=== PATIENT | female | born 1955 | race Caucasian/White ===

== ENCOUNTER 2021-03-12 15:36 | Inpatient (IN) | payer MEDICARE, OTHER, MEDICAID ==
[~2021-03-12] VITALS: Ht 160 cm; Wt 69.6 kg
[~2021-03-12 15:36] MED LIST: ALBU17AE3 IH; ASCO500T20 PO; ASPI-875 PO; BUDE6HFA IH; CYCL10TA9 PO; DIME50TA83 PO; DIPH25TA82 PO; DIVA125T3 PO; EPIN0.3P3 IM; HYDR-2890 PO; LACT1CAP62 PO; LVT.1T PO; METH4TAB PO; MNTL10T PO; NF-ESOM40C PO; SUMA100T3 PO; TRAM50TA2 PO; TRAZ150T42 PO; VITA400T9 PO; VIVELLE DOT 0.1 MG TOP; WELCHOL 625MG PO
[2021-03-12] MEDS ORDERED: CARB1DRO OU (16:18)
[2021-03-12] MEDS ORDERED: RT-ALBUINH IH (16:18)
[2021-03-12] MEDS ORDERED: ALB0.5V INH (16:18)
[2021-03-12] MEDS ORDERED: COLE1TAB PO (16:18)
[2021-03-12] MEDS ORDERED: TRAZ150T72 PO (16:18)
[2021-03-12] MEDS ORDERED: ASPI-1238 PO (16:18)
[2021-03-12] MEDS ORDERED: TR1C15 TP (16:18)
[2021-03-12] MEDS ORDERED: MONT10TA32 PO (16:18)
[2021-03-12] MEDS ORDERED: ACET325C7 PO (16:18)
[2021-03-12] MEDS ORDERED: FOLI20CA PO (16:18)
[2021-03-12] MEDS ORDERED: SUMA100T2 PO (16:18)
[2021-03-12] MEDS ORDERED: NF-ESOM40C PO (16:18)
[2021-03-12] MEDS ORDERED: LISI2.5T PO (16:18)
[2021-03-12] MEDS ORDERED: DOCU100T2 PO (16:18)
[2021-03-12] MEDS ORDERED: NIFE30TA2 PO (16:18)
[2021-03-12] MEDS ORDERED: BUDE10.2 IH (16:18)
[2021-03-12] MEDS ORDERED: LEVO200T6 PO (16:18)
[2021-03-12] MEDS ORDERED: LIRA0.6P SQ (16:18)
[2021-03-12] MEDS ORDERED: SPIR50TA4 PO (16:18)
[2021-03-12] MEDS ORDERED: ATOR40TA70 PO (16:18)
[2021-03-12] MEDS ORDERED: FURO40TA4 PO (16:18)
[2021-03-12] MEDS ORDERED: CYAN500T8 PO (16:18)
[2021-03-12] MEDS ORDERED: SUCR1TAB36 PO (16:18)
[2021-03-12] MEDS ORDERED: EPIN0.3P2 IJ (16:18)
[2021-03-12 17:50] VITALS: BP 121/58
--- NOTE | 2021-03-12 18:12 | PM&R Post Admission Assessment ---
PM&R HP Date of Visit: Mar 12, 2021 Time of Visit: 18:30 History of Present Illness Chief complaint: CVA with left-sided hemiparesis History of present illness: This is a 65-year-old white female who was transferred from [facility] after sustaining a CVA with left-sided hemiparesis. Apparently she was at a rehab facility and she had an abrupt onset of left-sided weakness and x-ray was obtained but patient started experiencing issues and she went to the ER and found to have a CVA and was not a TPA candidate. She remains on oxygen 14/03 since she had acute respiratory failure and pneumonia. Her bowels are moving she had one today. at the bedside. She does get paracenteses on a regular basis due to Lai source of cirrhosis. We will monitor blood sugar closely and initiate aggressive therapy to regain function of the left side. [facility] note: Discharge Diagnoses and Relevant Hospital Course: Active Hospital Problems Diagnosis Acute CVA (cerebrovascular accident) Left hemiparesis Hypokalemia Hypothyroidism Acute on chronic anemia Cerebrovascular accident (CVA) due to occlusion of right middle cerebral artery Abdominal distention Type 2 diabetes mellitus without complication, without long-term current use of insulin Hepatic fibrosis Benign hypertension Reflux esophagitis Resolved Hospital Problems No resolved problems to display. Jovanna oseguera 65 y.o.femalewho was admitted to [facility] on03/09/2021nd found to have a principle diagnosis of Cerebrovascular accident (CVA) due to occlusion of right middle cerebral artery. As per HPI,Jovanna oseguera 65 y.o.femaleadmitted through the emergency room with chief complaint of inability to move her left side. She reports a sudden loss of movement of her left side this past 03/06/2021 while at [facility]. It occurred after she was lifted from the bed to a chair to eat. Loss of movement was for upper and lower extremity. She told staff who ordered an x-ray and then subsequently did not do anything else over the weekend. Patient came to the ER today secondary to difficulty swallowing CT head + for acute infarct right frontal, temporal, parietal lobe. Continue ASA 81 mg Continue lipitor 40 mg Resume lasix, aldactone HOSPITAL ADMINISTRATIVE ASSISTANT eval recommendations noted Continue PT / OT - recommended acute inpatient rehab ECHO -Normal ventricular function. 2. Negative bubble study. 3. Normal right-sided pressures. 4. Normal valvular function Patient is medically stable for discharge to rehab. Patient was advised to follow up with PCP in 2-3 weeks. [facility] note 02/05/21: Jovanna oseguera 65 y.o.femalewhyris was admitted to [facility] on 1and found to have a principle diagnosis of acute on chronic respiratory failure. She is COVID positive. Her breathing has stabilized and she is currently on 4 L supplement oxygen via nasal cannula. Additionally while here, there was a drop in her Hemoglobin while in the hospital. She underwent a colonoscopy and EGD by GI service. There were diverticulosis without noted active bleeding. Additionally, EGD demonstrated Grade 1 esophageal varices, without bleeding. Patient is going to have her home blood thinning agents held for the immediate future. She is going to referred to the GI clinic for ongoing follow-up/management. Of note, pulse rate has been low in the hospital - will not start B-lora for esophageal varices. Patient has had ongoing HTN while in the hospital. Home medications of Nefedpine, lasix and spironolactone. HTCZ was added in the hospital and lisinopril is being added at discharge. Patient has had low potassium while in the hospital. It is being supplemented as an outpatient Dr Skinner: 05/2020: Referring Physician or PCP: Chris Nolan MD CC: Diarrhea, dysphagia, esophageal varices HPI: Jovanna oseguera 64 y.o.femalewhyris is seen in the clinic today for f/u. She has a Lai cirrhosis. Has esophageal varices. She also has dysphagia intermittently. Diarrhea controlled with colestipol. Do not have bloody stool. No side effects from Gi meds reported. Past HPI EGD: 05/2019 - Grade II esophageal varices. - Portal hypertensive gastropathy. - Gastric antral vascular ectasia without bleeding. Colonoscopy:05/2019 - Erythematous mucosa in the cecum. Biopsied. - Erythematous mucosa in the terminal ileum. Biopsied. - External and internal hemorrhoids. - Increased mucosa vascular pattern in the entire examined colon. Recommendation: Hyperplastic and tubular adenoma. Repeat colonoscopy 3 years, 2021. EMS: 05/2019 abnormal esophageal manometry and impedance. Findings suggestEGJoutflow obstruction([place] classification) Recommendations:Continue PPI. Trial ofimdur ABD: 05/2019 Hepatic nodular contour and increased echogenicity, differentialconsiderations, diffuse hepatocellular disease or diffuse fatty infiltration. She is been on MiraLAX, Questran, Bentyl, Flagyl, Fiber, Lomotil and Xifaxan with no improvement in the past 2 years. C. difficile study negative. Her previous appointment she felt Colestid twice a day seemed to work well, she is very pleased with this regimen. She currently takes Nexium once a day for acid reflux control occasionally she will take an extra tablet for breakthrough symptoms HS. She is been on multiple other PPIs including omeprazole/ AcipHex/ Dexilant. Overall she feels PPIs worked fairly well. Previous appointment she was complaining of increased difficulty swallowing, therefore she underwent her recent EGD and motility study that indicated E GJ outflow obstruction and started on isosorbide 30 mg daily. She does not notice any difference in her swallowing ability and complains of a headache with this medicine. She has a long history of fatty steatosis secondary to BMI, hypertriglycerides and diabetes type 2. Her most recent ultrasound indicated advancing fibrosis of the liver. Her recent EGD indicated esophageal varices grade 2. She denies any skin changes, peripheral swelling, confusion, tremors, abnormal bruising or anxiety. 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) Smoking Status: Former Smoker Immunizations Up To Date Tetanus Booster (TDap): Less than 5yrs Date of Pneumonia Vaccine: December 20, 2009 Date of Influenza Vaccine: May 22, 2013 Past Medical History Surgeries: Orthopedic Respiratory: COPD, Emphysema, Pneumonia Cardiac: High Cholesterol, Hypertension Neurological: Neuropathy, Stroke Genitourinary: Bladder Infection Gastrointestinal: Gastroesophageal Reflux, Cirrhosis (From Lai) Musculoskeletal: Arthritis, Chronic Back Pain Endocrine: Hypothyroidsim HEENT: Cataract, Glaucoma Psychosocial: Anxiety, Depression Family History Alcoholism 03 FATHER Cancer 03 FATHER GRANDPARENTS Cancer of colon 03 FATHER Congestive heart failure GRANDPARENTS Family history: Alzheimer's disease 03 FATHER Family history: Cardiovascular disease GRANDPARENTS Family history: Diabetes mellitus 03 FATHER 03 MOTHER GRANDPARENTS Family history: Hypertension 03 FATHER 03 MOTHER Family history: Thyroid disorder 03 MOTHER 09 SISTER Hearing loss 03 MOTHER Hereditary disease 09 SISTER History of - anemia 09 SISTER Stroke 03 MOTHER SON No Family History of: Kidney disease Myocardial infarction PM&R Allergy/Meds/Data Review Allergies Coded Allergies: Sulfa (Sulfonamide Antibiotics) (Unverified Allergy, HIVES, 09/18/13) codeine (Unverified Allergy, HIVES, 09/18/13) exenatide (Unverified Allergy, HIVES, 09/18/13) Uncoded Allergies: IV CONTRAST DYE (Allergy, HIVES, 09/18/13) Home Medications Scheduled Aspirin (Aspirin EC), 81 MG PO DAILY, (Reported) Atorvastatin Calcium (Atorvastatin Calcium), 40 MG PO HS, (Reported) Budesonide/Formoterol Fumarate (Symbicort 160-4.5 Mcg Inhaler), 2 PUFF IH BID, (Reported) Colestipol HCl (Colestipol HCl), 3 GM PO BID, (Reported) Cyanocobalamin (Vitamin B-12) (Vitamin B-12), 500 MCG PO DAILY, (Reported) Esomeprazole Magnesium (Nexium), 40 MG PO DAILY, (Reported) Folic Acid (Folic Acid), 20 MG PO HS, (Reported) Furosemide (Furosemide), 40 MG PO DAILY, (Reported) Levothyroxine Sodium (Levothyroxine Sodium), 200 MCG PO DAILY, (Reported) Liraglutide (Victoza 2-Wil), 0.6 MG SQ DAILY, (Reported) Lisinopril (Lisinopril), 2.5 MG PO DAILY, (Reported) Montelukast Sodium (Montelukast Sodium), 10 MG PO HS, (Reported) Nifedipine (Procardia Xl), 30 MG PO DAILY, (Reported) Spironolactone (Spironolactone), 50 MG PO DAILY, (Reported) Sucralfate (Carafate), 1 GM PO QIDACHS, (Reported) Trazodone HCl (Trazodone HCl), 150 MG PO HS, (Reported) Triamcinolone Acet (Triamcinolone Acetonide 0.1% Cream), 1 APPLIC TP BID, (Reported) Scheduled PRN Acetaminophen (Tylenol), 650 MG PO Q4H PRN for PAIN-MILD (1-4), (Reported) Albuterol Sulfate (Proair Hfa), 1 PUFF IH EVERY 2 HOURS PRN for SHORTNESS OF BREATH, (Reported) Albuterol Sulfate (Albuterol Sulfate), 2.5 MG INH Q4H PRN for SHORTNESS OF BREATH, (Reported) Carboxymethylcellulose Sodium (Refresh Plus), 1 DROP OU PRN PRN for DRY EYES, (Reported) Docusate Sodium (Docusate Sodium), 100 MG PO BID PRN for CONSTIPATION-1ST LINE, (Reported) Epinephrine (Epipen), 0.3 MG IJ PRN PRN for ALLERGIC REACTION, (Reported) Sumatriptan Succinate (Imitrex), 100 MG PO DAILY PRN for MIGRAINE, (Reported) Discontinued Medications Budesonide/Formoterol Fumarate (Symbicort Inhaler 160/4.5 Mcg), 2 PUFF IH BID PRN for SHORTNESS OF BREATH, (Reported) Discontinued Reason: No Longer Taking Cyclobenzaprine Hcl (Cyclobenzaprine Hcl), 10 MG PO BID, (Reported) Discontinued Reason: No Longer Taking Cyclobenzaprine Hcl (Cyclobenzaprine Hcl), 1 EACH PO Q8HR PRN for MUSCLE CRAMPS Discontinued Reason: No Longer Taking Dimenhydrinate (Dramamine), 50 MG PO Q6H PRN for NAUSEA, (Reported) Discontinued Reason: No Longer Taking Diphenhydramine Hcl (Diphenhydramine 25 Mg), 25 MG PO BID, (Reported) Discontinued Reason: No Longer Taking Esomeprazole Mag Trihydrate (Nexium), 40 MG PO DAILY, (Reported) Discontinued Reason: No Longer Taking Hydrocodone Bit/Acetaminophen (Hydrocodon-Acetaminophn 10-325), 1-2 EACH PO Q4H PRN for PAIN Discontinued Reason: No Longer Taking Levothyroxine Sodium (Levothyroxine 100 Mcg Tab), 100 MCG PO DAILY, (Reported) Discontinued Reason: No Longer Taking Methylprednisolone (Medrol Dose Pack), 0 PO UD Discontinued Reason: No Longer Taking Montelukast Sodium (Singulair 10 Mg), 10 MG PO HS, (Reported) Discontinued Reason: No Longer Taking Tramadol Hcl (Tramadol Hcl), 50 MG PO BID, (Reported) Discontinued Reason: No Longer Taking Trazodone Hcl (Trazodone Hcl), 150 MG PO HS, (Reported) Discontinued Reason: No Longer Taking Current Medications Current Medications Reviewed Review of Systems Constitutional: see HPI, malaise, weakness EENTM: no symptoms reported Respiratory: dyspnea on exertion Cardiovascular: no symptoms reported Gastrointestinal: no symptoms reported Genitourinary: no symptoms reported Musculoskeletal: back pain, joint pain Skin: no symptoms reported Psychiatric/Neurological: Anxiety, Weakness Physical Exam Physical Exam Vital Signs Vital Signs - First Documented 03/12/21 17:50 Temp 36.6 Pulse 71 Resp 18 B/P (MAP) 121/58 (79) Pulse Ox 96 O2 Delivery Nasal Cannula O2 Flow Rate 2.00 Capillary Refill : Height, Weight, BMI Height: 5'3.00" Weight: 189lbs. 0.0oz. 85.625804le; 24.80 BMI Method: General Appearance: No Apparent Distress, WD/WN, Chronically ill Eyes: Bilateral Eye Normal Inspection, Bilateral Eye PERRL HEENT: PERRL/EOMI, Normal ENT Inspection, Pharynx Normal Neck: Full Range of Motion, Normal Inspection, Non Tender, Supple, Carotid Bruit Respiratory: Chest Non Tender, Lungs Clear, Normal Breath Sounds, No Accessory Muscle Use, No Respiratory Distress, Decreased Breath Sounds, Other (Maintained on O2 24/7) Cardiovascular: Regular Rate, Rhythm, No Edema, No Gallop, No JVD, No Murmur, Normal Peripheral Pulses Gastrointestinal: Normal Bowel Sounds, No Organomegaly, No Pulsatile Mass, Non Tender, Soft Back: Normal Inspection, No CVA Tenderness, No Vertebral Tenderness Extremity: Normal Capillary Refill, Normal Inspection, Normal Range of Motion, Non Tender, No Calf Tenderness, No Pedal Edema Neurologic/Psychiatric: Alert, Oriented x3, Normal Mood/Affect, Motor Weakness (Left-sided weakness upper extremity 0/5 left lower extremity 1/5) Skin: Normal Color, Warm/Dry Lymphatic: No Adenopathy PM&R Medical Assessment & Plan REHAB/MEDICAL ASSESSMENT AND PLAN: REHAB IMPAIRMENT GROUP: CVA ETIOLOGIC DIAGNOSIS: CVA The comorbidities that impact the patients function and/or functional outcome by: Diabetes, COPD oxygen dependent, Lai induced cirrhosis requiring paracentesis on a regular basis REHAB PLAN: The patient is being admitted to our comprehensive inpatient rehabilitation facility and can tolerate the intensity of service consisting of at least: 180 minutes of therapy a day, 5 out of 7 days a week Rehab treatment will consist of: PT and OT will focus on regaining function of the left lower extremity with the use of assistive devices and improving independence in ADLs The patient/family has a good understanding of our discharge process and will benefit from an interdisciplinary inpatient rehabilitation program. The patient has potential to make improvement and is in need of at least two of the following multidisciplinary therapies including but not limited to physical, occupational, speech, and prosthetics and orthotics. Additionally the patient will need services from respiratory, nutritional services, wound care, psychology, etc. (Customize this to each patient). Given the patients complex condition and risk of further medical complications, rehabilitation services cannot be safely or effectively provided at a lower level of care such as a intermediate facility. BARRIERS TO DISCHARGE: Severe left-sided weakness ESTIMATED LOS: 14 days DISPOSITION: Home with RELEVANT CHANGES SINCE PREADMISSION SCREENING: I have compared the patients medical and functional status at the time of the preadmission screening and there are: no changes PROGNOSIS: Fair REHABILITATION GOALS: 1. PT and OT will focus on regaining function of the left lower extremity with the use of assistive devices and improving independence in ADLs All the above goals were reviewed with the patient and he/she is in agreement. By signing this document, I acknowledge that I have personally performed a full physical examination on this patient within 24 hours of admission to this inpatient rehabilitation facility and have determined the patient to be able to tolerate the above course of treatment at an intensive level for a reasonable period of time. I will be completing a detailed individualized Plan of Care for this patient by day #4 of the patients stay based upon the Preadmission Screen, the Post-Admission Evaluation, and the therapy evaluations. Admission Dx/Comorbidities: (1) CVA (cerebral vascular accident) ICD Codes: I63.9 - Cerebral infarction, unspecified (2) Cirrhosis ICD Codes: K74.60 - Unspecified cirrhosis of liver (3) LAI (nonalcoholic steatohepatitis) ICD Codes: K75.81 - Nonalcoholic steatohepatitis (LAI) (4) Status post abdominal paracentesis ICD Codes: Z98.890 - Other specified postprocedural states (5) Left-sided weakness ICD Codes: R53.1 - Weakness (6) Diabetes ICD Codes: E11.9 - Type 2 diabetes mellitus without complications (7) COPD (chronic obstructive pulmonary disease) ICD Codes: J44.9 - Chronic obstructive pulmonary disease, unspecified (8) Dependence on supplemental oxygen ICD Codes: Z99.81 - Dependence on supplemental oxygen (9) Anemia ICD Codes: D64.9 - Anemia, unspecified (10) Hypertension ICD Codes: I10 - Essential (primary) hypertension (11) Hyperlipidemia ICD Codes: E78.5 - Hyperlipidemia, unspecified (12) Chronic back pain ICD Codes: M54.9 - Dorsalgia, unspecified; G89.29 - Other chronic pain (13) GERD (gastroesophageal reflux disease) ICD Codes: K21.9 - Gastro-esophageal reflux disease without esophagitis (14) Hypothyroidism ICD Codes: E03.9 - Hypothyroidism, unspecified Assessment/Plan Assessment and Plan Assess & Plan/Chief Complaint Assessment: CVA with left-sided weakness severe disability COPD oxygen dependent 14/03 Cirrhosis from LAI Paracenteses on regular basis Anemia Diabetes Hypertension Hypothyroidism Migraines Chronic back pain GERD Anemia Plan: Supportive care Aggressive therapy Oxygen dependent NALLELY IBRAHIM DO Mar 12, 2021 18:12
[2021-03-12] MEDS ORDERED: DOCUSATE SODIUM 100 MG (COLACE) CAP PO PRN ×2 (18:15→18:45)
[2021-03-12] MEDS ORDERED: CALCIUM CARBONATE 500 MG (TUMS) TAB.CHEW PO PRN (18:15)
[2021-03-12] MEDS ORDERED: LACTULOSE SYRUP 10GM/15ML (ENULOSE) 30ML UDC PO PRN (18:15)
[2021-03-12] MEDS ORDERED: ACETAMINOPHEN 325 MG TABLET PO PRN (18:15)
[2021-03-12] MEDS ORDERED: LOPERAMIDE 2 MG (IMODIUM) TABLET PO PRN (18:15)
[2021-03-12] MEDS ORDERED: FLEET ENEMA ADULT 1 EA BTL PR PRN (18:15)
[2021-03-12] MEDS ORDERED: ALPRAZolam 0.25 MG (XANAX) TAB PO PRN (18:15)
[2021-03-12] MEDS ORDERED: RT-ALBUTEROL SULF 2.5 MG/3 ML PRE-MIX VIAL IH PRN (18:30)
[2021-03-12] MEDS ORDERED: SUMATRIPTAN SUCCINATE 100 MG PO PRN (18:30)
[2021-03-12] MEDS ORDERED: ARTIFICAL TEARS 0.4 ML UNIT DOSE (REFRESH PLUS) OU PRN (18:30)
[2021-03-12] MEDS ORDERED: EPINEPHRINE 0.3 MG IJ PRN (18:30)
[2021-03-12] MEDS ORDERED: NON-FORMULARY MEDICATION 1 EA EA (Acetaminophen (Tylenol) 650 MG) PO PRN (18:30)
[2021-03-12] MEDS ORDERED: NON-FORMULARY MEDICATION 1 EA EA (Docusate Sodium 100 MG) PO PRN (18:30)
[2021-03-12] MEDS: ENOXAPARIN 40 MG/0.4 ML (LOVENOX) SYR SC SCH (18:43)
[2021-03-12] MEDS ORDERED: SUMAtriptan 50 MG (IMITREX) TAB PO PRN (18:45)
[2021-03-12] MEDS ORDERED: EPINEPHrine INJECTION 1 MG/ML AMP IM PRN (18:45)
[2021-03-12 20:00] VITALS: BP 105/53
[2021-03-12] MEDS: MONTELUKAST 10 MG (SINGULAIR) TAB PO SCH (20:24)
[2021-03-12] MEDS: MELATONIN 3 MG TABLET PO PRN (20:24)
[2021-03-12] MEDS: TRIAMCINOLONE 0.1% CR (KENALOG) 15 GM TUBE TP SCH (20:25)
[2021-03-12] MEDS: traZODone 150 MG (DESYREL) TABLET PO SCH (20:26)
[2021-03-12] MEDS: ONDANSETRON 4 MG (ZOFRAN) ORAL DISSOLVE TAB PO PRN (20:44)
[2021-03-12] MEDS: DOCUSATE SODIUM 100 MG (COLACE) CAP PO SCH (21:00)
[2021-03-12] MEDS ORDERED: FOLIC ACID 20 MG PO SCH (21:00)
[2021-03-12] MEDS ORDERED: NON-FORMULARY MEDICATION 1 EA EA (Budesonide/Formoterol Fumarate (Symbicort 160-4.5 Mcg In IH SCH (21:00)
[2021-03-12] MEDS: COLESTIPOL 1 GM (COLESTID) TAB PO SCH (21:00)
[2021-03-12] MEDS: SUCRALFATE 1 GM (CARAFATE) TAB PO SCH (21:00)
[2021-03-12] MEDS: SENNA W/DOCUSATE (SENOKOT S) TABLET PO SCH (21:00)
[2021-03-12] MEDS: polyethylene glycoL POWDER 17 GM (MIRALAX) PACK PO SCH (21:00)
[2021-03-12] MEDS: RT--FLUTICASONE/SALMETEROL 232-14 (AIRDUO RespiCLICK) IH SCH (21:18)
[2021-03-13] MEDS: HYDROcodone/APAP 5 MG/325 MG (LORTAB) TAB PO PRN ×2 (05:50→11:14)
[2021-03-13] MEDS: LEVOTHYROXINE 100 MCG (LEVOTHROID) TAB PO SCH (05:51)
[2021-03-13 05:55] LABS: BASOPHILS # (AUTO) 0.1 10^3/uL (0.0-0.1); BASOPHILS % (AUTO) 1 % (0-10); EOSINOPHILS % (AUTO) 0 % (0-10); HEMATOCRIT 26 % (35-52); HEMOGLOBIN 8.1 g/dL (11.5-16.0); LYMPHOCYTES # (AUTO) 1.3 10^3/uL (1.0-4.0); LYMPHOCYTES % (AUTO) 20 % (12-44); MEAN CORPUSCULAR HEMOGLOBIN 24 pg (25-34); MEAN CORPUSCULAR HGB CONC 31 g/dL (32-36); MEAN CORPUSCULAR VOLUME 77 fL (80-99); MEAN PLATELET VOLUME 9.8 fL (9.0-12.2); MONOCYTES # (AUTO) 0.7 10^3/uL (0.0-1.0); MONOCYTES % (AUTO) 10 % (0-12); NEUTROPHILS # (AUTO) 4.5 10^3/uL (1.8-7.8); NEUTROPHILS % (AUTO) 68 % (42-75); PLATELET COUNT 272 10^3/uL (130-400); WHITE BLOOD COUNT 6.6 10^3/uL (4.3-11.0)
[2021-03-13] MEDS: CYANOCOBALAMIN 1,000 MCG (VITAMIN B-12) TABLET PO SCH ×2 (06:02→09:09)
[2021-03-13] MEDS: SUCRALFATE 1 GM (CARAFATE) TAB PO SCH ×4 (06:02→21:32)
[2021-03-13 06:07] LABS: ALBUMIN 2.4 GM/DL (3.2-4.5); POTASSIUM 3.7 MMOL/L (3.6-5.0)
[2021-03-13 06:08] LABS: CALCIUM 7.4 MG/DL (8.5-10.1)
[2021-03-13 06:09] LABS: TOTAL PROTEIN 5.7 GM/DL (6.4-8.2)
[2021-03-13 06:11] LABS: BILIRUBIN,TOTAL 0.8 MG/DL (0.1-1.0)
[2021-03-13 06:13] LABS: CREATININE SERUM 0.83 MG/DL (0.60-1.30)
--- NOTE | 2021-03-13 06:19 | PM&R Progress Note ---
Subjective HPI/CC On Admission Date Seen by Provider: Mar 13, 2021 Time Seen by Provider: 10:00 Subjective/Events-last exam 03/13/21: Pt doing really well DC the martinez catheter Ultrasound will be performed and paracentesis will be performed by Dr. Hernandez Hgb 8.1 give one dose of iron infusion She is reusing Carafate as requested Updated Review of Systems General: Fatigue, Malaise Gastrointestinal: Other (distention) Neurological: Weakness, Incoordination Objective Exam Vital Signs Vital Signs Date Time Temp Pulse Resp B/P (MAP) Pulse Ox O2 Delivery O2 Flow Rate FiO2 03/13/21 19:41 2.00 03/13/21 11:05 95 Nasal Cannula 03/13/21 07:50 36.4 67 14 107/52 (70) Capillary Refill : General Appearance: No Apparent Distress, WD/WN, Chronically ill HEENT: PERRL/EOMI, Normal ENT Inspection, Pharynx Normal Neck: Full Range of Motion, Normal Inspection, Non Tender, Supple, Carotid Bruit Respiratory: Chest Non Tender, Lungs Clear, Normal Breath Sounds, No Accessory Muscle Use, No Respiratory Distress, Decreased Breath Sounds, Other (Maintained on O2 24/7) Cardiovascular: Regular Rate, Rhythm, No Edema, No Gallop, No JVD, No Murmur, Normal Peripheral Pulses Gastrointestinal: Normal Bowel Sounds, No Organomegaly, No Pulsatile Mass, Non Tender, Soft, Distended, Other (ascites) Back: Normal Inspection, No CVA Tenderness, No Vertebral Tenderness Extremity: Normal Capillary Refill, Normal Inspection, Normal Range of Motion, Non Tender, No Calf Tenderness, No Pedal Edema Neurologic/Psychiatric: Alert, Oriented x3, Normal Mood/Affect, Motor Weakness (Left-sided weakness upper extremity 0/5 left lower extremity 1/5) Skin: Normal Color, Warm/Dry Lymphatic: No Adenopathy Results/Procedures Lab Laboratory Tests 03/13/21 05:30 Patient resulted labs reviewed. [facility] Transfers Therapy Code Descriptions/Definitions Functional [place]es Measure: 0=Not Assessed/NA 4=Minimal Assistance 1=Total Assistance 5=Supervision or Setup 2=Maximal Assistance 6=Modified [place]es 3=Moderate Assistance 7=Complete IndependenceSCALE: Activities may be completed with or without assistive devices. 0-Dfneozkknb-yuiuldd completes the activity by him/herself with no assistance from a helper. 5-Set-up or Clean-up Assistance-helper sets up or cleans up; patient completes activity. [place] assists only prior to or following the activity. 4-Supervision or Touching Assistance-helper provides verbal cues and/or touching/steadying and/or contact guard assistance as patient completes activity. Assistance may be provided throughout the activity or intermittently. 3-Partial/Moderate Assistance-helper does LESS THAN HALF the effort. [place] lift s, holds or supports trunk or limbs, but provides less than half the effort. 2-Substantial/Maximal Assistance-helper does MORE THAN HALF the effort. [place] lifts or holds trunk or limbs and provides more than half the effort. 9-Wxbxrhbux-bddkgk does ALL the effort. Patient does none of the effort to complete the activity. Or, the assistance of 2 or more helpers is required for the patient to complete the activity. If activity was not attempted, code reason: 7-Patient Refused. 9-Not Applicable-not attempted and the patient did not perform the activity before the current illness, exacerbation or injury. 10-Not Attempted due to Environmental Limitations-(lack of equipment, weather restraints, etc.). 88-Not Attempted due to Medical Conditions or Safety Concerns. Assessment/Plan Assessment and Plan Assess & Plan/Chief Complaint Assessment: CVA with left-sided weakness severe disability COPD oxygen dependent 14/03 Cirrhosis from GROVES Paracenteses on regular basis Anemia Diabetes Hypertension Hypothyroidism Migraines Chronic back pain GERD Anemia Ascites Plan: Supportive care Aggressive therapy Oxygen dependent 03/13/21: Paracentesis Monitor closely Venofer Iron level pending (1) CVA (cerebral vascular accident) (2) Cirrhosis (3) GROVES (nonalcoholic steatohepatitis) (4) Status post abdominal paracentesis (5) Left-sided weakness (6) Diabetes (7) COPD (chronic obstructive pulmonary disease) (8) Dependence on supplemental oxygen (9) Anemia (10) Hypertension (11) Hyperlipidemia (12) Chronic back pain (13) GERD (gastroesophageal reflux disease) (14) Hypothyroidism NALLELY IBRAHIM DO Mar 13, 2021 06:19
[2021-03-13 07:50] VITALS: BP 107/52
[2021-03-13] MEDS: polyethylene glycoL POWDER 17 GM (MIRALAX) PACK PO SCH ×2 (08:52→21:31)
[2021-03-13] MEDS: COLESTIPOL 1 GM (COLESTID) TAB PO SCH ×2 (08:52→21:31)
[2021-03-13] MEDS: DOCUSATE SODIUM 100 MG (COLACE) CAP PO SCH ×2 (08:52→21:30)
[2021-03-13] MEDS: SENNA W/DOCUSATE (SENOKOT S) TABLET PO SCH ×2 (08:53→21:31)
--- NOTE | 2021-03-13 08:58 | Occupational Therapy Eval ---
OT Evaluation-General/PLF Medical Diagnosis Admission Date Mar 12, 2021 at 17:48 Medical Diagnosis: CVA: L side hemiparesis Onset Date: Mar 06, 2021 Therapy Diagnosis Therapy Diagnosis: Decreased ADL status Height/Weight Height (Feet): 5 Height (Inches): 3.00 Weight (Pounds): 189 Weight (Ounces): 0.0 Precautions Precautions/Isolations: Aspiration, Fall Prevention, Standard Precautions Referral Physician: Faiza Arevalo DO Referral Reason: Activity Tolerance, Self Care, Evaluation/Treatment, Strengthening/ROM Medical History Pertinent Medical History: COPD, CVA, DM, GERD Additional Medical History COPD, neuropathy, GERD, anx/ depression, DM Current History Pt within ARF ([facility]) when L side hemiparesis began 03/06. Outside window of TpA. Admits 03/12 for [facility] ARU rehab Reviewed History: Yes Social History Home: Single Level Current Living Status: Spouse Entry Into Home: Stairs With Railing Steps Into Home: 6 Steps Inside Home: 0 ADL-Prior Level of Function SCALE: Activities may be completed with or without assistive devices. 6-Ovujwflpsx-htplhew completes the activity by him/herself with no assistance from a helper. 5-Set-up or Clean-up Assistance-helper sets up or cleans up; patient completes activity. [place] assists only prior to or following the activity. 4-Supervision or Touching Assistance-helper provides verbal cues and/or t ouching/steadying and/or contact guard assistance as patient completes activity. Assistance may be provided throughout the activity or intermittently. 3-Partial/Moderate Assistance-helper does LESS THAN HALF the effort. [place] lifts, holds or supports trunk or limbs, but provides less than half the effort. 2-Substantial/Maximal Assistance-helper does MORE THAN HALF the effort. [place] lifts or holds trunk or limbs and provides more than half the effort. 3-Newlnptlm-cpexuk does ALL the effort. Patient does none of the effort to complete the activity. Or, the assistance of 2 or more helpers is required for the patient to complete the activity. If activity was not attempted, code reason: 7-Patient Refused. 9-Not Applicable-not attempted and the patient did not perform the activity before the current illness, exacerbation or injury. 10-Not Attempted due to Environmental Limitations-(lack of equipment, weather restraints, etc.). 88-Not Attempted due to Medical Conditions or Safety Concerns. ADL PLOF Comments IND with ADLs without use of AE. Self Care: Independent Functional Cognition: Independent DME/Equipment: Bath Chair, Tub/Shower DME/Equipment Comments walker, SPC, and sc. 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 Pt's verbals slow, slight confusion/ decreased attention intermittently. Pt agrees to tx. Mental Status/Objective Patient Orientation: Person, Place, Situation Attachments: Oxygen Current Glasses/Contacts: Yes Hearing Aids: No Dentures/Partials: Yes Hand Dominance: Right Upper Extremity ROM WFL RUE, flaccid LUE Upper Extremity Coordination WFL RUE, flaccid LUE Upper Extremity Sensation WFL BUE, denies paresthesias Upper Extremity Strength WFL RUE, flaccid LUE (shoulder distally) ADL-Treatment Eating (QC): 5 (s/u (unable to utilize LUE for coordination/ opening/ cutting tasks)) Oral Hygiene (QC): 3 (mod A per clinical judgment, though pt denies at this time.) Shower/Bathe Self (QC): 1 (TD (Ax2 for bottom in stance), however pt able to complete all UB excluding RUE.) Upper Body Dressing (QC): 3 (mod A for threading LUE and bringing to RUE) Lower Body Dressing (QC): 1 (Ax2 in stance (pt able to bring from mid-zendejas to mid thigh in sit) fair sitting balance.) On/Off Footwear (QC): 2 (max A BLE) Toileting Hygiene (QC): 1 (Ax2 (max)) Other Treatments Pt is introduced to OT role and ARU expectations. Pt agrees to OT eval/ treat. Pt bed mob with increased time, slight HOB elevation to sit with min A. Scoots to EOB with max A. Pt demo's fair balance EOB, CGA-min A intermittently. Pt's LUE flaccid, no decrease in sensation, slight posterior sublux (1/2 finger width). Vision assessed with minimal conversion, good tracking, states only difference is "slight blurriness." Pt completes LB washing with max A. Pt sit to stand with mod A, stands with max A, SPT to chair with mod A. Pt and OT address L UE positioning and dressing L prior to R. Pt requires cues prior to dressing each time. Pt requires Ax2 for LB dressing and bottom hygiene (slight BM). Pt's LUE ranged, educated on positioning of LUE in chair/ in bed. Pillow placed. Pt max A sit to stand to adjust hips towards back of chair, positioned for comfort. All needs met, call light in reach. Education OT Patient Education: Correct positioning, Modified ADL techniques, Purpose of tx/functional activities, Rehab process, Safety issues, Transfer techniques Teaching Recipient: Patient Teaching Methods: Demonstration, Discussion Response to Teaching: Verbalize Understanding, Return Demonstration, Reinforcement Needed OT Short Term Goals Short Term Goals Oral hygiene: 5 Toileting hygiene: 2 Shower/bathe self: 2 Upper body dressin Lower body dressin OT Dietary Aid Goals Dietary Aid Goals Time Frame: Mar 27, 2021 Eating (QC): 6 Oral Hygiene (QC): 6 Toileting Hygiene (QC): 4 Shower/Bathe Self (QC): 4 Upper Body Dressing (QC): 6 Lower Body Dressing (QC): 4 On/Off Footwear (QC): 4 Additional Goals: 1-Demonstrate ADL Tasks, 2-Verbalize Understanding, 3-ImproveStrength/Feliberto 1=Demonstrate adherence to instructed precautions during ADL tasks. 2=Patient will verbalize/demonstrate understanding of assistive devices/modifications for ADL. 3=Patient will improve strength/tolerance for activity to enable patient to perform ADL's. OT Education/Plan Problem List/Assessment Assessment: Decreased Activ Tolerance, Decreased Safety Aware, Decreased UE Strength, Dependent Transfers, Impaired Bed Mobility, Impaired Cognition, Impaired Coordination, Impaired Funct Balance, Impaired I ADL's, Impaired Self- Care Skills, Restricted Funct UE ROM Discharge Recommendations Plan/Recommendations: Continue POC Therapy Discharge Recommendati: Assisted Living, Bath Aide, Post Acute OT Equpiment Recommendations-D/C: Rails on Tub/Shower, Hip Kit Treatment Plan/Plan of Care Treatment,Training & Education: Yes Patient would benefit from OT for education, treatment and training to promote independence in ADL's, mobility, safety and/or upper extremity function for ADL's. Plan of Care: ADL Retraining, Caregiver Training, Cognitive Retraining, Functional Mobility, Group Exercise/Act as Ind, Orthotic Fitting/Training, UE Funct Exercise/Act, UE Neuromus Re-Ed/Coord, Visual/Perceptual Retrain, W/C Management Training Treatment Duration: Mar 27, 2021 Frequency: At least 5 of 7 days/Wk (IRF) (05/03 status) Estimated Hrs Per Day: 1.5 hours per day Agreement: Yes Rehab Potential: Fair Time/GCodes Start Time: 08:00 Stop Time: 09:00 Total Time Billed (hr/min): 60 Billed Treatment Time 1, EVM, ADL 3 (60) JUSTIN MARTIN OTR Mar 13, 2021 08:58
[2021-03-13] MEDS ORDERED: NON-FORMULARY MEDICATION 1 EA EA (Levothyroxine Sodium 200 MCG) PO SCH (09:00)
[2021-03-13] MEDS ORDERED: NON-FORMULARY MEDICATION 1 EA EA (Liraglutide (Victoza 2-Pak) 0.6 MG) SQ SCH (09:00)
[2021-03-13] MEDS ORDERED: NON-FORMULARY MEDICATION 1 EA EA (Lisinopril 2.5 MG) PO SCH (09:00)
[2021-03-13] MEDS ORDERED: NON-FORMULARY MEDICATION 1 EA EA (Cyanocobalamin (Vitamin B-12) (Vitamin B-12) 500 MCG) PO SCH (09:00)
[2021-03-13] MEDS ORDERED: NON-FORMULARY MEDICATION 1 EA EA (Spironolactone 50 MG) PO SCH (09:00)
[2021-03-13] MEDS ORDERED: NON-FORMULARY MEDICATION 1 EA EA (Esomeprazole Magnesium (Nexium) 40 MG) PO SCH (09:00)
[2021-03-13] MEDS: SPIRONOLACTONE 25 MG (ALDACTONE) TAB PO SCH (09:09)
[2021-03-13] MEDS: lisINopril 5 MG (PRINIVIL) TABLET PO SCH (09:09)
[2021-03-13] MEDS: TRIAMCINOLONE 0.1% CR (KENALOG) 15 GM TUBE TP SCH ×2 (09:09→21:33)
[2021-03-13] MEDS: FUROSEMIDE 40 MG (LASIX) TAB PO SCH (09:09)
[2021-03-13] MEDS: ASPIRIN E.C. 81 MG (ECOTRIN) TAB PO SCH (09:09)
[2021-03-13] MEDS: PANTOPRAZOLE 40 MG (PROTONIX) TAB PO SCH (09:11)
[2021-03-13] MEDS: NIFEdipine ER 30 MG (PROCARDIA XL) TAB PO SCH (09:13)
[2021-03-13] MEDS ORDERED: IRON SUCROSE 200 MG/10 ML (VENOFER) VIAL IV ONE (10:00)
--- NOTE | 2021-03-13 10:44 | ST Cognitive Linguistic Eval ---
Speech Evaluation-General Medical Diagnosis CVA: L side hemiparesis Onset Date: Mar 06, 2021 Therapy Diagnosis Therapy Diagnosis: Cognitive-communication Medical History Pertinent Medical History: COPD, CVA, DM, GERD Reviewed History: Yes Social History Current Living Status: Spouse Speech PLF-Current Status Prior Level of Function Patient was in a rehab SNF for previous debility when she had her CVA. Subjective Patient was pleasant and cooperative with the cognitive assessment. Language Eval: Auditory Comprehends Simple Yes/No Ques: Functional Indent/Objects [place]: Functional Ident/Pics in [place]: Functional Follows 1-Step Commands: Functional Follows Complex Directions: Mild Follows General Conversations: Functional Language Eval: Verbal Language Completes Spontaneous Greeting: Functional Produces Auto, Serial Info: Functional Imitates Simple Words/Phrases: Mild Requests Basic Needs: Functional States Basic Personal Info: Functional Expresses Complex Ideas: Mild Objective Cognitive Domain Attention: Mild Memory: Mild Problem Solving: Mild Executive Functions: Mild Visuospatial Skills: Mild Composite Severity Rating: Mild Clock Drawing Severity Rating: Mild Objective Formal/Standardized Tests [facility] Status ([facility]) Results 24/30, Mild Neurocognitive Disorder range of function Oral Motor/Speech Production Within Normal Limits Impression Patient is a pleasant 65 y/o female who was admitted to the ARU s/p CVA with left sided weakness. Patient was given the [facility] at bedside for cognitive assessment with a score of 24/30 obtained. Patient demonstrates deficits with cognitive function for all areas of daily tasks. Patient's score is within the MNCD range of function. Patient will receive skilled ST with focus on safety awareness, memory and problem solving. The patient's swallow was also assessed due to recent swallowing difficulty. Patient is on a regular consistency diet which she is tolerating without s/s of aspiration. She is currently on thin liquids which was recently upgraded from thickened consistency. Patient will remain on current diet with diet assessment as needed. Speech Patient Assess Expression of Ideas/Wants: Exhibits (3) Understanding Verbal Content: Usually Understands (3) Brief Interview-Mental Status: Yes Repetition of Three Words: Three (3) Temporal Orientation: Year: Correct (3) Temporal Orientation: Month: Accurate within 5 days(2) Temporal Orientation: Day: Correct (1) Recall : Wear to say "Sock": Yes,after cueing (1) Recall : Color: Yes, after cueing (1) Recall : Bed: Yes,after cueing (1) Memory/Recall Ability: Current season, That he or she is in a hsp/hsp unit Speech Short Term Goals Short Term Goals Short Term Goals 1) Patient will complete memory tasks related to her daily needs at 80% or greater with minimal cues. 2) Patient will complete safety awareness tasks related to her daily needs at 80% or greater with minimal cues. 3) Patient will complete problem solving tasks related to her daily needs at 80% or greater with minimal cues. Speech Half-Way Goals Gas Examiner Goals Patient will improve cognitive-communication abilities in order to require less assist with daily tasks. Speech-Plan Patient/Family Goals Patient/Family Goals: Patient plans on returning to her home where she lives with her . She does state she may have to return to the rehab ctr short term prior to returning to her home. She states her home has black mold which her is in the process of removing. Treatment Plan Speech Therapy Treatment Plan: Continue Plan of Care Patient completed trials of cracker, juice without difficulty of intake. Patient will be monitored with oral intake for least restrictive diet. Treatment Duration: Apr 03, 2021 Frequency: 4 times per week Estimated Hrs Per Day: .5 hour per day Rehab Potential: Fair Barriers to Learning: Patient's recent CVA, cognitive deficits, safety awareness deficit Pt/Family Agrees to Plan: Yes Safety Risks/Education Teaching Recipient: Patient Teaching Methods: Discussion Response to Teaching: Verbalize Understanding Education Topics Provided: Safety within her room, utilization of the call light as needed, communication of wants/needs Time Speech Therapy Time In: 10:00 Speech Therapy Time Out: 10:30 Total Billed Time: 30 Billed Treatment Time 1, XUAN, CLEMENCIA, DYSEVS, DYST ADRIANE Sandhu Mar 13, 2021 10:44
[2021-03-13] MEDS: RT--FLUTICASONE/SALMETEROL 232-14 (AIRDUO RespiCLICK) IH SCH ×2 (11:05→19:41)
[2021-03-13] MEDS: fentaNYL PATCH 25 MCG (DURAGESIC) TD SCH (11:13)
[2021-03-13] MEDS: ONDANSETRON 4 MG (ZOFRAN) ORAL DISSOLVE TAB PO PRN (11:14)
--- NOTE | 2021-03-13 12:00 | Occupational Ther Daily Note ---
OT Current Status-Daily Note Subjective Pt alert, lying in bed. Pt agrees to therapy. No c/o pain at this time. Mental Status/Objective Patient Orientation: Person, Place, Time, Situation Attachments: Oxygen ADL-Treatment Therapy Code Descriptions/Definitions Functional [place] Measure: 0=Not Assessed/NA 4=Minimal Assistance 1=Total Assistance 5=Supervision or Setup 2=Maximal Assistance 6=Modified [place] 3=Moderate Assistance 7=Complete IndependenceSCALE: Activities may be completed with or without assistive devices. 0-Jxkbjriako-ofsdkbv completes the activity by him/herself with no assistance from a helper. 5-Set-up or Clean-up Assistance-helper sets up or cleans up; patient completes activity. [place] assists only prior to or following the activity. 4-Supervision or Touching Assistance-helper provides verbal cues and/or touching/steadying and/or contact guard assistance as patient completes activity. Assistance may be provided throughout the activity or intermittently. 3-Partial/Moderate Assistance-helper does LESS THAN HALF the effort. [place] lifts, holds or supports trunk or limbs, but provides less than half the effort. 2-Substantial/Maximal Assistance-helper does MORE THAN HALF the effort. [place] lifts or holds trunk or limbs and provides more than half the effort. 0-Vnuqkgqlx-jugpry does ALL the effort. Patient does none of the effort to complete the activity. Or, the assistance of 2 or more helpers is required for the patient to complete the activity. If activity was not attempted, code reason: 7-Patient Refused. 9-Not Applicable-not attempted and the patient did not perform the activity before the current illness, exacerbation or injury. 10-Not Attempted due to Environmental Limitations-(lack of equipment, weather restraints, etc.). 88-Not Attempted due to Medical Conditions or Safety Concerns. Other Treatment Educated pt on self-ROM using R hand to assist L hand. Pt demonstrated understanding of technique and that pt is able to complete throughout the day. PROM of L UE, no tone or muscle movement noted at this time. After therapy, pt lying in bed positioned for lunch. Call light/phone in reach. All needs met in room. OT Short Term Goals Short Term Goals Oral hygiene: 5 Toileting hygiene: 2 Shower/bathe self: 2 Upper body dressin Lower body dressin OT Senior Catering Sales Manager Goals Senior Catering Sales Manager Goals Time Frame: Mar 27, 2021 Eating (QC): 6 Oral Hygiene (QC): 6 Toileting Hygiene (QC): 4 Shower/Bathe Self (QC): 4 Upper Body Dressing (QC): 6 Lower Body Dressing (QC): 4 On/Off Footwear (QC): 4 Additional Goals: 1-Demonstrate ADL Tasks, 2-Verbalize Understanding, 3- ImproveStrength/Feliberto 1=Demonstrate adherence to instructed precautions during ADL tasks. 2=Patient will verbalize/demonstrate understanding of assistive devices/modifications for ADL. 3=Patient will improve strength/tolerance for activity to enable patient to perform ADL's. OT Education/Plan Problem List/Assessment Assessment: Decreased Activ Tolerance, Decreased Safety Aware, Decreased UE Strength, Impaired Bed Mobility, Impaired Self-Care Skills, Restricted Funct UE ROM Discharge Recommendations Plan/Recommendations: Continue POC Treatment Plan/Plan of Care Patient would benefit from OT for education, treatment and training to promote independence in ADL's, mobility, safety and/or upper extremity function for ADL's. Plan of Care: ADL Retraining, Caregiver Training, Cognitive Retraining, Functional Mobility, Group Exercise/Act as Ind, Orthotic Fitting/Training, UE F unct Exercise/Act, UE Neuromus Re-Ed/Coord, Visual/Perceptual Retrain, W/C Management Training Treatment Duration: Mar 27, 2021 Frequency: At least 5 of 7 days/Wk (IRF) (15/ status) Estimated Hrs Per Day: 1.5 hours per day Agreement: Yes Rehab Potential: Fair Time/GCodes Start Time: 11:35 Stop Time: 12:00 Total Time Billed (hr/min): 25 Billed Treatment Time 1 visit-NM 2 (25 min) REGINE RAHMAN Mar 13, 2021 12:00
--- NOTE | 2021-03-13 12:22 | Physical Therapy Evaluation ---
CARRINGTON LAUREANO PT 03/13/21 1222: PT Evaluation-General Medical Diagnosis Admission Date Mar 12, 2021 at 17:48 Medical Diagnosis: CVA: L side hemiparesis Onset Date: Mar 06, 2021 Therapy Diagnosis Therapy Diagnosis: gait instability; decreased mobility Height/Weight Height (Feet): 5 Height (Inches): 3.00 Weight (Pounds): 189 Weight (Ounces): 0.0 Precautions Precautions/Isolations: Aspiration, Fall Prevention, Standard Precautions Weight Bear Status Right Lower Extremity: Right Full Weight Bearing Left Lower Extremity: Left Full Weight Bearing Referral Physician: Faiza Arevalo DO Reason for Referral: Evaluation/Treatment Medical History Pertinent Medical History: Arthritis, Back Injury, CABG, COPD, CVA, DM, GERD, HTN, Smoking Additional Medical History left TKA, (B) carpal tunnel repair Current History Pt was hospitalized in mid January with COVID 19. At discharge from [facility] she went to a skilled rehab facility for further strengthening. While at [facility] she had a stroke. The stroke occurred on 03/07/21. It was a (R) middle cerebral artery occlusion. She now has (L) sided weakness. Reviewed History: Yes Social History Home: Single Level Current Living Status: Spouse Entry Into Home: Stairs With Railing PT Steps Into Home: 6 PT Steps Inside Home: 0 Prior Prior Level of Function SCALE: Activities may be completed with or without assistive devices. 1-Pgitggqnyr-vdtmjrc completes the activity by him/herself with no assistance from a helper. 5-Set-up or Clean-up Assistance-helper sets up or cleans up; patient completes activity. [place] assists only prior to or following the activity. 4-Supervision or Touching Assistance-helper provides verbal cues and/or touching/steadying and/or contact guard assistance as patient completes ac tivity. Assistance may be provided throughout the activity or intermittently. 3-Partial/Moderate Assistance-helper does LESS THAN HALF the effort. [place] lifts, holds or supports trunk or limbs, but provides less than half the effort. 2-Substantial/Maximal Assistance-helper does MORE THAN HALF the effort. [place] lifts or holds trunk or limbs and provides more than half the effort. 8-Ujovhqimj-aqxbvu does ALL the effort. Patient does none of the effort to complete the activity. Or, the assistance of 2 or more helpers is required for the patient to complete the activity. If activity was not attempted, code reason: 7-Patient Refused. 9-Not Applicable-not attempted and the patient did not perform the activity before the current illness, exacerbation or injury. 10-Not Attempted due to Environmental Limitations-(lack of equipment, weather restraints, etc.). 88-Not Attempted due to Medical Conditions or Safety Concerns. Bed Mobility: 6 Transfers (B,C,W/C): 6 Gait: 6 Stairs: 6 Indoor Mobility (Ambulation): Independent Stairs: Independent Prior Devices Use: Walker Prior Device Use: intermittent use of a 4 wheel walker Above ratings were based on her pre COVID condition. PT Evaluation-Current Subjective Pt reports she has made good progress over the last serval days. She plans to return to her home with her . Objective Patient Orientation: Person, Place, Time, Situation Attachments: Oxygen, Prater Catheter ROM/Strength ROM Lower Extremities (R) ROM is normal, (L) LE is roughly 50% restricted secondary to weakness and poor motor control from CVA Strength Lower Extremities (R) limb 4/5, (L) limb 2/5 Integumentary/Posture Bladder Incontinence: Prater Cath Sensory Vision: Functional Hearing: Functional Hand Dominance: Right Sensation Right Upper Extremit: Intact Sensation Left Upper Extremity: Intact Sensation Right Lower Extremit: Intact Sensation Left Lower Extremity: Intact Transfers Roll Left & Right (QC): 2 Sit to Lying (QC): 2 Lying to Sitting/Side of Bed(Q: 2 Sit to Stand (QC): 3 Chair/Zmo-of-Zoamx Xfer(QC): 2 Toilet Transfer (QC): 2 Car Transfer (QC): 1 Required maximal assist to slide into the car due to weakness. Simulated a sampler pickup height car transfer as that is the family vehicle. Gait Does the Patient Walk?: Yes Mode of Locomotion: Both Anticipated Mode of Locomotion: Walk Walk 10 feet (QC): 1 Walk 50 ft with 2 Turns(QC): 88 Walk 150 ft (QC): 88 Walking 10ft/uneven surface-QC: 88 Distance: 10ft Gait Assistive Device: Parallel Bars Comments/Gait Description Ambulated 10ft in parallel bars with Min assist to block the (L) knee. Pt became very anxious which led to shortness of breath. She had to sit to regain composure. This task was repeated multiple times. Wheelchair Training Does the Pt Use a Wheelchair?: Yes Distance: 50 Wheel 50 ft with 2 turns (QC): 3 Wheel 150 ft (QC): 88 Type of Wheelchair: Manual Stairs 1 Step (curb) (QC): 88 4 Steps (QC): 88 12 Steps (QC): 88 Pt not safe to attemp stair ambulation at this time Balance Sitting Static: Fair Sitting Dynamic: Poor Standing Static: Poor Standing Dynamic: Poor Picking up an Object (QC): 88 Assessment/Needs Pt is showing fair motor control in the (L) LE. She has significant weakness in the (L) leg with poor dorsiflexion. Some of the weakness appears to be pre-existing based on low muscle mass and tone throughtout the LEs. She has good potential to make gains based on motor control and improving strength in the (L) side. Pt will benefit from a skilled rehab stay to promote d/c to home. Rehab Potential: Good PT Short Term Goals Short Term Goals Time Frame: Mar 20, 2021 Roll Left & Right: 4 Sit to lyin Lying to sitting on side of be: 4 Sit to stand: 5 Chair/qwx-ch-bfkvy transfer: 4 Toilet transfer: 4 Car transfer: 4 Walk 10 feet: 4 Walk 50 feet with two turns: 4 Walk 150 feet: 88 Walking 10ft on uneven surface: 88 1 step (curb): 4 4 steps: 88 12 steps: 88 Picking up objects: 88 Does pt use a wc or scooter: Yes Wheel 50ft w/2 turns: 5 Wheel 150 feet: 5 Type: Manual PT [place] Cr[place] Operator Goals [facility] Goals PT [place] Operator Goals Time Frame: Apr 03, 2021 Roll Left & Right (QC): 6 Sit to Lying (QC): 6 Lying-Sitting on Side/Bed(QC): 6 Sit to Stand (QC): 6 Chair/Dxa-uq-Hyfzg Xfer(QC): 6 Toilet Transfer (QC): 5 Car Transfer (QC): 4 Does the Patient Walk: Yes Walk 10 feet (QC): 5 Walk 50ft with 2 Turns (QC): 5 Walk 150 ft (QC): 5 Walking 10ft on Uneven Surface: 5 1 Step (curb) (QC): 5 4 Steps (QC): 4 12 Steps (QC): 88 Picking up an Object (QC): 88 Wheel 50 feet with 2 turns (QC: 6 Type: Manual Wheel 150 feet: 6 Type: Manual PT Plan Problem List Problem List: Activity Tolerance, Functional Strength, Safety, Balance, Gait, Transfer, Bed Mobility, ROM Treatment/Plan Treatment Plan: Continue Plan of Care Treatment Plan: Bed Mobility, Concurrent Therapy, Functional Strength, Group Therapy, Gait, Safety, Therapeutic Exercise Treatment Duration: Apr 03, 2021 Frequency: 11 times per week Estimated Hrs Per Day: 1.5 hours per day Patient and/or Family Agrees t: Yes Discharge Recommendations Target Placement home Time/GCodes Time In: 900 Time Out: 1000 Total Billed Treatment Time: 60 Total Billed Treatment visit, Eval High Complexity 45 min, NM 15 min FAIZA AREVALO DO 03/13/21 1337: CARRINGTON LAUREANO PT Mar 13, 2021 12:22 FAIZA AREVALO DO Mar 13, 2021 13:37
--- NOTE | 2021-03-13 13:05 | Diagnostic Imaging Report ---
PROCEDURE: US Abdomen, limited. TECHNIQUE: Multiple realtime grayscale images were obtained over the abdomen in various projections. INDICATION: Evaluation for ascites. Abdominal distention. FINDINGS: There is moderate amount of ascites present demonstrated in all 4 quadrants. IMPRESSION: Moderate ascites is present. Dictated by: Dictated on workstation # [id number]
[2021-03-13] MEDS ORDERED: PATIENT MAY USE OWN MED,SINGLE MED PO SCH (14:00)
--- NOTE | 2021-03-13 14:19 | Consultation - Surgery ---
History of Present Illness History of Present Illness Patient Consulted On(tom/time) 03/13/21 14:19 Date Seen by Provider: Mar 13, 2021 Time Seen by Provider: 14:19 History of Present Illness Consult requested by Dr. Arevalo for ascites possible paracentesis. Patient is a 65-year-old female who with history of stroke with left-sided weakness. She is also known to have ascites. She has had to have several paracentesis as before. She states this is secondary to liver disease. Patient states that she is not having any significant discomfort with her ascites. She thinks that her belly is getting is slightly larger. She states that nothing was seems to make it worse that she knows of but when she does have a paracentesis her abdomen gets better. Patient states that her abdomen does get significantly larger than what it is now. She had an ultrasound that demonstrated ascites in all 4 quadrants. Moderate amount. She denies any nausea vomiting fever sweats chills shortness of breath or chest pain at this time. Allergies and Home Medications Allergies Coded Allergies: Sulfa (Sulfonamide Antibiotics) (Unverified Allergy, HIVES, 09/18/13) codeine (Unverified Allergy, HIVES, 09/18/13) exenatide (Unverified Allergy, HIVES, 09/18/13) Uncoded Allergies: IV CONTRAST DYE (Allergy, HIVES, 09/18/13) Home Medications Acetaminophen 325 Mg Capsule, 650 MG PO Q4H PRN for PAIN-MILD (1-4), (Reported) Last Action: Converted Albuterol Sulfate 1 Puff Puff, 1 PUFF IH EVERY 2 HOURS PRN for SHORTNESS OF BREATH, (Reported) Last Action: Continued Albuterol Sulfate 2.5 Mg/0.5 Ml Vial.neb, 2.5 MG INH Q4H PRN for SHORTNESS OF BREATH, (Reported) Last Action: Continued Aspirin 81 Mg Tablet.dr, 81 MG PO DAILY, (Reported) Last Action: Continued Atorvastatin Calcium 40 Mg Tablet, 40 MG PO HS, (Reported) Last Action: Continued Budesonide/Formoterol Fumarate 10.2 Gm Hfa.aer.ad, 2 PUFF IH BID, (Reported) Last Action: Converted Carboxymethylcellulose Sodium 1 Each Droperette, 1 DROP OU PRN PRN for DRY EYES, (Reported) Last Action: Continued Colestipol HCl 1 Gm Tablet, 3 GM PO BID, (Reported) TAKES 3 (1GM) TABS Last Action: Continued Cyanocobalamin (Vitamin B-12) 500 Mcg Tablet, 500 MCG PO DAILY, (Reported) Last Action: Converted Docusate Sodium 100 Mg Tablet, 100 MG PO BID PRN for CONSTIPATION-1ST LINE, (Reported) Last Action: Converted Epinephrine 0.3 Mg/0.3 Ml Auto.injct, 0.3 MG IJ PRN PRN for ALLERGIC REACTION, (Reported) Last Action: Converted Esomeprazole Magnesium 40 Mg Cap, 40 MG PO DAILY, (Reported) Last Action: Converted Folic Acid 20 Mg Capsule, 20 MG PO HS, (Reported) Last Action: Converted Furosemide 40 Mg Tablet, 40 MG PO DAILY, (Reported) Last Action: Continued Levothyroxine Sodium 200 Mcg Tablet, 200 MCG PO DAILY, (Reported) Last Action: Converted Liraglutide 0.6 Mg/0.1 Ml Pen.injctr, 0.6 MG SQ DAILY, (Reported) Last Action: Converted Lisinopril 2.5 Mg Tablet, 2.5 MG PO DAILY, (Reported) Last Action: Converted Montelukast Sodium 10 Mg Tablet, 10 MG PO HS, (Reported) Last Action: Continued Nifedipine 30 Mg Tab.er.24, 30 MG PO DAILY, (Reported) Last Action: Continued Spironolactone 50 Mg Tablet, 50 MG PO DAILY, (Reported) Last Action: Converted Sucralfate 1 Gm Tablet, 1 GM PO QIDACHS, (Reported) Last Action: Continued Sumatriptan Succinate 100 Mg Tablet, 100 MG PO DAILY PRN for MIGRAINE, (Reported) Last Action: Converted Trazodone HCl 150 Mg Tablet, 150 MG PO HS, (Reported) Last Action: Continued Triamcinolone Acet 15 Gm Cr, 1 APPLIC TP BID, (Reported) Last Action: Continued Patient Home Medication List Home Medication List Reviewed: Yes Past Vwramwi-Yvwpsc-Zftmmn Hx Patient Social History Smoking Status: Former Smoker Alcohol Use?: No Have you traveled recently?: No Immunizations Up To Date Tetanus Booster (TDap): Less than 5yrs Date of Pneumonia Vaccine: December 20, 2009 Date of Influenza Vaccine: May 22, 2013 Surgeries History of Surgeries: Yes Surgeries: Orthopedic Respiratory Respiratory Disorders: Asthma, Sleep Apnea, COPD Cardiovascular Cardiac Disorders: High Cholesterol, Hypertension Neurological Neurological Disorders: Neuropathy, Stroke Genitourinary Genitourinary Disorders: Bladder Infection Gastrointestinal Gastrointestinal Disorders: Gastroesophageal Reflux, Cirrhosis (From [place]) Musculoskeletal Musculoskeletal Disorders: Arthritis, Chronic Back Pain Endocrine Endocrine Disorders: Hypothyroidsim HEENT HEENT Disorders: Cataract, Glaucoma Psychosocial Behavioral Health Disorders: Anxiety, Depression Reviewed Nursing Assessment Reviewed/Agree w Nursing PMH: Yes Family Medical History Significant Family History: No Pertinent Family Hx Family Medial History: Alcoholism 03 FATHER Cancer 03 FATHER GRANDPARENTS Cancer of colon 03 FATHER Congestive heart failure GRANDPARENTS Family history: Alzheimer's disease 03 FATHER Family history: Cardiovascular disease GRANDPARENTS Family history: Diabetes mellitus 03 FATHER 03 MOTHER GRANDPARENTS Family history: Hypertension 03 FATHER 03 MOTHER Family history: Thyroid disorder 03 MOTHER 09 SISTER Hearing loss 03 MOTHER Hereditary disease 09 SISTER History of - anemia 09 SISTER Stroke 03 MOTHER SON No Family History of: Kidney disease Myocardial infarction Review of Systems-General Constitutional: No chills, No diaphoresis; weakness EENTM: No blurred vision, No double vision Respiratory: No cough, No dyspnea on exertion Cardiovascular: No chest pain, No palpitations Gastrointestinal: No nausea, No vomiting; other (Ascites) Genitourinary: No decreased output, No discharge Musculoskeletal: No back pain, No joint pain; muscle weakness Skin: No change in color, No change in hair/nails Psychiatric/Neurological: Denies Anxiety, Denies Depressed, Denies Emotional Problems All Other Systems Reviewed Negative Unless Noted: Yes (Negative excepted noted.) Physical Exam-General Problems Physical Exam Vital Signs Vital Signs - First Documented 03/12/21 17:50 Temp 36.6 Pulse 71 Resp 18 B/P (MAP) 121/58 (79) Pulse Ox 96 O2 Delivery Nasal Cannula O2 Flow Rate 2.00 Capillary Refill : General Appearance: no apparent distress, other (chronically ill) HEENT: PERRL/EOMI, normal ENT inspection Neck: non-tender, supple Respiratory: chest non-tender, no respiratory distress, no accessory muscle use Cardiovascular: regular rate, rhythm, no JVD Gastrointestinal: non tender, soft, distended (slight from ascites) Rectal: deferred Back: no CVA tenderness, no vertebral tenderness Extremities: non-tender, no pedal edema Neurologic/Psychiatric: alert, normal mood/affect, oriented x 3, motor weakness (left side extremities) Skin: normal color, warm/dry Lymphatic: no adenopathy Data Review Labs Laboratory Tests 03/12/21 18:39: Glucometer 132H 03/12/21 21:14: Glucometer 168H 03/13/21 05:30: White Blood Count 6.6, Red Blood Count 3.44L, Hemoglobin 8.1L, Hematocrit 26L, Mean Corpuscular Volume 77L, Mean Corpuscular Hemoglobin 24L, Mean Corpuscular Hemoglobin Concent 31L, Red Cell Distribution Width 18.0H, Platelet Count 272, Mean Platelet Volume 9.8, Immature Granulocyte % (Auto) 1, Neutrophils (%) (Auto) 68, Lymphocytes (%) (Auto) 20, Monocytes (%) (Auto) 10, Eosinophils (%) (Auto) 0, Basophils (%) (Auto) 1, Neutrophils # (Auto) 4.5, Lymphocytes # (Auto) 1.3, Monocytes # (Auto) 0.7, Eosinophils # (Auto) 0.0, Basophils # (Auto) 0.1, Immature Granulocyte # (Auto) 0.1, Sodium Level 136, Potassium Level 3.7, Chloride Level 101, Carbon Dioxide Level 26, Anion Gap 9, Blood Urea Nitrogen 20H, Creatinine 0.83, Estimat Glomerular Filtration Rate 69, BUN/Creatinine Ratio 24, Glucose Level 123H, Calcium Level 7.4L, Corrected Calcium 8.7, Total Bilirubin 0.8, Aspartate Amino Transf (AST/SGOT) 22, Alanine Aminotransferase (ALT/SGPT) 20, Alkaline Phosphatase 64, Total Protein 5.7L, Albumin 2.4L 03/13/21 10:48: Glucometer 185H Assessment/Plan Assessment/Plan Assessment/Plan left sided weakness 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 Patient ultrasound reviewed which demonstrated moderate ascites. Patient states that typically this is significantly more fluid than what currently is present. She does not want to have paracentesis at this time. She is not really having any symptoms from it she states. We will plan to follow and if does become significantly larger we will plan paracentesis. Patient agreed with plan. FORTUNATO GIRON DO Mar 13, 2021 14:19
--- NOTE | 2021-03-13 14:43 | Therapy Group Daily Note ---
Therapy Daily Group Note Patient Education Topic Other List Below (memory, ARU description/expectation) Exercises LE Seated Exercise, UE Exercise Session Ratio (pt:therapist): 8:2 Goal of Session: Education on ARU Expectations, Memory Strategies, UE/LE Strengthing Goal Met for this Session: Yes Pt Benefit of Group: Contributions to Others, F/U Use of Strategies @Home, Increased Functional Safety, Increased Functional Strength, Improved Cognition, Recognition of Peers, Socialization Other/Notes [facility]. Group consisted of introductions (name, place living, memory of historical event), socialization, ARU description/expectation, seated B UE/LE exercises and memory strategies/activity. Pt introduced self appropriately and actively listened to peers. Pt participated in B UE/LE seated exercises and tolerated well. Pt acknowledged understanding of educational topics by giving own personal strategies and experiences. After therapy, pt lying in bed with call light/phone in reach. Start Time: 13:00 Stop Time: 14:00 Total Billed Treatment Time: 60 Total Billed Treatment 1-GRP REGINE RAHMAN Mar 13, 2021 14:43
--- NOTE | 2021-03-13 15:00 | Physical Therapy Daily Note ---
PT Daily Note-Current Subjective Pt requests use of bathroom following group therapy, agreeable to PT/OT co-treat session post group therapy session. Appearance Following session, pt reclined in bed with LUE propped up on pillow. Call light tray and phone within reach, present at bedside. Mental Status Patient Orientation: Person, Situation Transfers SCALE: Activities may be completed with or without assistive devices. 4-Mrpjbvrxlg-ggfncpw completes the activity by him/herself with no assistance from a helper. 5-Set-up or Clean-up Assistance-helper sets up or cleans up; patient completes activity. [place] assists only prior to or following the activity. 4-Supervision or Touching Assistance-helper provides verbal cues and/or touching/steadying and/or contact guard assistance as patient completes activity. Assistance may be provided throughout the activity or intermittently. 3-Partial/Moderate Assistance-helper does LESS THAN HALF the effort. [place] lifts, holds or supports trunk or limbs, but provides less than half the effort. 2-Substantial/Maximal Assistance-helper does MORE THAN HALF the effort. [place] lifts or holds trunk or limbs and provides more than half the effort. 9-Woddbdvhb-rstzdk does ALL the effort. Patient does none of the effort to complete the activity. Or, the assistance of 2 or more helpers is required for the patient to complete the activity. If activity was not attempted, code reason: 7-Patient Refused. 9-Not Applicable-not attempted and the patient did not perform the activity before the current illness, exacerbation or injury. 10-Not Attempted due to Environmental Limitations-(lack of equipment, weather restraints, etc.). 88-Not Attempted due to Medical Conditions or Safety Concerns. Roll Left & Right (QC): 3 Sit to Lying (QC): 3 Lying to Sitting/Side of Bed(Q: 3 Sit to Stand (QC): 3 Chair/Tbj-np-[place] Xfer(QC): 3 Toilet Transfer (QC): 3 Pt mod A with all bed mobility and transfer, LUE is flaccid, unable to assist with bed mobility. requires cueing to use RUE to reposition LUE. Weight Bearing Right Lower Extremity: Right Full Weight Bearing Left Lower Extremity: Left Full Weight Bearing Gait Training Distance: 2x 10' Walk 10 feet (QC): 2 Gait Assistive Device: Parallel Bars max A to ambulate in // bars, blocking of L knee, and OT positioning L hand on bar. Treatments OT/PT cotreat due to high patient needs. PT focusing on functional mobility, transfers, lower extremity strength, and balance. OT focusing on ADLs and UE strengthening/motion. [place] [facility] [place] [facility] [place], pt then transferred to bed to practice bed mobility and positioning of LUE. Pt then transferred back to the [facility] and was able to self propel [facility] 50' towards therapy gym. In gym pt ambulated 10' x 2 in // bars, then self propelled 50' back towards room to transfer back to bed. Assessment Current Status: Fair Progress Pt continues to require assistance with LUE/LLE with functional mobility, good carry over from morning session with sequencing and functional mobility PT Short Term Goals Short Term Goals Time Frame: Mar 20, 2021 Roll Left & Right: 4 Sit to lyin Lying to sitting on side of be: 4 Sit to stand: 5 Chair/mze-hn-pqrcv transfer: 4 Toilet transfer: 4 Car transfer: 4 Walk 10 feet: 4 Walk 50 feet with two turns: 4 Walk 150 feet: 88 Walking 10ft on uneven surface: 88 1 step (curb): 4 4 steps: 88 12 steps: 88 Picking up objects: 88 Does pt use a wc or scooter: Yes Wheel 50ft w/2 turns: 5 Wheel 150 feet: 5 Type: Manual PT [employer] Strategist Goals Jail Goals PT Jail Goals Time Frame: Apr 03, 2021 Roll Left & Right (QC): 6 Sit to Lying (QC): 6 Lying-Sitting on Side/Bed(QC): 6 Sit to Stand (QC): 6 Chair/Wsm-lj-Fteeg Xfer(QC): 6 Toilet Transfer (QC): 5 Car Transfer (QC): 4 Does the Patient Walk: Yes Walk 10 feet (QC): 5 Walk 50ft with 2 Turns (QC): 5 Walk 150 ft (QC): 5 Walking 10ft on Uneven Surface: 5 1 Step (curb) (QC): 5 4 Steps (QC): 4 12 Steps (QC): 88 Picking up an Object (QC): 88 Wheel 50 feet with 2 turns (QC: 6 Type: Manual Wheel 150 feet: 6 Type: Manual PT Plan Problem List Problem List: Activity Tolerance, Functional Strength, Safety, Balance, Gait, Transfer, Bed Mobility, ROM Treatment/Plan Treatment Plan: Continue Plan of Care Treatment Plan: Bed Mobility, Concurrent Therapy, Functional Strength, Group Therapy, Gait, Safety, Therapeutic Exercise Treatment Duration: Apr 03, 2021 Frequency: 11 times per week Estimated Hrs Per Day: 1.5 hours per day Patient and/or Family Agrees t: Yes Time/GCodes Time In: 1400 Time Out: 1500 Total Billed Treatment Time: 60 Total Billed Treatment PT/OT shannan 60' 1 visit, FA (45'), GT (15'), PRASAD BECKFORD PT Mar 13, 2021 15:00
[2021-03-13] MEDS: SIMETHICONE 80 MG (MYLICON) CHEW PO SCH ×3 (15:03→21:31)
--- NOTE | 2021-03-13 15:05 | Occupational Ther Daily Note ---
OT Current Status-Daily Note Subjective Pt AxO. Pt states need for BM. OT/ PT co-treat this session to address high level needs. OT addresses UE movement, ADLs, problem solving; PT addresses functional transfers, w/c mob, ambulation. Mental Status/Objective Patient Orientation: Person, Place, Situation Attachments: Prater Catheter ADL-Treatment Therapy Code Descriptions/Definitions Functional [place] Measure: 0=Not Assessed/NA 4=Minimal Assistance 1=Total Assistance 5=Supervision or Setup 2=Maximal Assistance 6=Modified Ox[place] 3=Moderate Assistance 7=Complete IndependenceSCALE: Activities may be completed with or without assistive devices. 8-Ckzkvpjpwq-eqkbacc completes the activity by him/herself with no assistance from a helper. 5-Set-up or Clean-up Assistance-helper sets up or cleans up; patient completes activity. [place] assists only prior to or following the activity. 4-Supervision or Touching Assistance-helper provides verbal cues and/or touching/steadying and/or contact guard assistance as patient completes activity. Assistance may be provided throughout the activity or intermittently. 3-Partial/Moderate Assistance-helper does LESS THAN HALF the effort. [place] lifts, holds or supports trunk or limbs, but provides less than half the effort. 2-Substantial/Maximal Assistance-helper does MORE THAN HALF the effort. [place] lifts or holds trunk or limbs and provides more than half the effort. 1-Eqiibiezc-xzisrb does ALL the effort. Patient does none of the effort to complete the activity. Or, the assistance of 2 or more helpers is required for the patient to complete the activity. If activity was not attempted, code reason: 7-Patient Refused. 9-Not Applicable-not attempted and the patient did not perform the activity before the current illness, exacerbation or injury. 10-Not Attempted due to Environmental Limitations-(lack of equipment, weather restraints, etc.). 88-Not Attempted due to Medical Conditions or Safety Concerns. Upper Body Dressing (QC): 3 (mod A with jacket) Lower Body Dressing (QC): 1 (Ax2 with OT/ PT assist) Toileting Hygiene (QC): 1 Toilet Transfer (QC): 3 (mod A sit to stands. and SPT) Other Treatment Pt SPT to commode with mod A. Completes small/ soft BM. Pt is cleansed with OT addressing changing LE dressing (max A) and PT addressing sit to stand (pt initiates push-off from [facility] Pt requires Ax2 in stance for LB dressing and toilet hygiene. Pt transfers with max A to R side towards HOB. Pt c/o R shoulder pain, MHP applied 10 min during education on positioning and education on core balance/ increased ease with dressing in chair rather than EOB. Pt's R shoulder no redness noted post 10 min. Pt bed mob mod A toward R side (like home). Pt SPT to w/c, dons jacket with modA and education to / pt. Pt w/c mob with increased time and min cues for foot positioning. Pt is pushed from door frame to // bars, completes 2 rounds of ambulation with OT addressing LUE placement and PT addressing ambulation with w/c to follow. Completes 2x with PT assist, TD with L UE placement (AAROM to bar). Pt is pushed back to room, SPT to bed with mod A, mod A sit to supine for LEs and TD for positioning toward HOB. Pt denies needs, call light in reach, present, pt positioned with LUE propped. Education OT Patient Education: Correct positioning, Exercise program, Home exercise program, Instructions to caregiver, Modified ADL techniques, Progress toward Goal/Update tx plan, Purpose of tx/functional activities, Rehab process, Safety issues, Transfer techniques, W/C management Teaching Recipient: Patient, Significant Other Teaching Methods: Demonstration, Discussion Response to Teaching: Verbalize Understanding, Return Demonstration, Reinforcement Needed OT Short Term Goals Short Term Goals Oral hygiene: 5 Toileting hygiene: 2 Shower/bathe self: 2 Upper body dressin Lower body dressin OT Longterm Goals Longterm Goals Time Frame: Mar 27, 2021 Eating (QC): 6 Oral Hygiene (QC): 6 Toileting Hygiene (QC): 4 Shower/Bathe Self (QC): 4 Upper Body Dressing (QC): 6 Lower Body Dressing (QC): 4 On/Off Footwear (QC): 4 Additional Goals: 1-Demonstrate ADL Tasks, 2-Verbalize Understanding, 3- ImproveStrength/Feliberto 1=Demonstrate adherence to instructed precautions during ADL tasks. 2=Patient will verbalize/demonstrate understanding of assistive solis nancy/modifications for ADL. 3=Patient will improve strength/tolerance for activity to enable patient to perform ADL's. OT Education/Plan Problem List/Assessment Assessment: Decreased Activ Tolerance, Decreased UE Strength, Dependent Transfers, Impaired Bed Mobility, Impaired Cognition, Impaired Coordination, Impaired Funct Balance, Impaired I ADL's, Impaired Self-Care Skills, Restricted Funct UE ROM Discharge Recommendations Plan/Recommendations: Continue POC Therapy Discharge Recommendati: Home & Family, Post Acute OT Treatment Plan/Plan of Care Treatment,Training & Education: Yes Patient would benefit from OT for education, treatment and training to promote independence in ADL's, mobility, safety and/or upper extremity function for ADL's. Plan of Care: ADL Retraining, Caregiver Training, Cognitive Retraining, Functional Mobility, Group Exercise/Act as Ind, Orthotic Fitting/Training, UE Funct Exercise/Act, UE Neuromus Re-Ed/Coord, Visual/Perceptual Retrain, W/C Management Training Treatment Duration: Mar 27, 2021 Frequency: At least 5 of 7 days/Wk (IRF) (15/7 status) Estimated Hrs Per Day: 1.5 hours per day Agreement: Yes Rehab Potential: Good Time/GCodes Start Time: 14:00 Stop Time: 15:00 Total Time Billed (hr/min): 60 Billed Treatment Time 1, ADL 2, EX 2=60 OT/ PT co-treat this session to address high level needs. OT addresses UE movement, ADLs, problem solving; PT addresses functional transfers, w/c mob, ambulation. JUSTIN MARTIN OTR Mar 13, 2021 15:05
[2021-03-13] MEDS: ENOXAPARIN 40 MG/0.4 ML (LOVENOX) SYR SC SCH (18:24)
[2021-03-13 20:00] VITALS: BP 117/55
[2021-03-13] MEDS: traZODone 150 MG (DESYREL) TABLET PO SCH (21:30)
[2021-03-13] MEDS: MONTELUKAST 10 MG (SINGULAIR) TAB PO SCH (21:30)
[2021-03-13] MEDS: LUMIGAN 0.01% OPTH SOLN OU SCH (21:33)
[2021-03-14] MEDS: RT--FLUTICASONE/SALMETEROL 232-14 (AIRDUO RespiCLICK) IH SCH ×2 (06:39→19:57)
[2021-03-14] MEDS: SUCRALFATE 1 GM (CARAFATE) TAB PO SCH ×4 (06:58→21:30)
[2021-03-14] MEDS: LEVOTHYROXINE 100 MCG (LEVOTHROID) TAB PO SCH (06:58)
[2021-03-14 07:16] VITALS: BP 117/54
--- NOTE | 2021-03-14 07:37 | PM&R Progress Note ---
Subjective HPI/CC On Admission Date Seen by Provider: Mar 14, 2021 Time Seen by Provider: 07:00 Subjective/Events-last exam 03/14/2021: Pt doing really well Iron level of 21 so will initiate the Venofer full dosing Midline maintained Overall doing much better and able to move the left leg 03/13/21: Pt doing really well DC the martinez catheter Ultrasound will be performed and paracentesis will be performed by Dr. Hernandez Hgb 8.1 give one dose of iron infusion She is reusing Carafate as requested Updated Review of Systems General: Fatigue, Malaise Neurological: Weakness, Incoordination Objective Exam Vital Signs Vital Signs Date Time Temp Pulse Resp B/P (MAP) Pulse Ox O2 Delivery O2 Flow Rate FiO2 03/14/21 21:00 96 Nasal Cannula 2.00 03/14/21 20:00 36.6 68 14 110/53 (72) Capillary Refill : General Appearance: No Apparent Distress, WD/WN, Chronically ill HEENT: PERRL/EOMI, Normal ENT Inspection, Pharynx Normal Neck: Full Range of Motion, Normal Inspection, Non Tender, Supple, Carotid Bruit Respiratory: Chest Non Tender, Lungs Clear, Normal Breath Sounds, No Accessory Muscle Use, No Respiratory Distress, Decreased Breath Sounds, Other (Maintained on O2 24/) Cardiovascular: Regular Rate, Rhythm, No Edema, No Gallop, No JVD, No Murmur, Normal Peripheral Pulses Gastrointestinal: Normal Bowel Sounds, No Organomegaly, No Pulsatile Mass, Non Tender, Soft, Distended, Other (ascites) Back: Normal Inspection, No CVA Tenderness, No Vertebral Tenderness Extremity: Normal Capillary Refill, Normal Inspection, Normal Range of Motion, Non Tender, No Calf Tenderness, No Pedal Edema Neurologic/Psychiatric: Alert, Oriented x3, Normal Mood/Affect, Motor Weakness (Left-sided weakness upper extremity 0/5 left lower extremity 1/5) Skin: Normal Color, Warm/Dry Lymphatic: No Adenopathy Results/Procedures Lab Patient resulted labs reviewed. FIM Transfers Therapy Code Descriptions/Definitions Functional [place] Measure: 0=Not Assessed/NA 4=Minimal Assistance 1=Total Assistance 5=Supervision or Setup 2=Maximal Assistance 6=Modified [place] 3=Moderate Assistance 7=Complete IndependenceSCALE: Activities may be completed with or without assistive devices. 9-Mrmmheplev-rgsvzqx completes the activity by him/herself with no assistance from a helper. 5-Set-up or Clean-up Assistance-helper sets up or cleans up; patient completes activity. [place] assists only prior to or following the activity. 4-Supervision or Touching Assistance-helper provides verbal cues and/or touching/steadying and/or contact guard assistance as patient completes activity. Assistance may be provided throughout the activity or intermittently. 3-Partial/Moderate Assistance-helper does LESS THAN HALF the effort. [place] lifts, holds or supports trunk or limbs, but provides less than half the effort. 2-Substantial/Maximal Assistance-helper does MORE THAN HALF the effort. [place] lifts or holds trunk or limbs and provides more than half the effort. 5-Mlfgxyjqj-emrlcx does ALL the effort. Patient does none of the effort to complete the activity. Or, the assistance of 2 or more helpers is required for the patient to complete the activity. If activity was not attempted, code reason: 7-Patient Refused. 9-Not Applicable-not attempted and the patient did not perform the activity before the current illness, exacerbation or injury. 10-Not Attempted due to Environmental Limitations-(lack of equipment, weather restraints, etc.). 88-Not Attempted due to Medical Conditions or Safety Concerns. Roll Left to Right (QC): 3 Sit to Lying (QC): 3 Sit to Stand (QC): 3 Chair/Gmr-xq-Ouutj Xfer(QC): 3 Car Transfer (QC): 1 Gait Training Does the Patient Walk?: Yes Distance: 2x 10' Walk 10 feet (QC): 2 Walk 50 ft with 2 Turns(QC): 88 Walk 150 ft (QC): 88 Walking 10ft/uneven surface-QC: 88 Gait Assistive Device: Parallel Bars Wheelchair Training Does the Pt Use a Wheelchair?: Yes Distance: 50 Wheel 50 ft with 2 turns (QC): 3 Wheel 150 ft (QC): 88 Type of Wheelchair: Manual Stair Training 1 Step (curb) (QC): 88 4 Steps (QC): 88 12 Steps (QC): 88 Balance Picking up an Object (QC): 88 ADL-Treatment Eating (QC): 5 (s/u (unable to utilize LUE for coordination/ opening/ cutting tasks)) Oral Hygiene (QC): 3 (mod A per clinical judgment, though pt denies at this time.) Shower/Bathe Self (QC): 1 (TD (Ax2 for bottom in stance), however pt able to complete all UB excluding RUE.) Upper Body Dressing (QC): 3 (mod A with jacket) Lower Body Dressing (QC): 1 (Ax2 with OT/ PT assist) On/Off Footwear (QC): 2 (max A BLE) Toileting Hygiene (QC): 1 Toilet Transfer (QC): 3 (mod A sit to stands. 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 Paracenteses on regular basis Anemia Diabetes Hypertension Hypothyroidism Migraines Chronic back pain GERD Anemia Ascites Plan: Supportive care Aggressive therapy Oxygen dependent 03/13/21: Paracentesis Monitor closely Venofer Iron level pending 03/14/2021: Iron infusions Supportive care Monitor blood sugar (1) CVA (cerebral vascular accident) (2) Cirrhosis (3) GROVES (nonalcoholic steatohepatitis) (4) Status post abdominal paracentesis (5) Left-sided weakness (6) Diabetes (7) COPD (chronic obstructive pulmonary disease) (8) Dependence on supplemental oxygen (9) Anemia (10) Hypertension (11) Hyperlipidemia (12) Chronic back pain (13) GERD (gastroesophageal reflux disease) (14) Hypothyroidism NALLELY IBRAHIM DO Mar 14, 2021 07:37
--- NOTE | 2021-03-14 07:38 | Individualized Plan of Care ---
Individualized Plan of Care Rehab Nursing IPOC Order Admission Date Mar 12, 2021 at 17:48 Current Orders Orders Admission Arrival Bed Request (03/12/21 17:48) Admission Order(Inpt,Obs,Sdc) (03/12/21 18:08) Vital Signs: Per Unit Policy ( 08,16,00 (03/12/21 18:08) Melvin Gonsalo (03/12/21 18:08) Sequential Compression Device .admit (03/12/21 18:08) Metal Engraver-Inpt Rehab Con (03/12/21 18:08) Rehab Nursing Orders-Ipoc (03/12/21 18:08) Physical Therapy Rehab Orders (03/12/21 18:08) Occupational Therapy Rehab Ord (03/12/21 18:08) Speech Therapy Rehab Orders (03/12/21 18:08) Cbc With Automated Diff (03/13/21 06:00) Comprehensive Metabolic Panel (03/13/21 06:00) Precautions (Aru) (03/12/21 18:08) Rehab-Intensity Of Therapy (03/12/21 18:08) Initiate Admission Nursing Pro .admission (03/12/21 18:08) Acetaminophen Tablet/Caplet (Tylenol T (03/12/21 18:15) Alprazolam Tablet (Xanax Tablet) (03/12/21 18:15) Calcium Carbonate Chew Tablet (Antacid C (03/12/21 18:15) Diphenhydramine Tablet (Benadryl Tablet) (03/12/21 18:15) Docusate Sodium Capsule (Colace Capsule) (03/12/21 21:00) Docusate Sodium Capsule (Colace Capsule) (03/12/21 18:15) Bisacodyl Suppository (Dulcolax Supposit (03/12/21 18:15) Lactulose Oral Solution (Enulose Oral So (03/12/21 18:15) Na Phos/Na Biphos Enema (Fleet Enema Tarik (03/12/21 18:15) Hydrocodone/Apap 5/325 Tablet (Lortab 5 (03/12/21 18:15) Loperamide Tablet (Imodium Tablet) (03/12/21 18:15) Enoxaparin Injection (Lovenox Injection) (03/12/21 18:30) Melatonin Tablet (Melatonin Tablet) (03/12/21 18:15) Polyethylene Glycol Powder Pkt (Miralax (03/12/21 21:00) Ondansetron Oral Dissolve Tab (Zofran (03/12/21 18:15) Senna S Tablet (Senokot S Tablet) (03/12/21 21:00) Code/Resuscitation (03/12/21 18:08) Initiate Admission Nursing Pro .admission (03/12/21 18:08) Albuterol Pre-Mix Nebs (Rt) (Proventil (03/12/21 18:30) Albuterol Pre-Mix Nebs (Rt) (Proventil (03/12/21 18:30) Aspirin Enteric Coated Tablet (Ecotrin T (03/13/21 09:00) Atorvastatin Tablet (Lipitor) (03/12/21 21:00) Carboxymethylcell Ophth Soln (Refresh Pl (03/12/21 18:30) Colestipol Tablet (Colestid Tablet) (03/12/21 21:00) Furosemide Tablet (Lasix Tablet) (03/13/21 09:00) Montelukast Tablet (Singulair Tablet) (03/12/21 21:00) Nifedipine Xl Tablet (Procardia Xl Tab (03/13/21 09:00) Sucralfate Tablet (Carafate Tablet) (03/12/21 21:00) Trazodone Tablet (Desyrel Tablet) (03/12/21 21:00) Triamcinolone 0.1% Cream 15 Gm (Kenalog (03/12/21 21:00) (Nf) Acetaminophen (Tylenol) (03/12/21 18:30) (Nf) Budesonide/Formoterol Fumarate (Sym (03/12/21 21:00) (Nf) Cyanocobalamin (Vitamin B-12) (Rosemarie (03/13/21 09:00) (Nf) Docusate Sodium (03/12/21 18:30) (Nf) Epinephrine (Epipen) (03/12/21 18:30) (Nf) Esomeprazole Magnesium (Nexium) (03/13/21 09:00) (Nf) Folic Acid (03/12/21 21:00) (Nf) Levothyroxine Sodium (03/13/21 09:00) (Nf) Liraglutide (Victoza 2-Wil) (03/13/21 09:00) (Nf) Lisinopril (03/13/21 09:00) (Nf) Spironolactone (03/13/21 09:00) (Nf) Sumatriptan Succinate (Imitrex) (03/12/21 18:30) Svn Small Volume Nebulizer (03/12/21 18:26) Cho 60g/M 1snack (16-2000 Mian) (03/12/21 Dinner) Pantoprazole Tablet (Protonix Tablet) (03/13/21 09:00) Levothyroxine Tablet (Synthroid Tablet) (03/13/21 06:30) Cyanocobalamin Tablet (Vitamin B-12 Tabl (03/13/21 07:00) Lisinopril Tablet (Zestril Tablet) (03/13/21 09:00) Spironolactone Tablet (Aldactone Tablet) (03/13/21 09:00) Sumatriptan Tablet (Imitrex Tablet) (03/12/21 18:45) Docusate Sodium Capsule (Colace Capsule) (03/12/21 18:45) Epinephrine 1 Mg Injection (Adrenalin I (03/12/21 18:45) Fluticasone/Salmeterol 232-14 (Airduo Re (03/12/21 21:00) Iron Test (Fe) (03/13/21 09:53) Venous Access Request Order (03/13/21 09:53) Catheter(Urinary) Discontinue (03/13/21 09:53) Iron Sucrose Injection (Venofer Injectio (03/13/21 10:00) Simethicone Tablet (Mylicon Chewable Tab (03/13/21 14:00) Us Abdomen Limited [id number] (03/13/21 10:00) Consult General Surgery (03/13/21 10:00) Fentanyl Patch (Duragesic Patch) (03/13/21 10:30) Patch Removal (Patch Removal) (03/16/21 10:29) Patient Visit (03/13/21 ) Speech Sound Lang Comp (03/13/21 ) Treat. Speech/Lang/Voice (03/13/21 ) Dysphagia Evaluation Std (03/13/21 ) Dysphagia Therapy (03/13/21 ) Patient Visit (03/13/21 ) Pt Eval High Complexity (03/13/21 ) Ex Neuromuscular, Ea 15 Min (03/13/21 ) (Nf) [place] (03/13/21 21:00) (Nf) Folate (03/14/21 09:00) Patient May Use Own Med,Single (Patient (03/13/21 14:00) (Nf) Liraglutide (Victoza 2-Wil) (03/14/21 09:00) Patient Visit (03/13/21 ) Therapeutic, Group (03/13/21 ) Patient Visit (03/13/21 ) Functional Activities, Ea 15 (03/13/21 ) Gait Training, Ea 15 Min (03/13/21 ) Iron Sucrose Injection (Venofer Injectio (03/14/21 09:00) Patient Visit (03/14/21 ) Functional Activities, Ea 15 (03/14/21 ) Rehab Nursing Orders: Ongoing Assess. of Cognitive Status, Ongoing Assess. of Function Status, Bladder Management, Bladder Scan, Bladder Training, Bowel Management, Bowel Training, Disease Management & Educaiton, DVT Prophylaxis, Fall Prevention, Fluid/Electrolyte/Nutrition Mgmt, Infection Prevention, Medication Management & Education, Management of Risks & Complications, Nutri tion Management, Pain Management, Patient/Family Support, Safety Management Intensity of Therapy to be met Patient to be seen: Min.3h per day/5 of 7d PT IPOC Problem List: Activity Tolerance, Functional Strength, Safety, Balance, Gait, Transfer, Bed Mobility, ROM Treatment Plan: Continue Plan of Care Bed Mobility, Concurrent Therapy, Functional Strength, Group Therapy, Gait, Safety, Therapeutic Exercise Treatment Duration: Apr 03, 2021 Frequency: 11 times per week Estimated Hrs Per Day: 1.5 hours per day OT IPOC Problems: Decreased Activ Tolerance, Decreased UE Strength, Dependent Transfers, Impaired Bed Mobility, Impaired Cognition, Impaired Coordination, Impaired Funct Balance, Impaired I ADL's, Impaired Self-Care Skills, Restricted Funct UE ROM OT Treatment, Training and Edu: Yes Plan of Care: ADL Retraining, Caregiver Training, Cognitive Retraining, Functional Mobility, Group Exercise/Act as Ind, Orthotic Fitting/Training, UE Funct Exercise/Act, UE Neuromus Re-Ed/Coord, Visual/Perceptual Retrain, W/C Management Training Treatment Duration: Mar 27, 2021 Frequency: At least 5 of 7 days/Wk (IRF) (15/ status) Estimated Hrs Per Day: 1.5 hours per day [facility] Speech Therapy Treatment Plan: Continue Plan of Care Treatment Duration: Apr 03, 2021 Frequency: 4 times per week Estimated Hrs Per Day: .5 hour per day Metal Engraver/Case Mgmt Metal Engraver/Case Managemen: Discharge Planning Dietitian/Wink Cutter Operator Dietitian/Wink Cutter Operator to monitor nutritional status and make changes and/or recommendations as needed and work with speech pathology on dietary upgrades as the occur. Physician IPOC Medical Issues being managed closely and that require the 24 hour availability of a physician: Patient with recent CVA with left-sided weakness and history of Lai with cirrhosis with ascites and periodic paracenteses along with chronic kidney disease and severe anemia will require close monitoring with high complexity medical decision making. Medical Issues: Bowel/Bladder Function, DVT Prophylaxis, Falls Precautions, Fluid/Electrolyte/Nutrition Balance, Infection Protection, Pain Management Brief Synthesis of Preadmission Screen, Post-Admission Evaluation, and Therapy Evaluations: PT and OT will focus on regaining enough function in order to ambulate with the use of assistive devices and increase independence in ADLs in order to return to independent living with Medical Prognosis: Good Anticipated Length of Stay: 10 days NALLELY IBRAHIM DO Mar 14, 2021 07:38
[2021-03-14] MEDS: IRON SUCROSE 200 MG/10 ML (VENOFER) VIAL IV SCH (09:40)
[2021-03-14] MEDS: PANTOPRAZOLE 40 MG (PROTONIX) TAB PO SCH (09:44)
[2021-03-14] MEDS: SPIRONOLACTONE 25 MG (ALDACTONE) TAB PO SCH (09:44)
[2021-03-14] MEDS: NIFEdipine ER 30 MG (PROCARDIA XL) TAB PO SCH (09:44)
[2021-03-14] MEDS: FUROSEMIDE 40 MG (LASIX) TAB PO SCH (09:44)
[2021-03-14] MEDS: ASPIRIN E.C. 81 MG (ECOTRIN) TAB PO SCH (09:45)
[2021-03-14] MEDS: SIMETHICONE 80 MG (MYLICON) CHEW PO SCH ×5 (09:45→21:30)
[2021-03-14] MEDS: lisINopril 5 MG (PRINIVIL) TABLET PO SCH (09:46)
[2021-03-14] MEDS: DOCUSATE SODIUM 100 MG (COLACE) CAP PO SCH ×2 (09:50→21:30)
[2021-03-14] MEDS: COLESTIPOL 1 GM (COLESTID) TAB PO SCH ×2 (09:51→21:30)
[2021-03-14] MEDS: polyethylene glycoL POWDER 17 GM (MIRALAX) PACK PO SCH ×2 (09:51→21:30)
[2021-03-14] MEDS: SENNA W/DOCUSATE (SENOKOT S) TABLET PO SCH ×2 (09:52→21:31)
[2021-03-14] MEDS: VICTOZA SQ SCH (09:55)
[2021-03-14] MEDS: FOLIC ACID 400 MCG PO SCH (09:56)
[2021-03-14] MEDS: TRIAMCINOLONE 0.1% CR (KENALOG) 15 GM TUBE TP SCH ×2 (10:05→21:36)
--- NOTE | 2021-03-14 10:42 | Physical Therapy Daily Note ---
PT Daily Note-Current Subjective Pt states emotionally "No, I don't want to" when asked if we could go down to gym to walk in //bars. Pt agrees to stand at bedside and move to chair. Pt denies pain. Pt states "The L leg doesn't want to work very well today." Mental Status Patient Orientation: Person, Place, Situation Transfers SCALE: Activities may be completed with or without assistive devices. 0-Kfhyoadked-qmkrnjb completes the activity by him/herself with no assistance from a helper. 5-Set-up or Clean-up Assistance-helper sets up or cleans up; patient completes activity. [place] assists only prior to or following the activity. 4-Supervision or Touching Assistance-helper provides verbal cues and/or touching/steadying and/or contact guard assistance as patient completes activ ity. Assistance may be provided throughout the activity or intermittently. 3-Partial/Moderate Assistance-helper does LESS THAN HALF the effort. [place] lifts, holds or supports trunk or limbs, but provides less than half the effort. 2-Substantial/Maximal Assistance-helper does MORE THAN HALF the effort. [place] lifts or holds trunk or limbs and provides more than half the effort. 5-Txfdjuslp-quchfl does ALL the effort. Patient does none of the effort to complete the activity. Or, the assistance of 2 or more helpers is required for the patient to complete the activity. If activity was not attempted, code reason: 7-Patient Refused. 9-Not Applicable-not attempted and the patient did not perform the activity before the current illness, exacerbation or injury. 10-Not Attempted due to Environmental Limitations-(lack of equipment, weather restraints, etc.). 88-Not Attempted due to Medical Conditions or Safety Concerns. Transfers and bed mob mod A. Practiced standing up from elevated bed. Pt stood x 20sec shifting weight and correcting posture. Pt able to take a couple of steps in dance fashion to turn to sit in recliner. Weight Bearing Right Lower Extremity: Right Full Weight Bearing Left Lower Extremity: Left Full Weight Bearing Treatments Sitting up on edge of recliner practiced leaning back and pulling up into upright posture x 3. Pt repositioned back in chair max A of 2 person. Pt propped up in chair with pillows on either side for support. O2 sats monitored throughout treatment. O2 prior to treatment 99% and after standing/transfer O2 sat dropped to 85%. Pt recovered to 94% following 1 min rest. Assessment Current Status: Fair Progress Pt carmen above well. Good ability to stand on (L) LE and move (L) foot during trnsfer despite pt feeling "that it is not working" today. PT Short Term Goals Short Term Goals Time Frame: Mar 20, 2021 Roll Left & Right: 4 Sit to lyin Lying to sitting on side of be: 4 Sit to stand: 5 Chair/ngx-xr-bdsci transfer: 4 Toilet transfer: 4 Car transfer: 4 Walk 10 feet: 4 Walk 50 feet with two turns: 4 Walk 150 feet: 88 Walking 10ft on uneven surface: 88 1 step (curb): 4 4 steps: 88 12 steps: 88 Picking up objects: 88 Does pt use a wc or scooter: Yes Wheel 50ft w/2 turns: 5 Wheel 150 feet: 5 Type: Manual PT Jail Goals Biodiesel Division Manager Goals PT Biodiesel Division Manager Goals Time Frame: Apr 03, 2021 Roll Left & Right (QC): 6 Sit to Lying (QC): 6 Lying-Sitting on Side/Bed(QC): 6 Sit to Stand (QC): 6 Chair/Fap-wx-Chpzj Xfer(QC): 6 Toilet Transfer (QC): 5 Car Transfer (QC): 4 Does the Patient Walk: Yes Walk 10 feet (QC): 5 Walk 50ft with 2 Turns (QC): 5 Walk 150 ft (QC): 5 Walking 10ft on Uneven Surface: 5 1 Step (curb) (QC): 5 4 Steps (QC): 4 12 Steps (QC): 88 Picking up an Object (QC): 88 Wheel 50 feet with 2 turns (QC: 6 Type: Manual Wheel 150 feet: 6 Type: Manual PT Plan Treatment/Plan Treatment Plan: Continue Plan of Care Treatment Plan: Bed Mobility, Concurrent Therapy, Functional Strength, Group Therapy, Gait, Safety, Therapeutic Exercise Treatment Duration: Apr 03, 2021 Frequency: 11 times per week Estimated Hrs Per Day: 1.5 hours per day Patient and/or Family Agrees t: Yes Time/GCodes Time In: 935 Time Out: 1000 Total Billed Treatment Time: 25 Total Billed Treatment 1, FA x 2 LENA BLANCO CPTA Mar 14, 2021 10:42
[2021-03-14] MEDS: HYDROcodone/APAP 5 MG/325 MG (LORTAB) TAB PO PRN (15:22)
--- NOTE | 2021-03-14 16:13 | Progress Note - Surgery ---
Subjective Date Seen by a Provider: Mar 14, 2021 Time Seen by a Provider: 16:11 Subjective/Events-last exam Patient states she is doing okay. She thinks her belly is slightly gone down with fluid. She is not having any symptoms of ascites. She has no new complaints. Denies any nausea vomiting fever sweats chills shortness of breath or chest pain at this time. Objective Exam Vital Signs Date Time Temp Pulse Resp B/P (MAP) Pulse Ox O2 Delivery O2 Flow Rate FiO2 03/14/21 09:00 97 Nasal Cannula 2.00 03/14/21 07:16 36.7 72 16 117/54 (75) 93 Nasal Cannula 2.00 03/14/21 06:42 91 Nasal Cannula 2.00 03/13/21 21:00 96 Nasal Cannula 2.00 03/13/21 20:00 36.4 72 20 117/55 (75) 96 2.00 03/13/21 19:41 2.00 Capillary Refill : General Appearance: No Apparent Distress, WD/WN, Chronically ill HEENT: PERRL/EOMI, Normal ENT Inspection Neck: Full Range of Motion, Normal Inspection, Non Tender, Supple, Carotid Bruit Respiratory: Chest Non Tender, No Accessory Muscle Use, No Respiratory Distress Cardiovascular: Regular Rate, Rhythm, No Edema, No JVD, Normal Peripheral Pulses Gastrointestinal: non tender, soft, distended (Minimal to mild from ascites) Extremity: Normal Capillary Refill, Normal Inspection, Non Tender, No Calf Tenderness, No Pedal Edema Neurologic/Psychiatric: Alert, Oriented x3, Normal Mood/Affect, Motor Weakness (Left-sided weakness upper extremity 0/5 left lower extremity 1/5) Skin: Normal Color, Warm/Dry Lymphatic: No Adenopathy Results Lab Laboratory Tests 03/13/21 20:21: Glucometer 169H 03/14/21 06:26: Glucometer 103 03/14/21 10:46: Glucometer 136H 03/14/21 15:54: Glucometer 144H Assessment/Plan Assessment/Plan Assessment/Plan Abdominal ascites secondary to liver disease History of stroke with left-sided weakness Patient feeling better and does not want abdomen drained at this time. Will check on her periodically. If any worsening please notify at that time. FORTUNATO GIRON DO Mar 14, 2021 16:13
[2021-03-14] MEDS: ENOXAPARIN 40 MG/0.4 ML (LOVENOX) SYR SC SCH (17:30)
[2021-03-14 20:00] VITALS: BP 110/53
[2021-03-14] MEDS: MONTELUKAST 10 MG (SINGULAIR) TAB PO SCH (21:29)
[2021-03-14] MEDS: ONDANSETRON 4 MG (ZOFRAN) ORAL DISSOLVE TAB PO PRN (21:29)
[2021-03-14] MEDS: traZODone 150 MG (DESYREL) TABLET PO SCH (21:29)
[2021-03-14] MEDS: LUMIGAN 0.01% OPTH SOLN OU SCH (21:34)
[2021-03-15] MEDS: HYDROcodone/APAP 5 MG/325 MG (LORTAB) TAB PO PRN ×3 (02:01→21:15)
[2021-03-15] MEDS: CYANOCOBALAMIN 1,000 MCG (VITAMIN B-12) TABLET PO SCH (06:08)
[2021-03-15] MEDS: LEVOTHYROXINE 100 MCG (LEVOTHROID) TAB PO SCH (06:09)
[2021-03-15] MEDS: SUCRALFATE 1 GM (CARAFATE) TAB PO SCH ×4 (06:11→21:18)
--- NOTE | 2021-03-15 06:57 | PM&R Progress Note ---
Subjective HPI/CC On Admission Date Seen by Provider: Mar 15, 2021 Time Seen by Provider: 13:00 Subjective/Events-last exam 03/15/2021: Patient doing really well Heels are red but Allevyn seems to cause an allergy No pain medication was needed today thus far Stool softeners maintained Lasix and Aldactone causes increased urination so pure wick may be required 03/14/2021: Pt doing really well Iron level of 21 so will initiate the Venofer full dosing Midline maintained Overall doing much better and able to move the left leg 03/13/21: Pt doing really well DC the martinez catheter Ultrasound will be performed and paracentesis will be performed by Dr. Hernandez Hgb 8.1 give one dose of iron infusion She is reusing Carafate as requested Updated Review of Systems General: Fatigue, Malaise Neurological: Weakness, Incoordination Objective Exam Vital Signs Vital Signs Date Time Temp Pulse Resp B/P (MAP) Pulse Ox O2 Delivery O2 Flow Rate FiO2 03/15/21 21:13 93 Nasal Cannula 2.00 03/15/21 20:00 36.6 65 14 114/56 (75) Capillary Refill : General Appearance: No Apparent Distress, WD/WN, Chronically ill HEENT: PERRL/EOMI, Normal ENT Inspection, Pharynx Normal Neck: Full Range of Motion, Normal Inspection, Non Tender, Supple, Carotid Bruit Respiratory: Chest Non Tender, Lungs Clear, Normal Breath Sounds, No Accessory Muscle Use, No Respiratory Distress, Decreased Breath Sounds, Other (Maintained on O2 24/7) Cardiovascular: Regular Rate, Rhythm, No Edema, No Gallop, No JVD, No Murmur, Normal Peripheral Pulses Gastrointestinal: Normal Bowel Sounds, No Organomegaly, No Pulsatile Mass, Non Tender, Soft, Distended, Other (ascites) Back: Normal Inspection, No CVA Tenderness, No Vertebral Tenderness Extremity: Normal Capillary Refill, Normal Inspection, Normal Range of Motion, Non Tender, No Calf Tenderness, No Pedal Edema Neurologic/Psychiatric: Alert, Oriented x3, Normal Mood/Affect, Motor Weakness (Left-sided weakness upper extremity 0/5 left lower extremity 1/5) Skin: Normal Color, Warm/Dry Lymphatic: No Adenopathy Results/Procedures Lab Laboratory Tests 03/16/21 04:40 Patient resulted labs reviewed. FIM Transfers Therapy Code Descriptions/Definitions Functional [place] Measure: 0=Not Assessed/NA 4=Minimal Assistance 1=Total Assistance 5=Supervision or Setup 2=Maximal Assistance 6=Modified [place] 3=Moderate Assistance 7=Complete IndependenceSCALE: Activities may be completed with or without assistive devices. 4-Nreopcrpog-shxtilf completes the activity by him/herself with no assistance from a helper. 5-Set-up or Clean-up Assistance-helper sets up or cleans up; patient completes activity. [place] assists only prior to or following the activity. 4-Supervision or Touching Assistance-helper provides verbal cues and/or touching/steadying and/or contact guard assistance as patient completes activity. Assistance may be provided throughout the activity or intermittently. 3-Partial/Moderate Assistance-helper does LESS THAN HALF the effort. [place] lifts, holds or supports trunk or limbs, but provides less than half the effort. 2-Substantial/Maximal Assistance-helper does MORE THAN HALF the effort. [place] lifts or holds trunk or limbs and provides more than half the effort. 5-Srujbpzmf-eangrv does ALL the effort. Patient does none of the effort to complete the activity. Or, the assistance of 2 or more helpers is required for the patient to complete the activity. If activity was not attempted, code reason: 7-Patient Refused. 9-Not Applicable-not attempted and the patient did not perform the activity before the current illness, exacerbation or injury. 10-Not Attempted due to Environmental Limitations-(lack of equipment, weather restraints, etc.). 88-Not Attempted due to Medical Conditions or Safety Concerns. Roll Left to Right (QC): 3 Sit to Lying (QC): 3 Sit to Stand (QC): 3 Chair/Ygd-hz-Zjgdh Xfer(QC): 3 Car Transfer (QC): 1 Gait Training Does the Patient Walk?: Yes Distance: 2x 10' Walk 10 feet (QC): 2 Walk 50 ft with 2 Turns(QC): 88 Walk 150 ft (QC): 88 Walking 10ft/uneven surface-QC: 88 Gait Assistive Device: Parallel Bars Wheelchair Training Does the Pt Use a Wheelchair?: Yes Distance: 50 Wheel 50 ft with 2 turns (QC): 3 Wheel 150 ft (QC): 88 Type of Wheelchair: Manual Stair Training 1 Step (curb) (QC): 88 4 Steps (QC): 88 12 Steps (QC): 88 Balance Picking up an Object (QC): 88 ADL-Treatment Eating (QC): 5 (s/u (unable to utilize LUE for coordination/ opening/ cutting tasks)) Oral Hygiene (QC): 3 (mod A per clinical judgment, though pt denies at this time.) Shower/Bathe Self (QC): 1 (TD (Ax2 for bottom in stance), however pt able to complete all UB excluding RUE.) Upper Body Dressing (QC): 3 (mod A with jacket) Lower Body Dressing (QC): 1 (Ax2 with OT/ PT assist) On/Off Footwear (QC): 2 (max A BLE) Toileting Hygiene (QC): 1 Toilet Transfer (QC): 3 (mod A sit to stands. 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 Paracenteses on regular basis Anemia Diabetes Hypertension Hypothyroidism Migraines Chronic back pain GERD Anemia Ascites Plan: Supportive care Aggressive therapy Oxygen dependent 03/13/21: Paracentesis Monitor closely Venofer Iron level pending 03/14/2021: Iron infusions Supportive care Monitor blood sugar 03/15/2021: Supportive care Monitor sugar Bowel regimen (1) CVA (cerebral vascular accident) (2) Cirrhosis (3) GROVES (nonalcoholic steatohepatitis) (4) Status post abdominal paracentesis (5) Left-sided weakness (6) Diabetes (7) COPD (chronic obstructive pulmonary disease) (8) Dependence on supplemental oxygen (9) Anemia (10) Hypertension (11) Hyperlipidemia (12) Chronic back pain (13) GERD (gastroesophageal reflux disease) (14) Hypothyroidism NALLELY IBRAHIM DO Mar 15, 2021 06:57
[2021-03-15] MEDS: RT--FLUTICASONE/SALMETEROL 232-14 (AIRDUO RespiCLICK) IH SCH ×2 (07:03→21:13)
[2021-03-15] MEDS: polyethylene glycoL POWDER 17 GM (MIRALAX) PACK PO SCH ×2 (09:43→21:19)
[2021-03-15] MEDS: DOCUSATE SODIUM 100 MG (COLACE) CAP PO SCH ×2 (09:43→21:19)
[2021-03-15] MEDS: SENNA W/DOCUSATE (SENOKOT S) TABLET PO SCH ×2 (09:43→21:19)
[2021-03-15] MEDS: COLESTIPOL 1 GM (COLESTID) TAB PO SCH ×2 (09:44→21:19)
[2021-03-15 09:49] VITALS: BP 103/54
[2021-03-15] MEDS: FOLIC ACID 400 MCG PO SCH (09:54)
[2021-03-15] MEDS: SIMETHICONE 80 MG (MYLICON) CHEW PO SCH ×4 (09:55→21:19)
[2021-03-15] MEDS: ASPIRIN E.C. 81 MG (ECOTRIN) TAB PO SCH (10:20)
[2021-03-15] MEDS: FUROSEMIDE 40 MG (LASIX) TAB PO SCH (10:21)
[2021-03-15] MEDS: PANTOPRAZOLE 40 MG (PROTONIX) TAB PO SCH (10:21)
[2021-03-15] MEDS: SPIRONOLACTONE 25 MG (ALDACTONE) TAB PO SCH (10:25)
[2021-03-15] MEDS: lisINopril 5 MG (PRINIVIL) TABLET PO SCH (10:25)
[2021-03-15] MEDS: NIFEdipine ER 30 MG (PROCARDIA XL) TAB PO SCH (10:31)
[2021-03-15] MEDS: VICTOZA SQ SCH (10:54)
[2021-03-15] MEDS: TRIAMCINOLONE 0.1% CR (KENALOG) 15 GM TUBE TP SCH ×2 (10:56→21:20)
[2021-03-15 14:37] VITALS: BP 118/57
[2021-03-15] MEDS: ENOXAPARIN 40 MG/0.4 ML (LOVENOX) SYR SC SCH (17:21)
[2021-03-15 20:00] VITALS: BP 114/56
[2021-03-15] MEDS: MONTELUKAST 10 MG (SINGULAIR) TAB PO SCH (21:10)
[2021-03-15] MEDS: traZODone 150 MG (DESYREL) TABLET PO SCH (21:10)
[2021-03-15] MEDS: LUMIGAN 0.01% OPTH SOLN OU SCH (21:15)
[2021-03-15] MEDS: MELATONIN 3 MG TABLET PO PRN (21:15)
[2021-03-16 04:54] LABS: BASOPHILS # (AUTO) 0.1 10^3/uL (0.0-0.1); BASOPHILS % (AUTO) 1 % (0-10); EOSINOPHILS % (AUTO) 0 % (0-10); HEMATOCRIT 27 % (35-52); HEMOGLOBIN 8.2 g/dL (11.5-16.0); LYMPHOCYTES # (AUTO) 1.5 10^3/uL (1.0-4.0); LYMPHOCYTES % (AUTO) 23 % (12-44); MEAN CORPUSCULAR HEMOGLOBIN 24 pg (25-34); MEAN CORPUSCULAR HGB CONC 31 g/dL (32-36); MEAN CORPUSCULAR VOLUME 78 fL (80-99); MEAN PLATELET VOLUME 10.4 fL (9.0-12.2); MONOCYTES # (AUTO) 0.7 10^3/uL (0.0-1.0); MONOCYTES % (AUTO) 11 % (0-12); NEUTROPHILS # (AUTO) 4.3 10^3/uL (1.8-7.8); NEUTROPHILS % (AUTO) 65 % (42-75); PLATELET COUNT 330 10^3/uL (130-400); WHITE BLOOD COUNT 6.5 10^3/uL (4.3-11.0)
[2021-03-16 05:05] LABS: ALBUMIN 2.4 GM/DL (3.2-4.5)
[2021-03-16 05:06] LABS: CALCIUM 7.7 MG/DL (8.5-10.1)
[2021-03-16 05:09] LABS: BILIRUBIN,TOTAL 0.5 MG/DL (0.1-1.0)
[2021-03-16 05:11] LABS: CREATININE SERUM 0.9 MG/DL (0.60-1.30)
--- NOTE | 2021-03-16 06:22 | PM&R Progress Note ---
Subjective HPI/CC On Admission Date Seen by Provider: Mar 16, 2021 Time Seen by Provider: 10:00 Subjective/Events-last exam 03/16/2021: Pt doing pretty well PureWick started for Lasix Aldactone diuresis Hgb 8.2 Bowels are moving well Has no complaints 03/15/2021: Patient doing really well Heels are red but Allevyn seems to cause an allergy No pain medication was needed today thus far Stool softeners maintained Lasix and Aldactone causes increased urination so pure wick may be required 03/14/2021: Pt doing really well Iron level of 21 so will initiate the Venofer full dosing Midline maintained Overall doing much better and able to move the left leg 03/13/21: Pt doing really well DC the martinez catheter Ultrasound will be performed and paracentesis will be performed by Dr. Hernandez Hgb 8.1 give one dose of iron infusion She is reusing Carafate as requested Updated Review of Systems General: Fatigue, Malaise Neurological: Weakness Objective Exam Vital Signs Vital Signs Date Time Temp Pulse Resp B/P (MAP) Pulse Ox O2 Delivery O2 Flow Rate FiO2 03/16/21 21:48 97 Nasal Cannula 2.00 03/16/21 20:00 36.6 65 16 121/58 (79) Capillary Refill : General Appearance: No Apparent Distress, WD/WN, Chronically ill HEENT: PERRL/EOMI, Normal ENT Inspection, Pharynx Normal Neck: Full Range of Motion, Normal Inspection, Non Tender, Supple, Carotid Bruit Respiratory: Chest Non Tender, Lungs Clear, Normal Breath Sounds, No Accessory Muscle Use, No Respiratory Distress, Decreased Breath Sounds, Other (Maintained on O2 24/7) Cardiovascular: Regular Rate, Rhythm, No Edema, No Gallop, No JVD, No Murmur, Normal Peripheral Pulses Gastrointestinal: Normal Bowel Sounds, No Organomegaly, No Pulsatile Mass, Non Tender, Soft, Distended, Other (ascites) Back: Normal Inspection, No CVA Tenderness, No Vertebral Tenderness Extremity: Normal Capillary Refill, Normal Inspection, Normal Range of Motion, Non Tender, No Calf Tenderness, No Pedal Edema Neurologic/Psychiatric: Alert, Oriented x3, Normal Mood/Affect, Motor Weakness (Left-sided weakness upper extremity 0/5 left lower extremity 1/5) Skin: Normal Color, Warm/Dry Lymphatic: No Adenopathy Results/Procedures Lab Patient resulted labs reviewed. FIM Transfers Therapy Code Descriptions/Definitions Functional [place] Measure: 0=Not Assessed/NA 4=Minimal Assistance 1=Total Assistance 5=Supervision or Setup 2=Maximal Assistance 6=Modified [place] 3=Moderate Assistance 7=Complete IndependenceSCALE: Activities may be completed with or without assistive devices. 3-Yrcrewvadt-fxcqipx completes the activity by him/herself with no assistance from a helper. 5-Set-up or Clean-up Assistance-helper sets up or cleans up; patient completes activity. [place] assists only prior to or following the activity. 4-Supervision or Touching Assistance-helper provides verbal cues and/or touching/steadying and/or contact guard assistance as patient completes activity. Assistance may be provided throughout the activity or intermittently. 3-Partial/Moderate Assistance-helper does LESS THAN HALF the effort. [place] lifts, holds or supports trunk or limbs, but provides less than half the effort. 2-Substantial/Maximal Assistance-helper does MORE THAN HALF the effort. [place] lifts or holds trunk or limbs and provides more than half the effort. 7-Bfvnmshqn-aoebmj does ALL the effort. Patient does none of the effort to complete the activity. Or, the assistance of 2 or more helpers is required for the patient to complete the activity. If activity was not attempted, code reason: 7-Patient Refused. 9-Not Applicable-not attempted and the patient did not perform the activity before the current illness, exacerbation or injury. 10-Not Attempted due to Environmental Limitations-(lack of equipment, weather restraints, etc.). 88-Not Attempted due to Medical Conditions or Safety Concerns. Roll Left to Right (QC): 3 Sit to Lying (QC): 3 Sit to Stand (QC): 3 Chair/Tly-qk-Peero Xfer(QC): 3 Car Transfer (QC): 1 Gait Training Does the Patient Walk?: Yes Distance: 2x 10' Walk 10 feet (QC): 2 Walk 50 ft with 2 Turns(QC): 88 Walk 150 ft (QC): 88 Walking 10ft/uneven surface-QC: 88 Gait Assistive Device: Parallel Bars Wheelchair Training Does the Pt Use a Wheelchair?: Yes Distance: 50 Wheel 50 ft with 2 turns (QC): 3 Wheel 150 ft (QC): 88 Type of Wheelchair: Manual Stair Training 1 Step (curb) (QC): 88 4 Steps (QC): 88 12 Steps (QC): 88 Balance Picking up an Object (QC): 88 ADL-Treatment Eating (QC): 5 (s/u (unable to utilize LUE for coordination/ opening/ cutting tasks)) Oral Hygiene (QC): 3 (mod A per clinical judgment, though pt denies at this time.) Shower/Bathe Self (QC): 1 (TD (Ax2 for bottom in stance), however pt able to complete all UB excluding RUE.) Upper Body Dressing (QC): 3 (mod A with jacket) Lower Body Dressing (QC): 1 (Ax2 with OT/ PT assist) On/Off Footwear (QC): 2 (max A BLE) Toileting Hygiene (QC): 1 Toilet Transfer (QC): 3 (mod A sit to stands. 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 Paracenteses on regular basis Anemia Diabetes Hypertension Hypothyroidism Migraines Chronic back pain GERD Anemia Ascites Plan: Supportive care Aggressive therapy Oxygen dependent 03/13/21: Paracentesis Monitor closely Venofer Iron level pending 03/14/2021: Iron infusions Supportive care Monitor blood sugar 03/15/2021: Supportive care Monitor sugar Bowel regimen 03/16/2021: Blood sugar management Monitor closely (1) CVA (cerebral vascular accident) (2) Cirrhosis (3) GROVES (nonalcoholic steatohepatitis) (4) Status post abdominal paracentesis (5) Left-sided weakness (6) Diabetes (7) COPD (chronic obstructive pulmonary disease) (8) Dependence on supplemental oxygen (9) Anemia (10) Hypertension (11) Hyperlipidemia (12) Chronic back pain (13) GERD (gastroesophageal reflux disease) (14) Hypothyroidism NALLELY IBRAHIM DO Mar 16, 2021 06:22
[2021-03-16] MEDS: CYANOCOBALAMIN 1,000 MCG (VITAMIN B-12) TABLET PO SCH (06:29)
[2021-03-16] MEDS: LEVOTHYROXINE 100 MCG (LEVOTHROID) TAB PO SCH (06:30)
[2021-03-16] MEDS: SUCRALFATE 1 GM (CARAFATE) TAB PO SCH ×4 (06:32→21:56)
[2021-03-16 07:52] VITALS: BP 111/56
[2021-03-16] MEDS: ONDANSETRON 4 MG (ZOFRAN) ORAL DISSOLVE TAB PO PRN (09:09)
[2021-03-16] MEDS: lisINopril 5 MG (PRINIVIL) TABLET PO SCH (09:10)
[2021-03-16] MEDS: SPIRONOLACTONE 25 MG (ALDACTONE) TAB PO SCH (09:10)
[2021-03-16] MEDS: HYDROcodone/APAP 5 MG/325 MG (LORTAB) TAB PO PRN ×2 (09:10→13:24)
[2021-03-16] MEDS: ASPIRIN E.C. 81 MG (ECOTRIN) TAB PO SCH (09:10)
[2021-03-16] MEDS: NIFEdipine ER 30 MG (PROCARDIA XL) TAB PO SCH (09:11)
[2021-03-16] MEDS: IRON SUCROSE 200 MG/10 ML (VENOFER) VIAL IV SCH (09:11)
[2021-03-16] MEDS: RT--FLUTICASONE/SALMETEROL 232-14 (AIRDUO RespiCLICK) IH SCH ×2 (09:11→20:36)
[2021-03-16] MEDS: FUROSEMIDE 40 MG (LASIX) TAB PO SCH (09:11)
[2021-03-16] MEDS: VICTOZA SQ SCH (09:15)
[2021-03-16] MEDS: TRIAMCINOLONE 0.1% CR (KENALOG) 15 GM TUBE TP SCH ×2 (09:15→21:58)
[2021-03-16] MEDS: DOCUSATE SODIUM 100 MG (COLACE) CAP PO SCH ×2 (09:52→21:40)
[2021-03-16] MEDS: SIMETHICONE 80 MG (MYLICON) CHEW PO SCH ×4 (09:53→21:57)
[2021-03-16] MEDS: COLESTIPOL 1 GM (COLESTID) TAB PO SCH ×2 (09:53→21:56)
[2021-03-16] MEDS: polyethylene glycoL POWDER 17 GM (MIRALAX) PACK PO SCH ×2 (09:53→21:57)
[2021-03-16] MEDS: PANTOPRAZOLE 40 MG (PROTONIX) TAB PO SCH (09:53)
[2021-03-16] MEDS: SENNA W/DOCUSATE (SENOKOT S) TABLET PO SCH ×2 (09:53→21:57)
[2021-03-16] MEDS: FOLIC ACID 400 MCG PO SCH (10:41)
[2021-03-16] MEDS: FENTANYL PATCH REMOVAL TP SCH (10:41)
[2021-03-16] MEDS: fentaNYL PATCH 25 MCG (DURAGESIC) TD SCH (10:41)
--- NOTE | 2021-03-16 11:10 | Speech Therapy Daily Note ---
Speech Daily Progress Note Subjective Date Seen by Provider: Mar 16, 2021 Time Seen by Provider: 00:30 Patient was resting in her bed following her other PT and OT session. Patient c/o her throat bothering her due to a lot of phlegm. Objective Patient demonstrated safe oral intake with current diet level without s/s of aspiration at 90% with minimal cues. Patient demo safety precautions with utilization of call light as needed at 80%. Assessment Assessment Current Status: Good Progress Treatment Plan Continue Plan of Care Speech Short Term Goals Short Term Goals Short Term Goals 1) Patient will complete memory tasks related to her daily needs at 80% or greater with minimal cues. 2) Patient will complete safety awareness tasks related to her daily needs at 80% or greater with minimal cues. 3) Patient will complete problem solving tasks related to her daily needs at 80% or greater with minimal cues. Speech Penitentiary Goals Penitentiary Goals Patient will improve cognitive-communication abilities in order to require less assist with daily tasks. Speech-Plan Patient/Family Goals Patient/Family Goals: Patient anticipated returning to the SNF where she was prior to hospitaization at least for a short term. Treatment Plan Speech Therapy Treatment Plan: Continue Plan of Care Treatment Duration: Apr 03, 2021 Frequency: 4 times per week Estimated Hrs Per Day: .5 hour per day Rehab Potential: Good Barriers to Learning: Patient's current medical status and debility, mild cognitive deficits Pt/Family Agrees to Plan: Yes Safety Risks/Education Teaching Recipient: Patient Teaching Methods: Demonstration, Discussion Response to Teaching: Verbalize Understanding, Return Demonstration Education Topics Provided: Continued safety within her room, safety with oral intake and communication of wants/needs Time Speech Therapy Time In: 11:00 Speech Therapy Time Out: 11:30 Total Billed Time: 30 Billed Treatment Time [facility] No [place], [address] Mar 16, 2021 11:10
--- NOTE | 2021-03-16 11:29 | Physical Therapy Daily Note ---
PT Daily Note-Current Subjective Pt laying Supine in bed upon arrival. Pt agrees to PT but reports not feeling well today. Nurse is present & giving meds during tx. Pain Location Body Site: Sacrum Pain Description: Ache Comment: Pt reports but doesn't rate. Mental Status Patient Orientation: Person, Place Attachments: Other-See Comments (Ba) Transfers SCALE: Activities may be completed with or without assistive devices. 3-Xviujohiym-jjuabnc completes the activity by him/herself with no assistance from a helper. 5-Set-up or Clean-up Assistance-helper sets up or cleans up; patient completes activity. [place] assists only prior to or following the activity. 4-Supervision or Touching Assistance-helper provides verbal cues and/or touching/steadying and/or contact guard assistance as patient completes activity. Assistance may be provided throughout the activity or intermittently. 3-Partial/Moderate Assistance-helper does LESS THAN HALF the effort. [place] lifts, holds or supports trunk or limbs, but provides less than half the effort. 2-Substantial/Maximal Assistance-helper does MORE THAN HALF the effort. [place] lifts or holds trunk or limbs and provides more than half the effort. 1-Xaiujthjm-aqyqqk does ALL the effort. Patient does none of the effort to complete the activity. Or, the assistance of 2 or more helpers is required for the patient to complete the activity. If activity was not attempted, code reason: 7-Patient Refused. 9-Not Applicable-not attempted and the patient did not perform the activity before the current illness, exacerbation or injury. 10-Not Attempted due to Environmental Limitations-(lack of equipment, weather restraints, etc.). 88-Not Attempted due to Medical Conditions or Safety Concerns. Weight Bearing Right Lower Extremity: Right Full Weight Bearing Left Lower Extremity: Left Full Weight Bearing Exercises Supine Ex: Ankle pumps, Quad Set, Glut sets, Heel Slides, Straight leg raise, Hip abd/add Supine Reps: 15 (2 sets) Treatments Pt begins tx taking morning meds. Pt as given an inhaler by RT. Pt completes Supine Ex with several RB. OT arrives at end of tx. All needs met. Assessment Current Status: Fair Progress Pt has to be kept on task, redirection needed frequently. PT Short Term Goals Short Term Goals Time Frame: Mar 20, 2021 Roll Left & Right: 4 Sit to lyin Lying to sitting on side of be: 4 Sit to stand: 5 Chair/cxi-vt-yvurp transfer: 4 Toilet transfer: 4 Car transfer: 4 Walk 10 feet: 4 Walk 50 feet with two turns: 4 Walk 150 feet: 88 Walking 10ft on uneven surface: 88 1 step (curb): 4 4 steps: 88 12 steps: 88 Picking up objects: 88 Does pt use a wc or scooter: Yes Wheel 50ft w/2 turns: 5 Wheel 150 feet: 5 Type: Manual PT [facility] Goals Chcf Goals PT [facility] Goals Time Frame: Apr 03, 2021 Roll Left & Right (QC): 6 Sit to Lying (QC): 6 Lying-Sitting on Side/Bed(QC): 6 Sit to Stand (QC): 6 Chair/Vwk-te-Itoio Xfer(QC): 6 Toilet Transfer (QC): 5 Car Transfer (QC): 4 Does the Patient Walk: Yes Walk 10 feet (QC): 5 Walk 50ft with 2 Turns (QC): 5 Walk 150 ft (QC): 5 Walking 10ft on Uneven Surface: 5 1 Step (curb) (QC): 5 4 Steps (QC): 4 12 Steps (QC): 88 Picking up an Object (QC): 88 Wheel 50 feet with 2 turns (QC: 6 Type: Manual Wheel 150 feet: 6 Type: Manual PT Plan Problem List Problem List: Activity Tolerance, Functional Strength, Transfer Treatment/Plan Treatment Plan: Continue Plan of Care Treatment Plan: Bed Mobility, Concurrent Therapy, Functional Strength, Group Therapy, Gait, Safety, Therapeutic Exercise Treatment Duration: Apr 03, 2021 Frequency: 11 times per week Estimated Hrs Per Day: 1.5 hours per day Patient and/or Family Agrees t: Yes Safety Risks/Education Patient Education: Transfer Techniques, Correct Positioning, Safety Issues Teaching Recipient: Patient Teaching Methods: Discussion Response to Teaching: Reinforcement Needed Time/GCodes Time In: 900 Time Out: 945 Total Billed Treatment Time: 45 Total Billed Treatment 1, FA (15m), EX x2 (30m) MAURICE CAPUTO CUT OFF MACHINE HELPER Mar 16, 2021 11:29
--- NOTE | 2021-03-16 12:47 | Occupational Ther Daily Note ---
OT Current Status-Daily Note Subjective No pain reported. Appearance Pt. alert and oriented at bed level. Agrees to work with OT. Mental Status/Objective Patient Orientation: Person, Place ADL-Treatment Therapy Code Descriptions/Definitions Functional [place] Measure: 0=Not Assessed/NA 4=Minimal Assistance 1=Total Assistance 5=Supervision or Setup 2=Maximal Assistance 6=Modified [place] 3=Moderate Assistance 7=Complete IndependenceSCALE: Activities may be completed with or without assistive devices. 1-Zmtzlkzxjl-gcvanxt completes the activity by him/herself with no assistance from a helper. 5-Set-up or Clean-up Assistance-helper sets up or cleans up; patient completes activity. [place] assists only prior to or following the activity. 4-Supervision or Touching Assistance-helper provides verbal cues and/or touching/steadying and/or contact guard assistance as patient completes activity. Assistance may be provided throughout the activity or intermittently. 3-Partial/Moderate Assistance-helper does LESS THAN HALF the effort. [place] lifts, holds or supports trunk or limbs, but provides less than half the effort. 2-Substantial/Maximal Assistance-helper does MORE THAN HALF the effort. [place] lifts or holds trunk or limbs and provides more than half the effort. 1-Xhygazyao-mzvqmh does ALL the effort. Patient does none of the effort to complete the activity. Or, the assistance of 2 or more helpers is required for the patient to complete the activity. If activity was not attempted, code reason: 7-Patient Refused. 9-Not Applicable-not attempted and the patient did not perform the activity before the current illness, exacerbation or injury. 10-Not Attempted due to Environmental Limitations-(lack of equipment, weather restraints, etc.). 88-Not Attempted due to Medical Conditions or Safety Concerns. Shower/Bathe Self (QC): 3 (Mod assist overall. Pt. completed half of sponge bath at bed level. Pt. encouraged to wash as much as she could with right UE. Pt. washed front david area, chest, right leg, and some of left leg. OT washed rest of body.) Upper Body Dressing (QC): 2 Lower Body Dressing (QC): 2 (OT threaded pt's pants over feet while supine. Pt. able to bridge bottom, and assist with some pulling over hips. OT donned more thoroughly.) On/Off Footwear: 2 Toileting Hygiene (QC): 2 (Pt. using Purewick. Encouraged to attempt using BSC more. Pt. afraid that she will have accidents and wont be able to hold long enough for BSC.) Pt. states that she is able to feel sensations in left UE while OT is washing arm. Unable to move left UE, but is able to bring up left LE and allow OT to wash at supine level. Pt. requires mod/max assist for supine-sit, and then is able to sit EOB with CGA/SBA. OT washes hair with shampoo cap. Pt. attempts to brush, but unable to fully brush and so OT finishes job. Pt. is able to stand with mod assist, and take small, slow steps toward HOB. Sits and then lays with CGA. OT positions pt. to comfort level. All needs met. Education OT Patient Education: Correct positioning, Modified ADL techniques, Progress toward Goal/Update tx plan, Purpose of tx/functional activities, Reviewed precautions, Rehab process, Transfer techniques Teaching Recipient: Patient Teaching Methods: Demonstration, Discussion Response to Teaching: Verbalize Understanding, Return Demonstration OT Short Term Goals Short Term Goals Oral hygiene: 5 Toileting hygiene: 2 Shower/bathe self: 2 Upper body dressin Lower body dressin OT Doctor Of Podiatry Goals Doctor Of Podiatry Goals Time Frame: Mar 27, 2021 Eating (QC): 6 Oral Hygiene (QC): 6 Toileting Hygiene (QC): 4 Shower/Bathe Self (QC): 4 Upper Body Dressing (QC): 6 Lower Body Dressing (QC): 4 On/Off Footwear (QC): 4 Additional Goals: 1-Demonstrate ADL Tasks, 2-Verbalize Understanding, 3- ImproveStrength/Feliberto 1=Demonstrate adherence to instructed precautions during ADL tasks. 2=Patient will verbalize/demonstrate understanding of assistive de vices/modifications for ADL. 3=Patient will improve strength/tolerance for activity to enable patient to perform ADL's. OT Education/Plan Problem List/Assessment Assessment: Decreased Activ Tolerance, Decreased UE Strength, Dependent Transfers, Impaired Bed Mobility, Impaired Coordination, Impaired Funct Balance, Impaired I ADL's, Impaired Self-Care Skills, Restricted Funct UE ROM Discharge Recommendations Plan/Recommendations: Continue POC Therapy Discharge Recommendati: Post Acute OT Treatment Plan/Plan of Care Treatment,Training & Education: Yes Patient would benefit from OT for education, treatment and training to promote independence in ADL's, mobility, safety and/or upper extremity function for ADL's. Plan of Care: ADL Retraining, Caregiver Training, Cognitive Retraining, Functional Mobility, Group Exercise/Act as Ind, Orthotic Fitting/Training, UE Funct Exercise/Act, UE Neuromus Re-Ed/Coord, Visual/Perceptual Retrain, W/C Management Training Treatment Duration: Mar 27, 2021 Frequency: At least 5 of 7 days/Wk (IRF) (15/ status) Estimated Hrs Per Day: 1.5 hours per day Agreement: Yes Rehab Potential: Good Time/GCodes Start Time: 09:45 Stop Time: 10:30 Total Time Billed (hr/min): 45 Billed Treatment Time 1, ADL x 3 SHEELA CLARKE OT Mar 16, 2021 12:47
--- NOTE | 2021-03-16 15:22 | Therapy Group Daily Note ---
Therapy Daily Group Note Patient Education Topic Home Safety Exercises LE Seated Exercise, UE Exercise Session Ratio (pt:therapist): 4:1 Goal of Session: Home Safety Strategies, UE/LE Strengthing Goal Met for this Session: Yes Pt Benefit of Group: Contributions to Others, F/U Use of Strategies @Home, Increased Functional Safety, Increased Functional Strength, Improved Cognition, Recognition of Peers, Socialization Other/Notes Pt ambulated using FWW to therapy gym for OT/PT group. Group consisted of introductions (name), socialization, B UE/LE seated exercises, home safety activity and home safety education. Pt introduced self appropriately and actively listen to peers. Pt then was able to complete B UE/LE seated exercises with modifications due CVA and flaccid L UE. Pt acknowledged understanding of educational topics by giving own examples and answering questions during home safety activity. After group, pt lying in bed with call light/phone in reach. All needs met in room. Start Time: 13:00 Stop Time: 14:25 Total Billed Treatment Time: 85 Total Billed Treatment 1-[facility] RAHMAN Mar 16, 2021 15:22
--- NOTE | 2021-03-16 15:39 | Progress Note - Surgery ---
Subjective Date Seen by a Provider: Mar 16, 2021 Time Seen by a Provider: 15:37 Subjective/Events-last exam Stomach not bothering her. No increase in ascites. Does not want drained at this time. Denies n/v fever sweats chills shortness of breath or chest pain. Objective Exam Vital Signs Date Time Temp Pulse Resp B/P (MAP) Pulse Ox O2 Delivery O2 Flow Rate FiO2 03/16/21 09:11 93 Nasal Cannula 2.00 03/16/21 09:00 97 Nasal Cannula 3.00 03/16/21 07:52 35.4 70 16 111/56 (74) 95 Nasal Cannula 2.00 03/15/21 21:13 93 Nasal Cannula 2.00 03/15/21 21:00 96 Nasal Cannula 2.00 03/15/21 20:00 36.6 65 14 114/56 (75) 95 2.00 Capillary Refill : General Appearance: No Apparent Distress, WD/WN, Chronically ill HEENT: PERRL/EOMI, Normal ENT Inspection, Pharynx Normal Neck: Full Range of Motion, Normal Inspection, Non Tender, Supple, Carotid Bruit Respiratory: Chest Non Tender, No Accessory Muscle Use, No Respiratory Distress Cardiovascular: Regular Rate, Rhythm, No JVD, Normal Peripheral Pulses Gastrointestinal: non tender, soft, distended (slight from ascites) Extremity: Normal Capillary Refill, Normal Inspection, Normal Range of Motion, Non Tender, No Calf Tenderness, No Pedal Edema Neurologic/Psychiatric: Alert, Oriented x3, Normal Mood/Affect, Motor Weakness (Left-sided weakness upper extremity 0/5 left lower extremity 1/5) Skin: Normal Color, Warm/Dry Lymphatic: No Adenopathy Results Lab Laboratory Tests 03/15/21 21:03: Glucometer 169H 03/16/21 04:40: White Blood Count 6.5, Red Blood Count 3.47L, Hemoglobin 8.2L, Hematocrit 27L, M ermias Corpuscular Volume 78L, Mean Corpuscular Hemoglobin 24L, Mean Corpuscular Hemoglobin Concent 31L, Red Cell Distribution Width 18.9H, Platelet Count 330, Mean Platelet Volume 10.4, Immature Granulocyte % (Auto) 1, Neutrophils (%) (Auto) 65, Lymphocytes (%) (Auto) 23, Monocytes (%) (Auto) 11, Eosinophils (%) (Auto) 0, Basophils (%) (Auto) 1, Neutrophils # (Auto) 4.3, Lymphocytes # (Auto) 1.5, Monocytes # (Auto) 0.7, Eosinophils # (Auto) 0.0, Basophils # (Auto) 0.1, Immature Granulocyte # (Auto) 0.0, Sodium Level 136, Potassium Level 4.0, Chloride Level 98, Carbon Dioxide Level 25, Anion Gap 13, Blood Urea Nitrogen 20H, Creatinine 0.90, Estimat Glomerular Filtration Rate 63, BUN/Creatinine Ratio 22, Glucose Level 111H, Calcium Level 7.7L, Corrected Calcium 9.0, Total Bilirubin 0.5, Aspartate Amino Transf (AST/SGOT) 42H, Alanine Aminotransferase (ALT/SGPT) 23, Alkaline Phosphatase 74, Total Protein 6.0L, Albumin 2.4L 03/16/21 11:30: Glucometer 138H Assessment/Plan Assessment/Plan Assessment/Plan left sided weakness 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 She does not want to have paracentesis at this time. She is not really having any symptoms from it she states. If becomes symptomatic patient to have us called. Will sign off, please call if needed. FORTUNATO GIRON DO Mar 16, 2021 15:39
[2021-03-16] MEDS: ENOXAPARIN 40 MG/0.4 ML (LOVENOX) SYR SC SCH (18:31)
[2021-03-16 20:00] VITALS: BP_SYST 121; BP_SYST 135; BP_DIAS 58; BP_DIAS 76
[2021-03-16] MEDS: LUMIGAN 0.01% OPTH SOLN OU SCH (21:39)
[2021-03-16] MEDS: MELATONIN 3 MG TABLET PO PRN (21:39)
[2021-03-16] MEDS: traZODone 150 MG (DESYREL) TABLET PO SCH (21:40)
[2021-03-16] MEDS: MONTELUKAST 10 MG (SINGULAIR) TAB PO SCH (21:40)
[2021-03-17] MEDS: HYDROcodone/APAP 5 MG/325 MG (LORTAB) TAB PO PRN ×2 (04:00→20:25)
--- NOTE | 2021-03-17 05:32 | PM&R Progress Note ---
Subjective HPI/CC On Admission Date Seen by Provider: Mar 17, 2021 Time Seen by Provider: 11:00 Subjective/Events-last exam 03/17/21: Pt having more nausea Fentanyl patch of 235 micrograms has been maintained of which I didnt realize and really unsure about increasing that to 50 because of the her disease Zofran will be given IV Her left leg is moving very well 03/16/2021: Pt doing pretty well PureWick started for Lasix Aldactone diuresis Hgb 8.2 Bowels are moving well Has no complaints 03/15/2021: Patient doing really well Heels are red but Allevyn seems to cause an allergy No pain medication was needed today thus far Stool softeners maintained Lasix and Aldactone causes increased urination so pure wick may be required 03/14/2021: Pt doing really well Iron level of 21 so will initiate the Venofer full dosing Midline maintained Overall doing much better and able to move the left leg 03/13/21: Pt doing really well DC the martinez catheter Ultrasound will be performed and paracentesis will be performed by Dr. Hernandez Hgb 8.1 give one dose of iron infusion She is reusing Carafate as requested Updated Review of Systems General: Fatigue, Malaise Gastrointestinal: Nausea Objective Exam Vital Signs Vital Signs Date Time Temp Pulse Resp B/P (MAP) Pulse Ox O2 Delivery O2 Flow Rate FiO2 03/17/21 19:23 93 Nasal Cannula 2.00 03/17/21 07:53 36.3 60 16 110/69 (83) Capillary Refill : General Appearance: No Apparent Distress, WD/WN, Chronically ill HEENT: PERRL/EOMI, Normal ENT Inspection, Pharynx Normal Neck: Full Range of Motion, Normal Inspection, Non Tender, Supple, Carotid Bruit Respiratory: Chest Non Tender, Lungs Clear, Normal Breath Sounds, No Accessory Muscle Use, No Respiratory Distress, Decreased Breath Sounds, Other (Maintained on O2 /) Cardiovascular: Regular Rate, Rhythm, No Edema, No Gallop, No JVD, No Murmur, Normal Peripheral Pulses Gastrointestinal: Normal Bowel Sounds, No Organomegaly, No Pulsatile Mass, Non Tender, Soft, Distended, Other (ascites) Back: Normal Inspection, No CVA Tenderness, No Vertebral Tenderness Extremity: Normal Capillary Refill, Normal Inspection, Normal Range of Motion, Non Tender, No Calf Tenderness, No Pedal Edema Neurologic/Psychiatric: Alert, Oriented x3, Normal Mood/Affect, Motor Weakness (Left-sided weakness upper extremity 0/5 left lower extremity 1/5) Skin: Normal Color, Warm/Dry Lymphatic: No Adenopathy Results/Procedures Lab Patient resulted labs reviewed. FIM Transfers Therapy Code Descriptions/Definitions Functional [place] Measure: 0=Not Assessed/NA 4=Minimal Assistance 1=Total Assistance 5=Supervision or Setup 2=Maximal Assistance 6=Modified [place] 3=Moderate Assistance 7=Complete IndependenceSCALE: Activities may be completed with or without assistive devices. 3-Cegtoqrjxa-xiifkcb completes the activity by him/herself with no assistance from a helper. 5-Set-up or Clean-up Assistance-helper sets up or cleans up; patient completes activity. [place] assists only prior to or following the activity. 4-Supervision or Touching Assistance-helper provides verbal cues and/or touching/steadying and/or contact guard assistance as patient completes activity. Assistance may be provided throughout the activity or intermittently. 3-Partial/Moderate Assistance-helper does LESS THAN HALF the effort. [place] lifts, holds or supports trunk or limbs, but provides less than half the effort. 2-Substantial/Maximal Assistance-helper does MORE THAN HALF the effort. [place] lifts or holds trunk or limbs and provides more than half the effort. 0-Jmazcgxty-adjbnc does ALL the effort. Patient does none of the effort to complete the activity. Or, the assistance of 2 or more helpers is required for the patient to complete the activity. If activity was not attempted, code reason: 7-Patient Refused. 9-Not Applicable-not attempted and the patient did not perform the activity before the current illness, exacerbation or injury. 10-Not Attempted due to Environmental Limitations-(lack of equipment, weather restraints, etc.). 88-Not Attempted due to Medical Conditions or Safety Concerns. Roll Left to Right (QC): 3 Sit to Lying (QC): 3 Sit to Stand (QC): 3 Chair/Vuj-id-Emjuy Xfer(QC): 3 Car Transfer (QC): 1 Gait Training Does the Patient Walk?: Yes Distance: 2x 10' Walk 10 feet (QC): 2 Walk 50 ft with 2 Turns(QC): 88 Walk 150 ft (QC): 88 Walking 10ft/uneven surface-QC: 88 Gait Assistive Device: Parallel Bars Wheelchair Training Does the Pt Use a Wheelchair?: Yes Distance: 50 Wheel 50 ft with 2 turns (QC): 3 Wheel 150 ft (QC): 88 Type of Wheelchair: Manual Stair Training 1 Step (curb) (QC): 88 4 Steps (QC): 88 12 Steps (QC): 88 Balance Picking up an Object (QC): 88 ADL-Treatment Eating (QC): 5 (s/u (unable to utilize LUE for coordination/ opening/ cutting tasks)) Oral Hygiene (QC): 3 (mod A per clinical judgment, though pt denies at this time.) Shower/Bathe Self (QC): 3 (Mod assist overall. Pt. completed half of sponge bath at bed level. Pt. encouraged to wash as much as she could with right UE. Pt. washed front david area, chest, right leg, and some of left leg. OT washed rest of body.) Upper Body Dressing (QC): 2 Lower Body Dressing (QC): 2 (OT threaded pt's pants over feet while supine. Pt. able to bridge bottom, and assist with some pulling over hips. OT donned more thoroughly.) On/Off Footwear (QC): 2 Toileting Hygiene (QC): 2 (Pt. using Purewick. Encouraged to attempt using BSC more. Pt. afraid that she will have accidents and wont be able to hold long enough for BSC.) Toilet Transfer (QC): 3 (mod A sit to stands. 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 Paracenteses on regular basis Anemia Diabetes Hypertension Hypothyroidism Migraines Chronic back pain GERD Anemia Ascites Plan: Supportive care Aggressive therapy Oxygen dependent 03/13/21: Paracentesis Monitor closely Venofer Iron level pending 03/14/2021: Iron infusions Supportive care Monitor blood sugar 03/15/2021: Supportive care Monitor sugar Bowel regimen 03/16/2021: Blood sugar management Monitor closely 03/17/2021: Supportive care Pain control Nausea treatment (1) CVA (cerebral vascular accident) (2) Cirrhosis (3) GROVES (nonalcoholic steatohepatitis) (4) Status post abdominal paracentesis (5) Left-sided weakness (6) Diabetes (7) COPD (chronic obstructive pulmonary disease) (8) Dependence on supplemental oxygen (9) Anemia (10) Hypertension (11) Hyperlipidemia (12) Chronic back pain (13) GERD (gastroesophageal reflux disease) (14) Hypothyroidism NALLELY IBRAHIM DO Mar 17, 2021 05:32
[2021-03-17] MEDS: LEVOTHYROXINE 100 MCG (LEVOTHROID) TAB PO SCH (06:41)
[2021-03-17] MEDS: CYANOCOBALAMIN 1,000 MCG (VITAMIN B-12) TABLET PO SCH (06:42)
[2021-03-17] MEDS: SUCRALFATE 1 GM (CARAFATE) TAB PO SCH ×4 (06:46→21:52)
[2021-03-17] MEDS: RT--FLUTICASONE/SALMETEROL 232-14 (AIRDUO RespiCLICK) IH SCH ×2 (07:34→18:40)
[2021-03-17 07:53] VITALS: BP 110/69
[2021-03-17] MEDS ORDERED: fentaNYL PATCH 12 MCG (DURAGESIC) TD SCH (09:00)
[2021-03-17] MEDS: ONDANSETRON 4 MG/2 ML (SDV) Z0FRAN IVP PRN ×2 (09:31→16:42)
[2021-03-17] MEDS: COLESTIPOL 1 GM (COLESTID) TAB PO SCH ×2 (09:34→21:52)
[2021-03-17] MEDS: DOCUSATE SODIUM 100 MG (COLACE) CAP PO SCH ×2 (09:35→21:52)
[2021-03-17] MEDS: polyethylene glycoL POWDER 17 GM (MIRALAX) PACK PO SCH ×2 (09:35→21:52)
[2021-03-17] MEDS: SIMETHICONE 80 MG (MYLICON) CHEW PO SCH ×4 (09:35→21:52)
[2021-03-17] MEDS: SENNA W/DOCUSATE (SENOKOT S) TABLET PO SCH ×2 (10:37→21:57)
[2021-03-17] MEDS: ASPIRIN E.C. 81 MG (ECOTRIN) TAB PO SCH (10:37)
[2021-03-17] MEDS: PANTOPRAZOLE 40 MG (PROTONIX) TAB PO SCH (10:37)
[2021-03-17] MEDS: FUROSEMIDE 40 MG (LASIX) TAB PO SCH (10:37)
[2021-03-17] MEDS: SPIRONOLACTONE 25 MG (ALDACTONE) TAB PO SCH (10:38)
[2021-03-17] MEDS: lisINopril 5 MG (PRINIVIL) TABLET PO SCH (10:38)
[2021-03-17] MEDS: NIFEdipine ER 30 MG (PROCARDIA XL) TAB PO SCH (10:38)
[2021-03-17] MEDS: FOLIC ACID 400 MCG PO SCH (10:39)
[2021-03-17] MEDS: VICTOZA SQ SCH (10:42)
[2021-03-17] MEDS: TRIAMCINOLONE 0.1% CR (KENALOG) 15 GM TUBE TP SCH ×2 (10:43→21:57)
--- NOTE | 2021-03-17 11:41 | Physical Therapy Daily Note ---
PT Daily Note-Current Subjective Pt sitting up in bed upon arrival. Nurse present. Pt reports not feeling well and doesn't want to participate in Therapy until having pain & nausea med. Pain Location Body Site: Abdomen Pain Description: Tightness Comment: Reports discomfort since no BM, doesn't rate Mental Status Patient Orientation: Person, Place, Situation Attachments: Other-See Comments (Ba) Transfers SCALE: Activities may be completed with or without assistive devices. 3-Fmwtigepug-nkvnvpl completes the activity by him/herself with no assistance from a helper. 5-Set-up or Clean-up Assistance-helper sets up or cleans up; patient completes activity. [place] assists only prior to or following the activity. 4-Supervision or Touching Assistance-helper provides verbal cues and/or to uching/steadying and/or contact guard assistance as patient completes activity. Assistance may be provided throughout the activity or intermittently. 3-Partial/Moderate Assistance-helper does LESS THAN HALF the effort. [place] lifts, holds or supports trunk or limbs, but provides less than half the effort. 2-Substantial/Maximal Assistance-helper does MORE THAN HALF the effort. [place] lifts or holds trunk or limbs and provides more than half the effort. 1-Cmijuiutl-anxijp does ALL the effort. Patient does none of the effort to complete the activity. Or, the assistance of 2 or more helpers is required for the patient to complete the activity. If activity was not attempted, code reason: 7-Patient Refused. 9-Not Applicable-not attempted and the patient did not perform the activity before the current illness, exacerbation or injury. 10-Not Attempted due to Environmental Limitations-(lack of equipment, weather restraints, etc.). 88-Not Attempted due to Medical Conditions or Safety Concerns. Sit to Lying (QC): 3 Lying to Sitting/Side of Bed(Q: 3 Weight Bearing Right Lower Extremity: Right Full Weight Bearing Left Lower Extremity: Left Full Weight Bearing Exercises Supine Ex: Ankle pumps, Quad Set, Glut sets, Heel Slides, Short Arc Quads, Straight leg raise, Hip abd/add Supine Reps: 15 Seated Therapy Exercises: Ankle pumps, Long arc quads, Hip flexion, Hip abd/add, Glut set Seated Reps: 15 Treatments [id number]: Pt completes Supine Ex in bed with RB as needed. Nurse given pain & nausea med. OT arrives for short co-treat. Pt. feeling nauseated but agrees to work. Transferred supine-sit with min/mod assist. Cues given to sequence steps. Pt. adamantly declines bathing/changing clothing this date. States that she does not feel like it. PT assesses foot placement and sitting balance while OT addresses left UE seated EOB. [id number]: Pt completes transfer to EOB then completes Seated Ex. Pt returns to bed to rest. Pt is repositioned to comfort. Pt given written HEP for Supine & Seated EX today. All needs met, call light in hand. Assessment Current Status: Fair Progress Pt limits participation due to feeling ill or reporting pain. ROUGH CARPENTER encourages participation to gain strength and mobility. PT Short Term Goals Short Term Goals Time Frame: Mar 20, 2021 Roll Left & Right: 4 Sit to lyin Lying to sitting on side of be: 4 Sit to stand: 5 Chair/oyb-sd-wtwdm transfer: 4 Toilet transfer: 4 Car transfer: 4 Walk 10 feet: 4 Walk 50 feet with two turns: 4 Walk 150 feet: 88 Walking 10ft on uneven surface: 88 1 step (curb): 4 4 steps: 88 12 steps: 88 Picking up objects: 88 Does pt use a wc or scooter: Yes Wheel 50ft w/2 turns: 5 Wheel 150 feet: 5 Type: Manual PT Editor Managing Director Goals Editor Managing Director Goals PT Editor Managing Director Goals Time Frame: Apr 03, 2021 Roll Left & Right (QC): 6 Sit to Lying (QC): 6 Lying-Sitting on Side/Bed(QC): 6 Sit to Stand (QC): 6 Chair/Koi-nc-Fqzmx Xfer(QC): 6 Toilet Transfer (QC): 5 Car Transfer (QC): 4 Does the Patient Walk: Yes Walk 10 feet (QC): 5 Walk 50ft with 2 Turns (QC): 5 Walk 150 ft (QC): 5 Walking 10ft on Uneven Surface: 5 1 Step (curb) (QC): 5 4 Steps (QC): 4 12 Steps (QC): 88 Picking up an Object (QC): 88 Wheel 50 feet with 2 turns (QC: 6 Type: Manual Wheel 150 feet: 6 Type: Manual PT Plan Problem List Problem List: Activity Tolerance, Functional Strength, Transfer Treatment/Plan Treatment Plan: Continue Plan of Care Treatment Plan: Bed Mobility, Concurrent Therapy, Functional Strength, Group Therapy, Gait, Safety, Therapeutic Exercise Treatment Duration: Apr 03, 2021 Frequency: 11 times per week Estimated Hrs Per Day: 1.5 hours per day Patient and/or Family Agrees t: Yes Safety Risks/Education Patient Education: Transfer Techniques, Correct Positioning, Safety Issues Teaching Recipient: Patient, Significant Other Teaching Methods: Discussion Response to Teaching: Reinforcement Needed Time/GCodes Time In: 900 Time Out: 945 Total Billed Treatment Time: 45 Total Billed Treatment [id number]: 1, EX x2 (30m) & FA (15m) Co-treat for 15m w/OT ([phone]) [id number]: 1, EX x2 (30m) MAURICE CAPUTO ROUGH CARPENTER Mar 17, 2021 11:41
--- NOTE | 2021-03-17 12:07 | Speech Therapy Daily Note ---
Speech Daily Progress Note Subjective Date Seen by Provider: Mar 17, 2021 Time Seen by Provider: 00:30 Patient was resting in her bed waiting on lunch. Her was present for the session. Objective Patient utilizes compensatory strategies for safe oral intake at 905 with 10% cues. Assessment Assessment Current Status: Good Progress Treatment Plan Continue Plan of Care Speech Short Term Goals Short Term Goals Short Term Goals 1) Patient will complete memory tasks related to her daily needs at 80% or greater with minimal cues. 2) Patient will complete safety awareness tasks related to her daily needs at 80% or greater with minimal cues. 3) Patient will complete problem solving tasks related to her daily needs at 80% or greater with minimal cues. Speech Training Representative Goals Residential Goals Patient will improve cognitive-communication abilities in order to require less assist with daily tasks. Speech-Plan Patient/Family Goals Patient/Family Goals: Patient plans on returning to her home where she lives with her . She says she may have to go to the rehab upon discharge until she is stronger enough to return home. Treatment Plan Speech Therapy Treatment Plan: Continue Plan of Care Treatment Duration: Apr 03, 2021 Frequency: 4 times per week Estimated Hrs Per Day: .5 hour per day Rehab Potential: Good Barriers to Learning: Patient's recent decline in medical status due to COVID. Pt/Family Agrees to Plan: Yes Safety Risks/Education Teaching Recipient: Patient, Significant Other Teaching Methods: Demonstration, Discussion Response to Teaching: Verbalize Understanding, Return Demonstration Education Topics Provided: Continued safety within her room, continued safety of oral intake with current diet level Time Speech Therapy Time In: 12:00 Speech Therapy Time Out: 12:30 Total Billed Time: 30 Billed Treatment Time 1, CLEMENCIA, ADRIANE Page Mar 17, 2021 12:07
--- NOTE | 2021-03-17 12:49 | Occupational Ther Daily Note ---
OT Current Status-Daily Note Subjective Pt. does not report pain, but states that she is very nauseated. Appearance Pt. in bed when OT entered room. Agrees to work with therapy. Mental Status/Objective Patient Orientation: Person, Place ADL-Treatment Therapy Code Descriptions/Definitions Functional [place] Measure: 0=Not Assessed/NA 4=Minimal Assistance 1=Total Assistance 5=Supervision or Setup 2=Maximal Assistance 6=Modified [place] 3=Moderate Assistance 7=Complete IndependenceSCALE: Activities may be completed with or without assistive devices. 1-Yesubwcubv-xaacvtx completes the activity by him/herself with no assistance from a helper. 5-Set-up or Clean-up Assistance-helper sets up or cleans up; patient completes activity. [place] assists only prior to or following the activity. 4-Supervision or Touching Assistance-helper provides verbal cues and/or touching/steadying and/or contact guard assistance as patient completes activity. Assistance may be provided throughout the activity or intermittently. 3-Partial/Moderate Assistance-helper does LESS THAN HALF the effort. [place] lifts, holds or supports trunk or limbs, but provides less than half the effort. 2-Substantial/Maximal Assistance-helper does MORE THAN HALF the effort. [place] lifts or holds trunk or limbs and provides more than half the effort. 8-Ouzvwrlqp-hkdsqb does ALL the effort. Patient does none of the effort to complete the activity. Or, the assistance of 2 or more helpers is required for the patient to complete the activity. If activity was not attempted, code reason: 7-Patient Refused. 9-Not Applicable-not attempted and the patient did not perform the activity before the current illness, exacerbation or injury. 10-Not Attempted due to Environmental Limitations-(lack of equipment, weather restraints, etc.). 88-Not Attempted due to Medical Conditions or Safety Concerns. Shower/Bathe Self (QC): 7 Upper Body Dressing (QC): 7 Lower Body Dressing (QC): 7 On/Off Footwear: 2 Toileting Hygiene (QC): 1 Toilet Transfer (QC): 7 Other Treatment PT in room when OT entered. Pt. feeling nauseated but agrees to work. Transferred supine-sit with min/mod assist. Cues given to sequence steps. Pt. adamantly declines bathing/changing clothing this date. States that she does not feel like it. PT assesses foot placement and sitting balance while OT addresses left UE seated EOB. Pt. able to brush hair with cues using right UE. Therapist stands in front of pt. and transfers pt. with mod assist and cues to wheelchair. Pt. able to take small steps. Pt. taken to therapy gym. PT finishes during treatment and OT takes over. Pt. becomes ill and nursing assesses pt. Pt. given medication and washcloth. Rests in chair with sprite. OT provides gentle PROM to left UE to shoulder, elbow, and wrist in all planes. Tolerated well with no pain reported. Pt. taken back to room. Practiced standing from wheelchair with mod assist, 3 times using bed rail to hold. Pt. transferred to bed with min assist. Pt. states that she was incontinent in depend. Assisted with changing. Max assist. All needs met in bed and pt. positioned to comfort level. All needs met. Education OT Patient Education: Correct positioning, Exercise program, Modified ADL techniques, Progress toward Goal/Update tx plan, Purpose of tx/functional activities, Reviewed precautions, Rehab process, Transfer techniques Teaching Recipient: Patient Teaching Methods: Demonstration, Discussion Response to Teaching: Verbalize Understanding, Return Demonstration OT Short Term Goals Short Term Goals Oral hygiene: 5 Toileting hygiene: 2 Shower/bathe self: 2 Upper body dressin Lower body dressin OT Manufacturing Mechanic Goals Jail Goals Time Frame: Mar 27, 2021 Eating (QC): 6 Oral Hygiene (QC): 6 Toileting Hygiene (QC): 4 Shower/Bathe Self (QC): 4 Upper Body Dressing (QC): 6 Lower Body Dressing (QC): 4 On/Off Footwear (QC): 4 Additional Goals: 1-Demonstrate ADL Tasks, 2-Verbalize Understanding, 3- ImproveStrength/Feliberto 1=Demonstrate adherence to instructed precautions during ADL tasks. 2=Patient will verbalize/demonstrate understanding of assistive devices/modifications for ADL. 3=Patient will improve strength/tolerance for activity to enable patient to perform ADL's. OT Education/Plan Problem List/Assessment Assessment: Decreased Activ Tolerance, Decreased UE Strength, Dependent Transfers, Impaired Bed Mobility, Impaired Coordination, Impaired Funct Balance, Impaired I ADL's, Impaired Self-Care Skills, Restricted Funct UE ROM Discharge Recommendations Plan/Recommendations: Continue POC Therapy Discharge Recommendati: Post Acute OT Treatment Plan/Plan of Care Treatment,Training & Education: Yes Patient would benefit from OT for education, treatment and training to promote independence in ADL's, mobility, safety and/or upper extremity function for ADL's. Plan of Care: ADL Retraining, Caregiver Training, Cognitive Retraining, Functional Mobility, Group Exercise/Act as Ind, Orthotic Fitting/Training, UE Funct Exercise/Act, UE Neuromus Re-Ed/Coord, Visual/Perceptual Retrain, W/C Management Training Treatment Duration: Mar 27, 2021 Frequency: At least 5 of 7 days/Wk (IRF) (05/03 status) Estimated Hrs Per Day: 1.5 hours per day Agreement: Yes Rehab Potential: Good Time/GCodes Start Time: 09:30 Stop Time: 10:45 Total Time Billed (hr/min): 75 Billed Treatment Time 1, FA x 45minutes, NM x 15minutes, ADL x 15minutes [id number] Co-treat with PT SHEELA CLARKE OT Mar 17, 2021 12:49
[2021-03-17] MEDS ORDERED: ESOM40CA52 PO (14:33)
[2021-03-17] MEDS ORDERED: BIMA2.5D4 OU (14:33)
[2021-03-17] MEDS ORDERED: TRAM50TA3 PO (14:33)
[2021-03-17] MEDS ORDERED: HYDR25TA4 PO (14:33)
[2021-03-17] MEDS ORDERED: PROM25SU44 RC (14:33)
[2021-03-17] MEDS: BISACODYL 10 MG SUPP (DULCOLAX) PR PRN (14:43)
[2021-03-17] MEDS: ENOXAPARIN 40 MG/0.4 ML (LOVENOX) SYR SC SCH (17:46)
[2021-03-17] MEDS: RT-ALBUTEROL SULF 2.5 MG/3 ML PRE-MIX VIAL INH PRN (19:23)
[2021-03-17 20:00] VITALS: BP 112/56
[2021-03-17] MEDS: traZODone 150 MG (DESYREL) TABLET PO SCH (21:54)
[2021-03-17] MEDS: MONTELUKAST 10 MG (SINGULAIR) TAB PO SCH (21:55)
[2021-03-17] MEDS: LUMIGAN 0.01% OPTH SOLN OU SCH (21:57)
[2021-03-17] MEDS: CATHETER FLUSH 10 ML SYR IV SCH (22:11)
--- NOTE | 2021-03-18 05:24 | PM&R Progress Note ---
Subjective HPI/CC On Admission Date Seen by Provider: Mar 18, 2021 Time Seen by Provider: 11:00 Subjective/Events-last exam 03/18/2021: Patient doing pretty well PureWhick while in bed Eating breakfast pretty well today Slept well last night IV Sannafrfabio has helped Had a suppository last night and had a BM 03/17/21: Pt having more nausea Fentanyl patch of 235 micrograms has been maintained of which I didnt realize and really unsure about increasing that to 50 because of the her disease Zofran will be given IV Her left leg is moving very well 03/16/2021: Pt doing pretty well PureWick started for Lasix Aldactone diuresis Hgb 8.2 Bowels are moving well Has no complaints 03/15/2021: Patient doing really well Heels are red but Allevyn seems to cause an allergy No pain medication was needed today thus far Stool softeners maintained Lasix and Aldactone causes increased urination so pure wick may be required 03/14/2021: Pt doing really well Iron level of 21 so will initiate the Venofer full dosing Midline maintained Overall doing much better and able to move the left leg 03/13/21: Pt doing really well DC the martinez catheter Ultrasound will be performed and paracentesis will be performed by Dr. Hernandez Hgb 8.1 give one dose of iron infusion She is reusing Carafate as requested Updated Review of Systems General: Fatigue Gastrointestinal: Nausea Objective Exam Vital Signs Vital Signs Date Time Temp Pulse Resp B/P (MAP) Pulse Ox O2 Delivery O2 Flow Rate FiO2 03/18/21 21:08 96 Nasal Cannula 2.00 03/18/21 20:00 37.0 68 18 119/56 (77) Capillary Refill : General Appearance: No Apparent Distress, WD/WN, Chronically ill HEENT: PERRL/EOMI, Normal ENT Inspection, Pharynx Normal Neck: Full Range of Motion, Normal Inspection, Non Tender, Supple, Carotid Bruit Respiratory: Chest Non Tender, Lungs Clear, Normal Breath Sounds, No Accessory Muscle Use, No Respiratory Distress, Decreased Breath Sounds, Other (Maintained on O2 24/7) Cardiovascular: Regular Rate, Rhythm, No Edema, No Gallop, No JVD, No Murmur, Normal Peripheral Pulses Gastrointestinal: Normal Bowel Sounds, No Organomegaly, No Pulsatile Mass, Non Tender, Soft, Distended, Other (ascites) Back: Normal Inspection, No CVA Tenderness, No Vertebral Tenderness Extremity: Normal Capillary Refill, Normal Inspection, Normal Range of Motion, Non Tender, No Calf Tenderness, No Pedal Edema Neurologic/Psychiatric: Alert, Oriented x3, Normal Mood/Affect, Motor Weakness (Left-sided weakness upper extremity 0/5 left lower extremity 1/5) Skin: Normal Color, Warm/Dry Lymphatic: No Adenopathy Results/Procedures Lab Patient resulted labs reviewed. FIM Transfers Therapy Code Descriptions/Definitions Functional [place] Measure: 0=Not Assessed/NA 4=Minimal Assistance 1=Total Assistance 5=Supervision or Setup 2=Maximal Assistance 6=Modified [place] 3=Moderate Assistance 7=Complete IndependenceSCALE: Activities may be completed with or without assistive devices. 1-Hychcmbszl-xtybvxf completes the activity by him/herself with no assistance from a helper. 5-Set-up or Clean-up Assistance-helper sets up or cleans up; patient completes activity. [place] assists only prior to or following the activity. 4-Supervision or Touching Assistance-helper provides verbal cues and/or touching/steadying and/or contact guard assistance as patient completes activity. Assistance may be provided throughout the activity or intermittently. 3-Partial/Moderate Assistance-helper does LESS THAN HALF the effort. [place] lifts, holds or supports trunk or limbs, but provides less than half the effort. 2-Substantial/Maximal Assistance-helper does MORE THAN HALF the effort. [place] lifts or holds trunk or limbs and provides more than half the effort. 9-Nkncvlnyh-dnxeeh does ALL the effort. Patient does none of the effort to complete the activity. Or, the assistance of 2 or more helpers is required for the patient to complete the activity. If activity was not attempted, code reason: 7-Patient Refused. 9-Not Applicable-not attempted and the patient did not perform the activity before the current illness, exacerbation or injury. 10-Not Attempted due to Environmental Limitations-(lack of equipment, weather restraints, etc.). 88-Not Attempted due to Medical Conditions or Safety Concerns. Roll Left to Right (QC): 3 Sit to Lying (QC): 3 Sit to Stand (QC): 3 Chair/Rug-wf-Bqsmt Xfer(QC): 3 Car Transfer (QC): 1 Gait Training Does the Patient Walk?: Yes Distance: 2x 10' Walk 10 feet (QC): 2 Walk 50 ft with 2 Turns(QC): 88 Walk 150 ft (QC): 88 Walking 10ft/uneven surface-QC: 88 Gait Assistive Device: Parallel Bars Wheelchair Training Does the Pt Use a Wheelchair?: Yes Distance: 50 Wheel 50 ft with 2 turns (QC): 3 Wheel 150 ft (QC): 88 Type of Wheelchair: Manual Stair Training 1 Step (curb) (QC): 88 4 Steps (QC): 88 12 Steps (QC): 88 Balance Picking up an Object (QC): 88 ADL-Treatment Eating (QC): 5 (s/u (unable to utilize LUE for coordination/ opening/ cutting tasks)) Oral Hygiene (QC): 3 (mod A per clinical judgment, though pt denies at this time.) Shower/Bathe Self (QC): 7 Upper Body Dressing (QC): 7 Lower Body Dressing (QC): 7 On/Off Footwear (QC): 2 Toileting Hygiene (QC): 1 Toilet Transfer (QC): 7 Assessment/Plan Assessment and Plan Assess & Plan/Chief Complaint Assessment: CVA with left-sided weakness severe disability COPD oxygen dependent 14/03 Cirrhosis from GROVES Paracenteses on regular basis Anemia Diabetes Hypertension Hypothyroidism Migraines Chronic back pain GERD Anemia Ascites Plan: Supportive care Aggressive therapy Oxygen dependent 03/13/21: Paracentesis Monitor closely Venofer Iron level pending 03/14/2021: Iron infusions Supportive care Monitor blood sugar 03/15/2021: Supportive care Monitor sugar Bowel regimen 03/16/2021: Blood sugar management Monitor closely 03/17/2021: Supportive care Pain control Nausea treatment 03/18/2021: Supportive care Nausea treatment (1) CVA (cerebral vascular accident) (2) Cirrhosis (3) GROVES (nonalcoholic steatohepatitis) (4) Status post abdominal paracentesis (5) Left-sided weakness (6) Diabetes (7) COPD (chronic obstructive pulmonary disease) (8) Dependence on supplemental oxygen (9) Anemia (10) Hypertension (11) Hyperlipidemia (12) Chronic back pain (13) GERD (gastroesophageal reflux disease) (14) Hypothyroidism NALLELY IBRAHIM DO Mar 18, 2021 05:24
[2021-03-18] MEDS: CATHETER FLUSH 10 ML SYR IV SCH ×3 (06:23→22:09)
[2021-03-18] MEDS: ONDANSETRON 4 MG/2 ML (SDV) Z0FRAN IVP PRN ×2 (06:23→17:55)
[2021-03-18] MEDS: LEVOTHYROXINE 100 MCG (LEVOTHROID) TAB PO SCH (06:53)
[2021-03-18] MEDS: CYANOCOBALAMIN 1,000 MCG (VITAMIN B-12) TABLET PO SCH (06:54)
[2021-03-18] MEDS: SUCRALFATE 1 GM (CARAFATE) TAB PO SCH ×4 (06:57→19:59)
[2021-03-18 07:23] VITALS: BP 112/59
[2021-03-18] MEDS: RT-ALBUTEROL SULF 2.5 MG/3 ML PRE-MIX VIAL INH PRN ×2 (07:31→21:04)
[2021-03-18] MEDS: RT--FLUTICASONE/SALMETEROL 232-14 (AIRDUO RespiCLICK) IH SCH ×2 (07:31→21:08)
[2021-03-18] MEDS: SENNA W/DOCUSATE (SENOKOT S) TABLET PO SCH ×2 (08:00→20:00)
[2021-03-18] MEDS: PANTOPRAZOLE 40 MG (PROTONIX) TAB PO SCH (08:00)
[2021-03-18] MEDS: HYDROcodone/APAP 5 MG/325 MG (LORTAB) TAB PO PRN ×2 (08:00→20:32)
[2021-03-18] MEDS: ASPIRIN E.C. 81 MG (ECOTRIN) TAB PO SCH (08:00)
[2021-03-18] MEDS: DOCUSATE SODIUM 100 MG (COLACE) CAP PO SCH ×2 (08:02→19:59)
[2021-03-18] MEDS: COLESTIPOL 1 GM (COLESTID) TAB PO SCH ×2 (08:03→19:59)
[2021-03-18] MEDS: SIMETHICONE 80 MG (MYLICON) CHEW PO SCH ×4 (08:03→20:00)
[2021-03-18] MEDS: polyethylene glycoL POWDER 17 GM (MIRALAX) PACK PO SCH ×2 (08:04→20:00)
[2021-03-18] MEDS: SPIRONOLACTONE 25 MG (ALDACTONE) TAB PO SCH (08:46)
[2021-03-18] MEDS: lisINopril 5 MG (PRINIVIL) TABLET PO SCH (08:46)
[2021-03-18] MEDS: FUROSEMIDE 40 MG (LASIX) TAB PO SCH (08:46)
[2021-03-18] MEDS: NIFEdipine ER 30 MG (PROCARDIA XL) TAB PO SCH (08:46)
[2021-03-18] MEDS: FOLIC ACID 400 MCG PO SCH (08:47)
[2021-03-18] MEDS: IRON SUCROSE 200 MG/10 ML (VENOFER) VIAL IV SCH (08:47)
[2021-03-18] MEDS: CATHETER FLUSH 10 ML SYR IV PRN (08:48)
--- NOTE | 2021-03-18 08:53 | Speech Therapy Daily Note ---
Speech Daily Progress Note Subjective Date Seen by Provider: Mar 18, 2021 Time Seen by Provider: 00:30 Patient was resting in her bed when I entered her room. She states she is feeling "bloated" today. Her voice is less raspy and appears to be stronger. Objective Patient completed demonstration of safe intake of crushed meds in pudding with sips of water without s/s of aspiration or cues needed. Assessment Assessment Current Status: Good Progress Treatment Plan Continue Plan of Care Speech Short Term Goals Short Term Goals Short Term Goals 1) Patient will complete memory tasks related to her daily needs at 80% or greater with minimal cues. 2) Patient will complete safety awareness tasks related to her daily needs at 80% or greater with minimal cues. 3) Patient will complete problem solving tasks related to her daily needs at 80% or greater with minimal cues. Speech Custodial Goals Physician Representative Goals Patient will improve cognitive-communication abilities in order to require less assist with daily tasks. Speech-Plan Patient/Family Goals Patient/Family Goals: Patient plans on discharging to a SNF for continued therapy prior to returning home where she lives with her . Treatment Plan Speech Therapy Treatment Plan: Continue Plan of Care Treatment Duration: Apr 03, 2021 Frequency: 4 times per week Estimated Hrs Per Day: .5 hour per day Rehab Potential: Good Barriers to Learning: Patient's recent CVA with debility, prior medical status and age Pt/Family Agrees to Plan: Yes Safety Risks/Education Teaching Recipient: Patient Teaching Methods: Demonstration, Discussion Response to Teaching: Verbalize Understanding, Return Demonstration Education Topics Provided: Continued safety with oral intake and communication of wants/needs Time Speech Therapy Time In: 08:30 Speech Therapy Time Out: 09:00 Total Billed Time: 30 Billed Treatment Time 1, CLEMENCIA, ADRIANE Page Mar 18, 2021 08:53
[2021-03-18] MEDS: VICTOZA SQ SCH (08:59)
[2021-03-18] MEDS: TRIAMCINOLONE 0.1% CR (KENALOG) 15 GM TUBE TP SCH ×2 (09:00→20:39)
--- NOTE | 2021-03-18 10:04 | Physical Therapy Daily Note ---
PT Daily Note-Current Subjective Pt laying Supine in bed upon arrival. Pt reluctantly agrees PT/OT co-treat and shower. Pt. does state she is concerned about showering, as she is concerned she will have to have BM. Pt. is encouraged that it will be okay. Pain Location Body Site: Abdomen Pain Description: Ache Comment: Pt reports abdomeninal discomfort but doesn't rate Mental Status Patient Orientation: Person, Confused, Place Attachments: Oxygen Transfers SCALE: Activities may be completed with or without assistive devices. 5-Naulbrnbqh-ztyrlwn completes the activity by him/herself with no assistance from a helper. 5-Set-up or Clean-up Assistance-helper sets up or cleans up; patient completes activity. [place] assists only prior to or following the activity. 4-Supervision or Touching Assistance-helper provides verbal cues and/or touching/steadying and/or contact guard assistance as patient completes activity. Assistance may be provided throughout the activity or intermittently. 3-Partial/Moderate Assistance-helper does LESS THAN HALF the effort. [place] lifts, holds or supports trunk or limbs, but provides less than half the effort. 2-Substantial/Maximal Assistance-helper does MORE THAN HALF the effort. [place] lifts or holds trunk or limbs and provides more than half the effort. 4-Iufhqvmvv-kqnhhu does ALL the effort. Patient does none of the effort to complete the activity. Or, the assistance of 2 or more helpers is required for the patient to complete the activity. If activity was not attempted, code reason: 7-Patient Refused. 9-Not Applicable-not attempted and the patient did not perform the activity before the current illness, exacerbation or injury. 10-Not Attempted due to Environmental Limitations-(lack of equipment, weather restraints, etc.). 88-Not Attempted due to Medical Conditions or Safety Concerns. Lying to Sitting/Side of Bed(Q: 3 Sit to Stand (QC): 3 Chair/Kat-lq-Jgrtk Xfer(QC): 3 Weight Bearing Right Lower Extremity: Right Full Weight Bearing Left Lower Extremity: Left Full Weight Bearing Wheelchair Training Does the Pt Use a Wheelchair?: Yes Wheel 50 ft with 2 turns (QC): 2 Type of Wheelchair: Manual Treatments Pt. seen for co-treatment with PT due to need of skilled assistance x 2 for low endurance, mobility, and ADL skills. OT facilitated ADL skills and UE assessment, movement and positioning while PT focused on transfers and mobility. Pt. requires great encouragement throughout session to attempt tasks for self. Will often tell therapist to do for her, but then is encouraged to attempt first for self before therapist finishes. Pt. concerned about shower as she may have to have BM. Pt. encouraged that shower chair can facilitate commode simulation. Transferred supine-sit with min assist, and then sit-stand with mod assist. Pt. took steps to shower chair while another person doffed pants. Pt. reported having to have BM and so bucket was placed. Dependent assist to cleanse david area. Pt. called spouse and then required increased time otherwise. Showered with max assist. Due to limited time constraint at end of session, pt. required max assist for UE dressing, and dependent assist for LE dressing. Max assist to don pants over feet, and assist of another person in stance while donning over hips. Transferred back to bed with mod assist. All needs met. Assessment Current Status: Fair Progress Pt self limits, often needing encouragement to participate citing pain and BM keep pt from participating. PT Short Term Goals Short Term Goals Time Frame: Mar 20, 2021 Roll Left & Right: 4 Sit to lyin Lying to sitting on side of be: 4 Sit to stand: 5 Chair/eeh-hv-kbkfo transfer: 4 Toilet transfer: 4 Car transfer: 4 Walk 10 feet: 4 Walk 50 feet with two turns: 4 Walk 150 feet: 88 Walking 10ft on uneven surface: 88 1 step (curb): 4 4 steps: 88 12 steps: 88 Picking up objects: 88 Does pt use a wc or scooter: Yes Wheel 50ft w/2 turns: 5 Wheel 150 feet: 5 Type: Manual PT Loom Setter Goals Loom Setter Goals PT Loom Setter Goals Time Frame: Apr 03, 2021 Roll Left & Right (QC): 6 Sit to Lying (QC): 6 Lying-Sitting on Side/Bed(QC): 6 Sit to Stand (QC): 6 Chair/Gzs-go-Fubhc Xfer(QC): 6 Toilet Transfer (QC): 5 Car Transfer (QC): 4 Does the Patient Walk: Yes Walk 10 feet (QC): 5 Walk 50ft with 2 Turns (QC): 5 Walk 150 ft (QC): 5 Walking 10ft on Uneven Surface: 5 1 Step (curb) (QC): 5 4 Steps (QC): 4 12 Steps (QC): 88 Picking up an Object (QC): 88 Wheel 50 feet with 2 turns (QC: 6 Type: Manual Wheel 150 feet: 6 Type: Manual PT Plan Problem List Problem List: Activity Tolerance, Functional Strength, Safety, Balance, Gait, Transfer Treatment/Plan Treatment Plan: Continue Plan of Care Treatment Plan: Bed Mobility, Concurrent Therapy, Functional Strength, Group Therapy, Gait, Safety, Therapeutic Exercise Treatment Duration: Apr 03, 2021 Frequency: 11 times per week Estimated Hrs Per Day: 1.5 hours per day Patient and/or Family Agrees t: Yes Safety Risks/Education Patient Education: Transfer Techniques, Correct Positioning, W/C Management, Safety Issues Teaching Recipient: Patient Teaching Methods: Discussion Response to Teaching: Reinforcement Needed Time/GCodes Time In: 900 Time Out: 950 Total Billed Treatment Time: 50 Total Billed Treatment Co-treat w/OT for 50m 1, FA x3 (50m) MAURICE CAPUTO BASKET FILLER Mar 18, 2021 10:04
--- NOTE | 2021-03-18 12:23 | Occupational Ther Daily Note ---
OT Current Status-Daily Note Subjective No pain reported. Pt. does state she is concerned about showering, as she is concerned she will have to have BM. Pt. is encouraged that it will be okay. Mental Status/Objective Patient Orientation: Person, Place ADL-Treatment Therapy Code Descriptions/Definitions Functional [place] Measure: 0=Not Assessed/NA 4=Minimal Assistance 1=Total Assistance 5=Supervision or Setup 2=Maximal Assistance 6=Modified [place] 3=Moderate Assistance 7=Complete IndependenceSCALE: Activities may be completed with or without assistive devices. 4-Qwsrcskpbw-awwchol completes the activity by him/herself with no assistance from a helper. 5-Set-up or Clean-up Assistance-helper sets up or cleans up; patient completes activity. [place] assists only prior to or following the activity. 4-Supervision or Touching Assistance-helper provides verbal cues and/or touching/steadying and/or contact guard assistance as patient completes activ ity. Assistance may be provided throughout the activity or intermittently. 3-Partial/Moderate Assistance-helper does LESS THAN HALF the effort. [place] lifts, holds or supports trunk or limbs, but provides less than half the effort. 2-Substantial/Maximal Assistance-helper does MORE THAN HALF the effort. [place] lifts or holds trunk or limbs and provides more than half the effort. 2-Hrqovtqkl-hngaxd does ALL the effort. Patient does none of the effort to complete the activity. Or, the assistance of 2 or more helpers is required for the patient to complete the activity. If activity was not attempted, code reason: 7-Patient Refused. 9-Not Applicable-not attempted and the patient did not perform the activity before the current illness, exacerbation or injury. 10-Not Attempted due to Environmental Limitations-(lack of equipment, weather restraints, etc.). 88-Not Attempted due to Medical Conditions or Safety Concerns. Shower/Bathe Self (QC): 2 Upper Body Dressing (QC): 2 Lower Body Dressing (QC): 1 On/Off Footwear: 2 Toileting Hygiene (QC): 2 Toilet Transfer (QC): 1 Other Treatment Pt. seen for co-treatment with PT due to need of skilled assistance x 2 for low endurance, mobility, and ADL skills. OT facilitated ADL skills and UE assessment, movement and positioning while PT focused on transfers and mobility. Pt. requires great encouragement throughout session to attempt tasks for self. Will often tell therapist to do for her, but then is encouraged to attempt first for self before therapist finishes. Pt. concerned about shower as she may have to have BM. Pt. encouraged that shower chair can facilitate commode simulation. Transferred supine-sit with min assist, and then sit-stand with mod assist. Pt. took steps to shower chair while another person doffed pants. Pt. reported having to have BM and so bucket was placed. Dependent assist to cleanse david area. Pt. called spouse and then required increased time otherwise. Showered with max assist. Due to limited time constraint at end of session, pt. required max assist for UE dressing, and dependent assist for LE dressing. Max assist to don pants over feet, and assist of another person in stance while donning over hips. Transferred back to bed with mod assist. All needs met. Education OT Patient Education: Correct positioning, Modified ADL techniques, Progress toward Goal/Update tx plan, Purpose of tx/functional activities, Reviewed precautions, Rehab process, Transfer techniques Teaching Recipient: Patient Teaching Methods: Demonstration, Discussion Response to Teaching: Verbalize Understanding, Return Demonstration, Reinforcement Needed OT Short Term Goals Short Term Goals Oral hygiene: 5 Toileting hygiene: 2 Shower/bathe self: 2 Upper body dressin Lower body dressin OT Half-Way Goals Cash Accountant Goals Time Frame: Mar 27, 2021 Eating (QC): 6 Oral Hygiene (QC): 6 Toileting Hygiene (QC): 4 Shower/Bathe Self (QC): 4 Upper Body Dressing (QC): 6 Lower Body Dressing (QC): 4 On/Off Footwear (QC): 4 Additional Goals: 1-Demonstrate ADL Tasks, 2-Verbalize Understanding, 3-ImproveStrength/Feliberto 1=Demonstrate adherence to instructed precautions during ADL tasks. 2=Patient will verbalize/demonstrate understanding of assistive devices/modifications for ADL. 3=Patient will improve strength/tolerance for activity to enable patient to perform ADL's. OT Education/Plan Problem List/Assessment Assessment: Decreased Activ Tolerance, Decreased UE Strength, Dependent Transfers, Impaired Bed Mobility, Impaired Coordination, Impaired Funct Balance, Impaired I ADL's, Impaired Self-Care Skills, Restricted Funct UE ROM Discharge Recommendations Plan/Recommendations: Continue POC Therapy Discharge Recommendati: Post Acute OT Treatment Plan/Plan of Care Treatment,Training & Education: Yes Patient would benefit from OT for education, treatment and training to promote independence in ADL's, mobility, safety and/or upper extremity function for ADL's. Plan of Care: ADL Retraining, Caregiver Training, Cognitive Retraining, Functional Mobility, Group Exercise/Act as Ind, Orthotic Fitting/Training, UE Funct Exercise/Act, UE Neuromus Re-Ed/Coord, Visual/Perceptual Retrain, W/C Management Training Treatment Duration: Mar 27, 2021 Frequency: At least 5 of 7 days/Wk (IRF) (15 status) Estimated Hrs Per Day: 1.5 hours per day Agreement: Yes Rehab Potential: Good Time/GCodes Start Time: 09:00 Stop Time: 09:50 Total Time Billed (hr/min): 50 Billed Treatment Time 1, ADL x 3 SHEELA CLARKE OT Mar 18, 2021 12:23
--- NOTE | 2021-03-18 15:12 | Therapy Group Daily Note ---
Therapy Daily Group Note Patient Education Topic Other List Below (Safety Signs and what they mean) Exercises LE Seated Exercise, UE Exercise Session Ratio (pt:therapist): 4:1 Goal of Session: UE/LE Strengthing, Other (list) (Safety Signs and what they mean) Goal Met for this Session: Yes Pt Benefit of Group: Contributions to Others, F/U Use of Strategies @Home, Increased Functional Safety, Increased Functional Strength, Improved Cognition, Recognition of Peers, Socialization Other/Notes Pt transfers to [facility] and propels to PT/OT Group. Group consisted of Introduction (Name, Where from), Socialization, Seated LE & UE Exercises as well Safety Sign Bingo and what the signs mean/how can safety be obtained. Pt participated in Group by actively listening to peers during Group, completing exercises and finding the safety signs as they are called out. Pt returns to room to use restroom and returns to recliner at end of Group with all needs met, call light in hand. Start Time: 13:00 Stop Time: 14:20 Total Billed Treatment Time: 80 Total Billed Treatment 1, GRP (80m) MAURICE CAPUTO NEWSPAPER INSERTER Mar 18, 2021 15:12
[2021-03-18] MEDS: ENOXAPARIN 40 MG/0.4 ML (LOVENOX) SYR SC SCH (17:57)
[2021-03-18 20:00] VITALS: BP 119/56
[2021-03-18] MEDS: MELATONIN 3 MG TABLET PO PRN (20:31)
[2021-03-18] MEDS: MONTELUKAST 10 MG (SINGULAIR) TAB PO SCH (20:31)
[2021-03-18] MEDS: traZODone 150 MG (DESYREL) TABLET PO SCH (20:31)
[2021-03-18] MEDS: LUMIGAN 0.01% OPTH SOLN OU SCH (20:32)
[2021-03-19] MEDS: SUCRALFATE 1 GM (CARAFATE) TAB PO SCH ×4 (03:09→20:45)
--- NOTE | 2021-03-19 05:36 | PM&R Progress Note ---
Subjective HPI/CC On Admission Date Seen by Provider: Mar 19, 2021 Time Seen by Provider: 11:00 Subjective/Events-last exam 03/19/2021: Pt doing okay Refusing a lot of her meds Zofran before pain medication helps her Discontinue accu cheks and change to regular diet Late in the afternoon she complained of chest pain I did chest pain work-up chest x-ray appeared to have opacities so I went ahead and swabbed for COVID-19 and she was positive. There is no room available to move to due to Covid surge hospital-wide diversion no beds available so she will remain in that room in isolation. 03/18/2021: Patient doing pretty well PureWhick while in bed Eating breakfast pretty well today Slept well last night IV Zofran has helped Had a suppository last night and had a BM 03/17/21: Pt having more nausea Fentanyl patch of 235 micrograms has been maintained of which I didnt realize and really unsure about increasing that to 50 because of the her disease Zofran will be given IV Her left leg is moving very well 03/16/2021: Pt doing pretty well PureWick started for Lasix Aldactone diuresis Hgb 8.2 Bowels are moving well Has no complaints 03/15/2021: Patient doing really well Heels are red but Allevyn seems to cause an allergy No pain medication was needed today thus far Stool softeners maintained Lasix and Aldactone causes increased urination so pure wick may be required 03/14/2021: Pt doing really well Iron level of 21 so will initiate the Venofer full dosing Midline maintained Overall doing much better and able to move the left leg 03/13/21: Pt doing really well DC the martinez catheter Ultrasound will be performed and paracentesis will be performed by Dr. Hernandez Hgb 8.1 give one dose of iron infusion She is reusing Carafate as requested Updated Review of Systems General: Fatigue Cardiovascular: Chest Pain Focused Exam Lactate Level 03/19/21 19:10: Lactic Acid Level 1.54 Lactic Acid Level Laboratory Tests Test 03/19/21 19:10 Lactic Acid Level 1.54 MMOL/L (0.50-2.00) Objective Exam Vital Signs Vital Signs Date Time Temp Pulse Resp B/P (MAP) Pulse Ox O2 Delivery O2 Flow Rate FiO2 03/19/21 17:06 93 Nasal Cannula 2.00 03/19/21 07:29 36.4 65 14 107/50 (69) Capillary Refill : General Appearance: No Apparent Distress, WD/WN, Chronically ill HEENT: PERRL/EOMI, Normal ENT Inspection, Pharynx Normal Neck: Full Range of Motion, Normal Inspection, Non Tender, Supple, Carotid Bruit Respiratory: Chest Non Tender, Lungs Clear, Normal Breath Sounds, No Accessory Muscle Use, No Respiratory Distress, Decreased Breath Sounds, Other (Maintained on O2 24/7) Cardiovascular: Regular Rate, Rhythm, No Edema, No Gallop, No JVD, No Murmur, Normal Peripheral Pulses Gastrointestinal: Normal Bowel Sounds, No Organomegaly, No Pulsatile Mass, Non Tender, Soft, Distended, Other (ascites) Back: Normal Inspection, No CVA Tenderness, No Vertebral Tenderness Extremity: Normal Capillary Refill, Normal Inspection, Normal Range of Motion, Non Tender, No Calf Tenderness, No Pedal Edema Neurologic/Psychiatric: Alert, Oriented x3, Normal Mood/Affect, Motor Weakness (Left-sided weakness upper extremity 0/5 left lower extremity 1/5) Skin: Normal Color, Warm/Dry Lymphatic: No Adenopathy Results/Procedures Lab Laboratory Tests 03/19/21 16:20 Patient resulted labs reviewed. FIM Transfers Therapy Code Descriptions/Definitions Functional [place] Measure: 0=Not Assessed/NA 4=Minimal Assistance 1=Total Assistance 5=Supervision or Setup 2=Maximal Assistance 6=Modified [place] 3=Moderate Assistance 7=Complete IndependenceSCALE: Activities may be completed with or without assistive devices. 8-Jsgptvwzdk-dmqoakd completes the activity by him/herself with no assistance from a helper. 5-Set-up or Clean-up Assistance-helper sets up or cleans up; patient completes activity. [place] assists only prior to or following the activity. 4-Supervision or Touching Assistance-helper provides verbal cues and/or touching/steadying and/or contact guard assistance as patient completes activity. Assistance may be provided throughout the activity or intermittently. 3-Partial/Moderate Assistance-helper does LESS THAN HALF the effort. [place] lifts, holds or supports trunk or limbs, but provides less than half the effort. 2-Substantial/Maximal Assistance-helper does MORE THAN HALF the effort. [place] lifts or holds trunk or limbs and provides more than half the effort. 0-Lzpangquv-cxwlqn does ALL the effort. Patient does none of the effort to complete the activity. Or, the assistance of 2 or more helpers is required for the patient to complete the activity. If activity was not attempted, code reason: 7-Patient Refused. 9-Not Applicable-not attempted and the patient did not perform the activity before the current illness, exacerbation or injury. 10-Not Attempted due to Environmental Limitations-(lack of equipment, weather restraints, etc.). 88-Not Attempted due to Medical Conditions or Safety Concerns. Roll Left to Right (QC): 3 Sit to Lying (QC): 3 Sit to Stand (QC): 3 Chair/Wjj-id-Vbyzq Xfer(QC): 3 Car Transfer (QC): 1 Gait Training Does the Patient Walk?: Yes Distance: 2x 10' Walk 10 feet (QC): 2 Walk 50 ft with 2 Turns(QC): 88 Walk 150 ft (QC): 88 Walking 10ft/uneven surface-QC: 88 Gait Assistive Device: Parallel Bars Wheelchair Training Does the Pt Use a Wheelchair?: Yes Distance: 50 Wheel 50 ft with 2 turns (QC): 2 Wheel 150 ft (QC): 88 Type of Wheelchair: Manual Stair Training 1 Step (curb) (QC): 88 4 Steps (QC): 88 12 Steps (QC): 88 Balance Picking up an Object (QC): 88 ADL-Treatment Eating (QC): 5 (s/u (unable to utilize LUE for coordination/ opening/ cutting tasks)) Oral Hygiene (QC): 3 (mod A per clinical judgment, though pt denies at this time.) Shower/Bathe Self (QC): 2 Upper Body Dressing (QC): 2 Lower Body Dressing (QC): 1 On/Off Footwear (QC): 2 Toileting Hygiene (QC): 2 Toilet Transfer (QC): 1 Assessment/Plan Assessment and Plan Assess & Plan/Chief Complaint Assessment: CVA with left-sided weakness severe disability COPD oxygen dependent 14/03 Cirrhosis from GROVES Paracenteses on regular basis Anemia Diabetes Hypertension Hypothyroidism Migraines Chronic back pain GERD Anemia Ascites COVID-19 + 03/19/2021 Plan: Supportive care Aggressive therapy Oxygen dependent 03/13/21: Paracentesis Monitor closely Venofer Iron level pending 03/14/2021: Iron infusions Supportive care Monitor blood sugar 03/15/2021: Supportive care Monitor sugar Bowel regimen 03/16/2021: Blood sugar management Monitor closely 03/17/2021: Supportive care Pain control Nausea treatment 03/18/2021: Supportive care Nausea treatment 03/19/2021: Covid positive at 2350 hrs. Antibiotic initiation Not hypoxic so we will monitor closely (1) CVA (cerebral vascular accident) (2) Cirrhosis (3) GROVES (nonalcoholic steatohepatitis) (4) Status post abdominal paracentesis (5) Left-sided weakness (6) Diabetes (7) COPD (chronic obstructive pulmonary disease) (8) Dependence on supplemental oxygen (9) Anemia (10) Hypertension (11) Hyperlipidemia (12) Chronic back pain (13) GERD (gastroesophageal reflux disease) (14) Hypothyroidism NALLELY IBRAHIM DO Mar 19, 2021 05:36
[2021-03-19] MEDS: LEVOTHYROXINE 100 MCG (LEVOTHROID) TAB PO SCH (06:15)
[2021-03-19] MEDS: CYANOCOBALAMIN 1,000 MCG (VITAMIN B-12) TABLET PO SCH (06:15)
[2021-03-19] MEDS: CATHETER FLUSH 10 ML SYR IV SCH ×3 (06:16→20:45)
[2021-03-19] MEDS: ONDANSETRON 4 MG/2 ML (SDV) Z0FRAN IVP PRN ×2 (06:21→16:53)
[2021-03-19] MEDS: HYDROcodone/APAP 5 MG/325 MG (LORTAB) TAB PO PRN ×3 (06:23→20:53)
[2021-03-19] MEDS: RT--FLUTICASONE/SALMETEROL 232-14 (AIRDUO RespiCLICK) IH SCH ×2 (07:16→17:06)
[2021-03-19 07:29] VITALS: BP 107/50
[2021-03-19] MEDS: DOCUSATE SODIUM 100 MG (COLACE) CAP PO SCH ×2 (07:45→20:45)
[2021-03-19] MEDS: COLESTIPOL 1 GM (COLESTID) TAB PO SCH ×2 (07:45→20:45)
[2021-03-19] MEDS: polyethylene glycoL POWDER 17 GM (MIRALAX) PACK PO SCH ×2 (07:46→20:45)
[2021-03-19] MEDS: SPIRONOLACTONE 25 MG (ALDACTONE) TAB PO SCH (08:14)
[2021-03-19] MEDS: FUROSEMIDE 40 MG (LASIX) TAB PO SCH (08:14)
[2021-03-19] MEDS: PANTOPRAZOLE 40 MG (PROTONIX) TAB PO SCH (08:14)
[2021-03-19] MEDS: lisINopril 5 MG (PRINIVIL) TABLET PO SCH (08:14)
[2021-03-19] MEDS: SIMETHICONE 80 MG (MYLICON) CHEW PO SCH ×4 (08:14→20:45)
[2021-03-19] MEDS: ASPIRIN E.C. 81 MG (ECOTRIN) TAB PO SCH (08:15)
[2021-03-19] MEDS: NIFEdipine ER 30 MG (PROCARDIA XL) TAB PO SCH (08:15)
[2021-03-19] MEDS: SENNA W/DOCUSATE (SENOKOT S) TABLET PO SCH ×2 (08:18→20:45)
[2021-03-19] MEDS: FOLIC ACID 400 MCG PO SCH (08:18)
[2021-03-19] MEDS: TRIAMCINOLONE 0.1% CR (KENALOG) 15 GM TUBE TP SCH ×2 (08:19→20:45)
[2021-03-19] MEDS: VICTOZA SQ SCH (08:20)
--- NOTE | 2021-03-19 08:44 | Speech Therapy Daily Note ---
Speech Daily Progress Note Subjective Date Seen by Provider: Mar 19, 2021 Time Seen by Provider: 00:30 The patient was resting in her bed following her breakfast. She states she ate well without any problems. She also states she rested well last night. Objective Patient completed OME for improved speech and safe intake. The patient's voice is noted to continue getting stronger. Assessment Assessment Current Status: Good Progress Treatment Plan Continue Plan of Care Speech Short Term Goals Short Term Goals Short Term Goals 1) Patient will complete memory tasks related to her daily needs at 80% or greater with minimal cues. 2) Patient will complete safety awareness tasks related to her daily needs at 80% or greater with minimal cues. 3) Patient will complete problem solving tasks related to her daily needs at 80% or greater with minimal cues. Speech Prison Goals Prison Goals Patient will improve cognitive-communication abilities in order to require less assist with daily tasks. Speech-Plan Patient/Family Goals Patient/Family Goals: The patient is scheduled to discharge to a SNF for continued therapy. She will return to her home where she lives with her upon SNF discharge. Treatment Plan Speech Therapy Treatment Plan: Continue Plan of Care Treatment Duration: Apr 03, 2021 Frequency: 4 times per week Estimated Hrs Per Day: .5 hour per day Rehab Potential: Good Barriers to Learning: Patient's current status post CVA, COVID recovery Pt/Family Agrees to Plan: Yes Safety Risks/Education Teaching Recipient: Patient Teaching Methods: Demonstration, Discussion Response to Teaching: Verbalize Understanding, Return Demonstration Education Topics Provided: Continued safety and communication, continued safety of oral intake Time Speech Therapy Time In: 08:30 Speech Therapy Time Out: 09:00 Total Billed Time: 30 Billed Treatment Time 1, CLEMENCIA, ADRIANE Page Mar 19, 2021 08:44
--- NOTE | 2021-03-19 11:03 | Physical Therapy Daily Note ---
PT Daily Note-Current Subjective Pt laying Supine in bed upon arrival. Pt agrees to PT/OT co-treat. Pain Location Body Site: Abdomen Pain Description: Ache, Tightness Mental Status Patient Orientation: Person, Place, Situation Attachments: Oxygen (2L) Transfers SCALE: Activities may be completed with or without assistive devices. 6-Logktickkf-qtbavnk completes the activity by him/herself with no assistance from a helper. 5-Set-up or Clean-up Assistance-helper sets up or cleans up; patient completes activity. [place] assists only prior to or following the activity. 4-Supervision or Touching Assistance-helper provides verbal cues and/or touching/steadying and/or contact guard assistance as patient completes activity. Assistance may be provided throughout the activity or intermittently. 3-Partial/Moderate Assistance-helper does LESS THAN HALF the effort. [place] lifts, holds or supports trunk or limbs, but provides less than half the effort. 2-Substantial/Maximal Assistance-helper does MORE THAN HALF the effort. [place] lifts or holds trunk or limbs and provides more than half the effort. 8-Qvoqwphdv-wxrpzt does ALL the effort. Patient does none of the effort to complete the activity. Or, the assistance of 2 or more helpers is required for the patient to complete the activity. If activity was not attempted, code reason: 7-Patient Refused. 9-Not Applicable-not attempted and the patient did not perform the activity before the current illness, exacerbation or injury. 10-Not Attempted due to Environmental Limitations-(lack of equipment, weather restraints, etc.). 88-Not Attempted due to Medical Conditions or Safety Concerns. Lying to Sitting/Side of Bed(Q: 4 Sit to Stand (QC): 4 Toilet Transfer (QC): 4 Weight Bearing Right Lower Extremity: Right Full Weight Bearing Left Lower Extremity: Left Full Weight Bearing Gait Training Does the Patient Walk?: Yes Distance: 8' x2, 10' Walk 10 feet (QC): 4 Gait Persons Needed: 1 Gait Assistive Device: Walker Abner Pt walks //bars x2 so tries Abner Walker for short walk before fatigue. Wheelchair Training Does the Pt Use a Wheelchair?: Yes Wheel 50 ft with 2 turns (QC): 5 Wheel 150 ft (QC): 5 Type of Wheelchair: Manual Exercises Seated Therapy Exercises: Ankle pumps, Sit to stand, Long arc quads, Glut set Seated Reps: 15 Treatments 900-1000: Pt. seen this date for co-treatment with OT/PT due to need of skilled instruction x 2 for low endurance and initiation of tasks. Pt. in bed when therapy entered room. Requests to use BSC. Pt. encouraged to initiate transfer supine-sit, without therapist moving legs automatically for her. Pt. able to transfer supine-sit with min assist. Stood at bedside, and transferred to BSC. Required assist of another person to doff brief and pants. After pt. toileted, required total care to cleanse and don over hips. Pt. transferred to wheelchair, and practiced self propulsion to therapy gym. Required min assist. Went to parallel bars, and able to ambulate with min/mod assist, with wheelchair follow in bars. Left LE weak but upholds in stance. No active movement noted in left UE. Completed twice, and OT worked on positioning left UE during ambulation while PT performed sequencing of steps. Worked on ambulation with abner cane, with OT assisting left UE while PT facilitated weight shift. OT completed left UE stretch and joint compressions/muscle stimulation while PT worked on left LE muscle facilitation. Pt. self propelled back to room with min assist. PT departs at this time and OT continues tx. [id number]: Pt completes Supine EX as well as instruction to Sp on how pt uses sock aid to don sock. Pt resting in bed with Sp present at end of tx. All needs met. Assessment Current Status: Good Progress Pt increases activity level with encouragement from Therapists. Pt fatigues easily and needs frequent rest breaks. PT Short Term Goals Short Term Goals Time Frame: Mar 20, 2021 Roll Left & Right: 4 Sit to lyin Lying to sitting on side of be: 4 Sit to stand: 5 Chair/dxl-jy-shooh transfer: 4 Toilet transfer: 4 Car transfer: 4 Walk 10 feet: 4 Walk 50 feet with two turns: 4 Walk 150 feet: 88 Walking 10ft on uneven surface: 88 1 step (curb): 4 4 steps: 88 12 steps: 88 Picking up objects: 88 Does pt use a wc or scooter: Yes Wheel 50ft w/2 turns: 5 Wheel 150 feet: 5 Type: Manual PT Wheel Filler Goals Penitentiary Goals PT Wheel Filler Goals Time Frame: Apr 03, 2021 Roll Left & Right (QC): 6 Sit to Lying (QC): 6 Lying-Sitting on Side/Bed(QC): 6 Sit to Stand (QC): 6 Chair/Sed-zl-Gwmpt Xfer(QC): 6 Toilet Transfer (QC): 5 Car Transfer (QC): 4 Does the Patient Walk: Yes Walk 10 feet (QC): 5 Walk 50ft with 2 Turns (QC): 5 Walk 150 ft (QC): 5 Walking 10ft on Uneven Surface: 5 1 Step (curb) (QC): 5 4 Steps (QC): 4 12 Steps (QC): 88 Picking up an Object (QC): 88 Wheel 50 feet with 2 turns (QC: 6 Type: Manual Wheel 150 feet: 6 Type: Manual PT Plan Problem List Problem List: Activity Tolerance, Functional Strength, Balance, Gait Treatment/Plan Treatment Plan: Continue Plan of Care Treatment Plan: Bed Mobility, Concurrent Therapy, Functional Strength, Group Therapy, Gait, Safety, Therapeutic Exercise Treatment Duration: Apr 03, 2021 Frequency: 11 times per week Estimated Hrs Per Day: 1.5 hours per day Patient and/or Family Agrees t: Yes Safety Risks/Education Patient Education: Gait Training, Correct Positioning, Safety Issues Teaching Recipient: Patient Teaching Methods: Discussion Response to Teaching: Verbalize Understanding Time/GCodes Time In: 900 Time Out: 1000 Total Billed Treatment Time: 60 Total Billed Treatment Co-treat w/OT for 60m (900-1000) 1, FA (20m), GT x2 (25m) & EX (15m) [id number]: 1, FA (20m) MAURICE CAPUTO PTA Mar 19, 2021 11:03
[2021-03-19] MEDS: FENTANYL PATCH REMOVAL TP SCH (11:17)
[2021-03-19] MEDS: fentaNYL PATCH 25 MCG (DURAGESIC) TD SCH (11:18)
--- NOTE | 2021-03-19 12:39 | Occupational Ther Daily Note ---
OT Current Status-Daily Note Subjective Pt. reports discomfort in stomach area. Reports needing to have BM. Pt. transferred [place] [facility] and [place]. Mental Status/Objective Patient Orientation: Person, Place, Time, Situation ADL-Treatment Therapy Code Descriptions/Definitions Functional [place] Measure: 0=Not Assessed/NA 4=Minimal Assistance 1=Total Assistance 5=Supervision or Setup 2=Maximal Assistance 6=Modified [place] 3=Moderate Assistance 7=Complete IndependenceSCALE: Activities may be completed with or without assistive devices. 5-Wwbhmufnli-quazraz completes the activity by him/herself with no assistance from a helper. 5-Set-up or Clean-up Assistance-helper sets up or cleans up; patient completes activity. [place] assists only prior to or following the activity. 4-Supervision or Touching Assistance-helper provides verbal cues and/or touching/steadying and/or contact guard assistance as patient completes activity. Assistance may be provided throughout the activity or intermittently. 3-Partial/Moderate Assistance-helper does LESS THAN HALF the effort. [place] lif ts, holds or supports trunk or limbs, but provides less than half the effort. 2-Substantial/Maximal Assistance-helper does MORE THAN HALF the effort. [place] lifts or holds trunk or limbs and provides more than half the effort. 6-[place]hp[place]-pmhsyp does ALL the effort. Patient does none of the effort to complete the activity. Or, the assistance of 2 or more helpers is required for the patient to complete the activity. If activity was not attempted, code reason: 7-Patient Refused. 9-Not Applicable-not attempted and the patient did not perform the activity before the current illness, exacerbation or injury. 10-Not Attempted due to Environmental Limitations-(lack of equipment, weather restraints, etc.). 88-Not Attempted due to Medical Conditions or Safety Concerns. On/Off Footwear: 3 (Mod assist with use of adaptive equipment. Pt. doffed sock with dressing stick. OT put sock on sock aide, and pt. donned with cues, using right UE.) Toileting Hygiene (QC): 1 (Pt. requires min assist of one person to stand, and max assist of another person to cleanse rear david area and don brief and pants over hips.) Toilet Transfer (QC): 3 (Min assist and cues.) Other Treatment Pt. seen this date for co-treatment with OT/PT due to need of skilled instruction x 2 for low endurance and initiation of tasks. Pt. in bed when therapy entered room. Requests to use BSC. Pt. encouraged to initiate transfer supine-sit, without therapist moving legs automatically for her. Pt. able to transfer supine-sit with min assist. Stood at bedside, and transferred to BSC. Required assist of another person to doff brief and pants. After pt. toileted, required total care to cleanse and don over hips. Pt. transferred to wheelchair, and practiced self propulsion to therapy gym. Required min assist. Went to parallel bars, and able to ambulate with min/mod assist, with wheelchair follow in bars. Left LE weak but upholds in stance. No active movement noted in left UE. Completed twice, and OT worked on positioning left UE during ambulation while PT performed sequencing of steps. Worked on ambulation with fortunato cane, with OT assisting left UE while PT facilitated weight shift. Please see PT note for distance ambulated. OT completed left UE stretch and joint compressions/muscle stimulation while PT worked on left LE muscle facilitation. Pt. self propelled back to room with min assist. PT left treatment and OT assisted to chair with min assist. Worked on simple cognitive task with naming/grouping. 95% accuracy. All needs met. Education OT Patient Education: Correct positioning, Exercise program, Modified ADL techniques, Progress toward Goal/Update tx plan, Purpose of tx/functional activities, Reviewed precautions, Rehab process, Transfer techniques, Use of adapted equipment Teaching Recipient: Patient Teaching Methods: Demonstration, Discussion Response to Teaching: Verbalize Understanding, Return Demonstration, Reinforcement Needed OT Short Term Goals Short Term Goals Oral hygiene: 5 Toileting hygiene: 2 Shower/bathe self: 2 Upper body dressin Lower body dressin OT [employer] Goals Mcfp Goals Time Frame: Mar 27, 2021 Eating (QC): 6 Oral Hygiene (QC): 6 Toileting Hygiene (QC): 4 Shower/Bathe Self (QC): 4 Upper Body Dressing (QC): 6 Lower Body Dressing (QC): 4 On/Off Footwear (QC): 4 Additional Goals: 1-Demonstrate ADL Tasks, 2-Verbalize Understanding, 3- ImproveStrength/Feliberto 1=Demonstrate adherence to instructed precautions during ADL tasks. 2=Patient will verbalize/demonstrate understanding of assistive d evices/modifications for ADL. 3=Patient will improve strength/tolerance for activity to enable patient to perform ADL's. OT Education/Plan Problem List/Assessment Assessment: Decreased Activ Tolerance, Decreased UE Strength, Dependent Transfers, Impaired Bed Mobility, Impaired Coordination, Impaired Funct Balance, Impaired I ADL's, Impaired Self-Care Skills, Restricted Funct UE ROM Discharge Recommendations Plan/Recommendations: Continue POC Therapy Discharge Recommendati: Post Acute OT Treatment Plan/Plan of Care Treatment,Training & Education: Yes Patient would benefit from OT for education, treatment and training to promote independence in ADL's, mobility, safety and/or upper extremity function for ADL's. Plan of Care: ADL Retraining, Caregiver Training, Cognitive Retraining, Functional Mobility, Group Exercise/Act as Ind, Orthotic Fitting/Training, UE Funct Exercise/Act, UE Neuromus Re-Ed/Coord, Visual/Perceptual Retrain, W/C Management Training Treatment Duration: Mar 27, 2021 Frequency: At least 5 of 7 days/Wk (IRF) (05/03 status) Estimated Hrs Per Day: 1.5 hours per day Agreement: Yes Rehab Potential: Fair Time/GCodes Start Time: 09:00 Stop Time: 10:15 Total Time Billed (hr/min): 75 Billed Treatment Time 1, FA x 45minutes, ADL x 15minutes, Ex x 15minutes [id number]- Co-treatment with PT. Please see above note for designated roles. SHEELA CLARKE OT Mar 19, 2021 12:39
--- NOTE | 2021-03-19 16:20 | Diagnostic Imaging Report ---
Clinical indication: Patient with chest pain. Exam: Portable chest x-ray upright view. Comparisons: None. Findings: There is diffuse groundglass opacification and increased lung markings throughout the right lung. There is increased lung markings involving airspace opacification involving the left lung base. There is no pleural effusion or pneumothorax. There is mild cardiomegaly. Pulmonary vasculature is grossly within normal limits. There are hypertrophic spurs throughout the thoracic spine. Impression: 1: There is diffuse airspace opacification and increased lung markings involving the right lung concerning for lung infiltrates. 2: There is mild bibasilar atelectasis versus infiltrate. 3: There is mild cardiomegaly with no significant pulmonary vascular congestion. Dictated by: Dictated on workstation # [id number]
[2021-03-19 16:30] LABS: BASOPHILS % (AUTO) 0 % (0-10); EOSINOPHILS % (AUTO) 0 % (0-10); HEMATOCRIT 27 % (35-52); HEMOGLOBIN 8.1 g/dL (11.5-16.0); LYMPHOCYTES # (AUTO) 1.4 10^3/uL (1.0-4.0); LYMPHOCYTES % (AUTO) 14 % (12-44); MEAN CORPUSCULAR HEMOGLOBIN 24 pg (25-34); MEAN CORPUSCULAR HGB CONC 31 g/dL (32-36); MEAN CORPUSCULAR VOLUME 79 fL (80-99); MEAN PLATELET VOLUME 9.9 fL (9.0-12.2); MONOCYTES % (AUTO) 10 % (0-12); NEUTROPHILS # (AUTO) 7.5 10^3/uL (1.8-7.8); NEUTROPHILS % (AUTO) 75 % (42-75); PLATELET COUNT 348 10^3/uL (130-400); WHITE BLOOD COUNT 9.9 10^3/uL (4.3-11.0)
[2021-03-19 16:40] LABS: ALBUMIN 2.5 GM/DL (3.2-4.5); CHLORIDE 98 MMOL/L (98-107); SODIUM 135 MMOL/L (135-145)
[2021-03-19 16:41] LABS: CALCIUM 7.7 MG/DL (8.5-10.1)
[2021-03-19 16:42] LABS: GLUCOSE 174 MG/DL (70-105); TOTAL PROTEIN 5.7 GM/DL (6.4-8.2)
[2021-03-19 16:43] LABS: CARBON DIOXIDE 26 MMOL/L (21-32)
[2021-03-19 16:44] LABS: BILIRUBIN,TOTAL 0.5 MG/DL (0.1-1.0)
[2021-03-19] MEDS: ONDANSETRON 4 MG (ZOFRAN) ORAL DISSOLVE TAB PO PRN (16:44)
[2021-03-19 16:46] LABS: ALKALINE PHOSPHATASE 75 U/L (40-136); CREATININE SERUM 1.24 MG/DL (0.60-1.30); GFR ESTIMATED 44
[2021-03-19 16:47] LABS: BUN/CREATININE RATIO 16
[2021-03-19 16:49] LABS: ALANINE AMINOTRANSFERASE 21 U/L (0-55)
[2021-03-19] MEDS: ENOXAPARIN 40 MG/0.4 ML (LOVENOX) SYR SC SCH (18:08)
[2021-03-19] MEDS ORDERED: VANCOMYCIN INJECTION 1,000 MG in NS (IVPB) 250 ML IV SCH (18:45)
[2021-03-19] MEDS ORDERED: VANCOMYCIN 1250 MG/NS 250 ML IVPB IV NR ×2 (20:00)
[2021-03-19 20:30] VITALS: BP 106/53
[2021-03-19] MEDS: MONTELUKAST 10 MG (SINGULAIR) TAB PO SCH (20:42)
[2021-03-19] MEDS: traZODone 150 MG (DESYREL) TABLET PO SCH (20:42)
[2021-03-19] MEDS: LUMIGAN 0.01% OPTH SOLN OU SCH (20:43)
[2021-03-19] MEDS: MELATONIN 3 MG TABLET PO PRN (20:52)
[2021-03-20] MEDS: CEFEPIME INJECTION 1,000 MG in WATER (STERILE) FOR INJECTION 10 ML IV SCH ×3 (00:36→16:38)
[2021-03-20] MEDS: CYANOCOBALAMIN 1,000 MCG (VITAMIN B-12) TABLET PO SCH (05:23)
[2021-03-20] MEDS: ONDANSETRON 4 MG (ZOFRAN) ORAL DISSOLVE TAB PO PRN (05:23)
[2021-03-20] MEDS: LEVOTHYROXINE 100 MCG (LEVOTHROID) TAB PO SCH (05:23)
[2021-03-20] MEDS: HYDROcodone/APAP 5 MG/325 MG (LORTAB) TAB PO PRN ×2 (05:24→17:47)
[2021-03-20] MEDS: CATHETER FLUSH 10 ML SYR IV SCH ×3 (05:25→21:22)
[2021-03-20] MEDS: SUCRALFATE 1 GM (CARAFATE) TAB PO SCH ×4 (05:25→21:23)
--- NOTE | 2021-03-20 05:54 | PM&R Progress Note ---
Subjective HPI/CC On Admission Date Seen by Provider: Mar 20, 2021 Time Seen by Provider: 05:45 Subjective/Events-last exam 03/20/2021: Patient doing pretty well Covid swab was just colonization and now out of isolation Pneumonia treatment maintained Will narrow antibiotic spectrum after tomorrow 03/19/2021: Pt doing okay Refusing a lot of her meds Zofran before pain medication helps her Discontinue accu cheks and change to regular diet Late in the afternoon she complained of chest pain I did chest pain work-up chest x-ray appeared to have opacities so I went ahead and swabbed for COVID-19 and she was positive. There is no room available to move to due to Covid surge hospital-wide diversion no beds available so she will remain in that room in isolation. 03/18/2021: Patient doing pretty well PureWhick while in bed Eating breakfast pretty well today Slept well last night IV Zofran has helped Had a suppository last night and had a BM 03/17/21: Pt having more nausea Fentanyl patch of 235 micrograms has been maintained of which I didnt realize and really unsure about increasing that to 50 because of the her disease Zofran will be given IV Her left leg is moving very well 03/16/2021: Pt doing pretty well PureWick started for Lasix Aldactone diuresis Hgb 8.2 Bowels are moving well Has no complaints 03/15/2021: Patient doing really well Heels are red but Allevyn seems to cause an allergy No pain medication was needed today thus far Stool softeners maintained Lasix and Aldactone causes increased urination so pure wick may be required 03/14/2021: Pt doing really well Iron level of 21 so will initiate the Venofer full dosing Midline maintained Overall doing much better and able to move the left leg 03/13/21: Pt doing really well DC the martinez catheter Ultrasound will be performed and paracentesis will be performed by Dr. Hernandez Hgb 8.1 give one dose of iron infusion She is reusing Carafate as requested Updated Review of Systems General: Fatigue Pulmonary: Dyspnea Focused Exam Lactate Level 03/19/21 19:10: Lactic Acid Level 1.54 Objective Exam Vital Signs Vital Signs Date Time Temp Pulse Resp B/P (MAP) Pulse Ox O2 Delivery O2 Flow Rate FiO2 03/20/21 20:08 36.6 71 18 95/52 (66) 98 Nasal Cannula 2.00 Capillary Refill : General Appearance: No Apparent Distress, WD/WN, Chronically ill HEENT: PERRL/EOMI, Normal ENT Inspection, Pharynx Normal Neck: Full Range of Motion, Normal Inspection, Non Tender, Supple, Carotid Bruit Respiratory: Chest Non Tender, Lungs Clear, Normal Breath Sounds, No Accessory Muscle Use, No Respiratory Distress, Decreased Breath Sounds, Other (Maintained on O2 24/7) Cardiovascular: Regular Rate, Rhythm, No Edema, No Gallop, No JVD, No Murmur, Normal Peripheral Pulses Gastrointestinal: Normal Bowel Sounds, No Organomegaly, No Pulsatile Mass, Non Tender, Soft, Distended, Other (ascites) Back: Normal Inspection, No CVA Tenderness, No Vertebral Tenderness Extremity: Normal Capillary Refill, Normal Inspection, Normal Range of Motion, Non Tender, No Calf Tenderness, No Pedal Edema Neurologic/Psychiatric: Alert, Oriented x3, Normal Mood/Affect, Motor Weakness (Left-sided weakness upper extremity 0/5 left lower extremity 1/5) Skin: Normal Color, Warm/Dry Lymphatic: No Adenopathy Results/Procedures Lab Patient resulted labs reviewed. FIM Transfers Therapy Code Descriptions/Definitions Functional [place] Measure: 0=Not Assessed/NA 4=Minimal Assistance 1=Total Assistance 5=Supervision or Setup 2=Maximal Assistance 6=Modified [place] 3=Moderate Assistance 7=Complete IndependenceSCALE: Activities may be completed with or without assistive devices. 8-Euuwwnrlti-usshsrj completes the activity by him/herself with no assistance from a helper. 5-Set-up or Clean-up Assistance-helper sets up or cleans up; patient completes activity. [place] assists only prior to or following the activity. 4-Supervision or Touching Assistance-helper provides verbal cues and/or touching /steadying and/or contact guard assistance as patient completes activity. Assistance may be provided throughout the activity or intermittently. 3-Partial/Moderate Assistance-helper does LESS THAN HALF the effort. [place] lifts, holds or supports trunk or limbs, but provides less than half the effort. 2-Substantial/Maximal Assistance-helper does MORE THAN HALF the effort. [place] lifts or holds trunk or limbs and provides more than half the effort. 1-Wegbydjmd-ycscev does ALL the effort. Patient does none of the effort to complete the activity. Or, the assistance of 2 or more helpers is required for the patient to complete the activity. If activity was not attempted, code reason: 7-Patient Refused. 9-Not Applicable-not attempted and the patient did not perform the activity before the current illness, exacerbation or injury. 10-Not Attempted due to Environmental Limitations-(lack of equipment, weather restraints, etc.). 88-Not Attempted due to Medical Conditions or Safety Concerns. Roll Left to Right (QC): 3 Sit to Lying (QC): 3 Sit to Stand (QC): 4 Chair/Flv-id-Vffut Xfer(QC): 3 Car Transfer (QC): 1 Gait Training Does the Patient Walk?: Yes Distance: 8' x2, 10' Walk 10 feet (QC): 4 Walk 50 ft with 2 Turns(QC): 88 Walk 150 ft (QC): 88 Walking 10ft/uneven surface-QC: 88 Gait Persons Needed: 1 Gait Assistive Device: Walker Abner Wheelchair Training Does the Pt Use a Wheelchair?: Yes Distance: 50 Wheel 50 ft with 2 turns (QC): 5 Wheel 150 ft (QC): 5 Type of Wheelchair: Manual Stair Training 1 Step (curb) (QC): 88 4 Steps (QC): 88 12 Steps (QC): 88 Balance Picking up an Object (QC): 88 ADL-Treatment Eating (QC): 5 (s/u (unable to utilize LUE for coordination/ opening/ cutting tasks)) Oral Hygiene (QC): 3 (mod A per clinical judgment, though pt denies at this time.) Shower/Bathe Self (QC): 2 Upper Body Dressing (QC): 2 Lower Body Dressing (QC): 1 On/Off Footwear (QC): 3 (Mod assist with use of adaptive equipment. Pt. doffed sock with dressing stick. OT put sock on sock aide, and pt. donned with cues, using right UE.) Toileting Hygiene (QC): 1 (Pt. 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 Antibiotic initiation Not hypoxic so we will monitor closely 03/20/2021: IV antibiotics Covid swab is colonization from illness on 02/05/2021 (1) CVA (cerebral vascular accident) (2) Cirrhosis (3) GROVES (nonalcoholic steatohepatitis) (4) Status post abdominal paracentesis (5) Left-sided weakness (6) Diabetes (7) COPD (chronic obstructive pulmonary disease) (8) Dependence on supplemental oxygen (9) Anemia (10) Hypertension (11) Hyperlipidemia (12) Chronic back pain (13) GERD (gastroesophageal reflux disease) (14) Hypothyroidism NALLELY IBRAHIM DO Mar 20, 2021 05:54
[2021-03-20 07:59] VITALS: BP 113/57
[2021-03-20] MEDS: RT--FLUTICASONE/SALMETEROL 232-14 (AIRDUO RespiCLICK) IH SCH ×2 (08:46→21:30)
--- NOTE | 2021-03-20 09:21 | Speech Therapy Daily Note ---
Speech Daily Progress Note Subjective Date Seen by Provider: Mar 20, 2021 Time Seen by Provider: 00:30 Patient was resting in her bed, currently in quar[place]ine due to testing positive for COVID yesterday. Objective Patient demo safe oral intake with utilization of compensatory strategies as trained at 80% with minimal cues. Assessment Assessment Current Status: Good Progress Treatment Plan Continue Plan of Care Speech Short Term Goals Short Term Goals Short Term Goals 1) Patient will complete memory tasks related to her daily needs at 80% or greater with minimal cues. 2) Patient will complete safety awareness tasks related to her daily needs at 80% or greater with minimal cues. 3) Patient will complete problem solving tasks related to her daily needs at 80% or greater with minimal cues. Speech Systems Integration Analyst Goals Systems Integration Analyst Goals Patient will improve cognitive-communication abilities in order to require less assist with daily tasks. Speech-Plan Patient/Family Goals Patient/Family Goals: Patient will discharge to SNF for further therapy for a short term prior to returning home. SHe will live with her who will assist her as needed with her daily needs. Treatment Plan Speech Therapy Treatment Plan: Continue Plan of Care Treatment Duration: Apr 03, 2021 Frequency: 4 times per week Estimated Hrs Per Day: .5 hour per day Rehab Potential: Fair Barriers to Learning: Patient's mild cognitive deficits, recent COVID recovery and CVA Pt/Family Agrees to Plan: Yes Safety Risks/Education Teaching Recipient: Patient Teaching Methods: Demonstration, Discussion Response to Teaching: Verbalize Understanding, Return Demonstration Education Topics Provided: Continued safety within her room and communication, continued safety of oral intake Time Speech Therapy Time In: 08:30 Speech Therapy Time Out: 09:00 Total Billed Time: 30 Billed Treatment Time 1, CLEMENCIA, ADRIANE Page Mar 20, 2021 09:21
[2021-03-20] MEDS: IRON SUCROSE 200 MG/10 ML (VENOFER) VIAL IV SCH (09:53)
[2021-03-20] MEDS: ASPIRIN E.C. 81 MG (ECOTRIN) TAB PO SCH (09:54)
[2021-03-20] MEDS: lisINopril 5 MG (PRINIVIL) TABLET PO SCH (09:54)
[2021-03-20] MEDS: PANTOPRAZOLE 40 MG (PROTONIX) TAB PO SCH (09:54)
[2021-03-20] MEDS: NIFEdipine ER 30 MG (PROCARDIA XL) TAB PO SCH (09:54)
[2021-03-20] MEDS: FUROSEMIDE 40 MG (LASIX) TAB PO SCH (09:54)
[2021-03-20] MEDS: SPIRONOLACTONE 25 MG (ALDACTONE) TAB PO SCH (09:54)
[2021-03-20] MEDS: DOCUSATE SODIUM 100 MG (COLACE) CAP PO SCH ×2 (10:46→21:23)
[2021-03-20] MEDS: VICTOZA SQ SCH (10:47)
[2021-03-20] MEDS: ONDANSETRON 4 MG/2 ML (SDV) Z0FRAN IVP PRN ×2 (11:13→17:46)
[2021-03-20] MEDS: FENTANYL PATCH REMOVAL TP SCH (12:12)
[2021-03-20] MEDS: FOLIC ACID 400 MCG PO SCH (12:12)
[2021-03-20] MEDS: COLESTIPOL 1 GM (COLESTID) TAB PO SCH ×2 (12:13→21:23)
[2021-03-20] MEDS: polyethylene glycoL POWDER 17 GM (MIRALAX) PACK PO SCH ×2 (12:13→21:23)
[2021-03-20] MEDS: SIMETHICONE 80 MG (MYLICON) CHEW PO SCH ×4 (12:13→21:21)
[2021-03-20] MEDS: SENNA W/DOCUSATE (SENOKOT S) TABLET PO SCH ×2 (12:13→21:23)
[2021-03-20] MEDS: TRIAMCINOLONE 0.1% CR (KENALOG) 15 GM TUBE TP SCH ×2 (12:20→21:22)
--- NOTE | 2021-03-20 13:28 | Physical Therapy Daily Note ---
PT Daily Note-Current Subjective Patient in bed pre tx, agrees to PT, has no complaints of pain. Appearance Patient in bed post tx with nurse call, phone, tray, all needs met. Mental Status Patient Orientation: Person, Place, Situation Attachments: Oxygen Transfers SCALE: Activities may be completed with or without assistive devices. 2-Omdpcrhexh-zlmfgcm completes the activity by him/herself with no assistance from a helper. 5-Set-up or Clean-up Assistance-helper sets up or cleans up; patient completes activity. [place] assists only prior to or following the activity. 4-Supervision or Touching Assistance-helper provides verbal cues and/or touching/steadying and/or contact guard assistance as patient completes activity. Assistance may be provided throughout the activity or intermittently. 3-Partial/Moderate Assistance-helper does LESS THAN HALF the effort. [place] lifts, holds or supports trunk or limbs, but provides less than half the effort. 2-Substantial/Maximal Assistance-helper does MORE THAN HALF the effort. [place] lifts or holds trunk or limbs and provides more than half the effort. 5-Ywomkggqr-rhmpek does ALL the effort. Patient does none of the effort to complete the activity. Or, the assistance of 2 or more helpers is required for the patient to complete the activity. If activity was not attempted, code reason: 7-Patient Refused. 9-Not Applicable-not attempted and the patient did not perform the activity before the current illness, exacerbation or injury. 10-Not Attempted due to Environmental Limitations-(lack of equipment, weather restraints, etc.). 88-Not Attempted due to Medical Conditions or Safety Concerns. Roll Left & Right (QC): 6 Sit to Lying (QC): 3 Lying to Sitting/Side of Bed(Q: 3 Sit to Stand (QC): 3 Chair/Ftx-ks-Xnjtc Xfer(QC): 4 Weight Bearing Right Lower Extremity: Right Full Weight Bearing Left Lower Extremity: Left Full Weight Bearing Gait Training Distance: 20'x3 Walk 10 feet (QC): 3 Gait Persons Needed: 1 Gait Assistive Device: Walker Abner JULIANNA ewa, was able to advance her left leg but needs assist with balance and weight shifting, her left knee starts to buckle when she gets fatigued. Wheelchair Training Does the Pt Use a Wheelchair?: Yes Wheel 50 ft with 2 turns (QC): 3 Type of Wheelchair: Manual 120'x2 Exercises NuStep Minutes: 15 NuStep Workload: 4 Treatments bed mobility and transfers, ambulation, WC mobility, functional strengthening Assessment Current Status: Fair Progress improving ambulation PT Short Term Goals Short Term Goals Time Frame: Mar 20, 2021 Roll Left & Right: 4 Sit to lyin Lying to sitting on side of be: 4 Sit to stand: 5 Chair/die-qx-awkkz transfer: 4 Toilet transfer: 4 Car transfer: 4 Walk 10 feet: 4 Walk 50 feet with two turns: 4 Walk 150 feet: 88 Walking 10ft on uneven surface: 88 1 step (curb): 4 4 steps: 88 12 steps: 88 Picking up objects: 88 Does pt use a wc or scooter: Yes Wheel 50ft w/2 turns: 5 Wheel 150 feet: 5 Type: Manual PT Residential Goals Book Retailer Goals PT Book Retailer Goals Time Frame: Apr 03, 2021 Roll Left & Right (QC): 6 Sit to Lying (QC): 6 Lying-Sitting on Side/Bed(QC): 6 Sit to Stand (QC): 6 Chair/Pst-oz-Wcgnb Xfer(QC): 6 Toilet Transfer (QC): 5 Car Transfer (QC): 4 Does the Patient Walk: Yes Walk 10 feet (QC): 5 Walk 50ft with 2 Turns (QC): 5 Walk 150 ft (QC): 5 Walking 10ft on Uneven Surface: 5 1 Step (curb) (QC): 5 4 Steps (QC): 4 12 Steps (QC): 88 Picking up an Object (QC): 88 Wheel 50 feet with 2 turns (QC: 6 Type: Manual Wheel 150 feet: 6 Type: Manual PT Plan Problem List Problem List: Activity Tolerance, Functional Strength, Safety, Balance, Gait, Transfer, Bed Mobility, ROM Treatment/Plan Treatment Plan: Continue Plan of Care Treatment Plan: Bed Mobility, Concurrent Therapy, Functional Strength, Group Therapy, Gait, Safety, Therapeutic Exercise Treatment Duration: Apr 03, 2021 Frequency: 11 times per week Estimated Hrs Per Day: 1.5 hours per day Patient and/or Family Agrees t: Yes Safety Risks/Education Patient Education: Gait Training, Transfer Techniques, Correct Positioning, W/C Management, Safety Issues Teaching Recipient: Patient Teaching Methods: Demonstration, Discussion Response to Teaching: Reinforcement Needed Time/GCodes Time In: 1100 Time Out: 1215 Total Billed Treatment Time: 75 Total Billed Treatment 1 visit GT 30' EX 15' FA 30' CATHRYN KOHLER PT Mar 20, 2021 13:28
[2021-03-20] MEDS ORDERED: ZINC OXIDE 16% OINT (BUTT PASTE) 57 GM TUBE TOP PRN (14:45)
--- NOTE | 2021-03-20 14:51 | Occupational Ther Daily Note ---
OT Current Status-Daily Note Subjective Pt. reports that she is having pain in side, but does not report pain level. Pt. has had medication. Mental Status/Objective Patient Orientation: Person, Place ADL-Treatment Therapy Code Descriptions/Definitions Functional [place] Measure: 0=Not Assessed/NA 4=Minimal Assistance 1=Total Assistance 5=Supervision or Setup 2=Maximal Assistance 6=Modified [place] 3=Moderate Assistance 7=Complete IndependenceSCALE: Activities may be completed with or without assistive devices. 2-Lnckqxgejs-wwuhttf completes the activity by him/herself with no assistance from a helper. 5-Set-up or Clean-up Assistance-helper sets up or cleans up; patient completes activity. [place] assists only prior to or following the activity. 4-Supervision or Touching Assistance-helper provides verbal cues and/or to uching/steadying and/or contact guard assistance as patient completes activity. Assistance may be provided throughout the activity or intermittently. 3-Partial/Moderate Assistance-helper does LESS THAN HALF the effort. [place] lifts, holds or supports trunk or limbs, but provides less than half the effort. 2-Substantial/Maximal Assistance-helper does MORE THAN HALF the effort. [place] lifts or holds trunk or limbs and provides more than half the effort. 3-Csmfttffb-ildqjd does ALL the effort. Patient does none of the effort to complete the activity. Or, the assistance of 2 or more helpers is required for the patient to complete the activity. If activity was not attempted, code reason: 7-Patient Refused. 9-Not Applicable-not attempted and the patient did not perform the activity before the current illness, exacerbation or injury. 10-Not Attempted due to Environmental Limitations-(lack of equipment, weather restraints, etc.). 88-Not Attempted due to Medical Conditions or Safety Concerns. Other Treatment Pt. states that she is tired. Transfers supine-sit with mod assist, with increased time needed. Pt. able to balance EOB. OT completed gentle PROM to left shoulder in all planes, no more than 90 degrees in flexion and abduction. Pt. reports good sensation but no available movement noted. Pt. stood with mod assist briefly, but min assist to balance in stance. Able to take small steps toward HOB. Pt. transferred back sit-supine with SBA. Worked on attempting to roll side to side and position self correctly in bed. pt. required mod assist to position to most comfortable level, but was able to assist OT overall with max cues given and encouragement needed. At end of treatment, pt. on right side with all needs met. Education OT Patient Education: Correct positioning, Modified ADL techniques, Progress toward Goal/Update tx plan, Purpose of tx/functional activities, Reviewed precautions, Rehab process, Transfer techniques Teaching Recipient: Patient Teaching Methods: Demonstration, Discussion Response to Teaching: Verbalize Understanding, Return Demonstration OT Short Term Goals Short Term Goals Oral hygiene: 5 Toileting hygiene: 2 Shower/bathe self: 2 Upper body dressin Lower body dressin OT Intermediate Goals Intermediate Goals Time Frame: Mar 27, 2021 Eating (QC): 6 Oral Hygiene (QC): 6 Toileting Hygiene (QC): 4 Shower/Bathe Self (QC): 4 Upper Body Dressing (QC): 6 Lower Body Dressing (QC): 4 On/Off Footwear (QC): 4 Additional Goals: 1-Demonstrate ADL Tasks, 2-Verbalize Understanding, 3- ImproveStrength/Feliberto 1=Demonstrate adherence to instructed precautions during ADL tasks. 2=Patient will verbalize/demonstrate understanding of assistive devices/modifications for ADL. 3=Patient will improve strength/tolerance for activity to enable patient to perform ADL's. OT Education/Plan Problem List/Assessment Assessment: Decreased Activ Tolerance, Dependent Transfers, Impaired Funct Balance, Impaired I ADL's, Impaired Self-Care Skills, Restricted Funct UE ROM Discharge Recommendations Plan/Recommendations: Continue POC Therapy Discharge Recommendati: Post Acute OT Treatment Plan/Plan of Care Treatment,Training & Education: Yes Patient would benefit from OT for education, treatment and training to promote independence in ADL's, mobility, safety and/or upper extremity function for ADL's. Plan of Care: ADL Retraining, Caregiver Training, Cognitive Retraining, Functional Mobility, Group Exercise/Act as Ind, Orthotic Fitting/Training, UE Funct Exercise/Act, UE Neuromus Re-Ed/Coord, Visual/Perceptual Retrain, W/C Management Training Treatment Duration: Mar 27, 2021 Frequency: At least 5 of 7 days/Wk (IRF) Estimated Hrs Per Day: 1.5 hours per day Agreement: Yes Rehab Potential: Fair Time/GCodes Start Time: 09:00 Stop Time: 09:30 Total Time Billed (hr/min): 30 Billed Treatment Time 1, FA x 2 SHEELA CLARKE OT Mar 20, 2021 14:51
--- NOTE | 2021-03-20 14:58 | Occupational Ther Daily Note ---
OT Current Status-Daily Note Subjective No pain reported. Mental Status/Objective Patient Orientation: Person, Place, Time, Situation ADL-Treatment Therapy Code Descriptions/Definitions Functional [place] Measure: 0=Not Assessed/NA 4=Minimal Assistance 1=Total Assistance 5=Supervision or Setup 2=Maximal Assistance 6=Modified [place] 3=Moderate Assistance 7=Complete IndependenceSCALE: Activities may be completed with or without assistive devices. 9-Dqelwkppyd-leshmxu completes the activity by him/herself with no assistance from a helper. 5-Set-up or Clean-up Assistance-helper sets up or cleans up; patient completes activity. [place] assists only prior to or following the activity. 4-Supervision or Touching Assistance-helper provides verbal cues and/or touching/steadying and/or contact guard assistance as patient completes activity. Assistance may be provided throughout the activity or intermittently. 3-Partial/Moderate Assistance-helper does LESS THAN HALF the effort. [place] lifts, holds or supports trunk or limbs, but provides less than half the effort. 2-Substantial/Maximal Assistance-helper does MORE THAN HALF the effort. [place] lifts or holds trunk or limbs and provides more than half the effort. 8-Nisfkqvyu-ugdxje does ALL the effort. Patient does none of the effort to complete the activity. Or, the assistance of 2 or more helpers is required for the patient to complete the activity. If activity was not attempted, code reason: 7-Patient Refused. 9-Not Applicable-not attempted and the patient did not perform the activity before the current illness, exacerbation or injury. 10-Not Attempted due to Environmental Limitations-(lack of equipment, weather restraints, etc.). 88-Not Attempted due to Medical Conditions or Safety Concerns. Shower/Bathe Self (QC): 7 (Pt. declines showering or sponge bathing as she states that she won't have enough time to do it before her family comes.) Upper Body Dressing (QC): 2 (Max assist to don shirt.) Lower Body Dressing (QC): 2 On/Off Footwear: 2 Other Treatment Pt. transfers supine-sit with mod assist. She is able to balance on EOB and work on donning clothing with assist and cues needed for balance and safety. After dressing tasks, OT completes gentle PROM to left UE. Pt. educated in continued self PROM techniques to left UE. Pt. verbalizes understanding. Pt. transfers sit-supine. All needs met. Education OT Patient Education: Correct positioning, Modified ADL techniques, Progress t spencer Goal/Update tx plan, Purpose of tx/functional activities, Reviewed precautions, Rehab process, Transfer techniques Teaching Recipient: Patient Teaching Methods: Demonstration, Discussion Response to Teaching: Verbalize Understanding, Return Demonstration, Reinforcement Needed OT Short Term Goals Short Term Goals Oral hygiene: 5 Toileting hygiene: 2 Shower/bathe self: 2 Upper body dressin Lower body dressin OT Prison Goals Office Services Specialist Goals Time Frame: Mar 27, 2021 Eating (QC): 6 Oral Hygiene (QC): 6 Toileting Hygiene (QC): 4 Shower/Bathe Self (QC): 4 Upper Body Dressing (QC): 6 Lower Body Dressing (QC): 4 On/Off Footwear (QC): 4 Additional Goals: 1-Demonstrate ADL Tasks, 2-Verbalize Understanding, 3-Improve Strength/[place] 1=Demonstrate adherence to instructed precautions during ADL tasks. 2=Patient will verbalize/demonstrate understanding of assistive devices/modifications for ADL. 3=Patient will improve strength/tolerance for activity to enable patient to pe rform ADL's. OT Education/Plan Problem List/Assessment Assessment: Decreased Activ Tolerance, Decreased UE Strength, Dependent Transfers, Impaired Bed Mobility, Impaired Coordination, Impaired Funct Balance, Impaired I ADL's, Impaired Self-Care Skills, Restricted Funct UE ROM Discharge Recommendations Plan/Recommendations: Continue POC Therapy Discharge Recommendati: Post Acute OT Treatment Plan/Plan of Care Treatment,Training & Education: Yes Patient would benefit from OT for education, treatment and training to promote independence in ADL's, mobility, safety and/or upper extremity function for ADL's. Plan of Care: ADL Retraining, Caregiver Training, Cognitive Retraining, Functional Mobility, Group Exercise/Act as Ind, Orthotic Fitting/Training, UE Funct Exercise/Act, UE Neuromus Re-Ed/Coord, Visual/Perceptual Retrain, W/C Management Training Treatment Duration: Mar 27, 2021 Frequency: At least 5 of 7 days/Wk (IRF) Estimated Hrs Per Day: 1.5 hours per day Agreement: Yes Rehab Potential: Fair Time/GCodes Start Time: 13:00 Stop Time: 13:45 Total Time Billed (hr/min): 45 Billed Treatment Time 1, ADL x 30minutes, Ex x 15minutes SHEELA CLARKE OT Mar 20, 2021 14:58
[2021-03-20] MEDS: RT-ALBUTEROL SULF 2.5 MG/3 ML PRE-MIX VIAL INH PRN (15:12)
[2021-03-20] MEDS: ENOXAPARIN 40 MG/0.4 ML (LOVENOX) SYR SC SCH (17:32)
[2021-03-20 20:08] VITALS: BP 95/52
[2021-03-20] MEDS: LUMIGAN 0.01% OPTH SOLN OU SCH (21:20)
[2021-03-20] MEDS: VANCOMYCIN 1 GM/NS 250 ML IVPB IV SCH ×2 (21:21)
[2021-03-20] MEDS: traZODone 150 MG (DESYREL) TABLET PO SCH (21:21)
[2021-03-20] MEDS: MELATONIN 3 MG TABLET PO PRN (21:22)
[2021-03-20] MEDS: MONTELUKAST 10 MG (SINGULAIR) TAB PO SCH (21:22)
[2021-03-21] MEDS: CEFEPIME INJECTION 1,000 MG in WATER (STERILE) FOR INJECTION 10 ML IV SCH ×3 (00:33→16:17)
[2021-03-21] MEDS: HYDROcodone/APAP 5 MG/325 MG (LORTAB) TAB PO PRN ×3 (02:55→21:27)
--- NOTE | 2021-03-21 05:58 | PM&R Progress Note ---
Subjective HPI/CC On Admission Date Seen by Provider: Mar 21, 2021 Time Seen by Provider: 06:00 Subjective/Events-last exam 03/21/2021: Patient sleeping currently Out of isolation from COVID-19 Antibiotics still maintained We will narrow antibiotic spectrum within the next 2 days No other issues 03/20/2021: Patient doing pretty well Covid swab was just colonization and now out of isolation Pneumonia treatment maintained Will narrow antibiotic spectrum after tomorrow 03/19/2021: Pt doing okay Refusing a lot of her meds Zofran before pain medication helps her Discontinue accu cheks and change to regular diet Late in the afternoon she complained of chest pain I did chest pain work-up chest x-ray appeared to have opacities so I went ahead and swabbed for COVID-19 and she was positive. There is no room available to move to due to Covid surge hospital-wide diversion no beds available so she will remain in that room in isolation. 03/18/2021: Patient doing pretty well PureWhick while in bed Eating breakfast pretty well today Slept well last night IV Zofran has helped Had a suppository last night and had a BM 03/17/21: Pt having more nausea Fentanyl patch of 235 micrograms has been maintained of which I didnt realize and really unsure about increasing that to 50 because of the her disease Zofran will be given IV Her left leg is moving very well 03/16/2021: Pt doing pretty well PureWick started for Lasix Aldactone diuresis Hgb 8.2 Bowels are moving well Has no complaints 03/15/2021: Patient doing really well Heels are red but Allevyn seems to cause an allergy No pain medication was needed today thus far Stool softeners maintained Lasix and Aldactone causes increased urination so pure wick may be required 03/14/2021: Pt doing really well Iron level of 21 so will initiate the Venofer full dosing Midline maintained Overall doing much better and able to move the left leg 03/13/21: Pt doing really well DC the martinez catheter Ultrasound will be performed and paracentesis will be performed by Dr. Hernandez Hgb 8.1 give one dose of iron infusion She is reusing Carafate as requested Updated Review of Systems General: Fatigue, Malaise Pulmonary: Dyspnea Focused Exam Lactate Level 03/19/21 19:10: Lactic Acid Level 1.54 Objective Exam Vital Signs Vital Signs Date Time Temp Pulse Resp B/P (MAP) Pulse Ox O2 Delivery O2 Flow Rate FiO2 03/21/21 09:07 36.2 65 18 94/43 (60) 100 Nasal Cannula 2.00 Capillary Refill : General Appearance: No Apparent Distress, WD/WN, Chronically ill HEENT: PERRL/EOMI, Normal ENT Inspection, Pharynx Normal Neck: Full Range of Motion, Normal Inspection, Non Tender, Supple, Carotid Bruit Respiratory: Chest Non Tender, Lungs Clear, Normal Breath Sounds, No Accessory Muscle Use, No Respiratory Distress, Decreased Breath Sounds, Other (Maintained on O2 24/7) Cardiovascular: Regular Rate, Rhythm, No Edema, No Gallop, No JVD, No Murmur, Normal Peripheral Pulses Gastrointestinal: Normal Bowel Sounds, No Organomegaly, No Pulsatile Mass, Non Tender, Soft, Distended, Other (ascites) Back: Normal Inspection, No CVA Tenderness, No Vertebral Tenderness Extremity: Normal Capillary Refill, Normal Inspection, Normal Range of Motion, Non Tender, No Calf Tenderness, No Pedal Edema Neurologic/Psychiatric: Alert, Oriented x3, Normal Mood/Affect, Motor Weakness (Left-sided weakness upper extremity 0/5 left lower extremity 1/5) Skin: Normal Color, Warm/Dry Lymphatic: No Adenopathy Results/Procedures Lab Patient resulted labs reviewed. FIM Transfers Therapy Code Descriptions/Definitions Functional [place] Measure: 0=Not Assessed/NA 4=Minimal Assistance 1=Total Assistance 5=Supervision or Setup 2=Maximal Assistance 6=Modified [place] 3=Moderate Assistance 7=Complete IndependenceSCALE: Activities may be completed with or without assistive devices. 2-Okpldyzchj-yhktchr completes the activity by him/herself with no assistance from a helper. 5-Set-up or Clean-up Assistance-helper sets up or cleans up; patient completes activity. [place] assists only prior to or following the activity. 4-Supervision or Touching Assistance-helper provides verbal cues and/or touching/steadying and/or contact guard assistance as patient completes activity . Assistance may be provided throughout the activity or intermittently. 3-Partial/Moderate Assistance-helper does LESS THAN HALF the effort. [place] lifts, holds or supports trunk or limbs, but provides less than half the effort. 2-Substantial/Maximal Assistance-helper does MORE THAN HALF the effort. [place] lifts or holds trunk or limbs and provides more than half the effort. 0-Kkleevvfg-vzqjfj does ALL the effort. Patient does none of the effort to complete the activity. Or, the assistance of 2 or more helpers is required for the patient to complete the activity. If activity was not attempted, code reason: 7-Patient Refused. 9-Not Applicable-not attempted and the patient did not perform the activity before the current illness, exacerbation or injury. 10-Not Attempted due to Environmental Limitations-(lack of equipment, weather restraints, etc.). 88-Not Attempted due to Medical Conditions or Safety Concerns. Roll Left to Right (QC): 6 Sit to Lying (QC): 3 Sit to Stand (QC): 3 Chair/Dsc-cu-Rsmeb Xfer(QC): 4 Car Transfer (QC): 1 Gait Training Does the Patient Walk?: Yes Distance: 20'x3 Walk 10 feet (QC): 3 Walk 50 ft with 2 Turns(QC): 88 Walk 150 ft (QC): 88 Walking 10ft/uneven surface-QC: 88 Gait Persons Needed: 1 Gait Assistive Device: Walker Abner Wheelchair Training Does the Pt Use a Wheelchair?: Yes Distance: 50 Wheel 50 ft with 2 turns (QC): 3 Wheel 150 ft (QC): 5 Type of Wheelchair: Manual Stair Training 1 Step (curb) (QC): 88 4 Steps (QC): 88 12 Steps (QC): 88 Balance Picking up an Object (QC): 88 ADL-Treatment Eating (QC): 5 (s/u (unable to utilize LUE for coordination/ opening/ cutting tasks)) Oral Hygiene (QC): 3 (mod A per clinical judgment, though pt denies at this time.) Shower/Bathe Self (QC): 7 (Pt. declines showering or sponge bathing as she states that she won't have enough time to do it before her family comes.) Upper Body Dressing (QC): 2 (Max assist to don shirt.) Lower Body Dressing (QC): 2 On/Off Footwear (QC): 2 Toileting Hygiene (QC): 1 (Pt. 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 Antibiotic initiation Not hypoxic so we will monitor closely 03/20/2021: IV antibiotics Covid swab is colonization from illness on 02/05/2021 03/21/2021: IV antibiotics Monitor closely Fall risk (1) CVA (cerebral vascular accident) (2) Cirrhosis (3) GROVES (nonalcoholic steatohepatitis) (4) Status post abdominal paracentesis (5) Left-sided weakness (6) Diabetes (7) COPD (chronic obstructive pulmonary disease) (8) Dependence on supplemental oxygen (9) Anemia (10) Hypertension (11) Hyperlipidemia (12) Chronic back pain (13) GERD (gastroesophageal reflux disease) (14) Hypothyroidism NALLELY IBRAHIM DO Mar 21, 2021 05:58
[2021-03-21] MEDS: CYANOCOBALAMIN 1,000 MCG (VITAMIN B-12) TABLET PO SCH (06:35)
[2021-03-21] MEDS: LEVOTHYROXINE 100 MCG (LEVOTHROID) TAB PO SCH (06:35)
[2021-03-21] MEDS: SUCRALFATE 1 GM (CARAFATE) TAB PO SCH ×4 (06:36→21:44)
[2021-03-21] MEDS: CATHETER FLUSH 10 ML SYR IV SCH ×3 (06:36→21:46)
[2021-03-21] MEDS: RT-ALBUTEROL SULF 2.5 MG/3 ML PRE-MIX VIAL INH PRN ×2 (07:13→19:49)
[2021-03-21] MEDS: RT--FLUTICASONE/SALMETEROL 232-14 (AIRDUO RespiCLICK) IH SCH ×2 (07:13→19:50)
[2021-03-21] MEDS: ONDANSETRON 4 MG/2 ML (SDV) Z0FRAN IVP PRN ×3 (08:15→21:23)
[2021-03-21] MEDS: lisINopril 5 MG (PRINIVIL) TABLET PO SCH (09:00)
[2021-03-21] MEDS: FOLIC ACID 400 MCG PO SCH (09:00)
[2021-03-21] MEDS: SIMETHICONE 80 MG (MYLICON) CHEW PO SCH ×4 (09:00→21:45)
[2021-03-21] MEDS: PANTOPRAZOLE 40 MG (PROTONIX) TAB PO SCH (09:00)
[2021-03-21] MEDS: FUROSEMIDE 40 MG (LASIX) TAB PO SCH (09:00)
[2021-03-21] MEDS: DOCUSATE SODIUM 100 MG (COLACE) CAP PO SCH ×2 (09:00→21:45)
[2021-03-21] MEDS: polyethylene glycoL POWDER 17 GM (MIRALAX) PACK PO SCH ×2 (09:00→21:45)
[2021-03-21] MEDS: COLESTIPOL 1 GM (COLESTID) TAB PO SCH ×2 (09:00→21:45)
[2021-03-21] MEDS: SENNA W/DOCUSATE (SENOKOT S) TABLET PO SCH ×2 (09:00→21:45)
[2021-03-21 09:07] VITALS: BP 94/43
[2021-03-21] MEDS: ASPIRIN E.C. 81 MG (ECOTRIN) TAB PO SCH (09:16)
[2021-03-21] MEDS: NIFEdipine ER 30 MG (PROCARDIA XL) TAB PO SCH (09:16)
[2021-03-21] MEDS: SPIRONOLACTONE 25 MG (ALDACTONE) TAB PO SCH (09:16)
[2021-03-21] MEDS: VICTOZA SQ SCH (09:17)
--- NOTE | 2021-03-21 09:53 | Physical Therapy Daily Note ---
PT Daily Note-Current Subjective Pt. says she is not feeling well today, has been having pain in her chest and an upset stomach. Pain rated 0/10 at present time. Pt. requests very little therapy today. Transfers SCALE: Activities may be completed with or without assistive devices. 1-Fqcyoqopqq-volkrpo completes the activity by him/herself with no assistance from a helper. 5-Set-up or Clean-up Assistance-helper sets up or cleans up; patient completes activity. [place] assists only prior to or following the activity. 4-Supervision or Touching Assistance-helper provides verbal cues and/or touching/steadying and/or contact guard assistance as patient completes activity. Assistance may be provided throughout the activity or intermittently. 3-Partial/Moderate Assistance-helper does LESS THAN HALF the effort. [place] lifts, holds or supports trunk or limbs, but provides less than half the effort. 2-Substantial/Maximal Assistance-helper does MORE THAN HALF the effort. [place] lifts or holds trunk or limbs and provides more than half the effort. 7-Tbvvvopbr-pboybl does ALL the effort. Patient does none of the effort to complete the activity. Or, the assistance of 2 or more helpers is required for the patient to complete the activity. If activity was not attempted, code reason: 7-Patient Refused. 9-Not Applicable-not attempted and the patient did not perform the activity before the current illness, exacerbation or injury. 10-Not Attempted due to Environmental Limitations-(lack of equipment, weather restraints, etc.). 88-Not Attempted due to Medical Conditions or Safety Concerns. Weight Bearing Right Lower Extremity: Right Full Weight Bearing Left Lower Extremity: Left Full Weight Bearing Exercises Supine Ex: Ankle pumps, Quad Set, Glut sets, Heel Slides, Straight leg raise, Hip abd/add Supine Reps: 20 2 x 10 reps Treatments LE exercises Assessment Current Status: Fair Progress Pt. declines all out of bed activity today, agrees only to bed exercises. She fatigues quickly with exercises and occasionally needs min A on L. Pt. in bed post session with all needs met. PT Short Term Goals Short Term Goals Time Frame: Mar 20, 2021 Roll Left & Right: 4 Sit to lyin Lying to sitting on side of be: 4 Sit to stand: 5 Chair/zhc-yq-pxrqr transfer: 4 Toilet transfer: 4 Car transfer: 4 Walk 10 feet: 4 Walk 50 feet with two turns: 4 Walk 150 feet: 88 Walking 10ft on uneven surface: 88 1 step (curb): 4 4 steps: 88 12 steps: 88 Picking up objects: 88 Does pt use a wc or scooter: Yes Wheel 50ft w/2 turns: 5 Wheel 150 feet: 5 Type: Manual PT Telephone Maintenance Mechanic Goals Telephone Maintenance Mechanic Goals PT Group Home Goals Time Frame: Apr 03, 2021 Roll Left & Right (QC): 6 Sit to Lying (QC): 6 Lying-Sitting on Side/Bed(QC): 6 Sit to Stand (QC): 6 Chair/Bhg-qq-Haziq Xfer(QC): 6 Toilet Transfer (QC): 5 Car Transfer (QC): 4 Does the Patient Walk: Yes Walk 10 feet (QC): 5 Walk 50ft with 2 Turns (QC): 5 Walk 150 ft (QC): 5 Walking 10ft on Uneven Surface: 5 1 Step (curb) (QC): 5 4 Steps (QC): 4 12 Steps (QC): 88 Picking up an Object (QC): 88 Wheel 50 feet with 2 turns (QC: 6 Type: Manual Wheel 150 feet: 6 Type: Manual PT Plan Treatment/Plan Treatment Plan: Continue Plan of Care Treatment Plan: Bed Mobility, Concurrent Therapy, Functional Strength, Group Therapy, Gait, Safety, Therapeutic Exercise Treatment Duration: Apr 03, 2021 Frequency: 11 times per week Estimated Hrs Per Day: 1.5 hours per day Patient and/or Family Agrees t: Yes Time/GCodes Time In: 941 Time Out: 956 Total Billed Treatment Time: 15 Total Billed Treatment 1, Ex 15' SAMANTHA BUCKLEY PT Mar 21, 2021 09:53
[2021-03-21] MEDS: TRIAMCINOLONE 0.1% CR (KENALOG) 15 GM TUBE TP SCH ×2 (13:03→21:38)
[2021-03-21] MEDS: ENOXAPARIN 40 MG/0.4 ML (LOVENOX) SYR SC SCH (18:00)
[2021-03-21 20:00] VITALS: BP 124/63
[2021-03-21] MEDS: VANCOMYCIN 1 GM/NS 250 ML IVPB IV SCH ×2 (20:04)
[2021-03-21] MEDS: traZODone 150 MG (DESYREL) TABLET PO SCH (21:27)
[2021-03-21] MEDS: MONTELUKAST 10 MG (SINGULAIR) TAB PO SCH (21:27)
[2021-03-21] MEDS: MELATONIN 3 MG TABLET PO PRN (21:28)
[2021-03-21] MEDS: LUMIGAN 0.01% OPTH SOLN OU SCH (21:37)
[2021-03-22] MEDS: CEFEPIME INJECTION 1,000 MG in WATER (STERILE) FOR INJECTION 10 ML IV SCH (00:15)
[2021-03-22] MEDS: HYDROcodone/APAP 5 MG/325 MG (LORTAB) TAB PO PRN ×3 (03:39→15:33)
[2021-03-22] MEDS: ONDANSETRON 4 MG/2 ML (SDV) Z0FRAN IVP PRN ×4 (03:39→21:39)
--- NOTE | 2021-03-22 06:08 | PM&R Progress Note ---
Subjective HPI/CC On Admission Date Seen by Provider: Mar 22, 2021 Time Seen by Provider: 06:10 Subjective/Events-last exam 03/22/2021: Patient sleeping pretty well Diclofenac gel will be used for joint pain Antibiotics changed over to Omnicef p.o. Monitoring closely 03/21/2021: Patient sleeping currently Out of isolation from COVID-19 Antibiotics still maintained We will narrow antibiotic spectrum within the next 2 days No other issues 03/20/2021: Patient doing pretty well Covid swab was just colonization and now out of isolation Pneumonia treatment maintained Will narrow antibiotic spectrum after tomorrow 03/19/2021: Pt doing okay Refusing a lot of her meds Zofran before pain medication helps her Discontinue accu cheks and change to regular diet Late in the afternoon she complained of chest pain I did chest pain work-up chest x-ray appeared to have opacities so I went ahead and swabbed for COVID-19 and she was positive. There is no room available to move to due to Covid surge hospital-wide diversion no beds available so she will remain in that room in isolation. 03/18/2021: Patient doing pretty well PureWhick while in bed Eating breakfast pretty well today Slept well last night IV Zofran has helped Had a suppository last night and had a BM 03/17/21: Pt having more nausea Fentanyl patch of 235 micrograms has been maintained of which I didnt realize and really unsure about increasing that to 50 because of the her disease Zofran will be given IV Her left leg is moving very well 03/16/2021: Pt doing pretty well PureWick started for Lasix Aldactone diuresis Hgb 8.2 Bowels are moving well Has no complaints 03/15/2021: Patient doing really well Heels are red but Allevyn seems to cause an allergy No pain medication was needed today thus far Stool softeners maintained Lasix and Aldactone causes increased urination so pure wick may be required 03/14/2021: Pt doing really well Iron level of 21 so will initiate the Venofer full dosing Midline maintained Overall doing much better and able to move the left leg 03/13/21: Pt doing really well DC the martinez catheter Ultrasound will be performed and paracentesis will be performed by Dr. Hernandez Hgb 8.1 give one dose of iron infusion She is reusing Carafate as requested Updated Review of Systems General: Fatigue, Malaise Pulmonary: Dyspnea Neurological: Weakness, Incoordination Focused Exam Lactate Level Objective Exam Vital Signs Vital Signs Date Time Temp Pulse Resp B/P (MAP) Pulse Ox O2 Delivery O2 Flow Rate FiO2 03/22/21 21:46 94 Nasal Cannula 3.00 03/22/21 20:00 37.0 69 14 136/60 (85) Capillary Refill : General Appearance: No Apparent Distress, WD/WN, Chronically ill HEENT: PERRL/EOMI, Normal ENT Inspection, Pharynx Normal Neck: Full Range of Motion, Normal Inspection, Non Tender, Supple, Carotid Bruit Respiratory: Chest Non Tender, Lungs Clear, Normal Breath Sounds, No Accessory Muscle Use, No Respiratory Distress, Decreased Breath Sounds, Other (Maintained on O2 24/7) Cardiovascular: Regular Rate, Rhythm, No Edema, No Gallop, No JVD, No Murmur, Normal Peripheral Pulses Gastrointestinal: Normal Bowel Sounds, No Organomegaly, No Pulsatile Mass, Non Tender, Soft, Distended, Other (ascites) Back: Normal Inspection, No CVA Tenderness, No Vertebral Tenderness Extremity: Normal Capillary Refill, Normal Inspection, Normal Range of Motion, Non Tender, No Calf Tenderness, No Pedal Edema Neurologic/Psychiatric: Alert, Oriented x3, Normal Mood/Affect, Motor Weakness (Left-sided weakness upper extremity 0/5 left lower extremity 1/5) Skin: Normal Color, Warm/Dry Lymphatic: No Adenopathy Results/Procedures Lab Patient resulted labs reviewed. FIM Transfers Therapy Code Descriptions/Definitions Functional [place] Measure: 0=Not Assessed/NA 4=Minimal Assistance 1=Total Assistance 5=Supervision or Setup 2=Maximal Assistance 6=Modified [place] 3=Moderate Assistance 7=Complete IndependenceSCALE: Activities may be completed with or without assistive devices. 4-Fzyqsjnosu-hksdfyn completes the activity by him/herself with no assistance fr om a helper. 5-Set-up or Clean-up Assistance-helper sets up or cleans up; patient completes activity. [place] assists only prior to or following the activity. 4-Supervision or Touching Assistance-helper provides verbal cues and/or touching/steadying and/or contact guard assistance as patient completes activity. Assistance may be provided throughout the activity or intermittently. 3-Partial/Moderate Assistance-helper does LESS THAN HALF the effort. [place] lifts, holds or supports trunk or limbs, but provides less than half the effort. 2-Substantial/Maximal Assistance-helper does MORE THAN HALF the effort. [place] lifts or holds trunk or limbs and provides more than half the effort. 7-Iidfxgbis-vqxlhw does ALL the effort. Patient does none of the effort to complete the activity. Or, the assistance of 2 or more helpers is required for the patient to complete the activity. If activity was not attempted, code reason: 7-Patient Refused. 9-Not Applicable-not attempted and the patient did not perform the activity before the current illness, exacerbation or injury. 10-Not Attempted due to Environmental Limitations-(lack of equipment, weather restraints, etc.). 88-Not Attempted due to Medical Conditions or Safety Concerns. Roll Left to Right (QC): 6 Sit to Lying (QC): 3 Sit to Stand (QC): 3 Chair/Qnf-ce-Wkola Xfer(QC): 4 Car Transfer (QC): 1 Gait Training Does the Patient Walk?: Yes Distance: 20'x3 Walk 10 feet (QC): 3 Walk 50 ft with 2 Turns(QC): 88 Walk 150 ft (QC): 88 Walking 10ft/uneven surface-QC: 88 Gait Persons Needed: 1 Gait Assistive Device: Walker Abner Wheelchair Training Does the Pt Use a Wheelchair?: Yes Distance: 50 Wheel 50 ft with 2 turns (QC): 3 Wheel 150 ft (QC): 5 Type of Wheelchair: Manual Stair Training 1 Step (curb) (QC): 88 4 Steps (QC): 88 12 Steps (QC): 88 Balance Picking up an Object (QC): 88 ADL-Treatment Eating (QC): 5 (s/u (unable to utilize LUE for coordination/ opening/ cutting tasks)) Oral Hygiene (QC): 3 (mod A per clinical judgment, though pt denies at this time.) Shower/Bathe Self (QC): 7 (Pt. declines showering or sponge bathing as she states that she won't have enough time to do it before her family comes.) Upper Body Dressing (QC): 2 (Max assist to don shirt.) Lower Body Dressing (QC): 2 On/Off Footwear (QC): 2 Toileting Hygiene (QC): 1 (Pt. 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 Antibiotic initiation Not hypoxic so we will monitor closely 03/20/2021: IV antibiotics Covid swab is colonization from illness on 02/05/2021 03/21/2021: IV antibiotics Monitor closely Fall risk 03/22/2021: IV antibiotics transition to p.o. Supportive care (1) CVA (cerebral vascular accident) (2) Cirrhosis (3) GROVES (nonalcoholic steatohepatitis) (4) Status post abdominal paracentesis (5) Left-sided weakness (6) Diabetes (7) COPD (chronic obstructive pulmonary disease) (8) Dependence on supplemental oxygen (9) Anemia (10) Hypertension (11) Hyperlipidemia (12) Chronic back pain (13) GERD (gastroesophageal reflux disease) (14) Hypothyroidism NALLELY IBRAHIM DO Mar 22, 2021 06:08
[2021-03-22] MEDS: CYANOCOBALAMIN 1,000 MCG (VITAMIN B-12) TABLET PO SCH (06:29)
[2021-03-22] MEDS: CATHETER FLUSH 10 ML SYR IV SCH ×3 (06:29→21:31)
[2021-03-22] MEDS: LEVOTHYROXINE 100 MCG (LEVOTHROID) TAB PO SCH (06:29)
[2021-03-22] MEDS: SUCRALFATE 1 GM (CARAFATE) TAB PO SCH ×4 (06:33→21:00)
[2021-03-22] MEDS: RT-ALBUTEROL SULF 2.5 MG/3 ML PRE-MIX VIAL INH PRN ×2 (06:52→21:45)
[2021-03-22] MEDS: RT--FLUTICASONE/SALMETEROL 232-14 (AIRDUO RespiCLICK) IH SCH ×2 (06:54→21:13)
[2021-03-22 08:02] VITALS: BP 114/57
[2021-03-22] MEDS: CEFDINIR 300 MG (OMNICEF) CAP PO SCH ×2 (08:05→21:30)
[2021-03-22] MEDS: VICTOZA SQ SCH (08:06)
[2021-03-22] MEDS: lisINopril 5 MG (PRINIVIL) TABLET PO SCH (08:06)
[2021-03-22] MEDS: FOLIC ACID 400 MCG PO SCH (08:06)
[2021-03-22] MEDS: FUROSEMIDE 40 MG (LASIX) TAB PO SCH (08:07)
[2021-03-22] MEDS: ASPIRIN E.C. 81 MG (ECOTRIN) TAB PO SCH (08:07)
[2021-03-22] MEDS: diphenhydrAMINE 25 MG TAB (BENADRYL) PO PRN ×2 (08:07→17:31)
[2021-03-22] MEDS: SPIRONOLACTONE 25 MG (ALDACTONE) TAB PO SCH (08:07)
[2021-03-22] MEDS: NIFEdipine ER 30 MG (PROCARDIA XL) TAB PO SCH (08:07)
[2021-03-22] MEDS: SENNA W/DOCUSATE (SENOKOT S) TABLET PO SCH ×2 (08:07→21:00)
[2021-03-22] MEDS: IRON SUCROSE 200 MG/10 ML (VENOFER) VIAL IV SCH (08:08)
[2021-03-22] MEDS: TRIAMCINOLONE 0.1% CR (KENALOG) 15 GM TUBE TP SCH ×2 (08:08→21:30)
[2021-03-22] MEDS: DOCUSATE SODIUM 100 MG (COLACE) CAP PO SCH ×2 (09:00→21:00)
[2021-03-22] MEDS: polyethylene glycoL POWDER 17 GM (MIRALAX) PACK PO SCH ×2 (09:00→21:00)
[2021-03-22] MEDS: SIMETHICONE 80 MG (MYLICON) CHEW PO SCH ×4 (09:00→21:00)
[2021-03-22] MEDS: COLESTIPOL 1 GM (COLESTID) TAB PO SCH ×2 (09:00→21:00)
[2021-03-22] MEDS: PANTOPRAZOLE 40 MG (PROTONIX) TAB PO SCH (09:00)
[2021-03-22] MEDS: fentaNYL PATCH 25 MCG (DURAGESIC) TD SCH (11:15)
[2021-03-22] MEDS: FENTANYL PATCH REMOVAL TP SCH (11:17)
[2021-03-22] MEDS: ENOXAPARIN 40 MG/0.4 ML (LOVENOX) SYR SC SCH (17:31)
[2021-03-22] MEDS ORDERED: TROUGH ORDER-PHARMACY XX NR (19:00)
[2021-03-22 20:00] VITALS: BP 136/60
[2021-03-22] MEDS: LUMIGAN 0.01% OPTH SOLN OU SCH (21:29)
[2021-03-22] MEDS: traZODone 150 MG (DESYREL) TABLET PO SCH (21:30)
[2021-03-22] MEDS: MELATONIN 3 MG TABLET PO PRN (21:30)
[2021-03-22] MEDS: MONTELUKAST 10 MG (SINGULAIR) TAB PO SCH (21:30)
[2021-03-23] MEDS: ONDANSETRON 4 MG/2 ML (SDV) Z0FRAN IVP PRN ×5 (03:18→21:31)
[2021-03-23] MEDS: HYDROcodone/APAP 5 MG/325 MG (LORTAB) TAB PO PRN ×4 (03:19→21:31)
[2021-03-23] MEDS: DICLOFENAC 1% GEL 100 GM (VOLTAREN) TUBE TOP PRN (05:40)
[2021-03-23] MEDS: CATHETER FLUSH 10 ML SYR IV SCH ×3 (05:50→21:02)
[2021-03-23] MEDS: LEVOTHYROXINE 100 MCG (LEVOTHROID) TAB PO SCH (05:51)
[2021-03-23] MEDS: CYANOCOBALAMIN 1,000 MCG (VITAMIN B-12) TABLET PO SCH (05:51)
[2021-03-23 06:08] LABS: BASOPHILS # (AUTO) 0.1 10^3/uL (0.0-0.1); BASOPHILS % (AUTO) 1 % (0-10); EOSINOPHILS % (AUTO) 0 % (0-10); HEMATOCRIT 25 % (35-52); HEMOGLOBIN 7.6 g/dL (11.5-16.0); LYMPHOCYTES # (AUTO) 1.3 10^3/uL (1.0-4.0); LYMPHOCYTES % (AUTO) 21 % (12-44); MEAN CORPUSCULAR HEMOGLOBIN 25 pg (25-34); MEAN CORPUSCULAR HGB CONC 31 g/dL (32-36); MEAN CORPUSCULAR VOLUME 81 fL (80-99); MEAN PLATELET VOLUME 10.2 fL (9.0-12.2); MONOCYTES # (AUTO) 0.6 10^3/uL (0.0-1.0); MONOCYTES % (AUTO) 10 % (0-12); NEUTROPHILS # (AUTO) 4.5 10^3/uL (1.8-7.8); NEUTROPHILS % (AUTO) 69 % (42-75); PLATELET COUNT 301 10^3/uL (130-400); WHITE BLOOD COUNT 6.5 10^3/uL (4.3-11.0)
[2021-03-23] MEDS: SUCRALFATE 1 GM (CARAFATE) TAB PO SCH ×3 (06:17→21:00)
[2021-03-23 06:18] LABS: ALBUMIN 2.4 GM/DL (3.2-4.5); POTASSIUM 4.9 MMOL/L (3.6-5.0)
[2021-03-23 06:19] LABS: CALCIUM 8.1 MG/DL (8.5-10.1)
[2021-03-23 06:20] LABS: TOTAL PROTEIN 5.6 GM/DL (6.4-8.2)
[2021-03-23 06:22] LABS: BILIRUBIN,TOTAL 0.5 MG/DL (0.1-1.0)
[2021-03-23 06:24] LABS: CREATININE SERUM 1.24 MG/DL (0.60-1.30)
[2021-03-23 07:34] VITALS: BP 194/76
[2021-03-23 07:38] VITALS: BP 121/59
[2021-03-23] MEDS: RT--FLUTICASONE/SALMETEROL 232-14 (AIRDUO RespiCLICK) IH SCH ×2 (07:39→21:58)
[2021-03-23] MEDS: RT-ALBUTEROL SULF 2.5 MG/3 ML PRE-MIX VIAL INH PRN (07:39)
--- NOTE | 2021-03-23 08:07 | Diagnostic Imaging Report ---
INDICATION: Pneumonia. Comparison made with prior examination of 03/19/2021. FINDINGS: There are bilateral pulmonary infiltrates right greater than left. Heart size is normal. No pleural effusion or pneumothorax. Mediastinum unremarkable. IMPRESSION: Bilateral pulmonary infiltrates right greater than left. Dictated by: Dictated on workstation # [id number]
[2021-03-23] MEDS: FUROSEMIDE 40 MG (LASIX) TAB PO SCH (09:23)
[2021-03-23] MEDS: CEFDINIR 300 MG (OMNICEF) CAP PO SCH ×2 (09:23→20:56)
[2021-03-23] MEDS: ASPIRIN E.C. 81 MG (ECOTRIN) TAB PO SCH (09:23)
[2021-03-23] MEDS: diphenhydrAMINE 25 MG TAB (BENADRYL) PO PRN ×2 (09:23→16:26)
[2021-03-23] MEDS: NIFEdipine ER 30 MG (PROCARDIA XL) TAB PO SCH (09:23)
[2021-03-23] MEDS: SPIRONOLACTONE 25 MG (ALDACTONE) TAB PO SCH (09:24)
[2021-03-23] MEDS: PANTOPRAZOLE 40 MG (PROTONIX) TAB PO SCH (09:24)
[2021-03-23] MEDS: lisINopril 5 MG (PRINIVIL) TABLET PO SCH (09:24)
[2021-03-23] MEDS: TRIAMCINOLONE 0.1% CR (KENALOG) 15 GM TUBE TP SCH ×2 (09:25→20:55)
[2021-03-23] MEDS: VICTOZA SQ SCH (09:26)
[2021-03-23] MEDS: polyethylene glycoL POWDER 17 GM (MIRALAX) PACK PO SCH ×2 (09:27→21:00)
[2021-03-23] MEDS: COLESTIPOL 1 GM (COLESTID) TAB PO SCH ×2 (09:27→21:00)
[2021-03-23] MEDS: SIMETHICONE 80 MG (MYLICON) CHEW PO SCH ×4 (09:27→21:00)
[2021-03-23] MEDS: FENTANYL PATCH REMOVAL TP SCH (09:44)
--- NOTE | 2021-03-23 09:50 | PM&R Progress Note ---
Subjective HPI/CC On Admission Date Seen by Provider: Mar 23, 2021 Time Seen by Provider: 09:30 Subjective/Events-last exam 03/23/2021: Pt doing pretty well Able to stand with therapy Bowels are moving IV Zofran will be given Benadryl is also used a lot Chest X-ray and labs will be reviewed Hgb is 7.6 Not much motivation though 03/22/2021: Patient sleeping pretty well Diclofenac gel will be used for joint pain Antibiotics changed over to Omnicef p.o. Monitoring closely 03/21/2021: Patient sleeping currently Out of isolation from COVID-19 Antibiotics still maintained We will narrow antibiotic spectrum within the next 2 days No other issues 03/20/2021: Patient doing pretty well Covid swab was just colonization and now out of isolation Pneumonia treatment maintained Will narrow antibiotic spectrum after tomorrow 03/19/2021: Pt doing okay Refusing a lot of her meds Zofran before pain medication helps her Discontinue accu cheks and change to regular diet Late in the afternoon she complained of chest pain I did chest pain work-up chest x-ray appeared to have opacities so I went ahead and swabbed for COVID-19 and she was positive. There is no room available to move to due to Covid surge hospital-wide diversion no beds available so she will remain in that room in isolation. 03/18/2021: Patient doing pretty well PureWhick while in bed Eating breakfast pretty well today Slept well last night IV Zofran has helped Had a suppository last night and had a BM 03/17/21: Pt having more nausea Fentanyl patch of 235 micrograms has been maintained of which I didnt realize and really unsure about increasing that to 50 because of the her disease Zofran will be given IV Her left leg is moving very well 03/16/2021: Pt doing pretty well PureWick started for Lasix Aldactone diuresis Hgb 8.2 Bowels are moving well Has no complaints 03/15/2021: Patient doing really well Heels are red but Allevyn seems to cause an allergy No pain medication was needed today thus far Stool softeners maintained Lasix and Aldactone causes increased urination so pure wick may be required 03/14/2021: Pt doing really well Iron level of 21 so will initiate the Venofer full dosing Midline maintained Overall doing much better and able to move the left leg 03/13/21: Pt doing really well DC the martinez catheter Ultrasound will be performed and paracentesis will be performed by Dr. Hernandez Hgb 8.1 give one dose of iron infusion She is reusing Carafate as requested Updated Review of Systems General: Fatigue, Malaise Neurological: Weakness, Incoordination Objective Exam Vital Signs Vital Signs Date Time Temp Pulse Resp B/P (MAP) Pulse Ox O2 Delivery O2 Flow Rate FiO2 03/23/21 20:00 99 Nasal Cannula 2.00 03/23/21 20:00 36.4 65 18 111/65 (80) Capillary Refill : General Appearance: No Apparent Distress, WD/WN, Chronically ill HEENT: PERRL/EOMI, Normal ENT Inspection, Pharynx Normal Neck: Full Range of Motion, Normal Inspection, Non Tender, Supple, Carotid Bruit Respiratory: Chest Non Tender, Lungs Clear, Normal Breath Sounds, No Accessory Muscle Use, No Respiratory Distress, Decreased Breath Sounds, Other (Maintained on O2 24/7) Cardiovascular: Regular Rate, Rhythm, No Edema, No Gallop, No JVD, No Murmur, Normal Peripheral Pulses Gastrointestinal: Normal Bowel Sounds, No Organomegaly, No Pulsatile Mass, Non Tender, Soft, Distended, Other (ascites) Back: Normal Inspection, No CVA Tenderness, No Vertebral Tenderness Extremity: Normal Capillary Refill, Normal Inspection, Normal Range of Motion, Non Tender, No Calf Tenderness, No Pedal Edema Neurologic/Psychiatric: Alert, Oriented x3, Normal Mood/Affect, Motor Weakness (Left-sided weakness upper extremity 0/5 left lower extremity 1/5) Skin: Normal Color, Warm/Dry Lymphatic: No Adenopathy Results/Procedures Lab Laboratory Tests 03/23/21 05:48 Patient resulted labs reviewed. FIM Transfers Therapy Code Descriptions/Definitions Functional [place] Measure: 0=Not Assessed/NA 4=Minimal Assistance 1=Total Assistance 5=Supervision or Setup 2=Maximal Assistance 6=Modified [place] 3=Moderate Assistance 7=Complete IndependenceSCALE: Activities may be completed with or without assistive devices. 3-Fgsakaadxt-uicmxqe completes the activity by him/herself with no assistance from a helper. 5-Set-up or Clean-up Assistance-helper sets up or cleans up; patient completes activity. [place] assists only prior to or following the activity. 4-Supervision or Touching Assistance-helper provides verbal cues and/or touching/steadying and/or contact guard assistance as patient completes activity. Assistance may be provided throughout the activity or intermittently. 3-Partial/Moderate Assistance-helper does LESS THAN HALF the effort. [place] lifts, holds or supports trunk or limbs, but provides less than half the effort. 2-Substantial/Maximal Assistance-helper does MORE THAN HALF the effort. [place] lifts or holds trunk or limbs and provides more than half the effort. 0-Fpdkpnjmv-kvfrgx does ALL the effort. Patient does none of the effort to complete the activity. Or, the assistance of 2 or more helpers is required for the patient to complete the activity. If activity was not attempted, code reason: 7-Patient Refused. 9-Not Applicable-not attempted and the patient did not perform the activity before the current illness, exacerbation or injury. 10-Not Attempted due to Environmental Limitations-(lack of equipment, weather restraints, etc.). 88-Not Attempted due to Medical Conditions or Safety Concerns. Roll Left to Right (QC): 6 Sit to Lying (QC): 3 Sit to Stand (QC): 3 Chair/Wvm-uf-Spnsz Xfer(QC): 4 Car Transfer (QC): 1 Gait Training Does the Patient Walk?: Yes Distance: 20'x3 Walk 10 feet (QC): 3 Walk 50 ft with 2 Turns(QC): 88 Walk 150 ft (QC): 88 Walking 10ft/uneven surface-QC: 88 Gait Persons Needed: 1 Gait Assistive Device: Walker Abner Wheelchair Training Does the Pt Use a Wheelchair?: Yes Distance: 50 Wheel 50 ft with 2 turns (QC): 3 Wheel 150 ft (QC): 5 Type of Wheelchair: Manual Stair Training 1 Step (curb) (QC): 88 4 Steps (QC): 88 12 Steps (QC): 88 Balance Picking up an Object (QC): 88 ADL-Treatment Eating (QC): 5 (s/u (unable to utilize LUE for coordination/ opening/ cutting tasks)) Oral Hygiene (QC): 3 (mod A per clinical judgment, though pt denies at this krista e.) Shower/Bathe Self (QC): 7 (Pt. declines showering or sponge bathing as she states that she won't have enough time to do it before her family comes.) Upper Body Dressing (QC): 2 (Max assist to don shirt.) Lower Body Dressing (QC): 2 On/Off Footwear (QC): 2 Toileting Hygiene (QC): 1 (Pt. 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 Antibiotic initiation Not hypoxic so we will monitor closely 03/20/2021: IV antibiotics Covid swab is colonization from illness on 02/05/2021 03/21/2021: IV antibiotics Monitor closely Fall risk 03/22/2021: IV antibiotics transition to p.o. Supportive care 03/23/2021: Much improved status Seems to be more motivated Lungs remain clear (1) CVA (cerebral vascular accident) (2) Cirrhosis (3) GROVES (nonalcoholic steatohepatitis) (4) Status post abdominal paracentesis (5) Left-sided weakness (6) Diabetes (7) COPD (chronic obstructive pulmonary disease) (8) Dependence on supplemental oxygen (9) Anemia (10) Hypertension (11) Hyperlipidemia (12) Chronic back pain (13) GERD (gastroesophageal reflux disease) (14) Hypothyroidism NALLELY IBRAHIM DO Mar 23, 2021 09:50
[2021-03-23] MEDS: SENNA W/DOCUSATE (SENOKOT S) TABLET PO SCH ×2 (10:06→21:00)
[2021-03-23] MEDS: DOCUSATE SODIUM 100 MG (COLACE) CAP PO SCH ×2 (10:06→21:00)
[2021-03-23] MEDS: FOLIC ACID 400 MCG PO SCH (10:06)
--- NOTE | 2021-03-23 10:39 | Speech Therapy Daily Note ---
Speech Daily Progress Note Subjective Date Seen by Provider: Mar 23, 2021 Time Seen by Provider: 00:30 Patient was resting in her bed following her OT session with a shower. Objective Patient completed a series of speech tasks with 90% given minimal cues. Assessment Assessment Current Status: Good Progress Treatment Plan Continue Plan of Care Speech Short Term Goals Short Term Goals Short Term Goals 1) Patient will complete memory tasks related to her daily needs at 80% or greater with minimal cues. 2) Patient will complete safety awareness tasks related to her daily needs at 80% or greater with minimal cues. 3) Patient will complete problem solving tasks related to her daily needs at 80% or greater with minimal cues. Speech Production Quality Analyst Goals Long-Term Goals Patient will improve cognitive-communication abilities in order to require less assist with daily tasks. Speech-Plan Patient/Family Goals Patient/Family Goals: Patient plans on discharging to a SNF prior to returning to her home where she lives with her . Treatment Plan Speech Therapy Treatment Plan: Continue Plan of Care Treatment Duration: Apr 03, 2021 Frequency: 4 times per week Estimated Hrs Per Day: .5 hour per day Rehab Potential: Fair Barriers to Learning: Patient's recent CVA post COVID recovery, cognitive deficits Pt/Family Agrees to Plan: Yes Safety Risks/Education Teaching Recipient: Patient Teaching Methods: Demonstration, Discussion Response to Teaching: Verbalize Understanding, Return Demonstration Education Topics Provided: Continued safety within her room, communication of wants/needs Continued safety of oral intake with compensatory strategies. Time Speech Therapy Time In: 10:30 Speech Therapy Time Out: 11:00 Total Billed Time: 30 Billed Treatment Time 1, SLTS, DYST ADRIANE Sandhu Mar 23, 2021 10:39
--- NOTE | 2021-03-23 11:56 | Physical Therapy Daily Note ---
PT Daily Note-Current Subjective Patient in bed pre tx, agrees to PT, has no complaints of pain. Appearance Patient in recliner post tx with nurse call, phone, tray, all needs met. Mental Status Patient Orientation: Person, Place, Situation Attachments: Oxygen Transfers SCALE: Activities may be completed with or without assistive devices. 8-Qnqnbvbxnj-nqsjjjg completes the activity by him/herself with no assistance from a helper. 5-Set-up or Clean-up Assistance-helper sets up or cleans up; patient completes activity. [place] assists only prior to or following the activity. 4-Supervision or Touching Assistance-helper provides verbal cues and/or touching/steadying and/or contact guard assistance as patient completes activity. Assistance may be provided throughout the activity or intermittently. 3-Partial/Moderate Assistance-helper does LESS THAN HALF the effort. [place] lifts, holds or supports trunk or limbs, but provides less than half the effort. 2-Substantial/Maximal Assistance-helper does MORE THAN HALF the effort. [place] lifts or holds trunk or limbs and provides more than half the effort. 6-Emtouszya-fjlnop does ALL the effort. Patient does none of the effort to complete the activity. Or, the assistance of 2 or more helpers is required for the patient to complete the activity. If activity was not attempted, code reason: 7-Patient Refused. 9-Not Applicable-not attempted and the patient did not perform the activity before the current illness, exacerbation or injury. 10-Not Attempted due to Environmental Limitations-(lack of equipment, weather restraints, etc.). 88-Not Attempted due to Medical Conditions or Safety Concerns. Roll Left & Right (QC): 3 Lying to Sitting/Side of Bed(Q: 3 Sit to Stand (QC): 3 Chair/Xve-tc-Xxbty Xfer(QC): 3 cues for hand placement and positioning, she can perform a stand pivot transfer with less assist to the right side but still min assist Weight Bearing Right Lower Extremity: Right Full Weight Bearing Left Lower Extremity: Left Full Weight Bearing Gait Training Distance: 20' Walk 10 feet (QC): 3 Gait Persons Needed: 1 Gait Assistive Device: Walker Abner min assist for balance, she has foot drop on the left side and needs shoes and an AFO, her left knee starts to buckle with fatigue. Patient is only able to ambulate one time due to dizziness, her O2 is 94%, HR is 70bpm, BP is 110/56. Ambulation is attempted again a couple of times but her dizziness keeps her from doing it. Wheelchair Training Does the Pt Use a Wheelchair?: Yes Type of Wheelchair: Manual 120'x2, uses right UE and LE Exercises Seated Therapy Exercises: Ankle pumps, Hip flexion, Hip abd/add (with ball and RTB) Standing: Heel/toe raises, Mini squats Standing Reps: 15 LAQ alternating for 5 min Treatments bed mobility and transfers, ambulation, LE strengthening Assessment Current Status: Fair Progress improved balance with ambulation compared to last week PT Short Term Goals Short Term Goals Time Frame: Mar 20, 2021 Roll Left & Right: 4 Sit to lyin Lying to sitting on side of be: 4 Sit to stand: 5 Chair/tfg-lb-jlpyk transfer: 4 Toilet transfer: 4 Car transfer: 4 Walk 10 feet: 4 Walk 50 feet with two turns: 4 Walk 150 feet: 88 Walking 10ft on uneven surface: 88 1 step (curb): 4 4 steps: 88 12 steps: 88 Picking up objects: 88 Does pt use a wc or scooter: Yes Wheel 50ft w/2 turns: 5 Wheel 150 feet: 5 Type: Manual PT Mcfp Goals Police Communications Dispatcher Goals PT Mcfp Goals Time Frame: Apr 03, 2021 Roll Left & Right (QC): 6 Sit to Lying (QC): 6 Lying-Sitting on Side/Bed(QC): 6 Sit to Stand (QC): 6 Chair/Jpp-gy-Rmwcz Xfer(QC): 6 Toilet Transfer (QC): 5 Car Transfer (QC): 4 Does the Patient Walk: Yes Walk 10 feet (QC): 5 Walk 50ft with 2 Turns (QC): 5 Walk 150 ft (QC): 5 Walking 10ft on Uneven Surface: 5 1 Step (curb) (QC): 5 4 Steps (QC): 4 12 Steps (QC): 88 Picking up an Object (QC): 88 Wheel 50 feet with 2 turns (QC: 6 Type: Manual Wheel 150 feet: 6 Type: Manual PT Plan Problem List Problem List: Activity Tolerance, Functional Strength, Safety, Balance, Gait, Transfer, Bed Mobility, ROM Treatment/Plan Treatment Plan: Continue Plan of Care Treatment Plan: Bed Mobility, Concurrent Therapy, Functional Strength, Group Therapy, Gait, Safety, Therapeutic Exercise Treatment Duration: Apr 03, 2021 Frequency: 11 times per week Estimated Hrs Per Day: 1.5 hours per day Patient and/or Family Agrees t: Yes Safety Risks/Education Patient Education: Gait Training, Transfer Techniques, Correct Positioning, W/C Management, Safety Issues Teaching Recipient: Patient Teaching Methods: Demonstration, Discussion Response to Teaching: Reinforcement Needed Time/GCodes Time In: 1100 Time Out: 1200 Total Billed Treatment Time: 60 Total Billed Treatment 1 visit EX 30' FA 30' CATHRYN KOHLER PT Mar 23, 2021 11:56
--- NOTE | 2021-03-23 13:20 | Occupational Ther Daily Note ---
OT Current Status-Daily Note Subjective Pt. reports pain in right upper quadrant of abdomen, but does not report pain level. Pt. also reports nausea. Nursing gives pt. medication. Mental Status/Objective Patient Orientation: Person, Place Attachments: Oxygen ADL-Treatment Therapy Code Descriptions/Definitions Functional [place] Measure: 0=Not Assessed/NA 4=Minimal Assistance 1=Total Assistance 5=Supervision or Setup 2=Maximal Assistance 6=Modified [place] 3=Moderate Assistance 7=Complete IndependenceSCALE: Activities may be completed with or without assistive devices. 8-Brqdsosbro-knfmabz completes the activity by him/herself with no assistance from a helper. 5-Set-up or Clean-up Assistance-helper sets up or cleans up; patient completes activity. [place] assists only prior to or following the activity. 4-Supervision or Touching Assistance-helper provides verbal cues and/or touching/steadying and/or contact guard assistance as patient completes activity. Assistance may be provided throughout the activity or intermittently. 3-Partial/Moderate Assistance-helper does LESS THAN HALF the effort. [place] lifts, holds or supports trunk or limbs, but provides less than half the effort. 2-Substantial/Maximal Assistance-helper does MORE THAN HALF the effort. [place] lifts or holds trunk or limbs and provides more than half the effort. 9-Clmysmnok-fowvkp does ALL the effort. Patient does none of the effort to complete the activity. Or, the assistance of 2 or more helpers is required for the patient to complete the activity. If activity was not attempted, code reason: 7-Patient Refused. 9-Not Applicable-not attempted and the patient did not perform the activity before the current illness, exacerbation or injury. 10-Not Attempted due to Environmental Limitations-(lack of equipment, weather restraints, etc.). 88-Not Attempted due to Medical Conditions or Safety Concerns. Shower/Bathe Self (QC): 3 (Mod assist overall in shower.) Upper Body Dressing (QC): 2 Lower Body Dressing (QC): 2 On/Off Footwear: 2 Toileting Hygiene (QC): 1 Other Treatment Pt. tearful this a.m. when OT entered room. Pt. states that she has been nauseated and that she couldn't eat breakfast. Nursing gives medication. Pt. agrees to shower. Transfers supine-sit with min assist. Pt. able to balance self on EOB with SBA/CGA. OT provided gentle PROM to left UE in all tolerated planes. No active movement noted. No pain in shoulder or subluxation noted. Stood with min assist and transferred to shower chair. Required assistance to doff brief and pants over hips. Pt. became incontinent of urine on floor. Taken to shower and assisted with shower/dressing. Please see QC scores above. After ADLs, pt. stood with min assist and able to take small steps to bed. Transferred sit-supine with CGA. All needs met. Education OT Patient Education: Correct positioning, Modified ADL techniques, Progress toward Goal/Update tx plan, Purpose of tx/functional activities, Reviewed precautions, Rehab process, Transfer techniques Teaching Recipient: Patient Teaching Methods: Demonstration, Discussion Response to Teaching: Verbalize Understanding, Return Demonstration OT Short Term Goals Short Term Goals Oral hygiene: 5 Toileting hygiene: 2 Shower/bathe self: 2 Upper body dressin Lower body dressin OT Intermediate Goals Needle Control [place] Goals Time Frame: Mar 27, 2021 Eating (QC): 6 Oral Hygiene (QC): 6 Toileting Hygiene (QC): 4 Shower/Bathe Self (QC): 4 Upper Body Dressing (QC): 6 Lower Body Dressing (QC): 4 On/Off Footwear (QC): 4 Additional Goals: 1-Demonstrate ADL Tasks, 2-Verbalize Understanding, 3- ImproveStrength/Fel[place] 1=Demonstrate adherence to instructed precautions during ADL tasks. 2=Patient will verbalize/demonstrate understanding of assistive devices/modifications for ADL. 3=Patient will improve strength/tolerance for activity to enable patient to perform ADL's. OT Education/Plan Problem List/Assessment Assessment: Decreased Activ Tolerance, Decreased UE Strength, Dependent Transfers, Impaired Bed Mobility, Impaired Coordination, Impaired I ADL's, Impaired Self-Care Skills, Restricted Funct UE ROM Discharge Recommendations Plan/Recommendations: Continue POC Therapy Discharge Recommendati: Post Acute OT Treatment Plan/Plan of Care Treatment,Training & Education: Yes Patient would benefit from OT for education, treatment and training to promote independence in ADL's, mobility, safety and/or upper extremity function for ADL's. Plan of Care: ADL Retraining, Caregiver Training, Cognitive Retraining, Funct ional Mobility, Group Exercise/Act as Ind, Orthotic Fitting/Training, UE Funct Exercise/Act, UE Neuromus Re-Ed/Coord, Visual/Perceptual Retrain, W/C Management Training Treatment Duration: Mar 27, 2021 Frequency: At least 5 of 7 days/Wk (IRF) Estimated Hrs Per Day: 1.5 hours per day Agreement: Yes Rehab Potential: Fair Time/GCodes Start Time: 08:30 Stop Time: 09:45 Total Time Billed (hr/min): 75 Billed Treatment Time 1, ADL x 5 SHEELA CLARKE OT Mar 23, 2021 13:20
--- NOTE | 2021-03-23 13:35 | Physical Therapy Daily Note ---
PT Daily Note-Current Subjective Patient in recliner pre tx, agrees to PT, has no complaints of pain. Appearance Patient in bed post tx with nurse call, phone, tray, all needs met. Mental Status Patient Orientation: Person, Place, Situation Attachments: Oxygen Transfers SCALE: Activities may be completed with or without assistive devices. 8-Ezjkzxwqpm-sxbdpyx completes the activity by him/herself with no assistance from a helper. 5-Set-up or Clean-up Assistance-helper sets up or cleans up; patient completes activity. [place] assists only prior to or following the activity. 4-Supervision or Touching Assistance-helper provides verbal cues and/or touching/steadying and/or contact guard assistance as patient completes activity. Assistance may be provided throughout the activity or intermittently. 3-Partial/Moderate Assistance-helper does LESS THAN HALF the effort. [place] lifts, holds or supports trunk or limbs, but provides less than half the effort. 2-Substantial/Maximal Assistance-helper does MORE THAN HALF the effort. [place] lifts or holds trunk or limbs and provides more than half the effort. 5-Oditsrfiw-evuebf does ALL the effort. Patient does none of the effort to complete the activity. Or, the assistance of 2 or more helpers is required for the patient to complete the activity. If activity was not attempted, code reason: 7-Patient Refused. 9-Not Applicable-not attempted and the patient did not perform the activity before the current illness, exacerbation or injury. 10-Not Attempted due to Environmental Limitations-(lack of equipment, weather restraints, etc.). 88-Not Attempted due to Medical Conditions or Safety Concerns. Roll Left & Right (QC): 4 Sit to Lying (QC): 3 Sit to Stand (QC): 3 Chair/Csz-hr-Jbqtr Xfer(QC): 3 Weight Bearing Right Lower Extremity: Right Full Weight Bearing Left Lower Extremity: Left Full Weight Bearing Gait Training Distance: 20'x2 Walk 10 feet (QC): 3 Gait Persons Needed: 1 Gait Assistive Device: Walker Abner WC follow, improved balance during ambulation, left knee starts to buckle with fatigue Treatments bed mobility and transfers, ambulation Assessment Current Status: Fair Progress improving balance during ambulation PT Short Term Goals Short Term Goals Time Frame: Mar 20, 2021 Roll Left & Right: 4 Sit to lyin Lying to sitting on side of be: 4 Sit to stand: 5 Chair/wmh-dh-mvmco transfer: 4 Toilet transfer: 4 Car transfer: 4 Walk 10 feet: 4 Walk 50 feet with two turns: 4 Walk 150 feet: 88 Walking 10ft on uneven surface: 88 1 step (curb): 4 4 steps: 88 12 steps: 88 Picking up objects: 88 Does pt use a wc or scooter: Yes Wheel 50ft w/2 turns: 5 Wheel 150 feet: 5 Type: Manual PT Accountancy Professor Goals Mcfp Goals PT Mcfp Goals Time Frame: Apr 03, 2021 Roll Left & Right (QC): 6 Sit to Lying (QC): 6 Lying-Sitting on Side/Bed(QC): 6 Sit to Stand (QC): 6 Chair/Hpc-hw-Pzsrd Xfer(QC): 6 Toilet Transfer (QC): 5 Car Transfer (QC): 4 Does the Patient Walk: Yes Walk 10 feet (QC): 5 Walk 50ft with 2 Turns (QC): 5 Walk 150 ft (QC): 5 Walking 10ft on Uneven Surface: 5 1 Step (curb) (QC): 5 4 Steps (QC): 4 12 Steps (QC): 88 Picking up an Object (QC): 88 Wheel 50 feet with 2 turns (QC: 6 Type: Manual Wheel 150 feet: 6 Type: Manual PT Plan Problem List Problem List: Activity Tolerance, Functional Strength, Safety, Balance, Gait, Transfer, Bed Mobility, ROM Treatment/Plan Treatment Plan: Continue Plan of Care Treatment Plan: Bed Mobility, Concurrent Therapy, Functional Strength, Group Therapy, Gait, Safety, Therapeutic Exercise Treatment Duration: Apr 03, 2021 Frequency: 11 times per week Estimated Hrs Per Day: 1.5 hours per day Patient and/or Family Agrees t: Yes Safety Risks/Education Patient Education: Gait Training, Transfer Techniques, Correct Positioning, Safety Issues Teaching Recipient: Patient Teaching Methods: Demonstration, Discussion Response to Teaching: Reinforcement Needed Time/GCodes Time In: 1300 Time Out: 1320 Total Billed Treatment Time: 20 Total Billed Treatment 1 visit GT 20' CATHRYN KOHLER PT Mar 23, 2021 13:35
[2021-03-23] MEDS: ENOXAPARIN 40 MG/0.4 ML (LOVENOX) SYR SC SCH (17:30)
--- NOTE | 2021-03-23 19:22 | Progress Note - Surgery ---
Subjective Date Seen by a Provider: Mar 23, 2021 Time Seen by a Provider: 19:17 Subjective/Events-last exam Patient with increasing abdominal girth. Patient states feels about ready to be drained. Having minimal swelling in the extremities. Not having any shortness of breath or significant abdominal pain. Denies n/v fever sweats chills shortness of breath or chest pain. Objective Exam Vital Signs Date Time Temp Pulse Resp B/P (MAP) Pulse Ox O2 Delivery O2 Flow Rate FiO2 03/23/21 08:48 Nasal Cannula 2.00 03/23/21 07:39 88 Nasal Cannula 2.00 03/23/21 07:38 36.6 58 18 121/59 (79) 91 Nasal Cannula 2.00 03/22/21 21:46 94 Nasal Cannula 3.00 03/22/21 21:14 94 Nasal Cannula 2.00 03/22/21 21:00 Nasal Cannula 2.00 03/22/21 20:00 37.0 69 14 136/60 (85) 98 Nasal Cannula 2.00 Capillary Refill : General Appearance: No Apparent Distress, WD/WN, Chronically ill HEENT: PERRL/EOMI, Normal ENT Inspection, Pharynx Normal Neck: Full Range of Motion, Normal Inspection, Non Tender, Supple Respiratory: Chest Non Tender, No Accessory Muscle Use, No Respiratory Distress Cardiovascular: Regular Rate, Rhythm, No JVD Gastrointestinal: non tender, soft, distended (increased since last seen -fluid wave) Extremity: Normal Capillary Refill, Normal Inspection, Normal Range of Motion, Non Tender, No Calf Tenderness, Swelling (minimal left lower and left upper ext) Neurologic/Psychiatric: Alert, Oriented x3, Normal Mood/Affect, Motor Weakness (Left-sided weakness ) Skin: Normal Color, Warm/Dry Lymphatic: No Adenopathy Results Lab Laboratory Tests 03/23/21 05:48: White Blood Count 6.5, Red Blood Count 3.07L, Hemoglobin 7.6L, Hematocrit 25L, Mean Corpuscular Volume 81, Mean Corpuscular Hemoglobin 25, Mean Corpuscular Hemoglobin Concent 31L, Red Cell Distribution Width 22.5H, Platelet Count 301, Mean Platelet Volume 10.2, Immature Granulocyte % (Auto) 1, Neutrophils (%) (Auto) 69, Lymphocytes (%) (Auto) 21, Monocytes (%) (Auto) 10, Eosinophils (%) (Auto) 0, Basophils (%) (Auto) 1, Neutrophils # (Auto) 4.5, Lymphocytes # (Auto) 1.3, Monocytes # (Auto) 0.6, Eosinophils # (Auto) 0.0, Basophils # (Auto) 0.1, Immature Granulocyte # (Auto) 0.0, Sodium Level 134L, Potassium Level 4.9, Chloride Level 100, Carbon Dioxide Level 25, Anion Gap 9, Blood Urea Nitrogen 23H, Creatinine 1.24, Estimat Glomerular Filtration Rate 44, BUN/Creatinine Ratio 19, Glucose Level 99, Calcium Level 8.1L, Corrected Calcium 9.4, Total Bilirubin 0.5, Aspartate Amino Transf (AST/SGOT) 26, Alanine Aminotransferase (ALT/SGPT) 18, Alkaline Phosphatase 71, Total Protein 5.6L, Albumin 2.4L Microbiology 03/19/21 MRSA Screen - Final, Complete MRSA not isolated 03/19/21 Blood Culture - Preliminary, Resulted No growth Assessment/Plan Assessment/Plan Assessment/Plan left sided weakness 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 Patient with increasing ascites. She is wanting to possibly have paracentesis in next couple days. She understands risks and benefits. If patient is ready will proceed. Consent. Possibly to do Tuesday or Tuesday. FORTUNATO GIRON DO Mar 23, 2021 19:22
[2021-03-23 20:00] VITALS: BP 111/65
[2021-03-23] MEDS: MONTELUKAST 10 MG (SINGULAIR) TAB PO SCH (20:56)
[2021-03-23] MEDS: MELATONIN 3 MG TABLET PO PRN (20:56)
[2021-03-23] MEDS: traZODone 150 MG (DESYREL) TABLET PO SCH (20:56)
[2021-03-23] MEDS: LUMIGAN 0.01% OPTH SOLN OU SCH (21:33)
[2021-03-24] MEDS: HYDROcodone/APAP 5 MG/325 MG (LORTAB) TAB PO PRN ×4 (02:28→20:37)
--- NOTE | 2021-03-24 06:15 | PM&R Progress Note ---
Subjective HPI/CC On Admission Date Seen by Provider: Mar 24, 2021 Time Seen by Provider: 10:00 Subjective/Events-last exam 03/24/2021: Pt doing a lot better Walk with a abner walker Paracentesis will be done tomorrow by Dr. Mary Alvaradol and Zofran are taken on a regular basis 03/23/2021: Pt doing pretty well Able to stand with therapy Bowels are moving IV Zofran will be given Benadryl is also used a lot Chest X-ray and labs will be reviewed Hgb is 7.6 Not much motivation though 03/22/2021: Patient sleeping pretty well Diclofenac gel will be used for joint pain Antibiotics changed over to Omnicef p.o. Monitoring closely 03/21/2021: Patient sleeping currently Out of isolation from COVID-19 Antibiotics still maintained We will narrow antibiotic spectrum within the next 2 days No other issues 03/20/2021: Patient doing pretty well Covid swab was just colonization and now out of isolation Pneumonia treatment maintained Will narrow antibiotic spectrum after tomorrow 03/19/2021: Pt doing okay Refusing a lot of her meds Zofran before pain medication helps her Discontinue accu cheks and change to regular diet Late in the afternoon she complained of chest pain I did chest pain work-up chest x-ray appeared to have opacities so I went ahead and swabbed for COVID-19 and she was positive. There is no room available to move to due to Covid surge hospital-wide diversion no beds available so she will remain in that room in isolation. 03/18/2021: Patient doing pretty well PureWhick while in bed Eating breakfast pretty well today Slept well last night IV Zofran has helped Had a suppository last night and had a BM 03/17/21: Pt having more nausea Fentanyl patch of 235 micrograms has been maintained of which I didnt realize and really unsure about increasing that to 50 because of the her disease Zofran will be given IV Her left leg is moving very well 03/16/2021: Pt doing pretty well PureWick started for Lasix Aldactone diuresis Hgb 8.2 Bowels are moving well Has no complaints 03/15/2021: Patient doing really well Heels are red but Allevyn seems to cause an allergy No pain medication was needed today thus far Stool softeners maintained Lasix and Aldactone causes increased urination so pure wick may be required 03/14/2021: Pt doing really well Iron level of 21 so will initiate the Venofer full dosing Midline maintained Overall doing much better and able to move the left leg 03/13/21: Pt doing really well DC the martinez catheter Ultrasound will be performed and paracentesis will be performed by Dr. Hernandez Hgb 8.1 give one dose of iron infusion She is reusing Carafate as requested Updated Review of Systems General: Fatigue, Malaise Neurological: Weakness Objective Exam Vital Signs Vital Signs Date Time Temp Pulse Resp B/P (MAP) Pulse Ox O2 Delivery O2 Flow Rate FiO2 03/24/21 20:40 99 Nasal Cannula 2.00 03/24/21 20:00 37.0 72 18 115/57 (76) Capillary Refill : General Appearance: No Apparent Distress, WD/WN, Chronically ill HEENT: PERRL/EOMI, Normal ENT Inspection, Pharynx Normal Neck: Full Range of Motion, Normal Inspection, Non Tender, Supple, Carotid Bruit Respiratory: Chest Non Tender, Lungs Clear, Normal Breath Sounds, No Accessory Muscle Use, No Respiratory Distress, Decreased Breath Sounds, Other (Maintained on O2 24/7) Cardiovascular: Regular Rate, Rhythm, No Edema, No Gallop, No JVD, No Murmur, Normal Peripheral Pulses Gastrointestinal: Normal Bowel Sounds, No Organomegaly, No Pulsatile Mass, Non Tender, Soft, Distended, Other (ascites) Back: Normal Inspection, No CVA Tenderness, No Vertebral Tenderness Extremity: Normal Capillary Refill, Normal Inspection, Normal Range of Motion, Non Tender, No Calf Tenderness, No Pedal Edema Neurologic/Psychiatric: Alert, Oriented x3, Normal Mood/Affect, Motor Weakness (Left-sided weakness upper extremity 0/5 left lower extremity 1/5) Skin: Normal Color, Warm/Dry Lymphatic: No Adenopathy Results/Procedures Lab Patient resulted labs reviewed. FIM Transfers Therapy Code Descriptions/Definitions Functional [place] Measure: 0=Not Assessed/NA 4=Minimal Assistance 1=Total Assistance 5=Supervision or Setup 2=Maximal Assistance 6=Modified [place] 3=Moderate Assistance 7=Complete IndependenceSCALE: Activities may be completed with or without assistive devices. 4-Lerbsaoizg-wbqthpz completes the activity by him/herself with no assistance from a helper. 5-Set-up or Clean-up Assistance-helper sets up or cleans up; patient completes activity. [place] assists only prior to or following the activity. 4-Supervision or Touching Assistance-helper provides verbal cues and/or touching/steadying and/or contact guard assistance as patient completes activity. Assistance may be provided throughout the activity or intermittently. 3-Partial/Moderate Assistance-helper does LESS THAN HALF the effort. [place] lifts, holds or supports trunk or limbs, but provides less than half the effort. 2-Substantial/Maximal Assistance-helper does MORE THAN HALF the effort. [place] lifts or holds trunk or limbs and provides more than half the effort. 0-Uhuzjwgim-kmalkv does ALL the effort. Patient does none of the effort to complete the activity. Or, the assistance of 2 or more helpers is required for the patient to complete the activity. If activity was not attempted, code reason: 7-Patient Refused. 9-Not Applicable-not attempted and the patient did not perform the activity before the current illness, exacerbation or injury. 10-Not Attempted due to Environmental Limitations-(lack of equipment, weather restraints, etc.). 88-Not Attempted due to Medical Conditions or Safety Concerns. Roll Left to Right (QC): 4 Sit to Lying (QC): 3 Sit to Stand (QC): 3 Chair/Esc-nx-Aohac Xfer(QC): 3 Car Transfer (QC): 1 Gait Training Does the Patient Walk?: Yes Distance: 20'x2 Walk 10 feet (QC): 3 Walk 50 ft with 2 Turns(QC): 88 Walk 150 ft (QC): 88 Walking 10ft/uneven surface-QC: 88 Gait Persons Needed: 1 Gait Assistive Device: Walker Abner Wheelchair Training Does the Pt Use a Wheelchair?: Yes Distance: 50 Wheel 50 ft with 2 turns (QC): 3 Wheel 150 ft (QC): 5 Type of Wheelchair: Manual Stair Training 1 Step (curb) (QC): 88 4 Steps (QC): 88 12 Steps (QC): 88 Balance Picking up an Object (QC): 88 ADL-Treatment Eating (QC): 5 (s/u (unable to utilize LUE for coordination/ opening/ cutting tasks)) Oral Hygiene (QC): 3 (mod A per clinical judgment, though pt denies at this time.) Shower/Bathe Self (QC): 3 (Mod assist overall in shower.) Upper Body Dressing (QC): 2 Lower Body Dressing (QC): 2 On/Off Footwear (QC): 2 Toileting Hygiene (QC): 1 Toilet Transfer (QC): 3 (Min assist and cues.) Assessment/Plan Assessment and Plan Assess & Plan/Chief Complaint Assessment: CVA with left-sided weakness severe disability COPD oxygen dependent 14/03 Cirrhosis from GROVES Paracenteses on regular basis Anemia Diabetes Hypertension Hypothyroidism Migraines Chronic back pain GERD Anemia Ascites COVID-19 + 02/04/2021 Plan: Supportive care Aggressive therapy Oxygen dependent 03/13/21: Paracentesis Monitor closely Venofer Iron level pending 03/14/2021: Iron infusions Supportive care Monitor blood sugar 03/15/2021: Supportive care Monitor sugar Bowel regimen 03/16/2021: Blood sugar management Monitor closely 03/17/2021: Supportive care Pain control Nausea treatment 03/18/2021: Supportive care Nausea treatment 03/19/2021: Covid positive at 2150 hrs. Antibiotic initiation Not hypoxic so we will monitor closely 03/20/2021: IV antibiotics Covid swab is colonization from illness on 02/05/2021 03/21/2021: IV antibiotics Monitor closely Fall risk 03/22/2021: IV antibiotics transition to p.o. Supportive care 03/23/2021: Much improved status Seems to be more motivated Lungs remain clear 03/24/2021: Paracentesis tomorrow by Dr. Hernandez Supportive care Much improved (1) CVA (cerebral vascular accident) (2) Cirrhosis (3) GROVES (nonalcoholic steatohepatitis) (4) Status post abdominal paracentesis (5) Left-sided weakness (6) Diabetes (7) COPD (chronic obstructive pulmonary disease) (8) Dependence on supplemental oxygen (9) Anemia (10) Hypertension (11) Hyperlipidemia (12) Chronic back pain (13) GERD (gastroesophageal reflux disease) (14) Hypothyroidism NALLELY IBRAHIM DO Mar 24, 2021 06:15
[2021-03-24] MEDS: LEVOTHYROXINE 100 MCG (LEVOTHROID) TAB PO SCH (06:31)
[2021-03-24] MEDS: CYANOCOBALAMIN 1,000 MCG (VITAMIN B-12) TABLET PO SCH (06:31)
[2021-03-24] MEDS: CATHETER FLUSH 10 ML SYR IV SCH ×3 (06:33→21:08)
[2021-03-24] MEDS: ONDANSETRON 4 MG/2 ML (SDV) Z0FRAN IVP PRN ×4 (06:38→21:08)
[2021-03-24] MEDS: SUCRALFATE 1 GM (CARAFATE) TAB PO SCH ×4 (06:49→20:58)
[2021-03-24 07:22] VITALS: BP 116/57
[2021-03-24] MEDS: TRIAMCINOLONE 0.1% CR (KENALOG) 15 GM TUBE TP SCH ×2 (08:37→20:58)
[2021-03-24] MEDS: VICTOZA SQ SCH (08:37)
[2021-03-24] MEDS: diphenhydrAMINE 25 MG TAB (BENADRYL) PO PRN ×2 (08:37→14:52)
[2021-03-24] MEDS: CEFDINIR 300 MG (OMNICEF) CAP PO SCH ×2 (08:38→20:36)
[2021-03-24] MEDS: NIFEdipine ER 30 MG (PROCARDIA XL) TAB PO SCH (08:38)
[2021-03-24] MEDS: ASPIRIN E.C. 81 MG (ECOTRIN) TAB PO SCH (08:38)
[2021-03-24] MEDS: lisINopril 5 MG (PRINIVIL) TABLET PO SCH (08:38)
[2021-03-24] MEDS: SPIRONOLACTONE 25 MG (ALDACTONE) TAB PO SCH (08:38)
[2021-03-24] MEDS: FOLIC ACID 400 MCG PO SCH (08:38)
[2021-03-24] MEDS: FUROSEMIDE 40 MG (LASIX) TAB PO SCH (08:38)
[2021-03-24] MEDS: polyethylene glycoL POWDER 17 GM (MIRALAX) PACK PO SCH ×2 (09:11→20:59)
[2021-03-24] MEDS: SIMETHICONE 80 MG (MYLICON) CHEW PO SCH ×4 (09:11→20:59)
[2021-03-24] MEDS: COLESTIPOL 1 GM (COLESTID) TAB PO SCH ×2 (09:11→20:59)
[2021-03-24] MEDS: DOCUSATE SODIUM 100 MG (COLACE) CAP PO SCH ×2 (09:11→20:59)
[2021-03-24] MEDS: PANTOPRAZOLE 40 MG (PROTONIX) TAB PO SCH (09:12)
[2021-03-24] MEDS: SENNA W/DOCUSATE (SENOKOT S) TABLET PO SCH ×2 (09:12→20:36)
--- NOTE | 2021-03-24 10:28 | Physical Therapy Daily Note ---
PT Daily Note-Current Subjective Patient in bed pre tx, agrees to PT, has no complaints of pain. Will be co- treating with OT for part of tx due to poor patient mobility, strength, endurance, left knee buckling with activity, coordinate UE and LE with activity, safety and reduce risk of falls. Appearance Patient in recliner post tx with nurse call, phone, tray, all needs met. Mental Status Patient Orientation: Person, Place, Situation Attachments: Oxygen Transfers SCALE: Activities may be completed with or without assistive devices. 0-Swnwqpcwbn-smyrrta completes the activity by him/herself with no assistance from a helper. 5-Set-up or Clean-up Assistance-helper sets up or cleans up; patient completes activity. [place] assists only prior to or following the activity. 4-Supervision or Touching Assistance-helper provides verbal cues and/or touching/steadying and/or contact guard assistance as patient completes activity. Assistance may be provided throughout the activity or intermittently. 3-Partial/Moderate Assistance-helper does LESS THAN HALF the effort. [place] lifts, holds or supports trunk or limbs, but provides less than half the effort. 2-Substantial/Maximal Assistance-helper does MORE THAN HALF the effort. [place] lifts or holds trunk or limbs and provides more than half the effort. 3-Teuvmsshh-mwvtff does ALL the effort. Patient does none of the effort to complete the activity. Or, the assistance of 2 or more helpers is required for the patient to complete the activity. If activity was not attempted, code reason: 7-Patient Refused. 9-Not Applicable-not attempted and the patient did not perform the activity before the current illness, exacerbation or injury. 10-Not Attempted due to Environmental Limitations-(lack of equipment, weather restraints, etc.). 88-Not Attempted due to Medical Conditions or Safety Concerns. Roll Left & Right (QC): 4 Lying to Sitting/Side of Bed(Q: 4 Sit to Stand (QC): 3 Chair/Awn-za-Pshul Xfer(QC): 3 Patient sits on the side of the bed to finish bathing, stands with assist to dry off and finish dressing and then transfers to . Weight Bearing Right Lower Extremity: Right Full Weight Bearing Left Lower Extremity: Left Full Weight Bearing Gait Training Distance: 10'x2, 20' Walk 10 feet (QC): 3 Gait Assistive Device: Walker Abner WC follow, patient is almost CGA with ambulation but still needs some assist with balance but can do her weight shifting on her own. Patient has left knee buckling when she gets fatigued and needs the WC right behind her to sit when this happens. Initially when starting ambulation she was dizzy and her BP was 93/52. After a seated rest break she was able to start ambulating. Wheelchair Training Does the Pt Use a Wheelchair?: Yes Wheel 50 ft with 2 turns (QC): 3 Wheel 150 ft (QC): 3 Type of Wheelchair: Manual 120'x2 Exercises Seated Therapy Exercises: Ankle pumps, Long arc quads, Hip flexion, Hip abd/add (with ball and RTB) Seated Reps: 20 NuStep Minutes: 15 NuStep Workload: 5 Treatments PT worked on bed mobility and transfers, ambulation, WC mobility, functional strengthening, standing and safety during dressing and bathing, OT worked on bathing, dressing, UE positioning and safety during ambulation. Assessment Current Status: Fair Progress improving balance PT Short Term Goals Short Term Goals Time Frame: Mar 20, 2021 Roll Left & Right: 4 Sit to lyin Lying to sitting on side of be: 4 Sit to stand: 5 Chair/ksi-jb-zcdtq transfer: 4 Toilet transfer: 4 Car transfer: 4 Walk 10 feet: 4 Walk 50 feet with two turns: 4 Walk 150 feet: 88 Walking 10ft on uneven surface: 88 1 step (curb): 4 4 steps: 88 12 steps: 88 Picking up objects: 88 Does pt use a wc or scooter: Yes Wheel 50ft w/2 turns: 5 Wheel 150 feet: 5 Type: Manual PT Dairy Hand Goals Prison Goals PT Dairy Hand Goals Time Frame: Apr 03, 2021 Roll Left & Right (QC): 6 Sit to Lying (QC): 6 Lying-Sitting on Side/Bed(QC): 6 Sit to Stand (QC): 6 Chair/Tbn-lc-Jbobo Xfer(QC): 6 Toilet Transfer (QC): 5 Car Transfer (QC): 4 Does the Patient Walk: Yes Walk 10 feet (QC): 5 Walk 50ft with 2 Turns (QC): 5 Walk 150 ft (QC): 5 Walking 10ft on Uneven Surface: 5 1 Step (curb) (QC): 5 4 Steps (QC): 4 12 Steps (QC): 88 Picking up an Object (QC): 88 Wheel 50 feet with 2 turns (QC: 6 Type: Manual Wheel 150 feet: 6 Type: Manual PT Plan Problem List Problem List: Activity Tolerance, Functional Strength, Safety, Balance, Gait, Transfer, Bed Mobility, ROM Treatment/Plan Treatment Plan: Continue Plan of Care Treatment Plan: Bed Mobility, Concurrent Therapy, Functional Strength, Group Therapy, Gait, Safety, Therapeutic Exercise Treatment Duration: Apr 03, 2021 Frequency: 11 times per week Estimated Hrs Per Day: 1.5 hours per day Patient and/or Family Agrees t: Yes Safety Risks/Education Patient Education: Gait Training, Transfer Techniques, Correct Positioning, W/C Management, Safety Issues Teaching Recipient: Patient Teaching Methods: Demonstration, Discussion Response to Teaching: Reinforcement Needed Time/GCodes Time In: 0915 Time Out: 1030 Total Billed Treatment Time: 75 Total Billed Treatment 1 visit GT 15' FA 30' EX 30' CATHRYN KOHLER PT Mar 24, 2021 10:28
--- NOTE | 2021-03-24 10:42 | Speech Therapy Daily Note ---
Speech Daily Progress Note Subjective Date Seen by Provider: Mar 24, 2021 Time Seen by Provider: 00:30 Patient was sitting up in the recliner following her other therapies. She was ordering her meals when I entered her room. Objective Patient completed a series of general questions related to her daily needs at 90% with only a few cues. Assessment Assessment Current Status: Good Progress Treatment Plan Continue Plan of Care Speech Short Term Goals Short Term Goals Short Term Goals 1) Patient will complete memory tasks related to her daily needs at 80% or greater with minimal cues. 2) Patient will complete safety awareness tasks related to her daily needs at 80% or greater with minimal cues. 3) Patient will complete problem solving tasks related to her daily needs at 80% or greater with minimal cues. Speech Usp Goals Bingo Floater Goals Patient will improve cognitive-communication abilities in order to require less assist with daily tasks. Speech-Plan Patient/Family Goals Patient/Family Goals: Patient plans on discharging to a SNF initially prior to returning to her home where she lives with her . Treatment Plan Speech Therapy Treatment Plan: Continue Plan of Care Treatment Duration: Apr 03, 2021 Frequency: 4 times per week Estimated Hrs Per Day: .5 hour per day Rehab Potential: Fair Barriers to Learning: Patient's recent CVA and COVID recovery Pt/Family Agrees to Plan: Yes Safety Risks/Education Teaching Recipient: Patient Teaching Methods: Demonstration, Discussion Response to Teaching: Verbalize Understanding, Return Demonstration Education Topics Provided: Continued safety within her room, communication of wants/needs Continued safety of oral intake with current diet Time Speech Therapy Time In: 10:30 Speech Therapy Time Out: 11:00 Total Billed Time: 30 Billed Treatment Time 1, CLEMENCIA, ADRIANE Page Mar 24, 2021 10:42
[2021-03-24] MEDS: RT--FLUTICASONE/SALMETEROL 232-14 (AIRDUO RespiCLICK) IH SCH ×2 (10:56→18:37)
--- NOTE | 2021-03-24 13:37 | Occupational Ther Daily Note ---
OT Current Status-Daily Note Subjective Pt alert, lying in bed. Pt agrees to therapy. No c/o pain. Pt to have procedure completed this afternoon. Mental Status/Objective Patient Orientation: Person, Place, Time, Situation Attachments: IV (midline), Oxygen ADL-Treatment Pt requires max A to complete lower body dressing and david care while supine in bed. Pt able to assist with rolling side to side. Therapy Code Descriptions/Definitions Functional [place] Measure: 0=Not Assessed/NA 4=Minimal Assistance 1=Total Assistance 5=Supervision or Setup 2=Maximal Assistance 6=Modified [place] 3=Moderate Assistance 7=Complete IndependenceSCALE: Activities may be completed with or without assistive devices. 4-Uhvuzmmheu-ddftggj completes the activity by him/herself with no assistance from a helper. 5-Set-up or Clean-up Assistance-helper sets up or cleans up; patient completes activity. [place] assists only prior to or following the activity. 4-Supervision or Touching Assistance-helper provides verbal cues and/or touching/steadying and/or contact guard assistance as patient completes activity. Assistance may be provided throughout the activity or intermittently. 3-Partial/Moderate Assistance-helper does LESS THAN HALF the effort. [place] lifts, holds or supports trunk or limbs, but provides less than half the effort. 2-Substantial/Maximal Assistance-helper does MORE THAN HALF the effort. [place] lifts or holds trunk or limbs and provides more than half the effort. 5-Ndkploejm-vsvffr does ALL the effort. Patient does none of the effort to complete the activity. Or, the assistance of 2 or more helpers is required for the patient to complete the activity. If activity was not attempted, code reason: 7-Patient Refused. 9-Not Applicable-not attempted and the patient did not perform the activity bef ore the current illness, exacerbation or injury. 10-Not Attempted due to Environmental Limitations-(lack of equipment, weather r estraints, etc.). 88-Not Attempted due to Medical Conditions or Safety Concerns. Toileting Hygiene (QC): 2 Other Treatment PROM to L UE to increase ROM completed through all planes, 10 reps. Pt demonstrated increased muscle movement with L shldr extension beginning in full shldr flexion, L shldr add and L shldr elevation. Pt able to complete 8 reps of each before fatigue. No other movement noted in L UE. After session, pt lying in bed with call light/phone in reach. All needs met in room. OT Short Term Goals Short Term Goals Oral hygiene: 5 Toileting hygiene: 2 Shower/bathe self: 2 Upper body dressin Lower body dressin OT Senior Living Goals Hop Farmer Goals Time Frame: Mar 27, 2021 Eating (QC): 6 Oral Hygiene (QC): 6 Toileting Hygiene (QC): 4 Shower/Bathe Self (QC): 4 Upper Body Dressing (QC): 6 Lower Body Dressing (QC): 4 On/Off Footwear (QC): 4 Additional Goals: 1-Demonstrate ADL Tasks, 2-Verbalize Understanding, 3- ImproveStrength/Feliberto 1=Demonstrate adherence to instructed precautions during ADL tasks. 2=Patient will verbalize/demonstrate understanding of assistive devices/modifications for ADL. 3=Patient will improve strength/tolerance for activity to enable patient to perform ADL's. OT Education/Plan Problem List/Assessment Assessment: Decreased Activ Tolerance, Decreased UE Strength, Impaired Bed Mobility, Impaired Self-Care Skills, Restricted Funct UE ROM Discharge Recommendations Plan/Recommendations: Continue POC Treatment Plan/Plan of Care Patient would benefit from OT for education, treatment and training to promote independence in ADL's, mobility, safety and/or upper extremity function for ADL's. Plan of Care: ADL Retraining, Caregiver Training, Cognitive Retraining, Functional Mobility, Group Exercise/Act as Ind, Orthotic Fitting/Training, UE Funct Exercise/Act, UE Neuromus Re-Ed/Coord, Visual/Perceptual Retrain, W/C Management Training Treatment Duration: Mar 27, 2021 Frequency: At least 5 of 7 days/Wk (IRF) Estimated Hrs Per Day: 1.5 hours per day Agreement: Yes Rehab Potential: Fair Time/GCodes Start Time: 12:30 Stop Time: 13:00 Total Time Billed (hr/min): 30 Billed Treatment Time 1 visit-ADL 1 (15 min) NM 1 (15 min) REGINE RAHMAN Mar 24, 2021 13:37
--- NOTE | 2021-03-24 14:43 | Occupational Ther Daily Note ---
OT Current Status-Daily Note Subjective No pain reported. Pt. states that she feels better today. Did report some dizziness later on. See note below. Mental Status/Objective Patient Orientation: Person, Place Attachments: Oxygen ADL-Treatment Therapy Code Descriptions/Definitions Functional [place] Measure: 0=Not Assessed/NA 4=Minimal Assistance 1=Total Assistance 5=Supervision or Setup 2=Maximal Assistance 6=Modified [place] 3=Moderate Assistance 7=Complete IndependenceSCALE: Activities may be completed with or without assistive devices. 4-Fiimvfqrkl-ekuwksw completes the activity by him/herself with no assistance from a helper. 5-Set-up or Clean-up Assistance-helper sets up or cleans up; patient completes activity. [place] assists only prior to or following the activity. 4-Supervision or Touching Assistance-helper provides verbal cues and/or touching/steadying and/or contact guard assistance as patient completes acti vity. Assistance may be provided throughout the activity or intermittently. 3-Partial/Moderate Assistance-helper does LESS THAN HALF the effort. [place] lifts, holds or supports trunk or limbs, but provides less than half the effort. 2-Substantial/Maximal Assistance-helper does MORE THAN HALF the effort. [place] lifts or holds trunk or limbs and provides more than half the effort. 3-Nrmyhmkqt-crttli does ALL the effort. Patient does none of the effort to complete the activity. Or, the assistance of 2 or more helpers is required for the patient to complete the activity. If activity was not attempted, code reason: 7-Patient Refused. 9-Not Applicable-not attempted and the patient did not perform the activity before the current illness, exacerbation or injury. 10-Not Attempted due to Environmental Limitations-(lack of equipment, weather restraints, etc.). 88-Not Attempted due to Medical Conditions or Safety Concerns. Shower/Bathe Self (QC): 2 (Max assist overall for sponge bath seated on EOB. Pt. able to wash chest, but had increased difficulty with balance this date due to positioning of self on bed.) Upper Body Dressing (QC): 2 Lower Body Dressing (QC): 1 (PT assisted with stance and balance dynamically while OT assisted with david cleanse and pant pull up.) On/Off Footwear: 2 Other Treatment Pt. transferred supine-sit with mod assist needed. Required max assist to scoot more forward onto EOB. PT came into room to assist with co-treatment due to need of skilled assistance x 2 for balance during ADL treatment. PT assisted with sit-stand transfers and dynamic balance while OT addressed ADL needs. Pt. able to stand with min assist with cues for safety. With increased time, able to take steps toward wheelchair. Pt. taken to hallway, and assisted in stance again, for ambulation. Therapy addressed weight shifts, left UE positioning, and foot placement while advancing fortunato cane. Pt. stood first time and reports that she is dizzy. BP taken and is 93/52. Pt. rests. She has eaten and has taken DM medication. Pt. stands several more times and ambulates with fortunato walker. Please see PT note for full distance. OT leaves treatment for PT to finish. Education OT Patient Education: Correct positioning, Modified ADL techniques, Progress toward Goal/Update tx plan, Purpose of tx/functional activities, Reviewed precautions, Rehab process, Transfer techniques Teaching Recipient: Patient Teaching Methods: Demonstration, Discussion Response to Teaching: Verbalize Understanding, Return Demonstration, Reinforcement Needed OT Short Term Goals Short Term Goals Oral hygiene: 5 Toileting hygiene: 2 Shower/bathe self: 2 Upper body dressin Lower body dressin OT Technology And Engineering Teacher Goals Technology And Engineering Teacher Goals Time Frame: Mar 27, 2021 Eating (QC): 6 Oral Hygiene (QC): 6 Toileting Hygiene (QC): 4 Shower/Bathe Self (QC): 4 Upper Body Dressing (QC): 6 Lower Body Dressing (QC): 4 On/Off Footwear (QC): 4 Additional Goals: 1-Demonstrate ADL Tasks, 2-Verbalize Understanding, 3-ImproveStrength/Fel[place] 1=Demonstrate adherence to instructed precautions during ADL tasks. 2=Patient will verbalize/demonstrate understanding of assistive devices/modifications for ADL. 3=Patient will improve strength/tolerance for activity to enable patient to perform ADL's. OT Education/Plan Problem List/Assessment Assessment: Decreased Activ Tolerance, Decreased UE Strength, Dependent Transfers, Impaired Funct Balance, Impaired I ADL's, Impaired Self-Care Skills, Restricted Funct UE ROM Discharge Recommendations Plan/Recommendations: Continue POC Therapy Discharge Recommendati: Post Acute OT Treatment Plan/Plan of Care Treatment,Training & Education: Yes Patient would benefit from OT for education, treatment and training to promote independence in ADL's, mobility, safety and/or upper extremity function for ADL's. Plan of Care: ADL Retraining, Caregiver Training, Cognitive Retraining, Functional Mobility, Group Exercise/Act as Ind, Orthotic Fitting/Training, UE Funct Exercise/Act, UE Neuromus Re-Ed/Coord, Visual/Perceptual Retrain, W/C Management Training Treatment Duration: Mar 27, 2021 Frequency: At least 5 of 7 days/Wk (IRF) Estimated Hrs Per Day: 1.5 hours per day Agreement: Yes Rehab Potential: Fair Time/GCodes Start Time: 09:00 Stop Time: 09:45 Total Time Billed (hr/min): 45 Billed Treatment Time 1, ADL x 30minutes, FA x 15minutes SHEELA CLARKE OT Mar 24, 2021 14:43
--- NOTE | 2021-03-24 15:39 | Progress Note - Surgery ---
Subjective Date Seen by a Provider: Mar 24, 2021 Time Seen by a Provider: 13:06 Subjective/Events-last exam Patient still with abdominal distention due to ascites. No shortness of breath. Patient wanting abdomen drained, starting to become more uncomfortable. No new issues. Denies n/v fever sweats chills shortness of breath or chest pain. Objective Exam Vital Signs Date Time Temp Pulse Resp B/P (MAP) Pulse Ox O2 Delivery O2 Flow Rate FiO2 03/24/21 09:13 Nasal Cannula 2.00 03/24/21 07:22 36.7 60 12 116/57 (76) 98 Nasal Cannula 2.00 03/23/21 20:00 99 Nasal Cannula 2.00 03/23/21 20:00 36.4 65 18 111/65 (80) 99 Capillary Refill : General Appearance: No Apparent Distress, WD/WN, Chronically ill HEENT: PERRL/EOMI, Normal ENT Inspection, Pharynx Normal Neck: Full Range of Motion, Normal Inspection, Non Tender, Supple, Carotid Bruit Respiratory: Chest Non Tender, No Accessory Muscle Use, No Respiratory Distress, Decreased Breath Sounds, Other Cardiovascular: Regular Rate, Rhythm, No JVD, Normal Peripheral Pulses Gastrointestinal: non tender, soft, distended (abdominal ascites with fluid wave) Extremity: Normal Capillary Refill, Normal Inspection, Normal Range of Motion, Non Tender, No Calf Tenderness, No Pedal Edema Neurologic/Psychiatric: Alert, Oriented x3, Normal Mood/Affect, Motor Weakness (Left-sided weakness ) Skin: Normal Color, Warm/Dry Lymphatic: No Adenopathy Results Lab Microbiology 03/19/21 MRSA Screen - Final, Complete MRSA not isolated 03/19/21 Blood Culture - Preliminary, Resulted No growth Assessment/Plan Assessment/Plan Assessment/Plan left sided weakness 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 Patient with increasing ascites. She is wanting to possibly have paracentesis She understands risks and benefits. Consent obtained. Will do today. Patient agrees. FORTUNATO GIRON DO Mar 24, 2021 15:39
[2021-03-24] MEDS: RT-ALBUTEROL SULF 2.5 MG/3 ML PRE-MIX VIAL INH PRN (18:37)
[2021-03-24] MEDS: ENOXAPARIN 40 MG/0.4 ML (LOVENOX) SYR SC SCH (18:52)
[2021-03-24 20:00] VITALS: BP 115/57
[2021-03-24] MEDS: traZODone 150 MG (DESYREL) TABLET PO SCH (20:36)
[2021-03-24] MEDS: MELATONIN 3 MG TABLET PO PRN (20:36)
[2021-03-24] MEDS: MONTELUKAST 10 MG (SINGULAIR) TAB PO SCH (20:36)
[2021-03-24] MEDS: LUMIGAN 0.01% OPTH SOLN OU SCH (20:46)
[2021-03-25] MEDS: HYDROcodone/APAP 5 MG/325 MG (LORTAB) TAB PO PRN ×5 (03:30→21:04)
[2021-03-25] MEDS: CATHETER FLUSH 10 ML SYR IV SCH ×3 (05:58→21:12)
[2021-03-25] MEDS: ONDANSETRON 4 MG/2 ML (SDV) Z0FRAN IVP PRN ×3 (05:58→16:36)
[2021-03-25] MEDS: LEVOTHYROXINE 100 MCG (LEVOTHROID) TAB PO SCH (06:28)
[2021-03-25] MEDS: CYANOCOBALAMIN 1,000 MCG (VITAMIN B-12) TABLET PO SCH (06:28)
[2021-03-25] MEDS: SUCRALFATE 1 GM (CARAFATE) TAB PO SCH ×4 (06:31→21:15)
[2021-03-25 07:15] VITALS: BP 122/58
--- NOTE | 2021-03-25 07:23 | Progress Note - Surgery ---
LAYLA ASENCIO 03/25/21 0723: Subjective Date Seen by a Provider: Mar 25, 2021 Time Seen by a Provider: 07:18 Subjective/Events-last exam PT with ascites underwent paracentesis on 03/24. PT reports pain waking her from sleep at 330am. She reports the pain is unlike any pain she has had from her o ther 4 paracentesis procedures. The pain is located from R Iliac crest to R lateral chest, this pain can radiate up to the right side of neck. Incision site is without significant pain. She has had nausea but no vomiting. No fevers that she is aware of. PT was given oral pain medication early this morning, but nothing since. She reports difficulty breathing with "feeling the need to take 2 breaths" during a deep inhalation. Abdomin has reduced in size since paracentesis. Review of Systems General: No Chills Gastrointestinal: Nausea; No: Vomiting Objective Exam Vital Signs Date Time Temp Pulse Resp B/P (MAP) Pulse Ox O2 Delivery O2 Flow Rate FiO2 03/25/21 07:15 37.0 66 16 122/58 (79) 98 Nasal Cannula 2.00 03/24/21 20:40 99 Nasal Cannula 2.00 03/24/21 20:00 37.0 72 18 115/57 (76) 99 03/24/21 18:37 88 Nasal Cannula 2.00 03/24/21 09:13 Nasal Cannula 2.00 03/24/21 07:22 36.7 60 12 116/57 (76) 98 Nasal Cannula 2.00 Capillary Refill : General Appearance: No Apparent Distress, WD/WN, Chronically ill HEENT: PERRL/EOMI, Normal ENT Inspection, Pharynx Normal Neck: Full Range of Motion, Normal Inspection, Non Tender, Supple, Carotid Bruit Respiratory: Chest Non Tender, Lungs Clear, Normal Breath Sounds, No Accessory Muscle Use, No Respiratory Distress, Decreased Breath Sounds, Other (Maintained on O2 24/7) Cardiovascular: Regular Rate, Rhythm, No Edema, No Gallop, No JVD, No Murmur, Normal Peripheral Pulses Gastrointestinal: non tender, soft, distended (abdominal ascites with fluid wave) Extremity: Normal Capillary Refill, Normal Inspection, Normal Range of Motion, Non Tender, No Calf Tenderness, No Pedal Edema Neurologic/Psychiatric: Alert, Oriented x3, Normal Mood/Affect, Motor Weakness (Left-sided weakness upper extremity 0/5 left lower extremity 1/5) Skin: Normal Color, Warm/Dry Lymphatic: No Adenopathy Results Lab Microbiology 03/19/21 MRSA Screen - Final, Complete MRSA not isolated 03/19/21 Blood Culture - Preliminary, Resulted No growth Assessment/Plan Assessment/Plan Assessment/Plan left sided weakness 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 FORTUNATO HERNANDEZ DO 03/25/21 2212: Subjective Subjective/Events-last exam Patient with decreased abdominal girth after having drainage. She is having some complaints of more right flank pain. She states with movement will be more tolerable. She has been working extremely hard she states with PT and getting slightly improved strength with her left arm. Patient pain seems to be more coming going might be more musculoskeletal rather than related to paracentesis. Her abdomen does not seem to be tender on exam. Objective Exam General Appearance: No Apparent Distress, Chronically ill HEENT: PERRL/EOMI, Normal ENT Inspection, Pharynx Normal Respiratory: Chest Non Tender, No Accessory Muscle Use, No Respiratory Distress Cardiovascular: Regular Rate, Rhythm, No JVD Gastrointestinal: non tender, soft, distended (abdominal distention less) Extremity: Normal Capillary Refill, Non Tender Neurologic/Psychiatric: Alert, Oriented x3, Normal Mood/Affect, Motor Weakness (Left-sided weakness upper extremity minimally improved) Skin: Normal Color, Warm/Dry Lymphatic: No Adenopathy Assessment/Plan Assessment/Plan Assessment/Plan left sided weakness 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 Patient paracentesis yesterday. Her abdomen is feeling better. Patient continue to work with physical therapy. If has reaccumulation could drain again. Patient understands. Will sign off if needed please call Supervisory-Addendum Brief Verification & Attestation Participated in pt care: history, MDM, physical Personally performed: exam, history, MDM, supervision of care Care discussed with: Medical Student Procedures: n/a Results interpretation: Verified all documentation Verification and Attestation of Medical Student E/M Service A medical student performed and documented this service in my presence. I reviewed and verified all information documented by the medical student and made modifications to such information, when appropriate. I personally performed the physical exam and medical decision making. Fortunato Hernandez, Mar 25, 2021,22:12 LAYLA ASENCOI Mar 25, 2021 07:23 FORTUNATO HERNANDEZ DO Mar 25, 2021 22:12
[2021-03-25] MEDS: RT--FLUTICASONE/SALMETEROL 232-14 (AIRDUO RespiCLICK) IH SCH ×2 (07:30→19:11)
[2021-03-25] MEDS: COLESTIPOL 1 GM (COLESTID) TAB PO SCH ×2 (07:45→21:15)
[2021-03-25] MEDS: polyethylene glycoL POWDER 17 GM (MIRALAX) PACK PO SCH ×2 (07:45→21:15)
[2021-03-25] MEDS: DOCUSATE SODIUM 100 MG (COLACE) CAP PO SCH ×2 (07:45→21:15)
[2021-03-25] MEDS: SIMETHICONE 80 MG (MYLICON) CHEW PO SCH ×4 (07:46→21:15)
[2021-03-25] MEDS: RT-ALBUTEROL SULF 2.5 MG/3 ML PRE-MIX VIAL INH PRN ×2 (08:10→19:07)
[2021-03-25] MEDS: lisINopril 5 MG (PRINIVIL) TABLET PO SCH (09:06)
[2021-03-25] MEDS: NIFEdipine ER 30 MG (PROCARDIA XL) TAB PO SCH (09:06)
[2021-03-25] MEDS: FUROSEMIDE 40 MG (LASIX) TAB PO SCH (09:06)
[2021-03-25] MEDS: PANTOPRAZOLE 40 MG (PROTONIX) TAB PO SCH (09:06)
[2021-03-25] MEDS: ASPIRIN E.C. 81 MG (ECOTRIN) TAB PO SCH (09:06)
[2021-03-25] MEDS: CEFDINIR 300 MG (OMNICEF) CAP PO SCH ×2 (09:06→21:08)
[2021-03-25] MEDS: fentaNYL PATCH 25 MCG (DURAGESIC) TD SCH (09:06)
[2021-03-25] MEDS: SENNA W/DOCUSATE (SENOKOT S) TABLET PO SCH ×2 (09:06→21:08)
[2021-03-25] MEDS: SPIRONOLACTONE 25 MG (ALDACTONE) TAB PO SCH (09:06)
[2021-03-25] MEDS: TRIAMCINOLONE 0.1% CR (KENALOG) 15 GM TUBE TP SCH ×2 (09:07→21:13)
[2021-03-25] MEDS: FOLIC ACID 400 MCG PO SCH (09:07)
[2021-03-25] MEDS: VICTOZA SQ SCH (09:07)
[2021-03-25] MEDS: FENTANYL PATCH REMOVAL TP SCH (09:07)
--- NOTE | 2021-03-25 09:29 | Speech Therapy Daily Note ---
Speech Daily Progress Note Subjective Date Seen by Provider: Mar 25, 2021 Time Seen by Provider: 00:30 Patient was resting in her chair following her other therapies this am. Objective Patient completed conversational tasks with noted improved vocal quality with minimal cuing. Assessment Assessment Current Status: Good Progress Treatment Plan Continue Plan of Care Speech Short Term Goals Short Term Goals Short Term Goals 1) Patient will complete memory tasks related to her daily needs at 80% or greater with minimal cues. 2) Patient will complete safety awareness tasks related to her daily needs at 80% or greater with minimal cues. 3) Patient will complete problem solving tasks related to her daily needs at 80% or greater with minimal cues. Speech Long-Term Goals Camp Dining Room Attendant Goals Patient will improve cognitive-communication abilities in order to require less assist with daily tasks. Speech-Plan Patient/Family Goals Patient/Family Goals: Patient plans to discharge to a SNF for continued therapy prior to returning to her home where she lives with her . Treatment Plan Speech Therapy Treatment Plan: Continue Plan of Care Treatment Duration: Apr 03, 2021 Frequency: 4 times per week Estimated Hrs Per Day: .5 hour per day Rehab Potential: Fair Barriers to Learning: Patient's recent CVA, COVID recovery Safety Risks/Education Teaching Recipient: Patient Teaching Methods: Demonstration, Discussion Response to Teaching: Verbalize Understanding, Return Demonstration Education Topics Provided: Continued safety with oral intake, continued safety within her room and upon discharge Time Speech Therapy Time In: 10:30 Speech Therapy Time Out: 11:00 Total Billed Time: 30 Billed Treatment Time 1, SLTS, DYST No QUALITY CODES: EXPRESSION OF IDEAS/WANTS: 4 UNDERSTANDING VERBAL CONTENT: 4 REPETITION OF 3 WORDS: 3 BRIEF INTERVIEW OF MENTAL STATUS: YES TEMPORAL ORIENTATION: YEAR: CORRECT, MONTH: CORRECT, DAY: CORRECT RECALL: SOCK: NO, COLOR: YES , BED: YES MEMORY/RECALL ABILITY: SEASON, STAFF NAMES, LOCATION OF ROOM, THAT SHE IS IN THE HOSPITAL ADRIANE LEDEZMA Mar 25, 2021 09:29
--- NOTE | 2021-03-25 10:28 | Physical Therapy Daily Note ---
PT Daily Note-Current Subjective Pt without complaint. Pt states "I am wet. I just go without warning." Pt rated pain 8/10 (R) mid back toward end of treatment. Spouse present. Mental Status Patient Orientation: Person, Place, Situation Attachments: Oxygen Portable O2 at 2L/min. Pt O2 in situ per nasal canula post therapy. Transfers SCALE: Activities may be completed with or without assistive devices. 5-Flpouqehie-icutcmx completes the activity by him/herself with no assistance from a helper. 5-Set-up or Clean-up Assistance-helper sets up or cleans up; patient completes activity. [place] assists only prior to or following the activity. 4-Supervision or Touching Assistance-helper provides verbal cues and/or touching/steadying and/or contact guard assistance as patient completes activity. Assistance may be provided throughout the activity or intermittently. 3-Partial/Moderate Assistance-helper does LESS THAN HALF the effort. [place] lifts, holds or supports trunk or limbs, but provides less than half the effort. 2-Substantial/Maximal Assistance-helper does MORE THAN HALF the effort. [place] lifts or holds trunk or limbs and provides more than half the effort. 6-Evkmppxae-mfkbhx does ALL the effort. Patient does none of the effort to complete the activity. Or, the assistance of 2 or more helpers is required for the patient to complete the activity. If activity was not attempted, code reason: 7-Patient Refused. 9-Not Applicable-not attempted and the patient did not perform the activity before the current illness, exacerbation or injury. 10-Not Attempted due to Environmental Limitations-(lack of equipment, weather restraints, etc.). 88-Not Attempted due to Medical Conditions or Safety Concerns. Min A for sit-stand transfers and sit to supine transfer. Weight Bearing Right Lower Extremity: Right Full Weight Bearing Left Lower Extremity: Left Full Weight Bearing Gait Training Gait Assistive Device: FWW Pt amb with FWW and CGA 2 x 20ft with port O2 2L/min Exercises Supine Ex: Ankle pumps, Quad Set, Heel Slides, Short Arc Quads, Straight leg raise, Hip abd/add Supine Reps: 20 NuStep Minutes: 12 NuStep Workload: 1 Treatments Pt stood at w/c for changing and cleaning max A for changing clothes Assessment Current Status: Good Progress Pt resting in bed with (L) UE resting on pillow, (B) LE floating on pillow. Call light in reach and all needs met. Pt spouse present, supportive and do ting. PT Short Term Goals Short Term Goals Time Frame: Mar 20, 2021 Roll Left & Right: 4 Sit to lyin Lying to sitting on side of be: 4 Sit to stand: 5 Chair/pbl-iv-rutwh transfer: 4 Toilet transfer: 4 Car transfer: 4 Walk 10 feet: 4 Walk 50 feet with two turns: 4 Walk 150 feet: 88 Walking 10ft on uneven surface: 88 1 step (curb): 4 4 steps: 88 12 steps: 88 Picking up objects: 88 Does pt use a wc or scooter: Yes Wheel 50ft w/2 turns: 5 Wheel 150 feet: 5 Type: Manual PT Custodial Goals Vegetable Farm Manager Goals PT Vegetable Farm Manager Goals Time Frame: Apr 03, 2021 Roll Left & Right (QC): 6 Sit to Lying (QC): 6 Lying-Sitting on Side/Bed(QC): 6 Sit to Stand (QC): 6 Chair/Jgh-mj-Krinp Xfer(QC): 6 Toilet Transfer (QC): 5 Car Transfer (QC): 4 Does the Patient Walk: Yes Walk 10 feet (QC): 5 Walk 50ft with 2 Turns (QC): 5 Walk 150 ft (QC): 5 Walking 10ft on Uneven Surface: 5 1 Step (curb) (QC): 5 4 Steps (QC): 4 12 Steps (QC): 88 Picking up an Object (QC): 88 Wheel 50 feet with 2 turns (QC: 6 Type: Manual Wheel 150 feet: 6 Type: Manual PT Plan Treatment/Plan Treatment Plan: Continue Plan of Care Treatment Plan: Bed Mobility, Concurrent Therapy, Functional Strength, Group Therapy, Gait, Safety, Therapeutic Exercise Treatment Duration: Apr 03, 2021 Frequency: 11 times per week Estimated Hrs Per Day: 1.5 hours per day Patient and/or Family Agrees t: Yes Time/GCodes Time In: 915 Time Out: 1015 Total Billed Treatment Time: 60 Total Billed Treatment 1, ther ex 30', FA 15', Gait 15' LENA BLANCO CPTA Mar 25, 2021 10:28
--- NOTE | 2021-03-25 13:30 | Physical Therapy Daily Note ---
PT Daily Note-Current Subjective Pt agreeable. Pain rated 8/10 (R) mid back. Pt and spouse agreeable to practicing transfers. Mental Status Patient Orientation: Person, Place, Situation Transfers SCALE: Activities may be completed with or without assistive devices. 1-Clteajxwzf-smugmhf completes the activity by him/herself with no assistance from a helper. 5-Set-up or Clean-up Assistance-helper sets up or cleans up; patient completes activity. [place] assists only prior to or following the activity. 4-Supervision or Touching Assistance-helper provides verbal cues and/or touching/steadying and/or contact guard assistance as patient completes activity. Assistance may be provided throughout the activity or intermittently. 3-Partial/Moderate Assistance-helper does LESS THAN HALF the effort. [place] lifts, holds or supports trunk or limbs, but provides less than half the effort. 2-Substantial/Maximal Assistance-helper does MORE THAN HALF the effort. [place] lifts or holds trunk or limbs and provides more than half the effort. 9-Dnslrzjjx-izqgrx does ALL the effort. Patient does none of the effort to complete the activity. Or, the assistance of 2 or more helpers is required for the patient to complete the activity. If activity was not attempted, code reason: 7-Patient Refused. 9-Not Applicable-not attempted and the patient did not perform the activity before the current illness, exacerbation or injury. 10-Not Attempted due to Environmental Limitations-(lack of equipment, weather restraints, etc.). 88-Not Attempted due to Medical Conditions or Safety Concerns. Family training for SPT bed<->recliner. Spouse performed SPT x 5 bouts with cues for O2 line as needed. Weight Bearing Right Lower Extremity: Right Full Weight Bearing Left Lower Extremity: Left Full Weight Bearing Assessment Current Status: Good Progress Spouse and pt demonstrated safe SPT using dance fashion technique. Pt is very good at instructing spouse and directing the transfer. Pt and spouse show competence in transfer training. Pt resting in recliner with (L) UE resting on pillow and all needs met. O2 per nasal canula throughout treatment. PT Short Term Goals Short Term Goals Time Frame: Mar 20, 2021 Roll Left & Right: 4 Sit to lyin Lying to sitting on side of be: 4 Sit to stand: 5 Chair/hyn-cp-sjdas transfer: 4 Toilet transfer: 4 Car transfer: 4 Walk 10 feet: 4 Walk 50 feet with two turns: 4 Walk 150 feet: 88 Walking 10ft on uneven surface: 88 1 step (curb): 4 4 steps: 88 12 steps: 88 Picking up objects: 88 Does pt use a wc or scooter: Yes Wheel 50ft w/2 turns: 5 Wheel 150 feet: 5 Type: Manual PT [employer] Goals Usp Goals PT [employer] Goals Time Frame: Apr 03, 2021 Roll Left & Right (QC): 6 Sit to Lying (QC): 6 Lying-Sitting on Side/Bed(QC): 6 Sit to Stand (QC): 6 Chair/Inf-yq-Jxtfw Xfer(QC): 6 Toilet Transfer (QC): 5 Car Transfer (QC): 4 Does the Patient Walk: Yes Walk 10 feet (QC): 5 Walk 50ft with 2 Turns (QC): 5 Walk 150 ft (QC): 5 Walking 10ft on Uneven Surface: 5 1 Step (curb) (QC): 5 4 Steps (QC): 4 12 Steps (QC): 88 Picking up an Object (QC): 88 Wheel 50 feet with 2 turns (QC: 6 Type: Manual Wheel 150 feet: 6 Type: Manual PT Plan Treatment/Plan Treatment Plan: Continue Plan of Care Treatment Plan: Bed Mobility, Concurrent Therapy, Functional Strength, Group Therapy, Gait, Safety, Therapeutic Exercise Treatment Duration: Apr 03, 2021 Frequency: 11 times per week Estimated Hrs Per Day: 1.5 hours per day Patient and/or Family Agrees t: Yes Time/GCodes Time In: 1300 Time Out: 1320 Total Billed Treatment Time: 20 Total Billed Treatment 1, FA x 20' LENA BLANCO Mar 25, 2021 13:30
--- NOTE | 2021-03-25 14:35 | Occupational Ther Daily Note ---
OT Current Status-Daily Note Subjective No pain reported. Mental Status/Objective Patient Orientation: Person, Place ADL-Treatment Therapy Code Descriptions/Definitions Functional [place] Measure: 0=Not Assessed/NA 4=Minimal Assistance 1=Total Assistance 5=Supervision or Setup 2=Maximal Assistance 6=Modified [place] 3=Moderate Assistance 7=Complete IndependenceSCALE: Activities may be completed with or without assistive devices. 8-Mitsbjovnz-cvryelx completes the activity by him/herself with no assistance from a helper. 5-Set-up or Clean-up Assistance-helper sets up or cleans up; patient completes activity. [employer] assists only prior to or following the activity. 4-Supervision or Touching Assistance-helper provides verbal cues and/or touching/steadying and/or contact guard assistance as patient completes activity. Assistance may be provided throughout the activity or intermittently. 3-Partial/Moderate Assistance-helper does LESS THAN HALF the effort. [employer] [employer] lifts, holds or supports trunk or limbs, but provides less than half the effort. 2-Substantial/Maximal Assistance-helper does MORE THAN HALF the effort. [employer] lifts or holds trunk or limbs and provides more than half the effort. 0-Njuwbnxsc-nrrmao does ALL the effort. Patient does none of the effort to complete the activity. Or, the assistance of 2 or more helpers is required for the patient to complete the activity. If activity was not attempted, code reason: 7-Patient Refused. 9-Not Applicable-not attempted and the patient did not perform the activity before the current illness, exacerbation or injury. 10-Not Attempted due to Environmental Limitations-(lack of equipment, weather restraints, etc.). 88-Not Attempted due to Medical Conditions or Safety Concerns. Other Treatment Pt. in bed. Declines bathing. to bring clothing. Transfers supine-sit with min assist. Stands with min assist and transfers to wheelchair. Pt. taken to therapy gym and participates in left UE PROM in all planes. OT completed joint compression to left shoulder/elbow. Gentle stretch provided to pectoral muscles. No pain noted. Facilitated elbow extension, shoulder extension in gravity eliminated plane, approximately 1+/5-2/5 strength. Attempted e-stim to wrist extensors/finger flexors. Very little movement noted with muscle stimulation and pt. reported it "burned." Discharged e-stim activity. Transferred to mat in gym with min assist. Worked on side-side weight shifts w ith side lying on left forearm. Pushed back into sitting position with min assist at times. Worked on core strength and dynamic sitting patterns. Stood and transferred back to wheelchair with min assist. Pt. taken back to room and transferred to bed. All needs met. Education OT Patient Education: Correct positioning, Exercise program, Modified ADL techniques, Progress toward Goal/Update tx plan, Purpose of tx/functional activities, Reviewed precautions, Rehab process, Transfer techniques Teaching Recipient: Patient Teaching Methods: Demonstration, Discussion Response to Teaching: Verbalize Understanding, Return Demonstration OT Short Term Goals Short Term Goals Oral hygiene: 5 Toileting hygiene: 2 Shower/bathe self: 2 Upper body dressin Lower body dressin OT Fpc Goals Fpc Goals Time Frame: Mar 27, 2021 Eating (QC): 6 Oral Hygiene (QC): 6 Toileting Hygiene (QC): 4 Shower/Bathe Self (QC): 4 Upper Body Dressing (QC): 6 Lower Body Dressing (QC): 4 On/Off Footwear (QC): 4 Additional Goals: 1-Demonstrate ADL Tasks, 2-Verbalize Understanding, 3-Im proveStrength/Feliberto 1=Demonstrate adherence to instructed precautions during ADL tasks. 2=Patient will verbalize/demonstrate understanding of assistive devices/modifications for ADL. 3=Patient will improve strength/tolerance for activity to enable patient to perform ADL's. OT Education/Plan Discharge Recommendations Plan/Recommendations: Continue POC Treatment Plan/Plan of Care Treatment,Training & Education: Yes Patient would benefit from OT for education, treatment and training to promote independence in ADL's, mobility, safety and/or upper extremity function for ADL's. Plan of Care: ADL Retraining, Caregiver Training, Cognitive Retraining, Functional Mobility, Group Exercise/Act as Ind, Orthotic Fitting/Training, UE Funct Exercise/Act, UE Neuromus Re-Ed/Coord, Visual/Perceptual Retrain, W/C Management Training Treatment Duration: Mar 27, 2021 Frequency: At least 5 of 7 days/Wk (IRF) Estimated Hrs Per Day: 1.5 hours per day Agreement: Yes Rehab Potential: Fair Time/GCodes Start Time: 08:30 Stop Time: 09:15 Total Time Billed (hr/min): 45 Billed Treatment Time 1, FA x 30minutes, NM x 15minutes NACCARATO,SHEELA OT Mar 25, 2021 14:35
--- NOTE | 2021-03-25 14:40 | Occupational Ther Daily Note ---
OT Current Status-Daily Note Subjective No pain reported. Mental Status/Objective Patient Orientation: Person, Place, Time, Situation ADL-Treatment Therapy Code Descriptions/Definitions Functional [place] Measure: 0=Not Assessed/NA 4=Minimal Assistance 1=Total Assistance 5=Supervision or Setup 2=Maximal Assistance 6=Modified [place] 3=Moderate Assistance 7=Complete IndependenceSCALE: Activities may be completed with or without assistive devices. 9-Rxoewrthta-zhzvbcx completes the activity by him/herself with no assistance from a helper. 5-Set-up or Clean-up Assistance-helper sets up or cleans up; patient completes activity. [place] assists only prior to or following the activity. 4-Supervision or Touching Assistance-helper provides verbal cues and/or touching/steadying and/or contact guard assistance as patient completes activity. Assistance may be provided throughout the activity or intermittently. 3-Partial/Moderate Assistance-helper does LESS THAN HALF the effort. [place] lifts, holds or supports trunk or limbs, but provides less than half the effort. 2-Substantial/Maximal Assistance-helper does MORE THAN HALF the effort. [place] lifts or holds trunk or limbs and provides more than half the effort. 2-Xnumoixze-hoccfd does ALL the effort. Patient does none of the effort to complete the activity. Or, the assistance of 2 or more helpers is required for the patient to complete the activity. If activity was not attempted, code reason: 7-Patient Refused. 9-Not Applicable-not attempted and the patient did not perform the activity before the current illness, exacerbation or injury. 10-Not Attempted due to Environmental Limitations-(lack of equipment, weather restraints, etc.). 88-Not Attempted due to Medical Conditions or Safety Concerns. Lower Body Dressing (QC): 2 On/Off Footwear: 2 Toileting Hygiene (QC): 1 Other Treatment Pt. up in chair. Spouse in room. Pt. works on sit-stands with fortunato cane on right side. Left UE tucked into gait belt. Pt. practices correct steps and positioning to begin transfer. Stands multiple times with CGA. Pt. able to reach back and sit with min assist. Pt. does report becoming incontinent while standing. Worked on doffing pants in stance. Required max assist. OT doffed brief. Pt. unable to cleanse self. OT did this for her and donned new brief. Encouraged pt. to practicing donning pants. Pt. attempts to don over feet but pants become stuck over socks. Max assist given. Pt. able to stand again to transfer back further in chair. Requires assistance to position safely. All needs met up in chair. Education OT Patient Education: Correct positioning, Modified ADL techniques, Progress toward Goal/Update tx plan, Purpose of tx/functional activities, Reviewed pre cautions, Rehab process, Transfer techniques Teaching Recipient: Patient Teaching Methods: Demonstration, Discussion Response to Teaching: Verbalize Understanding, Return Demonstration OT Short Term Goals Short Term Goals Oral hygiene: 5 Toileting hygiene: 2 Shower/bathe self: 2 Upper body dressin Lower body dressin OT Security Messenger Goals Security Messenger Goals Time Frame: Mar 27, 2021 Eating (QC): 6 Oral Hygiene (QC): 6 Toileting Hygiene (QC): 4 Shower/Bathe Self (QC): 4 Upper Body Dressing (QC): 6 Lower Body Dressing (QC): 4 On/Off Footwear (QC): 4 Additional Goals: 1-Demonstrate ADL Tasks, 2-Verbalize Understanding, 3- ImproveStrength/[place] 1=Demonstrate adherence to instructed precautions during ADL tasks. 2=Patient will verbalize/demonstrate understanding of assistive devices/modifications for ADL. 3=Patient will improve strength/tolerance for activity to enable patient to perform ADL's. OT Education/Plan Problem List/Assessment Assessment: Decreased Activ Tolerance, Decreased UE Strength, Dependent Transfers, Impaired Bed Mobility, Impaired Coordination, Impaired Funct Balance, Impaired I ADL's, Impaired Self-Care Skills, Restricted Funct UE ROM Discharge Recommendations Plan/Recommendations: Continue POC Treatment Plan/Plan of Care Treatment,Training & Education: Yes Patient would benefit from OT for education, treatment and training to promote independence in ADL's, mobility, safety and/or upper extremity function for ADL's. Plan of Care: ADL Retraining, Caregiver Training, Cognitive Retraining, Functional Mobility, Group Exercise/Act as Ind, Orthotic Fitting/Training, UE Funct Exercise/Act, UE Neuromus Re-Ed/Coord, Visual/Perceptual Retrain, W/C Management Training Treatment Duration: Mar 27, 2021 Frequency: At least 5 of 7 days/Wk (IRF) Estimated Hrs Per Day: 1.5 hours per day Agreement: Yes Rehab Potential: Fair Time/GCodes Start Time: 13:20 Stop Time: 13:50 Total Time Billed (hr/min): 30 Billed Treatment Time 1, FA x 15minutes, ADL x 15minutes SHEELA CLARKE OT Mar 25, 2021 14:40
[2021-03-25] MEDS: ENOXAPARIN 40 MG/0.4 ML (LOVENOX) SYR SC SCH (18:16)
[2021-03-25 20:04] VITALS: BP 100/49
[2021-03-25] MEDS: DICLOFENAC 1% GEL 100 GM (VOLTAREN) TUBE TOP PRN (20:12)
--- NOTE | 2021-03-25 20:51 | PM&R Progress Note ---
Subjective HPI/CC On Admission Date Seen by Provider: Mar 25, 2021 Time Seen by Provider: 10:30 Subjective/Events-last exam 03/25/21: Underwent paracentesis and took off 2.[address] Cotter assistance Will go to fpc since she has mold in her house 03/24/2021: Pt doing a lot better Walk with a fortunato walker Paracentesis will be done tomorrow by Dr. Hernandez Benadryl and Zofran are taken on a regular basis 03/23/2021: Pt doing pretty well Able to stand with therapy Bowels are moving IV Zofran will be given Benadryl is also used a lot Chest X-ray and labs will be reviewed Hgb is 7.6 Not much motivation though 03/22/2021: Patient sleeping pretty well Diclofenac gel will be used for joint pain Antibiotics changed over to Omnicef p.o. Monitoring closely 03/21/2021: Patient sleeping currently Out of isolation from COVID-19 Antibiotics still maintained We will narrow antibiotic spectrum within the next 2 days No other issues 03/20/2021: Patient doing pretty well Covid swab was just colonization and now out of isolation Pneumonia treatment maintained Will narrow antibiotic spectrum after tomorrow 03/19/2021: Pt doing okay Refusing a lot of her meds Zofran before pain medication helps her Discontinue accu cheks and change to regular diet Late in the afternoon she complained of chest pain I did chest pain work-up chest x-ray appeared to have opacities so I went ahead and swabbed for COVID-19 and she was positive. There is no room available to move to due to Covid surge hospital-wide diversion no beds available so she will remain in that room in isolation. 03/18/2021: Patient doing pretty well PureWhick while in bed Eating breakfast pretty well today Slept well last night IV Zofran has helped Had a suppository last night and had a BM 03/17/21: Pt having more nausea Fentanyl patch of 235 micrograms has been maintained of which I didnt realize and really unsure about increasing that to 50 because of the her disease Zofran will be given IV Her left leg is moving very well 03/16/2021: Pt doing pretty well PureWick started for Lasix Aldactone diuresis Hgb 8.2 Bowels are moving well Has no complaints 03/15/2021: Patient doing really well Heels are red but Allevyn seems to cause an allergy No pain medication was needed today thus far Stool softeners maintained Lasix and Aldactone causes increased urination so pure wick may be required 03/14/2021: Pt doing really well Iron level of 21 so will initiate the Venofer full dosing Midline maintained Overall doing much better and able to move the left leg 03/13/21: Pt doing really well DC the martinez catheter Ultrasound will be performed and paracentesis will be performed by Dr. Hernandez Hgb 8.1 give one dose of iron infusion She is reusing Carafate as requested Updated Review of Systems General: Fatigue, Malaise Neurological: Weakness Objective Exam Vital Signs Vital Signs Date Time Temp Pulse Resp B/P (MAP) Pulse Ox O2 Delivery O2 Flow Rate FiO2 03/25/21 20:04 36.4 78 12 100/49 (66) 92 Nasal Cannula 2.00 Capillary Refill : General Appearance: No Apparent Distress, WD/WN, Chronically ill HEENT: PERRL/EOMI, Normal ENT Inspection, Pharynx Normal Neck: Full Range of Motion, Normal Inspection, Non Tender, Supple, Carotid Bruit Respiratory: Chest Non Tender, Lungs Clear, Normal Breath Sounds, No Accessory Muscle Use, No Respiratory Distress, Decreased Breath Sounds, Other (Maintained on O2 24/7) Cardiovascular: Regular Rate, Rhythm, No Edema, No Gallop, No JVD, No Murmur, Normal Peripheral Pulses Gastrointestinal: Normal Bowel Sounds, No Organomegaly, No Pulsatile Mass, Non Tender, Soft, Distended, Other (ascites) Back: Normal Inspection, No CVA Tenderness, No Vertebral Tenderness Extremity: Normal Capillary Refill, Normal Inspection, Normal Range of Motion, Non Tender, No Calf Tenderness, No Pedal Edema Neurologic/Psychiatric: Alert, Oriented x3, Normal Mood/Affect, Motor Weakness (Left-sided weakness upper extremity 0/5 left lower extremity 1/5) Skin: Normal Color, Warm/Dry Lymphatic: No Adenopathy Results/Procedures Lab Patient resulted labs reviewed. FIM Transfers Therapy Code Descriptions/Definitions Functional [place] Measure: 0=Not Assessed/NA 4=Minimal Assistance 1=Total Assistance 5=Supervision or Setup 2=Maximal Assistance 6=Modified [place] 3=Moderate Assistance 7=Complete IndependenceSCALE: Activities may be completed with or without assistive devices. 3-Yprnqsnbqq-rnghgtx completes the activity by him/herself with no assistance from a helper. 5-Set-up or Clean-up Assistance-helper sets up or cleans up; patient completes activity. [place] assists only prior to or following the activity. 4-Supervision or Touching Assistance-helper provides verbal cues and/or touching/steadying and/or contact guard assistance as patient completes activity. Assistance may be provided throughout the activity or intermittently. 3-Partial/Moderate Assistance-helper does LESS THAN HALF the effort. [place] lifts, holds or supports trunk or limbs, but provides less than half the effort. 2-Substantial/Maximal Assistance-helper does MORE THAN HALF the effort. [place] lifts or holds trunk or limbs and provides more than half the effort. 3-Actcyqjxs-rhcovt does ALL the effort. Patient does none of the effort to c omplete the activity. Or, the assistance of 2 or more helpers is required for the patient to complete the activity. If activity was not attempted, code reason: 7-Patient Refused. 9-Not Applicable-not attempted and the patient did not perform the activity before the current illness, exacerbation or injury. 10-Not Attempted due to Environmental Limitations-(lack of equipment, weather restraints, etc.). 88-Not Attempted due to Medical Conditions or Safety Concerns. Roll Left to Right (QC): 4 Sit to Lying (QC): 3 Sit to Stand (QC): 3 Chair/Bug-wi-Gongh Xfer(QC): 3 Car Transfer (QC): 1 Gait Training Does the Patient Walk?: Yes Distance: 10'x2, 20' Walk 10 feet (QC): 3 Walk 50 ft with 2 Turns(QC): 88 Walk 150 ft (QC): 88 Walking 10ft/uneven surface-QC: 88 Gait Persons Needed: 1 Gait Assistive Device: FWW Wheelchair Training Does the Pt Use a Wheelchair?: Yes Distance: 50 Wheel 50 ft with 2 turns (QC): 3 Wheel 150 ft (QC): 3 Type of Wheelchair: Manual Stair Training 1 Step (curb) (QC): 88 4 Steps (QC): 88 12 Steps (QC): 88 Balance Picking up an Object (QC): 88 ADL-Treatment Eating (QC): 5 (s/u (unable to utilize LUE for coordination/ opening/ cutting tasks)) Oral Hygiene (QC): 3 (mod A per clinical judgment, though pt denies at this time.) Shower/Bathe Self (QC): 2 (Max assist overall for sponge bath seated on EOB. Pt. able to wash chest, but had increased difficulty with balance this date due to positioning of self on bed.) Upper Body Dressing (QC): 2 Lower Body Dressing (QC): 2 On/Off Footwear (QC): 2 Toileting Hygiene (QC): 1 Toilet Transfer (QC): 3 (Min assist and cues.) Assessment/Plan Assessment and Plan Assess & Plan/Chief Complaint Assessment: CVA with left-sided weakness severe disability COPD oxygen dependent 14/03 Cirrhosis from GROVES Paracenteses on regular basis Anemia Diabetes Hypertension Hypothyroidism Migraines Chronic back pain GERD Anemia Ascites COVID-19 + 02/04/2021 Plan: Supportive care Aggressive therapy Oxygen dependent 03/13/21: Paracentesis Monitor closely Venofer Iron level pending 03/14/2021: Iron infusions Supportive care Monitor blood sugar 03/15/2021: Supportive care Monitor sugar Bowel regimen 03/16/2021: Blood sugar management Monitor closely 03/17/2021: Supportive care Pain control Nausea treatment 03/18/2021: Supportive care Nausea treatment 03/19/2021: Covid positive at 2150 hrs. Antibiotic initiation Not hypoxic so we will monitor closely 03/20/2021: IV antibiotics Covid swab is colonization from illness on 02/05/2021 03/21/2021: IV antibiotics Monitor closely Fall risk 03/22/2021: IV antibiotics transition to p.o. Supportive care 03/23/2021: Much improved status Seems to be more motivated Lungs remain clear 03/24/2021: Paracentesis tomorrow by Dr. Hernnadez Supportive care Much improved 03/25/21: Appreciate Dr. Hernandez status post paracentesis Discharge to respite care nonskilled [facility] (1) CVA (cerebral vascular accident) (2) Cirrhosis (3) GROVES (nonalcoholic steatohepatitis) (4) Status post abdominal paracentesis (5) Left-sided weakness (6) Diabetes (7) COPD (chronic obstructive pulmonary disease) (8) Dependence on supplemental oxygen (9) Anemia (10) Hypertension (11) Hyperlipidemia (12) Chronic back pain (13) GERD (gastroesophageal reflux disease) (14) Hypothyroidism NALLELY IBRAHIM DO Mar 25, 2021 20:51
[2021-03-25] MEDS: traZODone 150 MG (DESYREL) TABLET PO SCH (21:08)
[2021-03-25] MEDS: MONTELUKAST 10 MG (SINGULAIR) TAB PO SCH (21:08)
[2021-03-25] MEDS: MELATONIN 3 MG TABLET PO PRN (21:09)
[2021-03-25] MEDS: LUMIGAN 0.01% OPTH SOLN OU SCH (21:16)
[2021-03-26] MEDS: HYDROcodone/APAP 5 MG/325 MG (LORTAB) TAB PO PRN ×5 (02:13→21:14)
[2021-03-26] MEDS: DICLOFENAC 1% GEL 100 GM (VOLTAREN) TUBE TOP PRN ×2 (02:18→21:14)
--- NOTE | 2021-03-26 05:23 | PM&R Progress Note ---
Subjective HPI/CC On Admission Date Seen by Provider: Mar 26, 2021 Time Seen by Provider: 13:00 Subjective/Events-last exam 03/26/2021: Pt doing really well Holding Zestril due to low blood pressure Bowels moved two days ago, laxatives given Bladder training today since she is incontinent and she is doing a lot better with that K Pad for right side pain 03/25/21: Underwent paracentesis and took off 2.[address] Cotter assistance Will go to fdc since she has mold in her house 03/24/2021: Pt doing a lot better Walk with a fortunato walker Paracentesis will be done tomorrow by Dr. Hernandez Benadryl and Zofran are taken on a regular basis 03/23/2021: Pt doing pretty well Able to stand with therapy Bowels are moving IV Zofran will be given Benadryl is also used a lot Chest X-ray and labs will be reviewed Hgb is 7.6 Not much motivation though 03/22/2021: Patient sleeping pretty well Diclofenac gel will be used for joint pain Antibiotics changed over to Omnicef p.o. Monitoring closely 03/21/2021: Patient sleeping currently Out of isolation from COVID-19 Antibiotics still maintained We will narrow antibiotic spectrum within the next 2 days No other issues 03/20/2021: Patient doing pretty well Covid swab was just colonization and now out of isolation Pneumonia treatment maintained Will narrow antibiotic spectrum after tomorrow 03/19/2021: Pt doing okay Refusing a lot of her meds Zofran before pain medication helps her Discontinue accu cheks and change to regular diet Late in the afternoon she complained of chest pain I did chest pain work-up chest x-ray appeared to have opacities so I went ahead and swabbed for COVID-19 and she was positive. There is no room available to move to due to Covid surge hospital-wide diversion no beds available so she will remain in that room in isolation. 03/18/2021: Patient doing pretty well PureWhick while in bed Eating breakfast pretty well today Slept well last night IV Zofran has helped Had a suppository last night and had a BM 03/17/21: Pt having more nausea Fentanyl patch of 235 micrograms has been maintained of which I didnt realize and really unsure about increasing that to 50 because of the her disease Zofran will be given IV Her left leg is moving very well 03/16/2021: Pt doing pretty well PureWick started for Lasix Aldactone diuresis Hgb 8.2 Bowels are moving well Has no complaints 03/15/2021: Patient doing really well Heels are red but Allevyn seems to cause an allergy No pain medication was needed today thus far Stool softeners maintained Lasix and Aldactone causes increased urination so pure wick may be required 03/14/2021: Pt doing really well Iron level of 21 so will initiate the Venofer full dosing Midline maintained Overall doing much better and able to move the left leg 03/13/21: Pt doing really well DC the martinez catheter Ultrasound will be performed and paracentesis will be performed by Dr. Hernandez Hgb 8.1 give one dose of iron infusion She is reusing Carafate as requested Updated Review of Systems General: Fatigue, Malaise Neurological: Weakness, Incoordination Objective Exam Vital Signs Vital Signs Date Time Temp Pulse Resp B/P (MAP) Pulse Ox O2 Delivery O2 Flow Rate FiO2 03/26/21 21:27 Nasal Cannula 2.00 03/26/21 21:24 96 03/26/21 20:00 36.6 69 16 92/53 (66) Capillary Refill : General Appearance: No Apparent Distress, Chronically ill HEENT: PERRL/EOMI, Normal ENT Inspection, Pharynx Normal Neck: Full Range of Motion, Normal Inspection, Non Tender, Supple, Carotid Bruit Respiratory: Chest Non Tender, No Accessory Muscle Use, No Respiratory Distress Cardiovascular: Regular Rate, Rhythm, No JVD Gastrointestinal: Normal Bowel Sounds, No Organomegaly, No Pulsatile Mass, Non Tender, Soft, Distended, Other (ascites) Back: Normal Inspection, No CVA Tenderness, No Vertebral Tenderness Extremity: Normal Capillary Refill, Non Tender Neurologic/Psychiatric: Alert, Oriented x3, Normal Mood/Affect, Motor Weakness (Left-sided weakness upper extremity minimally improved) Skin: Normal Color, Warm/Dry Lymphatic: No Adenopathy Results/Procedures Lab Patient resulted labs reviewed. FIM Transfers Therapy Code Descriptions/Definitions Functional [place] Measure: 0=Not Assessed/NA 4=Minimal Assistance 1=Total Assistance 5=Supervision or Setup 2=Maximal Assistance 6=Modified [place] 3=Moderate Assistance 7=Complete IndependenceSCALE: Activities may be completed with or without assistive devices. 9-Abqobnrjkw-lxbsuln completes the activity by him/herself with no assistance from a helper. 5-Set-up or Clean-up Assistance-helper sets up or cleans up; patient completes activity. [place] assists only prior to or following the activity. 4-Supervision or Touching Assistance-helper provides verbal cues and/or touching/steadying and/or contact guard assistance as patient completes activity. Assistance may be provided throughout the activity or intermittently. 3-Partial/Moderate Assistance-helper does LESS THAN HALF the effort. [place] li fts, holds or supports trunk or limbs, but provides less than half the effort. 2-Substantial/Maximal Assistance-helper does MORE THAN HALF the effort. [place] lifts or holds trunk or limbs and provides more than half the effort. 9-Rmgcnicng-bwukzy does ALL the effort. Patient does none of the effort to complete the activity. Or, the assistance of 2 or more helpers is required for the patient to complete the activity. If activity was not attempted, code reason: 7-Patient Refused. 9-Not Applicable-not attempted and the patient did not perform the activity before the current illness, exacerbation or injury. 10-Not Attempted due to Environmental Limitations-(lack of equipment, weather restraints, etc.). 88-Not Attempted due to Medical Conditions or Safety Concerns. Roll Left to Right (QC): 4 Sit to Lying (QC): 3 Sit to Stand (QC): 3 Chair/Ibk-ia-Urvpm Xfer(QC): 3 Car Transfer (QC): 1 Gait Training Does the Patient Walk?: Yes Distance: 10'x2, 20' Walk 10 feet (QC): 3 Walk 50 ft with 2 Turns(QC): 88 Walk 150 ft (QC): 88 Walking 10ft/uneven surface-QC: 88 Gait Persons Needed: 1 Gait Assistive Device: FWW Wheelchair Training Does the Pt Use a Wheelchair?: Yes Distance: 50 Wheel 50 ft with 2 turns (QC): 3 Wheel 150 ft (QC): 3 Type of Wheelchair: Manual Stair Training 1 Step (curb) (QC): 88 4 Steps (QC): 88 12 Steps (QC): 88 Balance Picking up an Object (QC): 88 ADL-Treatment Eating (QC): 5 (s/u (unable to utilize LUE for coordination/ opening/ cutting tasks)) Oral Hygiene (QC): 3 (mod A per clinical judgment, though pt denies at this time.) Shower/Bathe Self (QC): 2 (Max assist overall for sponge bath seated on EOB. Pt. able to wash chest, but had increased difficulty with balance this date due to positioning of self on bed.) Upper Body Dressing (QC): 2 Lower Body Dressing (QC): 2 On/Off Footwear (QC): 2 Toileting Hygiene (QC): 1 Toilet Transfer (QC): 3 (Min assist and cues.) Assessment/Plan Assessment and Plan Assess & Plan/Chief Complaint Assessment: CVA with left-sided weakness severe disability COPD oxygen dependent 14/03 Cirrhosis from GROVES Paracenteses on regular basis Anemia Diabetes Hypertension Hypothyroidism Migraines Chronic back pain GERD Anemia Ascites COVID-19 + 02/04/2021 Plan: Supportive care Aggressive therapy Oxygen dependent 03/13/21: Paracentesis Monitor closely Venofer Iron level pending 03/14/2021: Iron infusions Supportive care Monitor blood sugar 03/15/2021: Supportive care Monitor sugar Bowel regimen 03/16/2021: Blood sugar management Monitor closely 03/17/2021: Supportive care Pain control Nausea treatment 03/18/2021: Supportive care Nausea treatment 03/19/2021: Covid positive at 2150 hrs. Antibiotic initiation Not hypoxic so we will monitor closely 03/20/2021: IV antibiotics Covid swab is colonization from illness on 02/05/2021 03/21/2021: IV antibiotics Monitor closely Fall risk 03/22/2021: IV antibiotics transition to p.o. Supportive care 03/23/2021: Much improved status Seems to be more motivated Lungs remain clear 03/24/2021: Paracentesis tomorrow by Dr. Hernandez Supportive care Much improved 03/25/21: Appreciate Dr. Hernandez status post paracentesis Discharge to respite care nonskilled [facility] 03/26/2021: Hold Vasotec Monitor blood pressure Supportive care (1) CVA (cerebral vascular accident) (2) Cirrhosis (3) GROVES (nonalcoholic steatohepatitis) (4) Status post abdominal paracentesis (5) Left-sided weakness (6) Diabetes (7) COPD (chronic obstructive pulmonary disease) (8) Dependence on supplemental oxygen (9) Anemia (10) Hypertension (11) Hyperlipidemia (12) Chronic back pain (13) GERD (gastroesophageal reflux disease) (14) Hypothyroidism NALLELY IBRAHIM DO Mar 26, 2021 05:23
[2021-03-26] MEDS: ONDANSETRON 4 MG/2 ML (SDV) Z0FRAN IVP PRN ×4 (06:12→21:13)
[2021-03-26] MEDS: CYANOCOBALAMIN 1,000 MCG (VITAMIN B-12) TABLET PO SCH (06:12)
[2021-03-26] MEDS: LEVOTHYROXINE 100 MCG (LEVOTHROID) TAB PO SCH (06:13)
[2021-03-26] MEDS: CATHETER FLUSH 10 ML SYR IV SCH ×3 (06:13→21:39)
[2021-03-26 07:10] VITALS: BP 100/55
[2021-03-26] MEDS: RT--FLUTICASONE/SALMETEROL 232-14 (AIRDUO RespiCLICK) IH SCH ×2 (07:14→21:24)
[2021-03-26] MEDS: SUCRALFATE 1 GM (CARAFATE) TAB PO SCH ×4 (08:00→21:25)
[2021-03-26 08:53] VITALS: BP 111/56
[2021-03-26] MEDS: FUROSEMIDE 40 MG (LASIX) TAB PO SCH (08:55)
[2021-03-26] MEDS: SPIRONOLACTONE 25 MG (ALDACTONE) TAB PO SCH (08:55)
[2021-03-26] MEDS: PANTOPRAZOLE 40 MG (PROTONIX) TAB PO SCH (08:55)
[2021-03-26] MEDS: CEFDINIR 300 MG (OMNICEF) CAP PO SCH ×2 (08:55→21:14)
[2021-03-26] MEDS: ASPIRIN E.C. 81 MG (ECOTRIN) TAB PO SCH (08:55)
[2021-03-26] MEDS: DOCUSATE SODIUM 100 MG (COLACE) CAP PO SCH ×2 (08:56→21:26)
[2021-03-26] MEDS: COLESTIPOL 1 GM (COLESTID) TAB PO SCH ×2 (08:56→21:26)
[2021-03-26] MEDS: SIMETHICONE 80 MG (MYLICON) CHEW PO SCH ×4 (08:57→21:26)
[2021-03-26] MEDS: polyethylene glycoL POWDER 17 GM (MIRALAX) PACK PO SCH ×2 (08:57→21:26)
[2021-03-26] MEDS: SENNA W/DOCUSATE (SENOKOT S) TABLET PO SCH ×2 (08:58→21:26)
[2021-03-26] MEDS: FOLIC ACID 400 MCG PO SCH (08:58)
[2021-03-26] MEDS: VICTOZA SQ SCH (09:10)
[2021-03-26] MEDS: TRIAMCINOLONE 0.1% CR (KENALOG) 15 GM TUBE TP SCH ×2 (09:10→21:14)
[2021-03-26] MEDS: FENTANYL PATCH REMOVAL TP SCH (09:34)
--- NOTE | 2021-03-26 10:49 | Speech Therapy Daily Note ---
Speech Daily Progress Note Subjective Date Seen by Provider: Mar 26, 2021 Time Seen by Provider: 00:30 Patient was just returning to her bed following PT session when I entered her room. Objective Patient completed general information questions with 95% given minimal cues. Assessment Assessment Current Status: Good Progress Treatment Plan Continue Plan of Care Speech Short Term Goals Short Term Goals Short Term Goals 1) Patient will complete memory tasks related to her daily needs at 80% or greater with minimal cues. 2) Patient will complete safety awareness tasks related to her daily needs at 80% or greater with minimal cues. 3) Patient will complete problem solving tasks related to her daily needs at 80% or greater with minimal cues. Speech Senior Living Goals Administration Internship Goals Patient will improve cognitive-communication abilities in order to require less assist with daily tasks. Speech-Plan Patient/Family Goals Patient/Family Goals: Patient will discharge to SNF once her insurance is approved. Patient plans to return to her home following additional therapy received at SNF. Treatment Plan Speech Therapy Treatment Plan: Continue Plan of Care Treatment Duration: Apr 03, 2021 Frequency: 4 times per week Estimated Hrs Per Day: .5 hour per day Rehab Potential: Fair Barriers to Learning: Patient's recent CVA, COVID recovery Pt/Family Agrees to Plan: Yes Safety Risks/Education Teaching Recipient: Patient Teaching Methods: Demonstration, Discussion Response to Teaching: Verbalize Understanding, Return Demonstration Education Topics Provided: Continued safety and communication, continued safety with oral intake Time Speech Therapy Time In: 10:30 Speech Therapy Time Out: 11:00 Total Billed Time: 30 Billed Treatment Time 1, DYST, SLTS ADRIANE Sandhu Mar 26, 2021 10:49
--- NOTE | 2021-03-26 11:39 | Occupational Ther Daily Note ---
OT Current Status-Daily Note Subjective Pt. reports pain in lower back, but does not report pain level. Pt. has voltaren gel on back after treatment. Mental Status/Objective Patient Orientation: Person, Place, Time, Situation ADL-Treatment Therapy Code Descriptions/Definitions Functional [place] Measure: 0=Not Assessed/NA 4=Minimal Assistance 1=Total Assistance 5=Supervision or Setup 2=Maximal Assistance 6=Modified [place] 3=Moderate Assistance 7=Complete IndependenceSCALE: Activities may be completed with or without assistive devices. 4-Lihpgfxmoa-hmxecgm completes the activity by him/herself with no assistance from a helper. 5-Set-up or Clean-up Assistance-helper sets up or cleans up; patient completes activity. [place] assists only prior to or following the activity. 4-Supervision or Touching Assistance-helper provides verbal cues and/or touching/steadying and/or contact guard assistance as patient completes activity. Assistance may be provided throughout the activity or intermittently. 3-Partial/Moderate Assistance-helper does LESS THAN HALF the effort. [place] lifts, holds or supports trunk or limbs, but provides less than half the effort. 2-Substantial/Maximal Assistance-helper does MORE THAN HALF the effort. [place] lifts or holds trunk or limbs and provides more than half the effort. 1-Czfxazwhf-jescyr does ALL the effort. Patient does none of the effort to complete the activity. Or, the assistance of 2 or more helpers is required for the patient to complete the activity. If activity was not attempted, code reason: 7-Patient Refused. 9-Not Applicable-not attempted and the patient did not perform the activity before the current illness, exacerbation or injury. 10-Not Attempted due to Environmental Limitations-(lack of equipment, weather restraints, etc.). 88-Not Attempted due to Medical Conditions or Safety Concerns. Shower/Bathe Self (QC): 3 (Mod assist overall to bathe while seated EOB, and in stance for david area.) Upper Body Dressing (QC): 2 (Pt. had difficulty manipulating shirt to don over arms. Became frustrated and so OT did for her.) Lower Body Dressing (QC): 3 (Mod assist overall to don pants. ) On/Off Footwear: 2 Toileting Hygiene (QC): 1 Toilet Transfer (QC): 3 (Min assist.) Other Treatment Pt. in bed. Agrees to work with OT. Declines showering stating that she does not feel like it. However, does feel like sponge bathing. Pt. transferred supine-sit with min assist. Able to stand with min assist. Completed ADLs as specific above. Transferred sit-supine at end of session. All needs met. Education OT Patient Education: Correct positioning, Modified ADL techniques, Progress toward Goal/Update tx plan, Purpose of tx/functional activities, Reviewed precautions, Rehab process, Transfer techniques Teaching Recipient: Patient Teaching Methods: Demonstration, Discussion Response to Teaching: Verbalize Understanding, Return Demonstration, Reinforcement Needed OT Short Term Goals Short Term Goals Oral hygiene: 5 Toileting hygiene: 2 Shower/bathe self: 2 Upper body dressin Lower body dressin OT Diesel Crane Operator Goals Diesel Crane Operator Goals Time Frame: Mar 27, 2021 Eating (QC): 6 Oral Hygiene (QC): 6 Toileting Hygiene (QC): 4 Shower/Bathe Self (QC): 4 Upper Body Dressing (QC): 6 Lower Body Dressing (QC): 4 On/Off Footwear (QC): 4 Additional Goals: 1-Demonstrate ADL Tasks, 2-Verbalize Understanding, 3- ImproveStrength/Feliberto 1=Demonstrate adherence to instructed precautions during ADL tasks. 2=Patient will verbalize/demonstrate understanding of assistive devices/mod ifications for ADL. 3=Patient will improve strength/tolerance for activity to enable patient to perform ADL's. OT Education/Plan Problem List/Assessment Assessment: Decreased Activ Tolerance, Decreased UE Strength, Impaired Bed Mobility, Impaired I ADL's, Impaired Self-Care Skills, Restricted Funct UE ROM Discharge Recommendations Plan/Recommendations: Continue POC Treatment Plan/Plan of Care Treatment,Training & Education: Yes Patient would benefit from OT for education, treatment and training to promote independence in ADL's, mobility, safety and/or upper extremity function for ADL's. Plan of Care: ADL Retraining, Caregiver Training, Cognitive Retraining, Functional Mobility, Group Exercise/Act as Ind, Orthotic Fitting/Training, UE Funct Exercise/Act, UE Neuromus Re-Ed/Coord, Visual/Perceptual Retrain, W/C Management Training Treatment Duration: Mar 27, 2021 Frequency: At least 5 of 7 days/Wk (IRF) Estimated Hrs Per Day: 1.5 hours per day Agreement: Yes Rehab Potential: Fair Time/GCodes Start Time: 08:05 Stop Time: 08:50 Total Time Billed (hr/min): 45 Billed Treatment Time 1, ADL x 3 SHEELA CLARKE OT Mar 26, 2021 11:39
--- NOTE | 2021-03-26 12:04 | Physical Therapy Daily Note ---
PT Daily Note-Current Subjective Pt is laying in bed upon arrival. Pt agrees to PT and asks to use BSC. Pain Numeric Pain Scale: 3 Location: Lower Location Body Site: Back Pain Description: Ache, Tightness Mental Status Patient Orientation: Person, Place, Time, Situation Attachments: Oxygen (2L) Transfers SCALE: Activities may be completed with or without assistive devices. 6-Zfdexdgynv-amigpps completes the activity by him/herself with no assistance from a helper. 5-Set-up or Clean-up Assistance-helper sets up or cleans up; patient completes activity. [place] assists only prior to or following the activity. 4-Supervision or Touching Assistance-helper provides verbal cues and/or touching/steadying and/or contact guard assistance as patient completes activity. Assistance may be provided throughout the activity or intermittently. 3-Partial/Moderate Assistance-helper does LESS THAN HALF the effort. [place] lifts, holds or supports trunk or limbs, but provides less than half the effort. 2-Substantial/Maximal Assistance-helper does MORE THAN HALF the effort. [place] lifts or holds trunk or limbs and provides more than half the effort. 6-Lkiuubzat-zftlyd does ALL the effort. Patient does none of the effort to complete the activity. Or, the assistance of 2 or more helpers is required for the patient to complete the activity. If activity was not attempted, code reason: 7-Patient Refused. 9-Not Applicable-not attempted and the patient did not perform the activity before the current illness, exacerbation or injury. 10-Not Attempted due to Environmental Limitations-(lack of equipment, weather restraints, etc.). 88-Not Attempted due to Medical Conditions or Safety Concerns. Lying to Sitting/Side of Bed(Q: 4 Sit to Stand (QC): 4 Chair/Elg-jg-Nkdtg Xfer(QC): 3 Toilet Transfer (QC): 3 Weight Bearing Right Lower Extremity: Right Full Weight Bearing Left Lower Extremity: Left Full Weight Bearing Gait Training Does the Patient Walk?: Yes Distance: 15', 5, 15' Walk 10 feet (QC): 4 Gait Persons Needed: 1 Gait Assistive Device: Walker [place] Wheelchair Training Does the Pt Use a Wheelchair?: Yes Type of Wheelchair: Manual Exercises Seated Therapy Exercises: Ankle pumps (AAROM for L foot), Long arc quads, Hip flexion, Hamstring Curls, Glut set Seated Reps: 15 NuStep Minutes: 15 NuStep Workload: 4 Treatments TF from bed to BSC . After toileting, FLOOR FRAMER assists with pericare then pt transfers to [facility] at Min-Mod A. Pt amb. in hallway with rest breaks between each walk. Pt uses NuStep for 15m at WL 4 (no UE used). Pt takes rest break then completes Seated Ex. Pt asks to return to room to use BSC at end of tx. Pt transfers back to bed at end of tx with all needs met, call light in hand. Assessment Current Status: Good Progress Pt fatigues easily and needs frequent rest breaks. PT Short Term Goals Short Term Goals Time Frame: Mar 20, 2021 Roll Left & Right: 4 Sit to lyin Lying to sitting on side of be: 4 Sit to stand: 5 Chair/atu-op-ijnnj transfer: 4 Toilet transfer: 4 Car transfer: 4 Walk 10 feet: 4 Walk 50 feet with two turns: 4 Walk 150 feet: 88 Walking 10ft on uneven surface: 88 1 step (curb): 4 4 steps: 88 12 steps: 88 Picking up objects: 88 Does pt use a wc or scooter: Yes Wheel 50ft w/2 turns: 5 Wheel 150 feet: 5 Type: Manual PT Fdc Goals Customer Pricing Manager Goals PT [facility] Goals Time Frame: Apr 03, 2021 Roll Left & Right (QC): 6 Sit to Lying (QC): 6 Lying-Sitting on Side/Bed(QC): 6 Sit to Stand (QC): 6 Chair/Sux-og-Nylks Xfer(QC): 6 Toilet Transfer (QC): 5 Car Transfer (QC): 4 Does the Patient Walk: Yes Walk 10 feet (QC): 5 Walk 50ft with 2 Turns (QC): 5 Walk 150 ft (QC): 5 Walking 10ft on Uneven Surface: 5 1 Step (curb) (QC): 5 4 Steps (QC): 4 12 Steps (QC): 88 Picking up an Object (QC): 88 Wheel 50 feet with 2 turns (QC: 6 Type: Manual Wheel 150 feet: 6 Type: Manual PT Plan Problem List Problem List: Activity Tolerance, Functional Strength, Gait, Transfer Treatment/Plan Treatment Plan: Continue Plan of Care Treatment Plan: Bed Mobility, Concurrent Therapy, Functional Strength, Group Therapy, Gait, Safety, Therapeutic Exercise Treatment Duration: Apr 03, 2021 Frequency: 11 times per week Estimated Hrs Per Day: 1.5 hours per day Patient and/or Family Agrees t: Yes Safety Risks/Education Patient Education: Gait Training, Transfer Techniques, Correct Positioning, W/C Management, Safety Issues Teaching Recipient: Patient Teaching Methods: Discussion Response to Teaching: Verbalize Understanding, Reinforcement Needed Time/GCodes Time In: 915 Time Out: 1030 Total Billed Treatment Time: 75 Total Billed Treatment 1, GT (20m), FA x2 (25m) & EX x2 (30m) MAURICE CAPUTO FLOOR FRAMER Mar 26, 2021 12:04
[2021-03-26] MEDS: NIFEdipine ER 30 MG (PROCARDIA XL) TAB PO SCH (13:57)
--- NOTE | 2021-03-26 14:33 | Occupational Ther Daily Note ---
OT Current Status-Daily Note Subjective No pain reported. Mental Status/Objective Patient Orientation: Person, Place, Time, Situation ADL-Treatment Therapy Code Descriptions/Definitions Functional [place] Measure: 0=Not Assessed/NA 4=Minimal Assistance 1=Total Assistance 5=Supervision or Setup 2=Maximal Assistance 6=Modified [place] 3=Moderate Assistance 7=Complete IndependenceSCALE: Activities may be completed with or without assistive devices. 6-Myxzrpzxfr-qepsupe completes the activity by him/herself with no assistance from a helper. 5-Set-up or Clean-up Assistance-helper sets up or cleans up; patient completes activity. [place] assists only prior to or following the activity. 4-Supervision or Touching Assistance-helper provides verbal cues and/or touching/steadying and/or contact guard assistance as patient completes activity. Assistance may be provided throughout the activity or intermittently. 3-Partial/Moderate Assistance-helper does LESS THAN HALF the effort. [place] lifts, holds or supports trunk or limbs, but provides less than half the effort. 2-Substantial/Maximal Assistance-helper does MORE THAN HALF the effort. [place] lifts or holds trunk or limbs and provides more than half the effort. 9-Jmdtuxysn-wxuklt does ALL the effort. Patient does none of the effort to complete the activity. Or, the assistance of 2 or more helpers is required for the patient to complete the activity. If activity was not attempted, code reason: 7-Patient Refused. 9-Not Applicable-not attempted and the patient did not perform the activity before the current illness, exacerbation or injury. 10-Not Attempted due to Environmental Limitations-(lack of equipment, weather restraints, etc.). 88-Not Attempted due to Medical Conditions or Safety Concerns. Other Treatment Pt. in bed. Would like to rest but is finishing her lunch. Agrees to work with OT at bed level. OT works with left UE, and attempts to facilitate left UE holding/stabilizing banana while right hand opens it. Pt. unable to provide functional grasp. OT opened banana so pt. could eat it better. OT provided gentle PROM to left UE in all planes. Tolerated shoulder flexion/abduction, elbow flexion, and wrist flexion/extension. Pt. able to elicit active movement in triceps in gravity eliminated plane, and emerging bicep motion. Pt. fatigues after several movements. But after multiple rest breaks, can attempt the movement again. Pt. reports no pain in left shoulder. All needs met after treatment at bed level. Tolerated well. Education OT Patient Education: Correct positioning, Exercise program, Progress toward Goal/Update tx plan, Purpose of tx/functional activities, Reviewed precautions, Rehab process Teaching Recipient: Patient Teaching Methods: Demonstration, Discussion Response to Teaching: Verbalize Understanding, Return Demonstration OT Short Term Goals Short Term Goals Oral hygiene: 5 Toileting hygiene: 2 Shower/bathe self: 2 Upper body dressin Lower body dressin OT Lye Machine Operator Goals Lye Machine Operator Goals Time Frame: Mar 27, 2021 Eating (QC): 6 Oral Hygiene (QC): 6 Toileting Hygiene (QC): 4 Shower/Bathe Self (QC): 4 Upper Body Dressing (QC): 6 Lower Body Dressing (QC): 4 On/Off Footwear (QC): 4 Additional Goals: 1-Demonstrate ADL Tasks, 2-Verbalize Understanding, 3-Impr oveStrength/Feliberto 1=Demonstrate adherence to instructed precautions during ADL tasks. 2=Patient will verbalize/demonstrate understanding of assistive devices/modifications for ADL. 3=Patient will improve strength/tolerance for activity to enable patient to perform ADL's. OT Education/Plan Problem List/Assessment Assessment: Decreased Activ Tolerance, Impaired I ADL's, Impaired Self-Care Skills Discharge Recommendations Plan/Recommendations: Continue POC Therapy Discharge Recommendati: Post Acute OT Treatment Plan/Plan of Care Treatment,Training & Education: Yes Patient would benefit from OT for education, treatment and training to promote independence in ADL's, mobility, safety and/or upper extremity function for ADL's. Plan of Care: ADL Retraining, Caregiver Training, Cognitive Retraining, Functional Mobility, Group Exercise/Act as Ind, Orthotic Fitting/Training, UE Funct Exercise/Act, UE Neuromus Re-Ed/Coord, Visual/Perceptual Retrain, W/C Management Training Treatment Duration: Mar 27, 2021 Frequency: At least 5 of 7 days/Wk (IRF) Estimated Hrs Per Day: 1.5 hours per day Agreement: Yes Rehab Potential: Fair Time/GCodes Start Time: 13:00 Stop Time: 13:30 Total Time Billed (hr/min): 30 Billed Treatment Time 1, Ex x 2 SHEELA CLARKE OT Mar 26, 2021 14:33
[2021-03-26] MEDS: BISACODYL 10 MG SUPP (DULCOLAX) PR PRN (16:54)
[2021-03-26] MEDS: ENOXAPARIN 40 MG/0.4 ML (LOVENOX) SYR SC SCH (17:52)
[2021-03-26 20:00] VITALS: BP 92/53
[2021-03-26] MEDS: MELATONIN 3 MG TABLET PO PRN (21:13)
[2021-03-26] MEDS: traZODone 150 MG (DESYREL) TABLET PO SCH (21:14)
[2021-03-26] MEDS: MONTELUKAST 10 MG (SINGULAIR) TAB PO SCH (21:14)
[2021-03-26] MEDS: LUMIGAN 0.01% OPTH SOLN OU SCH (21:15)
[2021-03-26] MEDS: RT-ALBUTEROL SULF 2.5 MG/3 ML PRE-MIX VIAL INH PRN (21:23)
[2021-03-27] MEDS: CATHETER FLUSH 10 ML SYR IV SCH ×3 (06:40→22:57)
[2021-03-27] MEDS: ONDANSETRON 4 MG/2 ML (SDV) Z0FRAN IVP PRN ×3 (06:40→17:33)
[2021-03-27] MEDS: LEVOTHYROXINE 100 MCG (LEVOTHROID) TAB PO SCH (06:40)
[2021-03-27] MEDS: CYANOCOBALAMIN 1,000 MCG (VITAMIN B-12) TABLET PO SCH (06:40)
[2021-03-27] MEDS: SUCRALFATE 1 GM (CARAFATE) TAB PO SCH ×4 (06:49→20:55)
[2021-03-27] MEDS: RT--FLUTICASONE/SALMETEROL 232-14 (AIRDUO RespiCLICK) IH SCH ×2 (06:57→20:24)
--- NOTE | 2021-03-27 07:19 | PM&R Progress Note ---
Subjective HPI/CC On Admission Date Seen by Provider: Mar 27, 2021 Time Seen by Provider: 14:00 Subjective/Events-last exam 03/27/2021: Patient doing a lot better Awaiting plan for residential placement No bowels moving yet for the last couple of days will take laxatives Decreasing oxygen supplement from 2 L Blood pressure 104/51 03/26/2021: Pt doing really well Holding Zestril due to low blood pressure Bowels moved two days ago, laxatives given Bladder training today since she is incontinent and she is doing a lot better with that K Pad for right side pain 03/25/21: Underwent paracentesis and took off 2.[address] Cotter assistance Will go to residential since she has mold in her house 03/24/2021: Pt doing a lot better Walk with a abner walker Paracentesis will be done tomorrow by Dr. Hernandez Benadryl and Zofran are taken on a regular basis 03/23/2021: Pt doing pretty well Able to stand with therapy Bowels are moving IV Zofran will be given Benadryl is also used a lot Chest X-ray and labs will be reviewed Hgb is 7.6 Not much motivation though 03/22/2021: Patient sleeping pretty well Diclofenac gel will be used for joint pain Antibiotics changed over to Omnicef p.o. Monitoring closely 03/21/2021: Patient sleeping currently Out of isolation from COVID-19 Antibiotics still maintained We will narrow antibiotic spectrum within the next 2 days No other issues 03/20/2021: Patient doing pretty well Covid swab was just colonization and now out of isolation Pneumonia treatment maintained Will narrow antibiotic spectrum after tomorrow 03/19/2021: Pt doing okay Refusing a lot of her meds Zofran before pain medication helps her Discontinue accu cheks and change to regular diet Late in the afternoon she complained of chest pain I did chest pain work-up chest x-ray appeared to have opacities so I went ahead and swabbed for COVID-19 and she was positive. There is no room available to move to due to Covid surge hospital-wide diversion no beds available so she will remain in that room in isolation. 03/18/2021: Patient doing pretty well PureWhick while in bed Eating breakfast pretty well today Slept well last night IV Zofran has helped Had a suppository last night and had a BM 03/17/21: Pt having more nausea Fentanyl patch of 235 micrograms has been maintained of which I didnt realize and really unsure about increasing that to 50 because of the her disease Zofran will be given IV Her left leg is moving very well 03/16/2021: Pt doing pretty well PureWick started for Lasix Aldactone diuresis Hgb 8.2 Bowels are moving well Has no complaints 03/15/2021: Patient doing really well Heels are red but Allevyn seems to cause an allergy No pain medication was needed today thus far Stool softeners maintained Lasix and Aldactone causes increased urination so pure wick may be required 03/14/2021: Pt doing really well Iron level of 21 so will initiate the Venofer full dosing Midline maintained Overall doing much better and able to move the left leg 03/13/21: Pt doing really well DC the martinez catheter Ultrasound will be performed and paracentesis will be performed by Dr. Hernandez Hgb 8.1 give one dose of iron infusion She is reusing Carafate as requested Updated Review of Systems General: Fatigue, Malaise Neurological: Weakness, Incoordination Objective Exam Vital Signs Vital Signs Date Time Temp Pulse Resp B/P (MAP) Pulse Ox O2 Delivery O2 Flow Rate FiO2 03/27/21 20:24 98 Nasal Cannula 1.50 03/27/21 19:51 37.1 68 20 113/58 (76) Capillary Refill : General Appearance: No Apparent Distress, Chronically ill HEENT: PERRL/EOMI, Normal ENT Inspection, Pharynx Normal Neck: Full Range of Motion, Normal Inspection, Non Tender, Supple, Carotid Bruit Respiratory: Chest Non Tender, No Accessory Muscle Use, No Respiratory Distress Cardiovascular: Regular Rate, Rhythm, No JVD Gastrointestinal: Normal Bowel Sounds, No Organomegaly, No Pulsatile Mass, Non Tender, Soft, Distended, Other (ascites) Back: Normal Inspection, No CVA Tenderness, No Vertebral Tenderness Extremity: Normal Capillary Refill, Non Tender Neurologic/Psychiatric: Alert, Oriented x3, Normal Mood/Affect, Motor Weakness (Left-sided weakness upper extremity minimally improved) Skin: Normal Color, Warm/Dry Lymphatic: No Adenopathy Results/Procedures Lab Patient resulted labs reviewed. FIM Transfers Therapy Code Descriptions/Definitions Functional [place] Measure: 0=Not Assessed/NA 4=Minimal Assistance 1=Total Assistance 5=Supervision or Setup 2=Maximal Assistance 6=Modified [place] 3=Moderate Assistance 7=Complete IndependenceSCALE: Activities may be completed with or without assistive devices. 9-Pnmxoruqha-rttiaxv completes the activity by him/herself with no assistance from a helper. 5-Set-up or Clean-up Assistance-helper sets up or cleans up; patient completes activity. [place] assists only prior to or following the activity. 4-Supervision or Touching Assistance-helper provides verbal cues and/or touching/steadying and/or contact guard assistance as patient completes activity. Assistance may be provided throughout the activity or intermittently. 3-Partial/Moderate Assistance-helper does LESS THAN HALF the effort. [place] lifts, holds or supports trunk or limbs, but provides less than half the effort. 2-Substantial/Maximal Assistance-helper does MORE THAN HALF the effort. [place] lifts or holds trunk or limbs and provides more than half the effort. 1-Lnmgmuxld-maoehm does ALL the effort. Patient does none of the effort to complete the activity. Or, the assistance of 2 or more helpers is required for the patient to complete the activity. If activity was not attempted, code reason: 7-Patient Refused. 9-Not Applicable-not attempted and the patient did not perform the activity before the current illness, exacerbation or injury. 10-Not Attempted due to Environmental Limitations-(lack of equipment, weather restraints, etc.). 88-Not Attempted due to Medical Conditions or Safety Concerns. Roll Left to Right (QC): 4 Sit to Lying (QC): 3 Sit to Stand (QC): 4 Chair/Kdq-qs-Ggdge Xfer(QC): 3 Car Transfer (QC): 1 Gait Training Does the Patient Walk?: Yes Distance: 15', 5, 15' Walk 10 feet (QC): 4 Walk 50 ft with 2 Turns(QC): 88 Walk 150 ft (QC): 88 Walking 10ft/uneven surface-QC: 88 Gait Persons Needed: 1 Gait Assistive Device: Walker Abner Wheelchair Training Does the Pt Use a Wheelchair?: Yes Distance: 50 Wheel 50 ft with 2 turns (QC): 3 Wheel 150 ft (QC): 3 Type of Wheelchair: Manual Stair Training 1 Step (curb) (QC): 88 4 Steps (QC): 88 12 Steps (QC): 88 Balance Picking up an Object (QC): 88 ADL-Treatment Eating (QC): 5 (s/u (unable to utilize LUE for coordination/ opening/ cutting tasks)) Oral Hygiene (QC): 3 (mod A per clinical judgment, though pt denies at this time.) Shower/Bathe Self (QC): 3 (Mod assist overall to bathe while seated EOB, and in stance for david area.) Upper Body Dressing (QC): 2 (Pt. had difficulty manipulating shirt to don over arms. Became frustrated and so OT did for her.) Lower Body Dressing (QC): 3 (Mod assist overall to don pants. ) On/Off Footwear (QC): 2 Toileting Hygiene (QC): 1 Toilet Transfer (QC): 3 (Min assist.) Assessment/Plan Assessment and Plan Assess & Plan/Chief Complaint Assessment: CVA with left-sided weakness severe disability COPD oxygen dependent 14/03 Cirrhosis from GROVES Paracenteses on regular basis Anemia Diabetes Hypertension Hypothyroidism Migraines Chronic back pain GERD Anemia Ascites COVID-19 + 02/04/2021 Plan: Supportive care Aggressive therapy Oxygen dependent 03/13/21: Paracentesis Monitor closely Venofer Iron level pending 03/14/2021: Iron infusions Supportive care Monitor blood sugar 03/15/2021: Supportive care Monitor sugar Bowel regimen 03/16/2021: Blood sugar management Monitor closely 03/17/2021: Supportive care Pain control Nausea treatment 03/18/2021: Supportive care Nausea treatment 03/19/2021: Covid positive at 2150 hrs. Antibiotic initiation Not hypoxic so we will monitor closely 03/20/2021: IV antibiotics Covid swab is colonization from illness on 02/05/2021 03/21/2021: IV antibiotics Monitor closely Fall risk 03/22/2021: IV antibiotics transition to p.o. Supportive care 03/23/2021: Much improved status Seems to be more motivated Lungs remain clear 03/24/2021: Paracentesis tomorrow by Dr. Hernandez Supportive care Much improved 03/25/21: Appreciate Dr. Hernandez status post paracentesis Discharge to respite care nonskilled residential 03/26/2021: Hold Vasotec Monitor blood pressure Supportive care 03/27/2021: Supportive care Fall risk Skilled care at discharge (1) CVA (cerebral vascular accident) (2) Cirrhosis (3) GROVES (nonalcoholic steatohepatitis) (4) Status post abdominal paracentesis (5) Left-sided weakness (6) Diabetes (7) COPD (chronic obstructive pulmonary disease) (8) Dependence on supplemental oxygen (9) Anemia (10) Hypertension (11) Hyperlipidemia (12) Chronic back pain (13) GERD (gastroesophageal reflux disease) (14) Hypothyroidism NALLELY IBRAHIM DO Mar 27, 2021 07:19
[2021-03-27 07:24] VITALS: BP 103/51
[2021-03-27] MEDS: FOLIC ACID 400 MCG PO SCH (08:01)
[2021-03-27] MEDS: PANTOPRAZOLE 40 MG (PROTONIX) TAB PO SCH (08:02)
[2021-03-27] MEDS: ASPIRIN E.C. 81 MG (ECOTRIN) TAB PO SCH (08:02)
[2021-03-27] MEDS: SENNA W/DOCUSATE (SENOKOT S) TABLET PO SCH ×2 (08:02→20:45)
[2021-03-27] MEDS: SIMETHICONE 80 MG (MYLICON) CHEW PO SCH ×4 (08:03→20:50)
[2021-03-27] MEDS: DOCUSATE SODIUM 100 MG (COLACE) CAP PO SCH ×2 (08:04→20:50)
[2021-03-27] MEDS: COLESTIPOL 1 GM (COLESTID) TAB PO SCH ×2 (08:04→20:50)
[2021-03-27] MEDS: FUROSEMIDE 40 MG (LASIX) TAB PO SCH (08:06)
[2021-03-27] MEDS: SPIRONOLACTONE 25 MG (ALDACTONE) TAB PO SCH (08:07)
[2021-03-27] MEDS: NIFEdipine ER 30 MG (PROCARDIA XL) TAB PO SCH (08:07)
[2021-03-27] MEDS: polyethylene glycoL POWDER 17 GM (MIRALAX) PACK PO SCH ×2 (08:07→20:50)
[2021-03-27] MEDS: HYDROcodone/APAP 5 MG/325 MG (LORTAB) TAB PO PRN ×3 (08:11→21:36)
[2021-03-27] MEDS: TRIAMCINOLONE 0.1% CR (KENALOG) 15 GM TUBE TP SCH ×2 (08:15→20:44)
[2021-03-27] MEDS: VICTOZA SQ SCH (08:16)
[2021-03-27 08:18] VITALS: BP 104/51
--- NOTE | 2021-03-27 09:31 | Occupational Ther Daily Note ---
OT Current Status-Daily Note Subjective No pain reported. Mental Status/Objective Patient Orientation: Person, Place, Time, Situation ADL-Treatment Therapy Code Descriptions/Definitions Functional [place] Measure: 0=Not Assessed/NA 4=Minimal Assistance 1=Total Assistance 5=Supervision or Setup 2=Maximal Assistance 6=Modified [place] 3=Moderate Assistance 7=Complete IndependenceSCALE: Activities may be completed with or without assistive devices. 4-Ebymmpvgag-rcjbczo completes the activity by him/herself with no assistance from a helper. 5-Set-up or Clean-up Assistance-helper sets up or cleans up; patient completes activity. [place] assists only prior to or following the activity. 4-Supervision or Touching Assistance-helper provides verbal cues and/or touching/steadying and/or contact guard assistance as patient completes activity. Assistance may be provided throughout the activity or intermittently. 3-Partial/Moderate Assistance-helper does LESS THAN HALF the effort. [place] lifts, holds or supports trunk or limbs, but provides less than half the effort. 2-Substantial/Maximal Assistance-helper does MORE THAN HALF the effort. [place] lifts or holds trunk or limbs and provides more than half the effort. 7-Zawsikmmt-mroqbj does ALL the effort. Patient does none of the effort to complete the activity. Or, the assistance of 2 or more helpers is required for the patient to complete the activity. If activity was not attempted, code reason: 7-Patient Refused. 9-Not Applicable-not attempted and the patient did not perform the activity before the current illness, exacerbation or injury. 10-Not Attempted due to Environmental Limitations-(lack of equipment, weather restraints, etc.). 88-Not Attempted due to Medical Conditions or Safety Concerns. Eating (QC): 5 Shower/Bathe Self (QC): 7 (Pt. declines this date.) On/Off Footwear: 2 (Pt. continually declines attempting to practice donning her own slipper socks.) Toileting Hygiene (QC): 1 Toilet Transfer (QC): 3 (Min assist.) Other Treatment Pt. states that she feels she could have a BM. Transfers supine-sit with min assist. Stood with min assist and transferred to [facility]. Noted brief wet. OT changed brief and provided full david care in stance. Transferred to wheelchair and taken to therapy gym. Completed brief co-treatment with PT for increased dynamic standing balance and weight shifts. PT stood with pt. at fortunato walker. Pt. required min assist sit-stand and CGA in stance. OT stood in front and batted balloon back and forth, encouraging weight shift and dynamic movements in all planes with right UE. Pt. completed several trials of this with rest break in between. After PT left, OT worked on PROM to left UE, and then AAROM with left UE. Engaged pt. in resistive activities for elbow flexion, shoulder flexion, and adduction in gravity eliminated planes. Pt. tolerated well. Transferred back to wheelchair. Taken to room and transferred to bed with min assist. All needs met. Education OT Patient Education: Correct positioning, Exercise program, Modified ADL techniques, Progress toward Goal/Update tx plan, Purpose of tx/functional activities, Reviewed precautions, Rehab process, Transfer techniques Teaching Recipient: Patient Teaching Methods: Demonstration, Discussion Response to Teaching: Verbalize Understanding, Return Demonstration OT Short Term Goals Short Term Goals Oral hygiene: 5 Toileting hygiene: 2 Shower/bathe self: 2 Upper body dressin Lower body dressin OT Mcc Goals Mcc Goals Time Frame: Mar 27, 2021 Eating (QC): 6 Oral Hygiene (QC): 6 Toileting Hygiene (QC): 4 Shower/Bathe Self (QC): 4 Upper Body Dressing (QC): 6 Lower Body Dressing (QC): 4 On/Off Footwear (QC): 4 Additional Goals: 1-Demonstrate ADL Tasks, 2-Verbalize Understanding, 3- ImproveStrength/Feliberto 1=Demonstrate adherence to instructed precautions during ADL tasks. 2=Patient will verbalize/demonstrate understanding of assistive devices/mod ifications for ADL. 3=Patient will improve strength/tolerance for activity to enable patient to perform ADL's. OT Education/Plan Problem List/Assessment Assessment: Decreased Activ Tolerance, Decreased UE Strength, Dependent Transfers, Impaired Bed Mobility, Impaired Funct Balance, Impaired I ADL's, Impaired Self-Care Skills, Restricted Funct UE ROM Discharge Recommendations Plan/Recommendations: Continue POC Therapy Discharge Recommendati: Post Acute OT Treatment Plan/Plan of Care Treatment,Training & Education: Yes Patient would benefit from OT for education, treatment and training to promote independence in ADL's, mobility, safety and/or upper extremity function for ADL's. Plan of Care: ADL Retraining, Caregiver Training, Cognitive Retraining, Functional Mobility, Group Exercise/Act as Ind, Orthotic Fitting/Training, UE Funct Exercise/Act, UE Neuromus Re-Ed/Coord, Visual/Perceptual Retrain, W/C Management Training Treatment Duration: Mar 27, 2021 Frequency: At least 5 of 7 days/Wk (IRF) Estimated Hrs Per Day: 1.5 hours per day Agreement: Yes Rehab Potential: Fair Time/GCodes Start Time: 08:15 Stop Time: 09:30 Total Time Billed (hr/min): 75 Billed Treatment Time 1, ADL x 30minutes, FA x 30minutes, NM x 15minutes 7033-2615 Co-treatment with SHEELA CRUZ OT Mar 27, 2021 09:31
--- NOTE | 2021-03-27 10:53 | Physical Therapy Daily Note ---
PT Daily Note-Current Subjective Brief co-treat w/OT for first morning tx then return for later morning tx. Pain Location: No Pain Reported Mental Status Patient Orientation: Person, Place, Time, Situation Attachments: Oxygen (2L) Transfers SCALE: Activities may be completed with or without assistive devices. 9-Qsefaubhpn-srmndqd completes the activity by him/herself with no assistance from a helper. 5-Set-up or Clean-up Assistance-helper sets up or cleans up; patient completes activity. [place] assists only prior to or following the activity. 4-Supervision or Touching Assistance-helper provides verbal cues and/or touching/steadying and/or contact guard assistance as patient completes activity. Assistance may be provided throughout the activity or intermittently. 3-Partial/Moderate Assistance-helper does LESS THAN HALF the effort. [place] lifts, holds or supports trunk or limbs, but provides less than half the effort. 2-Substantial/Maximal Assistance-helper does MORE THAN HALF the effort. [place] lifts or holds trunk or limbs and provides more than half the effort. 6-Lnwfsecsx-dhcugi does ALL the effort. Patient does none of the effort to complete the activity. Or, the assistance of 2 or more helpers is required for the patient to complete the activity. If activity was not attempted, code reason: 7-Patient Refused. 9-Not Applicable-not attempted and the patient did not perform the activity before the current illness, exacerbation or injury. 10-Not Attempted due to Environmental Limitations-(lack of equipment, weather restraints, etc.). 88-Not Attempted due to Medical Conditions or Safety Concerns. Sit to Stand (QC): 3 Weight Bearing Right Lower Extremity: Right Full Weight Bearing Left Lower Extremity: Left Full Weight Bearing Exercises Supine Ex: Ankle pumps, Quad Set, Glut sets, Heel Slides, Short Arc Quads, Straight leg raise, Hip abd/add Supine Reps: 15 Treatments 840-900: Completed brief co-treatment with PT for increased dynamic standing balance and weight shifts. PT stood with pt. at fortunato walker. Pt. required min assist sit-stand and CGA in stance. OT stood in front and batted balloon back and forth, encouraging weight shift and dynamic movements in all planes with r ight UE. Pt. completed several trials of this with rest break in between. OT continues tx & PT departs. [id number]: Pt completes Supine Ex with RB as needed for muscle fatigue. Pt asked for assistance to scoot up in bed and reposition. Pt has all needs met, call light in hand. [id number]: Pt laying Supine in bed. Pt reports feeling tired and declines walking in hallway. Pt agrees to transfer to EOB and completes Seated Ex. Pt transfers to standing a amb. ~3' then transfers to recliner to rest. All needs met, call light in hand. Assessment Current Status: Good Progress Pt reports fatigue, very tired during tx. PT Short Term Goals Short Term Goals Time Frame: Mar 20, 2021 Roll Left & Right: 4 Sit to lyin Lying to sitting on side of be: 4 Sit to stand: 5 Chair/mqk-vg-kxncl transfer: 4 Toilet transfer: 4 Car transfer: 4 Walk 10 feet: 4 Walk 50 feet with two turns: 4 Walk 150 feet: 88 Walking 10ft on uneven surface: 88 1 step (curb): 4 4 steps: 88 12 steps: 88 Picking up objects: 88 Does pt use a wc or scooter: Yes Wheel 50ft w/2 turns: 5 Wheel 150 feet: 5 Type: Manual PT Fpc Goals Job Counselor Goals PT Fpc Goals Time Frame: Apr 03, 2021 Roll Left & Right (QC): 6 Sit to Lying (QC): 6 Lying-Sitting on Side/Bed(QC): 6 Sit to Stand (QC): 6 Chair/Axp-dq-Jvjav Xfer(QC): 6 Toilet Transfer (QC): 5 Car Transfer (QC): 4 Does the Patient Walk: Yes Walk 10 feet (QC): 5 Walk 50ft with 2 Turns (QC): 5 Walk 150 ft (QC): 5 Walking 10ft on Uneven Surface: 5 1 Step (curb) (QC): 5 4 Steps (QC): 4 12 Steps (QC): 88 Picking up an Object (QC): 88 Wheel 50 feet with 2 turns (QC: 6 Type: Manual Wheel 150 feet: 6 Type: Manual PT Plan Problem List Problem List: Activity Tolerance, Balance Treatment/Plan Treatment Plan: Continue Plan of Care Treatment Plan: Bed Mobility, Concurrent Therapy, Functional Strength, Group Therapy, Gait, Safety, Therapeutic Exercise Treatment Duration: Apr 03, 2021 Frequency: 11 times per week Estimated Hrs Per Day: 1.5 hours per day Patient and/or Family Agrees t: Yes Safety Risks/Education Patient Education: Gait Training, Transfer Techniques, Correct Positioning, Safety Issues Teaching Recipient: Patient Teaching Methods: Discussion Response to Teaching: Verbalize Understanding Time/GCodes Time In: 840 Time Out: 900 Total Billed Treatment Time: 20 Total Billed Treatment 840-900: 1, FA (20m) 2065-0141: 1, EX x2 (30m) & FA (15m) 1312-2197: 1, FA (15m) MAURICE CAPUTO TREATER Mar 27, 2021 10:53
--- NOTE | 2021-03-27 12:28 | Speech Therapy Daily Note ---
Speech Daily Progress Note Subjective Date Seen by Provider: Mar 27, 2021 Time Seen by Provider: 00:30 Patient was sitting up in bed eating her lunch when I entered her room. Objective Patient demonstrates safe oral intake with utilization of compensatory strategies as trained at 90-100% without cues. Assessment Assessment Current Status: Good Progress Treatment Plan Continue Plan of Care Speech Short Term Goals Short Term Goals Short Term Goals 1) Patient will complete memory tasks related to her daily needs at 80% or greater with minimal cues. 2) Patient will complete safety awareness tasks related to her daily needs at 80% or greater with minimal cues. 3) Patient will complete problem solving tasks related to her daily needs at 80% or greater with minimal cues. Speech Custodial Goals Food Service Ambassador Goals Patient will improve cognitive-communication abilities in order to require less assist with daily tasks. Speech-Plan Patient/Family Goals Patient/Family Goals: Patient will discharge to SNF for continued therapies once approved by her insurance. She plans to return to her home following SNF placement. Treatment Plan Speech Therapy Treatment Plan: Continue Plan of Care Treatment Duration: Apr 03, 2021 Frequency: 4 times per week Estimated Hrs Per Day: .5 hour per day Rehab Potential: Fair Barriers to Learning: Patient's recent CVA following COVID recovery Pt/Family Agrees to Plan: Yes Safety Risks/Education Teaching Recipient: Patient Teaching Methods: Demonstration, Discussion Response to Teaching: Verbalize Understanding, Return Demonstration Education Topics Provided: Continued safety with oral intake, continued safety within her environment and communication of wants/needs Time Speech Therapy Time In: 12:00 Speech Therapy Time Out: 12:30 Total Billed Time: 30 Billed Treatment Time 1, SLTS, DYST ADRIANE Sandhu Mar 27, 2021 12:28
[2021-03-27] MEDS: ENOXAPARIN 40 MG/0.4 ML (LOVENOX) SYR SC SCH (17:33)
[2021-03-27 19:51] VITALS: BP 113/58
[2021-03-27] MEDS: traZODone 150 MG (DESYREL) TABLET PO SCH (20:45)
[2021-03-27] MEDS: MONTELUKAST 10 MG (SINGULAIR) TAB PO SCH (20:45)
[2021-03-27] MEDS: MELATONIN 3 MG TABLET PO PRN (20:46)
[2021-03-27] MEDS: LUMIGAN 0.01% OPTH SOLN OU SCH (20:52)
[2021-03-28] MEDS: ONDANSETRON 4 MG/2 ML (SDV) Z0FRAN IVP PRN ×3 (02:54→14:54)
[2021-03-28] MEDS: HYDROcodone/APAP 5 MG/325 MG (LORTAB) TAB PO PRN ×3 (02:54→20:41)
[2021-03-28] MEDS: CATHETER FLUSH 10 ML SYR IV PRN (02:55)
[2021-03-28] MEDS: CATHETER FLUSH 10 ML SYR IV SCH ×3 (06:39→22:22)
[2021-03-28] MEDS: CYANOCOBALAMIN 1,000 MCG (VITAMIN B-12) TABLET PO SCH (06:39)
[2021-03-28] MEDS: LEVOTHYROXINE 100 MCG (LEVOTHROID) TAB PO SCH (06:39)
[2021-03-28] MEDS: SUCRALFATE 1 GM (CARAFATE) TAB PO SCH ×4 (06:46→20:51)
[2021-03-28] MEDS: RT--FLUTICASONE/SALMETEROL 232-14 (AIRDUO RespiCLICK) IH SCH ×2 (07:23→19:21)
[2021-03-28] MEDS: FOLIC ACID 400 MCG PO SCH (08:10)
[2021-03-28] MEDS: TRIAMCINOLONE 0.1% CR (KENALOG) 15 GM TUBE TP SCH ×2 (08:10→20:50)
[2021-03-28] MEDS: PANTOPRAZOLE 40 MG (PROTONIX) TAB PO SCH (08:11)
[2021-03-28] MEDS: SPIRONOLACTONE 25 MG (ALDACTONE) TAB PO SCH (08:11)
[2021-03-28] MEDS: FUROSEMIDE 40 MG (LASIX) TAB PO SCH (08:11)
[2021-03-28] MEDS: ASPIRIN E.C. 81 MG (ECOTRIN) TAB PO SCH (08:11)
[2021-03-28] MEDS: NIFEdipine ER 30 MG (PROCARDIA XL) TAB PO SCH (08:11)
[2021-03-28] MEDS: DOCUSATE SODIUM 100 MG (COLACE) CAP PO SCH ×2 (08:12→20:51)
[2021-03-28] MEDS: polyethylene glycoL POWDER 17 GM (MIRALAX) PACK PO SCH ×2 (08:12→20:52)
[2021-03-28] MEDS: SIMETHICONE 80 MG (MYLICON) CHEW PO SCH ×4 (08:12→20:52)
[2021-03-28] MEDS: COLESTIPOL 1 GM (COLESTID) TAB PO SCH ×2 (08:12→20:51)
[2021-03-28] MEDS: SENNA W/DOCUSATE (SENOKOT S) TABLET PO SCH ×2 (08:13→20:41)
[2021-03-28] MEDS: VICTOZA SQ SCH (08:20)
[2021-03-28 08:26] VITALS: BP 106/63
--- NOTE | 2021-03-28 10:54 | Physical Therapy Daily Note ---
PT Daily Note-Current Subjective Pt sitting up in bed upon arrival. Pt agrees to PT. Pain Location: No Pain Reported Mental Status Patient Orientation: Person, Place, Situation Attachments: Oxygen (2L) Transfers SCALE: Activities may be completed with or without assistive devices. 7-Ekrhvxexcs-qersgps completes the activity by him/herself with no assistance from a helper. 5-Set-up or Clean-up Assistance-helper sets up or cleans up; patient completes activity. [place] assists only prior to or following the activity. 4-Supervision or Touching Assistance-helper provides verbal cues and/or touching/steadying and/or contact guard assistance as patient completes activity. Assistance may be provided throughout the activity or intermittently. 3-Partial/Moderate Assistance-helper does LESS THAN HALF the effort. [place] lifts, holds or supports trunk or limbs, but provides less than half the effort. 2-Substantial/Maximal Assistance-helper does MORE THAN HALF the effort. [place] lifts or holds trunk or limbs and provides more than half the effort. 5-Usnfmncnh-zptgad does ALL the effort. Patient does none of the effort to complete the activity. Or, the assistance of 2 or more helpers is required for the patient to complete the activity. If activity was not attempted, code reason: 7-Patient Refused. 9-Not Applicable-not attempted and the patient did not perform the activity before the current illness, exacerbation or injury. 10-Not Attempted due to Environmental Limitations-(lack of equipment, weather restraints, etc.). 88-Not Attempted due to Medical Conditions or Safety Concerns. Lying to Sitting/Side of Bed(Q: 4 Sit to Stand (QC): 4 Weight Bearing Right Lower Extremity: Right Full Weight Bearing Left Lower Extremity: Left Full Weight Bearing Gait Training Does the Patient Walk?: Yes Distance: 100' Walk 10 feet (QC): 4 Walk 50 ft with 2 Turns(QC): 4 Gait Persons Needed: 1 Gait Assistive Device: Walker Abner Pt walks 100' w/3 RB as needed. Wheelchair Training Does the Pt Use a Wheelchair?: Yes Type of Wheelchair: Manual Treatments TF from bed to EOB then stands. Reports dizziness with change of position, takes time as needed to recover. Pt amb. in hallway at [facility] with [facility] following. Pt takes RB as needed. Pt returns to [facility] after walk and returns to room to rest in recliner. All needs met, call light in hand. Assessment Current Status: Good Progress Pt is increasing distance but still fatigues easily, requiring frequent RB. PT Short Term Goals Short Term Goals Time Frame: Mar 20, 2021 Roll Left & Right: 4 Sit to lyin Lying to sitting on side of be: 4 Sit to stand: 5 Chair/zgz-mf-wjzvl transfer: 4 Toilet transfer: 4 Car transfer: 4 Walk 10 feet: 4 Walk 50 feet with two turns: 4 Walk 150 feet: 88 Walking 10ft on uneven surface: 88 1 step (curb): 4 4 steps: 88 12 steps: 88 Picking up objects: 88 Does pt use a wc or scooter: Yes Wheel 50ft w/2 turns: 5 Wheel 150 feet: 5 Type: Manual PT Correction Goals Correction Goals PT Freight Router Goals Time Frame: Apr 03, 2021 Roll Left & Right (QC): 6 Sit to Lying (QC): 6 Lying-Sitting on Side/Bed(QC): 6 Sit to Stand (QC): 6 Chair/Vti-el-Sulvd Xfer(QC): 6 Toilet Transfer (QC): 5 Car Transfer (QC): 4 Does the Patient Walk: Yes Walk 10 feet (QC): 5 Walk 50ft with 2 Turns (QC): 5 Walk 150 ft (QC): 5 Walking 10ft on Uneven Surface: 5 1 Step (curb) (QC): 5 4 Steps (QC): 4 12 Steps (QC): 88 Picking up an Object (QC): 88 Wheel 50 feet with 2 turns (QC: 6 Type: Manual Wheel 150 feet: 6 Type: Manual PT Plan Problem List Problem List: Activity Tolerance, Functional Strength, Gait Treatment/Plan Treatment Plan: Continue Plan of Care Treatment Plan: Bed Mobility, Concurrent Therapy, Functional Strength, Group Therapy, Gait, Safety, Therapeutic Exercise Treatment Duration: Apr 03, 2021 Frequency: 11 times per week Estimated Hrs Per Day: 1.5 hours per day Patient and/or Family Agrees t: Yes Safety Risks/Education Patient Education: Gait Training, Transfer Techniques Teaching Recipient: Patient Teaching Methods: Discussion Response to Teaching: Verbalize Understanding Time/GCodes Time In: 900 Time Out: 930 Total Billed Treatment Time: 30 Total Billed Treatment 1, GT x2 (30m) MAURICE CAPUTO SEASONAL RECRUITER Mar 28, 2021 10:54
[2021-03-28] MEDS: fentaNYL PATCH 25 MCG (DURAGESIC) TD SCH (11:25)
[2021-03-28] MEDS: FENTANYL PATCH REMOVAL TP SCH (11:25)
--- NOTE | 2021-03-28 11:45 | PM&R Progress Note ---
Subjective HPI/CC On Admission Date Seen by Provider: Mar 28, 2021 Time Seen by Provider: 12:00 Subjective/Events-last exam 03/28/2021: Patient doing really well Walking very well Oxygen is down to 1 L/minute Bowels moved on 03/26/2021 Incontinence only 1 time last night 03/27/2021: Patient doing a lot better Awaiting plan for usp placement No bowels moving yet for the last couple of days will take laxatives Decreasing oxygen supplement from 2 L Blood pressure 104/51 03/26/2021: Pt doing really well Holding Zestril due to low blood pressure Bowels moved two days ago, laxatives given Bladder training today since she is incontinent and she is doing a lot better with that K Pad for right side pain 03/25/21: Underwent paracentesis and took off 2.[address] Cotter assistance Will go to usp since she has mold in her house 03/24/2021: Pt doing a lot better Walk with a abner walker Paracentesis will be done tomorrow by Dr. Hernandez Benadryl and Zofran are taken on a regular basis 03/23/2021: Pt doing pretty well Able to stand with therapy Bowels are moving IV Zofran will be given Benadryl is also used a lot Chest X-ray and labs will be reviewed Hgb is 7.6 Not much motivation though 03/22/2021: Patient sleeping pretty well Diclofenac gel will be used for joint pain Antibiotics changed over to Omnicef p.o. Monitoring closely 03/21/2021: Patient sleeping currently Out of isolation from COVID-19 Antibiotics still maintained We will narrow antibiotic spectrum within the next 2 days No other issues 03/20/2021: Patient doing pretty well Covid swab was just colonization and now out of isolation Pneumonia treatment maintained Will narrow antibiotic spectrum after tomorrow 03/19/2021: Pt doing okay Refusing a lot of her meds Zofran before pain medication helps her Discontinue accu cheks and change to regular diet Late in the afternoon she complained of chest pain I did chest pain work-up chest x-ray appeared to have opacities so I went ahead and swabbed for COVID-19 and she was positive. There is no room available to move to due to Covid surge hospital-wide diversion no beds available so she will remain in that room in isolation. 03/18/2021: Patient doing pretty well PureWhick while in bed Eating breakfast pretty well today Slept well last night IV Zofran has helped Had a suppository last night and had a BM 03/17/21: Pt having more nausea Fentanyl patch of 235 micrograms has been maintained of which I didnt realize and really unsure about increasing that to 50 because of the her disease Zofran will be given IV Her left leg is moving very well 03/16/2021: Pt doing pretty well PureWick started for Lasix Aldactone diuresis Hgb 8.2 Bowels are moving well Has no complaints 03/15/2021: Patient doing really well Heels are red but Allevyn seems to cause an allergy No pain medication was needed today thus far Stool softeners maintained Lasix and Aldactone causes increased urination so pure wick may be required 03/14/2021: Pt doing really well Iron level of 21 so will initiate the Venofer full dosing Midline maintained Overall doing much better and able to move the left leg 03/13/21: Pt doing really well DC the martinez catheter Ultrasound will be performed and paracentesis will be performed by Dr. Hernandez Hgb 8.1 give one dose of iron infusion She is reusing Carafate as requested Updated Review of Systems General: Fatigue Objective Exam Vital Signs Vital Signs Date Time Temp Pulse Resp B/P (MAP) Pulse Ox O2 Delivery O2 Flow Rate FiO2 03/29/21 07:37 92 Nasal Cannula 1.00 03/28/21 19:38 36.8 69 18 113/59 (77) Capillary Refill : General Appearance: No Apparent Distress, Chronically ill HEENT: PERRL/EOMI, Normal ENT Inspection, Pharynx Normal Neck: Full Range of Motion, Normal Inspection, Non Tender, Supple, Carotid Bruit Respiratory: Chest Non Tender, No Accessory Muscle Use, No Respiratory Distress Cardiovascular: Regular Rate, Rhythm, No JVD Gastrointestinal: Normal Bowel Sounds, No Organomegaly, No Pulsatile Mass, Non Tender, Soft, Distended, Other Back: Normal Inspection, No CVA Tenderness, No Vertebral Tenderness Extremity: Normal Capillary Refill, Non Tender Neurologic/Psychiatric: Alert, Oriented x3, Normal Mood/Affect, Motor Weakness Skin: Normal Color, Warm/Dry Lymphatic: No Adenopathy Results/Procedures Lab Patient resulted labs reviewed. FIM Transfers Therapy Code Descriptions/Definitions Functional [place] Measure: 0=Not Assessed/NA 4=Minimal Assistance 1=Total Assistance 5=Supervision or Setup 2=Maximal Assistance 6=Modified [place] 3=Moderate Assistance 7=Complete IndependenceSCALE: Activities may be completed with or without assistive devices. 3-Deyivsaaoi-hsumdqr completes the activity by him/herself with no assistance from a helper. 5-Set-up or Clean-up Assistance-helper sets up or cleans up; patient completes activity. [place] assists only prior to or following the activity. 4-Supervision or Touching Assistance-helper provides verbal cues and/or touching/steadying and/or contact guard assistance as patient completes activity. Assistance may be provided throughout the activity or intermittently. 3-Partial/Moderate Assistance-helper does LESS THAN HALF the effort. [place] lifts, holds or supports trunk or limbs, but provides less than half the effort. 2-Substantial/Maximal Assistance-helper does MORE THAN HALF the effort. [place] lifts or holds trunk or limbs and provides more than half the effort. 2-Dqlnidpvr-katbcx does ALL the effort. Patient does none of the effort to complete the activity. Or, the assistance of 2 or more helpers is required for the patient to complete the activity. If activity was not attempted, code reason: 7-Patient Refused. 9-Not Applicable-not attempted and the patient did not perform the activity before the current illness, exacerbation or injury. 10-Not Attempted due to Environmental Limitations-(lack of equipment, weather restraints, etc.). 88-Not Attempted due to Medical Conditions or Safety Concerns. Roll Left to Right (QC): 4 Sit to Lying (QC): 3 Sit to Stand (QC): 4 Chair/Hwg-zf-Qpkvn Xfer(QC): 3 Car Transfer (QC): 1 Gait Training Does the Patient Walk?: Yes Distance: 100' Walk 10 feet (QC): 4 Walk 50 ft with 2 Turns(QC): 4 Walk 150 ft (QC): 88 Walking 10ft/uneven surface-QC: 88 Gait Persons Needed: 1 Gait Assistive Device: Walker Abner Wheelchair Training Does the Pt Use a Wheelchair?: Yes Distance: 50 Wheel 50 ft with 2 turns (QC): 3 Wheel 150 ft (QC): 3 Type of Wheelchair: Manual Stair Training 1 Step (curb) (QC): 88 4 Steps (QC): 88 12 Steps (QC): 88 Balance Picking up an Object (QC): 88 ADL-Treatment Eating (QC): 5 Oral Hygiene (QC): 3 (mod A per clinical judgment, though pt denies at this time.) Shower/Bathe Self (QC): 7 (Pt. declines this date.) Upper Body Dressing (QC): 2 (Pt. had difficulty manipulating shirt to don over arms. Became frustrated and so OT did for her.) Lower Body Dressing (QC): 3 (Mod assist overall to don pants. ) On/Off Footwear (QC): 2 (Pt. continually declines attempting to practice donni ng her own slipper socks.) Toileting Hygiene (QC): 1 Toilet Transfer (QC): 3 (Min assist.) Assessment/Plan Assessment and Plan Assess & Plan/Chief Complaint Assessment: CVA with left-sided weakness severe disability COPD oxygen dependent 14/03 Cirrhosis from GROVES Paracenteses on regular basis Anemia Diabetes Hypertension Hypothyroidism Migraines Chronic back pain GERD Anemia Ascites COVID-19 + 02/04/2021 Plan: Supportive care Aggressive therapy Oxygen dependent 03/13/21: Paracentesis Monitor closely Venofer Iron level pending 03/14/2021: Iron infusions Supportive care Monitor blood sugar 03/15/2021: Supportive care Monitor sugar Bowel regimen 03/16/2021: Blood sugar management Monitor closely 03/17/2021: Supportive care Pain control Nausea treatment 03/18/2021: Supportive care Nausea treatment 03/19/2021: Covid positive at 2150 hrs. Antibiotic initiation Not hypoxic so we will monitor closely 03/20/2021: IV antibiotics Covid swab is colonization from illness on 02/05/2021 03/21/2021: IV antibiotics Monitor closely Fall risk 03/22/2021: IV antibiotics transition to p.o. Supportive care 03/23/2021: Much improved status Seems to be more motivated Lungs remain clear 03/24/2021: Paracentesis tomorrow by Dr. Hernandez Supportive care Much improved 03/25/21: Appreciate Dr. Hernandez status post paracentesis Discharge to respite care nonskilled [facility] 03/26/2021: Hold Vasotec Monitor blood pressure Supportive care 03/27/2021: Supportive care Fall risk Skilled care at discharge 03/28/2021: Supportive care Much improved status (1) CVA (cerebral vascular accident) (2) Cirrhosis (3) GROVES (nonalcoholic steatohepatitis) (4) Status post abdominal paracentesis (5) Left-sided weakness (6) Diabetes (7) COPD (chronic obstructive pulmonary disease) (8) Dependence on supplemental oxygen (9) Anemia (10) Hypertension (11) Hyperlipidemia (12) Chronic back pain (13) GERD (gastroesophageal reflux disease) (14) Hypothyroidism NALLELY IBRAHIM DO Mar 28, 2021 11:44
[2021-03-28] MEDS: ENOXAPARIN 40 MG/0.4 ML (LOVENOX) SYR SC SCH (18:24)
[2021-03-28 19:38] VITALS: BP 113/59
[2021-03-28] MEDS: traZODone 150 MG (DESYREL) TABLET PO SCH (20:40)
[2021-03-28] MEDS: MONTELUKAST 10 MG (SINGULAIR) TAB PO SCH (20:41)
[2021-03-28] MEDS: MELATONIN 3 MG TABLET PO PRN (20:42)
[2021-03-28] MEDS: LUMIGAN 0.01% OPTH SOLN OU SCH (20:51)
[2021-03-29] MEDS: HYDROcodone/APAP 5 MG/325 MG (LORTAB) TAB PO PRN ×3 (05:23→17:16)
[2021-03-29] MEDS: ONDANSETRON 4 MG/2 ML (SDV) Z0FRAN IVP PRN ×3 (05:23→17:15)
[2021-03-29] MEDS: CATHETER FLUSH 10 ML SYR IV SCH ×3 (05:24→21:15)
[2021-03-29] MEDS: LEVOTHYROXINE 100 MCG (LEVOTHROID) TAB PO SCH (06:45)
[2021-03-29] MEDS: CYANOCOBALAMIN 1,000 MCG (VITAMIN B-12) TABLET PO SCH (06:45)
[2021-03-29] MEDS: SUCRALFATE 1 GM (CARAFATE) TAB PO SCH ×4 (06:49→21:15)
[2021-03-29] MEDS: RT--FLUTICASONE/SALMETEROL 232-14 (AIRDUO RespiCLICK) IH SCH ×2 (07:36→21:54)
[2021-03-29] MEDS: RT-ALBUTEROL SULF 2.5 MG/3 ML PRE-MIX VIAL INH PRN (07:36)
[2021-03-29 08:00] VITALS: BP 117/58
[2021-03-29] MEDS: FUROSEMIDE 40 MG (LASIX) TAB PO SCH (08:52)
[2021-03-29] MEDS: PANTOPRAZOLE 40 MG (PROTONIX) TAB PO SCH (08:52)
[2021-03-29] MEDS: NIFEdipine ER 30 MG (PROCARDIA XL) TAB PO SCH (08:52)
[2021-03-29] MEDS: ASPIRIN E.C. 81 MG (ECOTRIN) TAB PO SCH (08:52)
[2021-03-29] MEDS: SPIRONOLACTONE 25 MG (ALDACTONE) TAB PO SCH (08:52)
[2021-03-29] MEDS: SIMETHICONE 80 MG (MYLICON) CHEW PO SCH ×4 (08:52→21:15)
[2021-03-29] MEDS: COLESTIPOL 1 GM (COLESTID) TAB PO SCH ×2 (08:53→21:15)
[2021-03-29] MEDS: SENNA W/DOCUSATE (SENOKOT S) TABLET PO SCH ×2 (08:53→21:15)
[2021-03-29] MEDS: DOCUSATE SODIUM 100 MG (COLACE) CAP PO SCH ×2 (08:53→21:15)
[2021-03-29] MEDS: polyethylene glycoL POWDER 17 GM (MIRALAX) PACK PO SCH ×2 (08:53→21:15)
[2021-03-29] MEDS: FOLIC ACID 400 MCG PO SCH (08:54)
[2021-03-29] MEDS: TRIAMCINOLONE 0.1% CR (KENALOG) 15 GM TUBE TP SCH ×2 (08:54→21:16)
[2021-03-29] MEDS: VICTOZA SQ SCH (08:59)
[2021-03-29] MEDS: FENTANYL PATCH REMOVAL TP SCH (09:00)
--- NOTE | 2021-03-29 13:44 | PM&R Progress Note ---
Subjective HPI/CC On Admission Date Seen by Provider: Mar 29, 2021 Time Seen by Provider: 12:00 Subjective/Events-last exam 03/29/2021: Patient in a good mood Ready to go home Move around really well Transfers doing well 03/28/2021: Patient doing really well Walking very well Oxygen is down to 1 L/minute Bowels moved on 03/26/2021 Incontinence only 1 time last night 03/27/2021: Patient doing a lot better Awaiting plan for shelter placement No bowels moving yet for the last couple of days will take laxatives Decreasing oxygen supplement from 2 L Blood pressure 104/51 03/26/2021: Pt doing really well Holding Zestril due to low blood pressure Bowels moved two days ago, laxatives given Bladder training today since she is incontinent and she is doing a lot better with that K Pad for right side pain 03/25/21: Underwent paracentesis and took off 2.[address] Cotter assistance Will go to shelter since she has mold in her house 03/24/2021: Pt doing a lot better Walk with a abner walker Paracentesis will be done tomorrow by Dr. Hernandez Benadryl and Zofran are taken on a regular basis 03/23/2021: Pt doing pretty well Able to stand with therapy Bowels are moving IV Zofran will be given Benadryl is also used a lot Chest X-ray and labs will be reviewed Hgb is 7.6 Not much motivation though 03/22/2021: Patient sleeping pretty well Diclofenac gel will be used for joint pain Antibiotics changed over to Omnicef p.o. Monitoring closely 03/21/2021: Patient sleeping currently Out of isolation from COVID-19 Antibiotics still maintained We will narrow antibiotic spectrum within the next 2 days No other issues 03/20/2021: Patient doing pretty well Covid swab was just colonization and now out of isolation Pneumonia treatment maintained Will narrow antibiotic spectrum after tomorrow 03/19/2021: Pt doing okay Refusing a lot of her meds Zofran before pain medication helps her Discontinue accu cheks and change to regular diet Late in the afternoon she complained of chest pain I did chest pain work-up chest x-ray appeared to have opacities so I went ahead and swabbed for COVID-19 and she was positive. There is no room available to move to due to Covid surge hospital-wide diversion no beds available so she will remain in that room in isolation. 03/18/2021: Patient doing pretty well PureWhick while in bed Eating breakfast pretty well today Slept well last night IV Elias has helped Had a suppository last night and had a BM 03/17/21: Pt having more nausea Fentanyl patch of 235 micrograms has been maintained of which I didnt realize and really unsure about increasing that to 50 because of the her disease Zofran will be given IV Her left leg is moving very well 03/16/2021: Pt doing pretty well PureWick started for Lasix Aldactone diuresis Hgb 8.2 Bowels are moving well Has no complaints 03/15/2021: Patient doing really well Heels are red but Allevyn seems to cause an allergy No pain medication was needed today thus far Stool softeners maintained Lasix and Aldactone causes increased urination so pure wick may be required 03/14/2021: Pt doing really well Iron level of 21 so will initiate the Venofer full dosing Midline maintained Overall doing much better and able to move the left leg 03/13/21: Pt doing really well DC the martinez catheter Ultrasound will be performed and paracentesis will be performed by Dr. Hernandez Hgb 8.1 give one dose of iron infusion She is reusing Carafate as requested Updated Review of Systems General: Fatigue, Malaise Objective Exam Vital Signs Vital Signs Date Time Temp Pulse Resp B/P (MAP) Pulse Ox O2 Delivery O2 Flow Rate FiO2 03/29/21 09:00 Nasal Cannula 1.00 03/29/21 08:00 36.8 70 20 117/58 (77) 97 Capillary Refill : General Appearance: No Apparent Distress, Chronically ill HEENT: PERRL/EOMI, Normal ENT Inspection, Pharynx Normal Neck: Full Range of Motion, Normal Inspection, Non Tender, Supple, Carotid Bruit Respiratory: Chest Non Tender, No Accessory Muscle Use, No Respiratory Distress Cardiovascular: Regular Rate, Rhythm, No JVD Gastrointestinal: Normal Bowel Sounds, No Organomegaly, No Pulsatile Mass, Non Tender, Soft, Distended, Other Back: Normal Inspection, No CVA Tenderness, No Vertebral Tenderness Extremity: Normal Capillary Refill, Non Tender Neurologic/Psychiatric: Alert, Oriented x3, Normal Mood/Affect, Motor Weakness Skin: Normal Color, Warm/Dry Lymphatic: No Adenopathy Results/Procedures Lab Patient resulted labs reviewed. FIM Transfers Therapy Code Descriptions/Definitions Functional [place] Measure: 0=Not Assessed/NA 4=Minimal Assistance 1=Total Assistance 5=Supervision or Setup 2=Maximal Assistance 6=Modified [place] 3=Moderate Assistance 7=Complete IndependenceSCALE: Activities may be completed with or without assistive devices. 7-Hkslzqaxrb-vwbqgxu completes the activity by him/herself with no assistance from a helper. 5-Set-up or Clean-up Assistance-helper sets up or cleans up; patient completes activity. [place] assists only prior to or following the activity. 4-Supervision or Touching Assistance-helper provides verbal cues and/or touching/steadying and/or contact guard assistance as patient completes activity. Assistance may be provided throughout the activity or intermittently. 3-Partial/Moderate Assistance-helper does LESS THAN HALF the effort. [place] lifts, holds or supports trunk or limbs, but provides less than half the effort. 2-Substantial/Maximal Assistance-helper does MORE THAN HALF the effort. [place] lifts or holds trunk or limbs and provides more than half the effort. 6-Msuzoenhc-frcqpn does ALL the effort. Patient does none of the effort to complete the activity. Or, the assistance of 2 or more helpers is required for the patient to complete the activity. If activity was not attempted, code reason: 7-Patient Refused. 9-Not Applicable-not attempted and the patient did not perform the activity before the current illness, exacerbation or injury. 10-Not Attempted due to Environmental Limitations-(lack of equipment, weather restraints, etc.). 88-Not Attempted due to Medical Conditions or Safety Concerns. Roll Left to Right (QC): 4 Sit to Lying (QC): 3 Sit to Stand (QC): 4 Chair/Njw-dx-Vzpvt Xfer(QC): 3 Car Transfer (QC): 1 Gait Training Does the Patient Walk?: Yes Distance: 100' Walk 10 feet (QC): 4 Walk 50 ft with 2 Turns(QC): 4 Walk 150 ft (QC): 88 Walking 10ft/uneven surface-QC: 88 Gait Persons Needed: 1 Gait Assistive Device: Walker Abner Wheelchair Training Does the Pt Use a Wheelchair?: Yes Distance: 50 Wheel 50 ft with 2 turns (QC): 3 Wheel 150 ft (QC): 3 Type of Wheelchair: Manual Stair Training 1 Step (curb) (QC): 88 4 Steps (QC): 88 12 Steps (QC): 88 Balance Picking up an Object (QC): 88 ADL-Treatment Eating (QC): 5 Oral Hygiene (QC): 3 (mod A per clinical judgment, though pt denies at this time.) Shower/Bathe Self (QC): 7 (Pt. declines this date.) Upper Body Dressing (QC): 2 (Pt. had difficulty manipulating shirt to don over arms. Became frustrated and so OT did for her.) Lower Body Dressing (QC): 3 (Mod assist overall to don pants. ) On/Off Footwear (QC): 2 (Pt. continually declines attempting to practice donning her own slipper socks.) Toileting Hygiene (QC): 1 Toilet Transfer (QC): 3 (Min assist.) Assessment/Plan Assessment and Plan Assess & Plan/Chief Complaint Assessment: CVA with left-sided weakness severe disability COPD oxygen dependent 14/03 Cirrhosis from GROVES Paracenteses on regular basis Anemia Diabetes Hypertension Hypothyroidism Migraines Chronic back pain GERD Anemia Ascites COVID-19 + 02/04/2021 Plan: Supportive care Aggressive therapy Oxygen dependent 03/13/21: Paracentesis Monitor closely Venofer Iron level pending 03/14/2021: Iron infusions Supportive care Monitor blood sugar 03/15/2021: Supportive care Monitor sugar Bowel regimen 03/16/2021: Blood sugar management Monitor closely 03/17/2021: Supportive care Pain control Nausea treatment 03/18/2021: Supportive care Nausea treatment 03/19/2021: Covid positive at 2150 hrs. Antibiotic initiation Not hypoxic so we will monitor closely 03/20/2021: IV antibiotics Covid swab is colonization from illness on 02/05/2021 03/21/2021: IV antibiotics Monitor closely Fall risk 03/22/2021: IV antibiotics transition to p.o. Supportive care 03/23/2021: Much improved status Seems to be more motivated Lungs remain clear 03/24/2021: Paracentesis tomorrow by Dr. Hernandez Supportive care Much improved 03/25/21: Appreciate Dr. Hernandez status post paracentesis Discharge to respite care nonskilled shelter 03/26/2021: Hold Vasotec Monitor blood pressure Supportive care 03/27/2021: Supportive care Fall risk Skilled care at discharge 03/28/2021: Supportive care Much improved status 03/29/2021: Fall risk Check labs in the morning Maintain oxygen (1) CVA (cerebral vascular accident) (2) Cirrhosis (3) GROVES (nonalcoholic steatohepatitis) (4) Status post abdominal paracentesis (5) Left-sided weakness (6) Diabetes (7) COPD (chronic obstructive pulmonary disease) (8) Dependence on supplemental oxygen (9) Anemia (10) Hypertension (11) Hyperlipidemia (12) Chronic back pain (13) GERD (gastroesophageal reflux disease) (14) Hypothyroidism NALLELY IBRAHIM DO Mar 29, 2021 13:44
[2021-03-29] MEDS: ENOXAPARIN 40 MG/0.4 ML (LOVENOX) SYR SC SCH (18:10)
[2021-03-29 20:25] VITALS: BP 112/57
[2021-03-29] MEDS: traZODone 150 MG (DESYREL) TABLET PO SCH (21:15)
[2021-03-29] MEDS: MONTELUKAST 10 MG (SINGULAIR) TAB PO SCH (21:15)
[2021-03-29] MEDS: LUMIGAN 0.01% OPTH SOLN OU SCH (21:16)
[2021-03-29] MEDS: MELATONIN 3 MG TABLET PO PRN (21:17)
[2021-03-30] MEDS: LEVOTHYROXINE 100 MCG (LEVOTHROID) TAB PO SCH (06:04)
[2021-03-30] MEDS: SUCRALFATE 1 GM (CARAFATE) TAB PO SCH ×4 (06:04→19:36)
[2021-03-30] MEDS: CATHETER FLUSH 10 ML SYR IV SCH ×3 (06:04→20:15)
[2021-03-30] MEDS: CYANOCOBALAMIN 1,000 MCG (VITAMIN B-12) TABLET PO SCH (06:04)
[2021-03-30 06:28] LABS: BASOPHILS % (AUTO) 1 % (0-10); EOSINOPHILS % (AUTO) 0 % (0-10); HEMATOCRIT 24 % (35-52); HEMOGLOBIN 7.5 g/dL (11.5-16.0); LYMPHOCYTES % (AUTO) 27 % (12-44); MEAN CORPUSCULAR HEMOGLOBIN 26 pg (25-34); MEAN CORPUSCULAR HGB CONC 31 g/dL (32-36); MEAN CORPUSCULAR VOLUME 84 fL (80-99); MEAN PLATELET VOLUME 9.7 fL (9.0-12.2); MONOCYTES # (AUTO) 0.4 10^3/uL (0.0-1.0); MONOCYTES % (AUTO) 10 % (0-12); NEUTROPHILS # (AUTO) 2.3 10^3/uL (1.8-7.8); NEUTROPHILS % (AUTO) 61 % (42-75); PLATELET COUNT 276 10^3/uL (130-400); WHITE BLOOD COUNT 3.8 10^3/uL (4.3-11.0)
[2021-03-30 06:35] LABS: ALBUMIN 2.3 GM/DL (3.2-4.5)
[2021-03-30 06:36] LABS: POTASSIUM 4.3 MMOL/L (3.6-5.0)
[2021-03-30 06:37] LABS: CALCIUM 7.8 MG/DL (8.5-10.1)
[2021-03-30 06:38] LABS: TOTAL PROTEIN 5.4 GM/DL (6.4-8.2)
[2021-03-30 06:40] LABS: BILIRUBIN,TOTAL 0.4 MG/DL (0.1-1.0)
[2021-03-30 06:42] LABS: CREATININE SERUM 0.77 MG/DL (0.60-1.30)
[2021-03-30 07:21] VITALS: BP 128/60
[2021-03-30] MEDS: RT--FLUTICASONE/SALMETEROL 232-14 (AIRDUO RespiCLICK) IH SCH ×2 (07:38→18:25)
[2021-03-30] MEDS: PANTOPRAZOLE 40 MG (PROTONIX) TAB PO SCH (08:02)
[2021-03-30] MEDS: FUROSEMIDE 40 MG (LASIX) TAB PO SCH (08:02)
[2021-03-30] MEDS: ONDANSETRON 4 MG/2 ML (SDV) Z0FRAN IVP PRN ×2 (08:02→15:17)
[2021-03-30] MEDS: SPIRONOLACTONE 25 MG (ALDACTONE) TAB PO SCH (08:02)
[2021-03-30] MEDS: ASPIRIN E.C. 81 MG (ECOTRIN) TAB PO SCH (08:03)
[2021-03-30] MEDS: COLESTIPOL 1 GM (COLESTID) TAB PO SCH ×2 (08:03→19:36)
[2021-03-30] MEDS: NIFEdipine ER 30 MG (PROCARDIA XL) TAB PO SCH (08:03)
[2021-03-30] MEDS: HYDROcodone/APAP 5 MG/325 MG (LORTAB) TAB PO PRN (08:04)
[2021-03-30] MEDS: polyethylene glycoL POWDER 17 GM (MIRALAX) PACK PO SCH ×2 (08:04→19:37)
[2021-03-30] MEDS: DOCUSATE SODIUM 100 MG (COLACE) CAP PO SCH ×2 (08:04→19:36)
[2021-03-30] MEDS: SENNA W/DOCUSATE (SENOKOT S) TABLET PO SCH ×2 (08:09→20:12)
[2021-03-30] MEDS: FOLIC ACID 400 MCG PO SCH (08:09)
--- NOTE | 2021-03-30 09:33 | Occupational Ther Daily Note ---
OT Current Status-Daily Note Subjective No pain reported. Appearance Pt. up in chair. She states that she was incontinent of urine in bed, and so nursing assisted her to chair. Mental Status/Objective Patient Orientation: Person, Place, Time, Situation Attachments: Oxygen ADL-Treatment Therapy Code Descriptions/Definitions Functional [place] Measure: 0=Not Assessed/NA 4=Minimal Assistance 1=Total Assistance 5=Supervision or Setup 2=Maximal Assistance 6=Modified [place] 3=Moderate Assistance 7=Complete IndependenceSCALE: Activities may be completed with or without assistive devices. 8-Pwfdlbiizf-voqbzlh completes the activity by him/herself with no assistance from a helper. 5-Set-up or Clean-up Assistance-helper sets up or cleans up; patient completes activity. [place] assists only prior to or following the activity. 4-Supervision or Touching Assistance-helper provides verbal cues and/or touching/steadying and/or contact guard assistance as patient completes activity. Assistance may be provided throughout the activity or intermittently. 3-Partial/Moderate Assistance-helper does LESS THAN HALF the effort. [place] lifts, holds or supports trunk or limbs, but provides less than half the effort. 2-Substantial/Maximal Assistance-helper does MORE THAN HALF the effort. [place] lifts or holds trunk or limbs and provides more than half the effort. 6-Rkxznqvhv-gtqecf does ALL the effort. Patient does none of the effort to complete the activity. Or, the assistance of 2 or more helpers is required for the patient to complete the activity. If activity was not attempted, code reason: 7-Patient Refused. 9-Not Applicable-not attempted and the patient did not perform the activity before the current illness, exacerbation or injury. 10-Not Attempted due to Environmental Limitations-(lack of equipment, weather restraints, etc.). 88-Not Attempted due to Medical Conditions or Safety Concerns. Shower/Bathe Self (QC): 3 (Mod assist overall with sponge bath at chair level. Pt. states that she does not feel like a shower this a.m.) Upper Body Dressing (QC): 3 (Mod assist and max cues to don shirt.) Toileting Hygiene (QC): 1 (Per pt. she soiled self and nursing cleansed her.) Other Treatment Pt. up in chair. Had fresh pants on already after incontinence. Agreed to wash UE and as far down as she could while in chair with OT assist. After ADLs, OT worked on left UE AAROM and facilitation of muscle memory and movement. Noted increased AROM in elbow flexion/extension, shoulder flexion/extension, and some forearm supination emerging. Pt. fatigues easily, but is motivated to increase UE movement. Completed resistive assisted motions in available planes. All needs met in chair and pt. reports comfort. All needs met. Education OT Patient Education: Correct positioning, Exercise program, Modified ADL tech niques, Progress toward Goal/Update tx plan, Purpose of tx/functional activities, Reviewed precautions, Rehab process, Transfer techniques Teaching Recipient: Patient Teaching Methods: Demonstration, Discussion Response to Teaching: Verbalize Understanding, Return Demonstration OT Short Term Goals Short Term Goals Oral hygiene: 5 Toileting hygiene: 2 Shower/bathe self: 2 Upper body dressin Lower body dressin OT [employer] Administrator Goals Custodial Goals Time Frame: Mar 27, 2021 Eating (QC): 6 Oral Hygiene (QC): 6 Toileting Hygiene (QC): 4 Shower/Bathe Self (QC): 4 Upper Body Dressing (QC): 6 Lower Body Dressing (QC): 4 On/Off Footwear (QC): 4 Additional Goals: 1-Demonstrate ADL Tasks, 2-Verbalize Understanding, 3-ImproveStrength/[place] 1=Demonstrate adherence to instructed precautions during ADL tasks. 2=Patient will verbalize/demonstrate understanding of assistive devices/modifications for ADL. 3=Patient will improve strength/tolerance for activity to enable patient to perform ADL's. OT Education/Plan Problem List/Assessment Assessment: Decreased Activ Tolerance, Decreased UE Strength, Impaired I ADL's, Impaired Self-Care Skills, Restricted Funct UE ROM Discharge Recommendations Plan/Recommendations: Continue POC Therapy Discharge Recommendati: Post Acute OT Treatment Plan/Plan of Care Treatment,Training & Education: Yes Patient would benefit from OT for education, treatment and training to promote independence in ADL's, mobility, safety and/or upper extremity function for ADL's. Plan of Care: ADL Retraining, Caregiver Training, Cognitive Retraining, Functional Mobility, Group Exercise/Act as Ind, Orthotic Fitting/Training, UE Funct Exercise/Act, UE Neuromus Re-Ed/Coord, Visual/Perceptual Retrain, W/C Management Training Treatment Duration: Mar 27, 2021 Frequency: At least 5 of 7 days/Wk (IRF) Estimated Hrs Per Day: 1.5 hours per day Agreement: Yes Rehab Potential: Fair Time/GCodes Start Time: 08:45 Stop Time: 09:30 Total Time Billed (hr/min): 45 Billed Treatment Time 1, ADL x 30minutes, Ex x 15minutes SHEELA CLARKE OT Mar 30, 2021 09:33
--- NOTE | 2021-03-30 09:34 | Speech Therapy Daily Note ---
Speech Daily Progress Note Subjective Date Seen by Provider: Mar 30, 2021 Time Seen by Provider: 00:30 Patient was sitting up in her recliner following her OT session with a shower. Patient was on the phone ordering her meals independently. Objective Patient completed a series of safety awareness scenarios with minimal cues at 90%. Assessment Assessment Current Status: Good Progress Treatment Plan Continue Plan of Care Speech Short Term Goals Short Term Goals Short Term Goals 1) Patient will complete memory tasks related to her daily needs at 80% or greater with minimal cues. 2) Patient will complete safety awareness tasks related to her daily needs at 80% or greater with minimal cues. 3) Patient will complete problem solving tasks related to her daily needs at 80% or greater with minimal cues. Speech Senior Care Goals Dredge Pipeman Goals Patient will improve cognitive-communication abilities in order to require less assist with daily tasks. Speech-Plan Patient/Family Goals Patient/Family Goals: Patient will discharge to a SNF for continued therapies until she is able to return to her home. Treatment Plan Speech Therapy Treatment Plan: Continue Plan of Care Treatment Duration: Apr 03, 2021 Frequency: 4 times per week Estimated Hrs Per Day: .5 hour per day Rehab Potential: Fair Barriers to Learning: Patient's CVA and COVID recovery Pt/Family Agrees to Plan: Yes Safety Risks/Education Teaching Recipient: Patient Teaching Methods: Demonstration, Discussion Response to Teaching: Verbalize Understanding, Return Demonstration Education Topics Provided: Continued safety upon discharge Continued safety with oral intake Time Speech Therapy Time In: 09:30 Speech Therapy Time Out: 10:00 Total Billed Time: 30 Billed Treatment Time 1, SLLARA, DYST ADRIANE Sandhu Mar 30, 2021 09:34
--- NOTE | 2021-03-30 09:39 | PM&R Progress Note ---
Subjective HPI/CC On Admission Date Seen by Provider: Mar 30, 2021 Time Seen by Provider: 10:00 Subjective/Events-last exam 03/30/2021: Pt doing pretty well Wants to go home and her has everything set up at home Incontinence noted Will talk to social worked about DC home 03/29/2021: Patient in a good mood Ready to go home Move around really well Transfers doing well 03/28/2021: Patient doing really well Walking very well Oxygen is down to 1 L/minute Bowels moved on 03/26/2021 Incontinence only 1 time last night 03/27/2021: Patient doing a lot better Awaiting plan for care home placement No bowels moving yet for the last couple of days will take laxatives Decreasing oxygen supplement from 2 L Blood pressure 104/51 03/26/2021: Pt doing really well Holding Zestril due to low blood pressure Bowels moved two days ago, laxatives given Bladder training today since she is incontinent and she is doing a lot better with that K Pad for right side pain 03/25/21: Underwent paracentesis and took off 2.[address] Cotter assistance Will go to care home since she has mold in her house 03/24/2021: Pt doing a lot better Walk with a abner walker Paracentesis will be done tomorrow by Dr. Hernandez Benadryl and Zofran are taken on a regular basis 03/23/2021: Pt doing pretty well Able to stand with therapy Bowels are moving IV Zofran will be given Benadryl is also used a lot Chest X-ray and labs will be reviewed Hgb is 7.6 Not much motivation though 03/22/2021: Patient sleeping pretty well Diclofenac gel will be used for joint pain Antibiotics changed over to Omnicef p.o. Monitoring closely 03/21/2021: Patient sleeping currently Out of isolation from COVID-19 Antibiotics still maintained We will narrow antibiotic spectrum within the next 2 days No other issues 03/20/2021: Patient doing pretty well Covid swab was just colonization and now out of isolation Pneumonia treatment maintained Will narrow antibiotic spectrum after tomorrow 03/19/2021: Pt doing okay Refusing a lot of her meds Zofran before pain medication helps her Discontinue accu cheks and change to regular diet Late in the afternoon she complained of chest pain I did chest pain work-up chest x-ray appeared to have opacities so I went ahead and swabbed for COVID-19 and she was positive. There is no room available to move to due to Covid surge hospital-wide diversion no beds available so she will remain in that room in isolation. 03/18/2021: Patient doing pretty well PureWhick while in bed Eating breakfast pretty well today Slept well last night IV Zofran has helped Had a suppository last night and had a BM 03/17/21: Pt having more nausea Fentanyl patch of 235 micrograms has been maintained of which I didnt realize and really unsure about increasing that to 50 because of the her disease Zofran will be given IV Her left leg is moving very well 03/16/2021: Pt doing pretty well PureWick started for Lasix Aldactone diuresis Hgb 8.2 Bowels are moving well Has no complaints 03/15/2021: Patient doing really well Heels are red but Allevyn seems to cause an allergy No pain medication was needed today thus far Stool softeners maintained Lasix and Aldactone causes increased urination so pure wick may be required 03/14/2021: Pt doing really well Iron level of 21 so will initiate the Venofer full dosing Midline maintained Overall doing much better and able to move the left leg 03/13/21: Pt doing really well DC the martinez catheter Ultrasound will be performed and paracentesis will be performed by Dr. Hernandez Hgb 8.1 give one dose of iron infusion She is reusing Carafate as requested Updated Review of Systems General: Fatigue, Malaise Objective Exam Vital Signs Vital Signs Date Time Temp Pulse Resp B/P (MAP) Pulse Ox O2 Delivery O2 Flow Rate FiO2 03/30/21 20:06 37.4 82 18 145/63 (90) 97 Nasal Cannula 1.00 Capillary Refill : General Appearance: No Apparent Distress, Chronically ill HEENT: PERRL/EOMI, Normal ENT Inspection, Pharynx Normal Neck: Full Range of Motion, Normal Inspection, Non Tender, Supple, Carotid Bruit Respiratory: Chest Non Tender, No Accessory Muscle Use, No Respiratory Distress Cardiovascular: Regular Rate, Rhythm, No JVD Gastrointestinal: Normal Bowel Sounds, No Organomegaly, No Pulsatile Mass, Non Tender, Soft, Distended, Other Back: Normal Inspection, No CVA Tenderness, No Vertebral Tenderness Extremity: Normal Capillary Refill, Non Tender Neurologic/Psychiatric: Alert, Oriented x3, Normal Mood/Affect, Motor Weakness Skin: Normal Color, Warm/Dry Lymphatic: No Adenopathy Results/Procedures Lab Laboratory Tests 03/30/21 06:10 Patient resulted labs reviewed. FIM Transfers Therapy Code Descriptions/Definitions Functional [place] Measure: 0=Not Assessed/NA 4=Minimal Assistance 1=Total Assistance 5=Supervision or Setup 2=Maximal Assistance 6=Modified [place] 3=Moderate Assistance 7=Complete IndependenceSCALE: Activities may be completed with or without assistive devices. 1-Gpbsokncjr-kmdhfuw completes the activity by him/herself with no assistance from a helper. 5-Set-up or Clean-up Assistance-helper sets up or cleans up; patient completes activity. [place] assists only prior to or following the activity. 4-Supervision or Touching Assistance-helper provides verbal cues and/or touching/steadying and/or contact guard assistance as patient completes activity. Assistance may be provided throughout the activity or intermittently. 3-Partial/Moderate Assistance-helper does LESS THAN HALF the effort. [place] lif ts, holds or supports trunk or limbs, but provides less than half the effort. 2-Substantial/Maximal Assistance-helper does MORE THAN HALF the effort. [place] lifts or holds trunk or limbs and provides more than half the effort. 1-Uiivllyuu-vgwwbk does ALL the effort. Patient does none of the effort to complete the activity. Or, the assistance of 2 or more helpers is required for the patient to complete the activity. If activity was not attempted, code reason: 7-Patient Refused. 9-Not Applicable-not attempted and the patient did not perform the activity before the current illness, exacerbation or injury. 10-Not Attempted due to Environmental Limitations-(lack of equipment, weather restraints, etc.). 88-Not Attempted due to Medical Conditions or Safety Concerns. Roll Left to Right (QC): 4 Sit to Lying (QC): 3 Sit to Stand (QC): 4 Chair/Atc-hj-Dtbdf Xfer(QC): 3 Car Transfer (QC): 1 Gait Training Does the Patient Walk?: Yes Distance: 100' Walk 10 feet (QC): 4 Walk 50 ft with 2 Turns(QC): 4 Walk 150 ft (QC): 88 Walking 10ft/uneven surface-QC: 88 Gait Persons Needed: 1 Gait Assistive Device: Walker Abner Wheelchair Training Does the Pt Use a Wheelchair?: Yes Distance: 50 Wheel 50 ft with 2 turns (QC): 3 Wheel 150 ft (QC): 3 Type of Wheelchair: Manual Stair Training 1 Step (curb) (QC): 88 4 Steps (QC): 88 12 Steps (QC): 88 Balance Picking up an Object (QC): 88 ADL-Treatment Eating (QC): 5 Oral Hygiene (QC): 3 (mod A per clinical judgment, though pt denies at this time.) Shower/Bathe Self (QC): 3 (Mod assist overall with sponge bath at chair level. Pt. states that she does not feel like a shower this a.m.) Upper Body Dressing (QC): 3 (Mod assist and max cues to don shirt.) Lower Body Dressing (QC): 3 (Mod assist overall to don pants. ) On/Off Footwear (QC): 2 (Pt. continually declines attempting to practice donning her own slipper socks.) Toileting Hygiene (QC): 1 (Per pt. she soiled self and nursing cleansed her.) Toilet Transfer (QC): 3 (Min assist.) Assessment/Plan Assessment and Plan Assess & Plan/Chief Complaint Assessment: CVA with left-sided weakness severe disability COPD oxygen dependent 14/03 Cirrhosis from GROVES Paracenteses on regular basis Anemia Diabetes Hypertension Hypothyroidism Migraines Chronic back pain GERD Anemia Ascites COVID-19 + 02/04/2021 Plan: Supportive care Aggressive therapy Oxygen dependent 03/13/21: Paracentesis Monitor closely Venofer Iron level pending 03/14/2021: Iron infusions Supportive care Monitor blood sugar 03/15/2021: Supportive care Monitor sugar Bowel regimen 03/16/2021: Blood sugar management Monitor closely 03/17/2021: Supportive care Pain control Nausea treatment 03/18/2021: Supportive care Nausea treatment 03/19/2021: Covid positive at 2150 hrs. Antibiotic initiation Not hypoxic so we will monitor closely 03/20/2021: IV antibiotics Covid swab is colonization from illness on 02/05/2021 03/21/2021: IV antibiotics Monitor closely Fall risk 03/22/2021: IV antibiotics transition to p.o. Supportive care 03/23/2021: Much improved status Seems to be more motivated Lungs remain clear 03/24/2021: Paracentesis tomorrow by Dr. Hernandez Supportive care Much improved 03/25/21: Appreciate Dr. Hernandez status post paracentesis Discharge to respite care nonskilled care home 03/26/2021: Hold Vasotec Monitor blood pressure Supportive care 03/27/2021: Supportive care Fall risk Skilled care at discharge 03/28/2021: Supportive care Much improved status 03/29/2021: Fall risk Check labs in the morning Maintain oxygen 03/30/2021: DC home on Tue Patient will require a hospital bed due to GROVES with intermittent paracentesis due to continuous abdominal fluid buildup. She has COPD and is dependent on oxygen. She had a recent CVA with left-sided weakness. This combination of comorbidities affects the patient's pulmonary function as well as her ability to independently change body position in a regular bed therefore regular bed will not be adequate. (1) CVA (cerebral vascular accident) (2) Cirrhosis (3) GROVES (nonalcoholic steatohepatitis) (4) Status post abdominal paracentesis (5) Left-sided weakness (6) Diabetes (7) COPD (chronic obstructive pulmonary disease) (8) Dependence on supplemental oxygen (9) Anemia (10) Hypertension (11) Hyperlipidemia (12) Chronic back pain (13) GERD (gastroesophageal reflux disease) (14) Hypothyroidism NALLELY IBRAHIM DO Mar 30, 2021 09:39
[2021-03-30] MEDS: SIMETHICONE 80 MG (MYLICON) CHEW PO SCH ×4 (09:47→19:37)
[2021-03-30] MEDS: TRIAMCINOLONE 0.1% CR (KENALOG) 15 GM TUBE TP SCH ×2 (09:48→20:15)
[2021-03-30] MEDS: VICTOZA SQ SCH (09:49)
--- NOTE | 2021-03-30 12:08 | Physical Therapy Daily Note ---
PT Daily Note-Current Subjective Pt sitting in recliner upon arrival. Pt agrees to PT and asks to use BSC to start tx. Pain Location: No Pain Reported Mental Status Patient Orientation: Person, Place, Situation Attachments: Oxygen (1L), Other-See Comments (Sling for L UE) Transfers SCALE: Activities may be completed with or without assistive devices. 5-Xagxgzpfps-hpkxvaa completes the activity by him/herself with no assistance from a helper. 5-Set-up or Clean-up Assistance-helper sets up or cleans up; patient completes activity. [place] assists only prior to or following the activity. 4-Supervision or Touching Assistance-helper provides verbal cues and/or touching/steadying and/or contact guard assistance as patient completes activity. Assistance may be provided throughout the activity or intermittently. 3-Partial/Moderate Assistance-helper does LESS THAN HALF the effort. [place] lifts, holds or supports trunk or limbs, but provides less than half the effort. 2-Substantial/Maximal Assistance-helper does MORE THAN HALF the effort. [place] lifts or holds trunk or limbs and provides more than half the effort. 5-Qdovapaei-lbsdzu does ALL the effort. Patient does none of the effort to complete the activity. Or, the assistance of 2 or more helpers is required for the patient to complete the activity. If activity was not attempted, code reason: 7-Patient Refused. 9-Not Applicable-not attempted and the patient did not perform the activity before the current illness, exacerbation or injury. 10-Not Attempted due to Environmental Limitations-(lack of equipment, weather restraints, etc.). 88-Not Attempted due to Medical Conditions or Safety Concerns. Sit to Stand (QC): 4 Toilet Transfer (QC): 4 Weight Bearing Right Lower Extremity: Right Full Weight Bearing Left Lower Extremity: Left Full Weight Bearing Gait Training Does the Patient Walk?: Yes Distance: 20', 40', 35' Walk 10 feet (QC): 4 Walk 50 ft with 2 Turns(QC): 4 Gait Persons Needed: 1 Gait Assistive Device: Walker Abner Wheelchair Training Does the Pt Use a Wheelchair?: Yes Wheel 50 ft with 2 turns (QC): 5 Wheel 150 ft (QC): 5 Type of Wheelchair: Manual Exercises Seated Therapy Exercises: Sit to stand Standing: Hip Abduction, Hamstring curls, Marching, Weight shifts Standing Reps: 15 Treatments TF to standing and SPT to BSC. After finishing, PSYCHIATRIC NURSING ASSISTANT assists w/pericare & donning/doffing pants. Pt amb. in hallway, taking several RB as needed. Pt completes Standing EX at //bars with RB as needed. Pt propels WCH to room at end of tx and TF back to bed to rest. All needs met, repositioned to comfort and call light in hand. Assessment Current Status: Good Progress Pt is gaining strength but still fatigues at this time and needs RB. PT Short Term Goals Short Term Goals Time Frame: Mar 20, 2021 Roll Left & Right: 4 Sit to lyin Lying to sitting on side of be: 4 Sit to stand: 5 Chair/lsa-re-yepgz transfer: 4 Toilet transfer: 4 Car transfer: 4 Walk 10 feet: 4 Walk 50 feet with two turns: 4 Walk 150 feet: 88 Walking 10ft on uneven surface: 88 1 step (curb): 4 4 steps: 88 12 steps: 88 Picking up objects: 88 Does pt use a wc or scooter: Yes Wheel 50ft w/2 turns: 5 Wheel 150 feet: 5 Type: Manual PT Behavioral Medical Director Goals Retirement Goals PT Behavioral Medical Director Goals Time Frame: Apr 03, 2021 Roll Left & Right (QC): 6 Sit to Lying (QC): 6 Lying-Sitting on Side/Bed(QC): 6 Sit to Stand (QC): 6 Chair/Zhq-gi-Qeabq Xfer(QC): 6 Toilet Transfer (QC): 5 Car Transfer (QC): 4 Does the Patient Walk: Yes Walk 10 feet (QC): 5 Walk 50ft with 2 Turns (QC): 5 Walk 150 ft (QC): 5 Walking 10ft on Uneven Surface: 5 1 Step (curb) (QC): 5 4 Steps (QC): 4 12 Steps (QC): 88 Picking up an Object (QC): 88 Wheel 50 feet with 2 turns (QC: 6 Type: Manual Wheel 150 feet: 6 Type: Manual PT Plan Problem List Problem List: Activity Tolerance, Gait Treatment/Plan Treatment Plan: Continue Plan of Care Treatment Plan: Bed Mobility, Concurrent Therapy, Functional Strength, Group Therapy, Gait, Safety, Therapeutic Exercise Treatment Duration: Apr 03, 2021 Frequency: 11 times per week Estimated Hrs Per Day: 1.5 hours per day Patient and/or Family Agrees t: Yes Safety Risks/Education Patient Education: Gait Training, Transfer Techniques, Correct Positioning, Safety Issues Teaching Recipient: Patient Teaching Methods: Discussion Response to Teaching: Verbalize Understanding Time/GCodes Time In: 1015 Time Out: 1130 Total Billed Treatment Time: 75 Total Billed Treatment 1, GT (20m), FA (15m) & EX x2 (25m) MAURICE CAPUTO PSYCHIATRIC NURSING ASSISTANT Mar 30, 2021 12:08
--- NOTE | 2021-03-30 14:24 | Occupational Ther Daily Note ---
OT Current Status-Daily Note Subjective No pain reported. Appearance Pt. in bed eating lunch. Spouse in room. Mental Status/Objective Patient Orientation: Person, Place, Time, Situation Attachments: Oxygen ADL-Treatment Therapy Code Descriptions/Definitions Functional [place] Measure: 0=Not Assessed/NA 4=Minimal Assistance 1=Total Assistance 5=Supervision or Setup 2=Maximal Assistance 6=Modified [place] 3=Moderate Assistance 7=Complete IndependenceSCALE: Activities may be completed with or without assistive devices. 8-Lpbzbvzjmf-wayhjqj completes the activity by him/herself with no assistance from a helper. 5-Set-up or Clean-up Assistance-helper sets up or cleans up; patient completes activity. [place] assists only prior to or following the activity. 4-Supervision or Touching Assistance-helper provides verbal cues and/or touching/steadying and/or contact guard assistance as patient completes activity . Assistance may be provided throughout the activity or intermittently. 3-Partial/Moderate Assistance-helper does LESS THAN HALF the effort. [place] lifts, holds or supports trunk or limbs, but provides less than half the effort. 2-Substantial/Maximal Assistance-helper does MORE THAN HALF the effort. [place] lifts or holds trunk or limbs and provides more than half the effort. 1-Uantcxeth-surwif does ALL the effort. Patient does none of the effort to complete the activity. Or, the assistance of 2 or more helpers is required for the patient to complete the activity. If activity was not attempted, code reason: 7-Patient Refused. 9-Not Applicable-not attempted and the patient did not perform the activity before the current illness, exacerbation or injury. 10-Not Attempted due to Environmental Limitations-(lack of equipment, weather restraints, etc.). 88-Not Attempted due to Medical Conditions or Safety Concerns. Eating (QC): 5 Lower Body Dressing (QC): 2 On/Off Footwear: 2 Toileting Hygiene (QC): 2 Other Treatment Pt. in bed eating lunch. Spouse in room. Pt. states that she has urinated in brief, and would like to be changed. Pt. and OT have talked about pt. going home with spouse instead of going to SNF unit. In order to do this, pt. and spouse will have to be independent together. Therefore, pt. and spouse practiced changing brief and LE clothing/cleansing together. Pt. transferred supine-sit with SBA. Spouse able to assist her into stand with fortunato walker with min assist. Pt. able to guide spouse with directions on how to assist with doffing pants, and assisting her. Pt. is encouraged by OT to assist herself more during task, as she is capable during some activities. Pt. verbalizes understanding. Spouse assists with changing brief and cleansing david area. Pt. up on EOB finishing meal with supervision from spouse after ADL session. All needs met. Education OT Patient Education: Correct positioning, Modified ADL techniques, Progress toward Goal/Update tx plan, Purpose of tx/functional activities, Reviewed precautions, Rehab process, Transfer techniques Teaching Recipient: Patient, Family Teaching Methods: Demonstration, Discussion Response to Teaching: Verbalize Understanding, Return Demonstration, Reinforcement Needed OT Short Term Goals Short Term Goals Oral hygiene: 5 Toileting hygiene: 2 Shower/bathe self: 2 Upper body dressin Lower body dressin OT Care Home Goals Care Home Goals Time Frame: Mar 27, 2021 Eating (QC): 6 Oral Hygiene (QC): 6 Toileting Hygiene (QC): 4 Shower/Bathe Self (QC): 4 Upper Body Dressing (QC): 6 Lower Body Dressing (QC): 4 On/Off Footwear (QC): 4 Additional Goals: 1-Demonstrate ADL Tasks, 2-Verbalize Understanding, 3- ImproveStrength/Feliberto 1=Demonstrate adherence to instructed precautions during ADL tasks. 2=Patient will verbalize/demonstrate understanding of assistive devices/modifica tions for ADL. 3=Patient will improve strength/tolerance for activity to enable patient to perform ADL's. OT Education/Plan Problem List/Assessment Assessment: Decreased Activ Tolerance, Impaired I ADL's, Impaired Self-Care Skills, Restricted Funct UE ROM Discharge Recommendations Plan/Recommendations: Continue POC Therapy Discharge Recommendati: Post Acute OT Treatment Plan/Plan of Care Treatment,Training & Education: Yes Patient would benefit from OT for education, treatment and training to promote independence in ADL's, mobility, safety and/or upper extremity function for ADL's. Plan of Care: ADL Retraining, Caregiver Training, Cognitive Retraining, Functional Mobility, Group Exercise/Act as Ind, Orthotic Fitting/Training, UE Funct Exercise/Act, UE Neuromus Re-Ed/Coord, Visual/Perceptual Retrain, W/C Management Training Treatment Duration: Mar 27, 2021 Frequency: At least 5 of 7 days/Wk (IRF) Estimated Hrs Per Day: 1.5 hours per day Agreement: Yes Rehab Potential: Fair Time/GCodes Start Time: 13:00 Stop Time: 13:30 Total Time Billed (hr/min): 30 Billed Treatment Time 1, ADL x 2 SHEELA CLARKE OT Mar 30, 2021 14:24
[2021-03-30] MEDS: ENOXAPARIN 40 MG/0.4 ML (LOVENOX) SYR SC SCH (17:35)
[2021-03-30] MEDS: RT-ALBUTEROL SULF 2.5 MG/3 ML PRE-MIX VIAL INH PRN (18:25)
[2021-03-30 20:06] VITALS: BP 145/63
[2021-03-30] MEDS: traZODone 150 MG (DESYREL) TABLET PO SCH (20:12)
[2021-03-30] MEDS: MELATONIN 3 MG TABLET PO PRN (20:13)
[2021-03-30] MEDS: MONTELUKAST 10 MG (SINGULAIR) TAB PO SCH (20:14)
[2021-03-30] MEDS: LUMIGAN 0.01% OPTH SOLN OU SCH (20:15)
[2021-03-31] MEDS: HYDROcodone/APAP 5 MG/325 MG (LORTAB) TAB PO PRN ×2 (03:44→16:21)
[2021-03-31] MEDS: SUCRALFATE 1 GM (CARAFATE) TAB PO SCH ×4 (05:55→19:47)
[2021-03-31] MEDS: CYANOCOBALAMIN 1,000 MCG (VITAMIN B-12) TABLET PO SCH (06:23)
[2021-03-31] MEDS: LEVOTHYROXINE 100 MCG (LEVOTHROID) TAB PO SCH (06:23)
[2021-03-31] MEDS: CATHETER FLUSH 10 ML SYR IV SCH ×3 (06:29→22:30)
--- NOTE | 2021-03-31 06:51 | PM&R Progress Note ---
Subjective HPI/CC On Admission Date Seen by Provider: Mar 31, 2021 Time Seen by Provider: 10:00 Subjective/Events-last exam 03/31/2021: Pt ready for DC tomorrow Slept well last night Decreasing pain pill use IV Zofran is used, will try to wean that 03/30/2021: Pt doing pretty well Wants to go home and her has everything set up at home Incontinence noted Will talk to social worked about DC home 03/29/2021: Patient in a good mood Ready to go home Move around really well Transfers doing well 03/28/2021: Patient doing really well Walking very well Oxygen is down to 1 L/minute Bowels moved on 03/26/2021 Incontinence only 1 time last night 03/27/2021: Patient doing a lot better Awaiting plan for group home placement No bowels moving yet for the last couple of days will take laxatives Decreasing oxygen supplement from 2 L Blood pressure 104/51 03/26/2021: Pt doing really well Holding Zestril due to low blood pressure Bowels moved two days ago, laxatives given Bladder training today since she is incontinent and she is doing a lot better with that K Pad for right side pain 03/25/21: Underwent paracentesis and took off 2.[address] Cotter assistance Will go to group home since she has mold in her house 03/24/2021: Pt doing a lot better Walk with a abner walker Paracentesis will be done tomorrow by Dr. Hernandez Benadryl and Zofran are taken on a regular basis 03/23/2021: Pt doing pretty well Able to stand with therapy Bowels are moving IV Zofran will be given Benadryl is also used a lot Chest X-ray and labs will be reviewed Hgb is 7.6 Not much motivation though 03/22/2021: Patient sleeping pretty well Diclofenac gel will be used for joint pain Antibiotics changed over to Omnicef p.o. Monitoring closely 03/21/2021: Patient sleeping currently Out of isolation from COVID-19 Antibiotics still maintained We will narrow antibiotic spectrum within the next 2 days No other issues 03/20/2021: Patient doing pretty well Covid swab was just colonization and now out of isolation Pneumonia treatment maintained Will narrow antibiotic spectrum after tomorrow 03/19/2021: Pt doing okay Refusing a lot of her meds Zofran before pain medication helps her Discontinue accu cheks and change to regular diet Late in the afternoon she complained of chest pain I did chest pain work-up chest x-ray appeared to have opacities so I went ahead and swabbed for COVID-19 and she was positive. There is no room available to move to due to Covid surge hospital-wide diversion no beds available so she will remain in that room in isolation. 03/18/2021: Patient doing pretty well PureWhick while in bed Eating breakfast pretty well today Slept well last night IV Zofran has helped Had a suppository last night and had a BM 03/17/21: Pt having more nausea Fentanyl patch of 235 micrograms has been maintained of which I didnt realize and really unsure about increasing that to 50 because of the her disease Zofran will be given IV Her left leg is moving very well 03/16/2021: Pt doing pretty well PureWick started for Lasix Aldactone diuresis Hgb 8.2 Bowels are moving well Has no complaints 03/15/2021: Patient doing really well Heels are red but Allevyn seems to cause an allergy No pain medication was needed today thus far Stool softeners maintained Lasix and Aldactone causes increased urination so pure wick may be required 03/14/2021: Pt doing really well Iron level of 21 so will initiate the Venofer full dosing Midline maintained Overall doing much better and able to move the left leg 03/13/21: Pt doing really well DC the martinez catheter Ultrasound will be performed and paracentesis will be performed by Dr. Hernandez Hgb 8.1 give one dose of iron infusion She is reusing Carafate as requested Updated Review of Systems General: Fatigue Neurological: Weakness Objective Exam Vital Signs Vital Signs Date Time Temp Pulse Resp B/P (MAP) Pulse Ox O2 Delivery O2 Flow Rate FiO2 03/31/21 21:07 2.00 03/31/21 20:10 Nasal Cannula 03/31/21 20:00 36.9 65 18 130/64 (86) 97 Capillary Refill : General Appearance: No Apparent Distress, Chronically ill HEENT: PERRL/EOMI, Normal ENT Inspection, Pharynx Normal Neck: Full Range of Motion, Normal Inspection, Non Tender, Supple, Carotid Bruit Respiratory: Chest Non Tender, No Accessory Muscle Use, No Respiratory Distress Cardiovascular: Regular Rate, Rhythm, No JVD Gastrointestinal: Normal Bowel Sounds, No Organomegaly, No Pulsatile Mass, Non Tender, Soft, Distended, Other Back: Normal Inspection, No CVA Tenderness, No Vertebral Tenderness Extremity: Normal Capillary Refill, Non Tender Neurologic/Psychiatric: Alert, Oriented x3, Normal Mood/Affect, Motor Weakness Skin: Normal Color, Warm/Dry Lymphatic: No Adenopathy Results/Procedures Lab Patient resulted labs reviewed. FIM Transfers Therapy Code Descriptions/Definitions Functional [place] Measure: 0=Not Assessed/NA 4=Minimal Assistance 1=Total Assistance 5=Supervision or Setup 2=Maximal Assistance 6=Modified [place] 3=Moderate Assistance 7=Complete IndependenceSCALE: Activities may be completed with or without assistive devices. 7-Koitwuutyd-hmpxhou completes the activity by him/herself with no assistance from a helper. 5-Set-up or Clean-up Assistance-helper sets up or cleans up; patient completes activity. [place] assists only prior to or following the activity. 4-Supervision or Touching Assistance-helper provides verbal cues and/or touching/steadying and/or contact guard assistance as patient completes activity. Assistance may be provided throughout the activity or intermittently. 3-Partial/Moderate Assistance-helper does LESS THAN HALF the effort. [place] lifts, holds or supports trunk or limbs, but provides less than half the effort. 2-Substantial/Maximal Assistance-helper does MORE THAN HALF the effort. [place] lifts or holds trunk or limbs and provides more than half the effort. 9-Olhqbebwk-vloysb does ALL the effort. Patient does none of the effort to complete the activity. Or, the assistance of 2 or more helpers is required for the patient to complete the activity. If activity was not attempted, code reason: 7-Patient Refused. 9-Not Applicable-not attempted and the patient did not perform the activity before the current illness, exacerbation or injury. 10-Not Attempted due to Environmental Limitations-(lack of equipment, weather restraints, etc.). 88-Not Attempted due to Medical Conditions or Safety Concerns. Roll Left to Right (QC): 4 Sit to Lying (QC): 3 Sit to Stand (QC): 4 Chair/Asv-fp-Iqhah Xfer(QC): 3 Car Transfer (QC): 1 Gait Training Does the Patient Walk?: Yes Distance: 20', 40', 35' Walk 10 feet (QC): 4 Walk 50 ft with 2 Turns(QC): 4 Walk 150 ft (QC): 88 Walking 10ft/uneven surface-QC: 88 Gait Persons Needed: 1 Gait Assistive Device: Walker Abner Wheelchair Training Does the Pt Use a Wheelchair?: Yes Distance: 50 Wheel 50 ft with 2 turns (QC): 5 Wheel 150 ft (QC): 5 Type of Wheelchair: Manual Stair Training 1 Step (curb) (QC): 88 4 Steps (QC): 88 12 Steps (QC): 88 Balance Picking up an Object (QC): 88 ADL-Treatment Eating (QC): 5 Oral Hygiene (QC): 3 (mod A per clinical judgment, though pt denies at this time.) Shower/Bathe Self (QC): 3 (Mod assist overall with sponge bath at chair level. Pt. states that she does not feel like a shower this a.m.) Upper Body Dressing (QC): 3 (Mod assist and max cues to don shirt.) Lower Body Dressing (QC): 2 On/Off Footwear (QC): 2 Toileting Hygiene (QC): 2 Toilet Transfer (QC): 3 (Min assist.) Assessment/Plan Assessment and Plan Assess & Plan/Chief Complaint Assessment: CVA with left-sided weakness severe disability COPD oxygen dependent 14/03 Cirrhosis from GROVES Paracenteses on regular basis Anemia Diabetes Hypertension Hypothyroidism Migraines Chronic back pain GERD Anemia Ascites COVID-19 + 02/04/2021 Plan: Supportive care Aggressive therapy Oxygen dependent 03/13/21: Paracentesis Monitor closely Venofer Iron level pending 03/14/2021: Iron infusions Supportive care Monitor blood sugar 03/15/2021: Supportive care Monitor sugar Bowel regimen 03/16/2021: Blood sugar management Monitor closely 03/17/2021: Supportive care Pain control Nausea treatment 03/18/2021: Supportive care Nausea treatment 03/19/2021: Covid positive at 2150 hrs. Antibiotic initiation Not hypoxic so we will monitor closely 03/20/2021: IV antibiotics Covid swab is colonization from illness on 02/05/2021 03/21/2021: IV antibiotics Monitor closely Fall risk 03/22/2021: IV antibiotics transition to p.o. Supportive care 03/23/2021: Much improved status Seems to be more motivated Lungs remain clear 03/24/2021: Paracentesis tomorrow by Dr. Hernandez Supportive care Much improved 03/25/21: Appreciate Dr. Hernandez status post paracentesis Discharge to respite care nonskilled group home 03/26/2021: Hold Vasotec Monitor blood pressure Supportive care 03/27/2021: Supportive care Fall risk Skilled care at discharge 03/28/2021: Supportive care Much improved status 03/29/2021: Fall risk Check labs in the morning Maintain oxygen 03/30/2021: DC home on Tue Patient will require a hospital bed due to GROVES with intermittent paracentesis due to continuous abdominal fluid buildup. She has COPD and is dependent on oxygen. She had a recent CVA with left-sided weakness. This combination of comorbidities affects the patient's pulmonary function as well as her ability to independently change body position in a regular bed therefore regular bed will not be adequate. 03/31/2021: Discharge tomorrow Oxygen evaluation (1) CVA (cerebral vascular accident) (2) Cirrhosis (3) GROEVS (nonalcoholic steatohepatitis) (4) Status post abdominal paracentesis (5) Left-sided weakness (6) Diabetes (7) COPD (chronic obstructive pulmonary disease) (8) Dependence on supplemental oxygen (9) Anemia (10) Hypertension (11) Hyperlipidemia (12) Chronic back pain (13) GERD (gastroesophageal reflux disease) (14) Hypothyroidism NALLELY IBRAHIM DO Mar 31, 2021 06:51
[2021-03-31 07:47] VITALS: BP 126/60
[2021-03-31] MEDS: RT-ALBUTEROL SULF 2.5 MG/3 ML PRE-MIX VIAL INH PRN (08:00)
[2021-03-31] MEDS: RT--FLUTICASONE/SALMETEROL 232-14 (AIRDUO RespiCLICK) IH SCH ×2 (08:02→21:07)
[2021-03-31] MEDS: NIFEdipine ER 30 MG (PROCARDIA XL) TAB PO SCH (08:37)
[2021-03-31] MEDS: SENNA W/DOCUSATE (SENOKOT S) TABLET PO SCH (08:40)
[2021-03-31] MEDS: ONDANSETRON 4 MG/2 ML (SDV) Z0FRAN IVP PRN ×2 (08:40→16:21)
[2021-03-31] MEDS: FUROSEMIDE 40 MG (LASIX) TAB PO SCH (08:40)
[2021-03-31] MEDS: SPIRONOLACTONE 25 MG (ALDACTONE) TAB PO SCH (08:41)
[2021-03-31] MEDS: ASPIRIN E.C. 81 MG (ECOTRIN) TAB PO SCH (08:41)
[2021-03-31] MEDS: FOLIC ACID 400 MCG PO SCH (08:42)
[2021-03-31] MEDS: COLESTIPOL 1 GM (COLESTID) TAB PO SCH ×2 (09:29→19:48)
[2021-03-31] MEDS: DOCUSATE SODIUM 100 MG (COLACE) CAP PO SCH ×2 (09:29→19:48)
[2021-03-31] MEDS: PANTOPRAZOLE 40 MG (PROTONIX) TAB PO SCH (09:30)
[2021-03-31] MEDS: SIMETHICONE 80 MG (MYLICON) CHEW PO SCH ×4 (09:30→19:48)
[2021-03-31] MEDS: polyethylene glycoL POWDER 17 GM (MIRALAX) PACK PO SCH ×2 (09:30→19:48)
--- NOTE | 2021-03-31 10:02 | Occupational Ther Daily Note ---
OT Current Status-Daily Note Subjective No pain reported. Appearance Pt. in bed. Agrees to work with OT. Mental Status/Objective Patient Orientation: Person, Place, Time, Situation Attachments: Oxygen ADL-Treatment Therapy Code Descriptions/Definitions Functional [place] Measure: 0=Not Assessed/NA 4=Minimal Assistance 1=Total Assistance 5=Supervision or Setup 2=Maximal Assistance 6=Modified [place] 3=Moderate Assistance 7=Complete IndependenceSCALE: Activities may be completed with or without assistive devices. 6-Wbtrowqdrx-uykhzrd completes the activity by him/herself with no assistance from a helper. 5-Set-up or Clean-up Assistance-helper sets up or cleans up; patient completes activity. [place] assists only prior to or following the activity. 4-Supervision or Touching Assistance-helper provides verbal cues and/or touching/steadying and/or contact guard assistance as patient completes activity. Assistance may be provided throughout the activity or intermittently. 3-Partial/Moderate Assistance-helper does LESS THAN HALF the effort. [place] lifts, holds or supports trunk or limbs, but provides less than half the effort. 2-Substantial/Maximal Assistance-helper does MORE THAN HALF the effort. [place] lifts or holds trunk or limbs and provides more than half the effort. 2-Rmhzwyfxk-mnmldj does ALL the effort. Patient does none of the effort to complete the activity. Or, the assistance of 2 or more helpers is required for the patient to complete the activity. If activity was not attempted, code reason: 7-Patient Refused. 9-Not Applicable-not attempted and the patient did not perform the activity before the current illness, exacerbation or injury. 10-Not Attempted due to Environmental Limitations-(lack of equipment, weather restraints, etc.). 88-Not Attempted due to Medical Conditions or Safety Concerns. Other Treatment Pt. had just returned to bed from toileting with nursing. She declines bathing/dressing, as she had bathed yesterday with OT. Does agree to get up with OT and go to therapy gym. Transfers supine-sit with SBA. Transfers sit- stand with CGA, and transfers to wheelchair. Pt. taken to therapy gym via wheelchair. OT provided gentle PROM to left UE in all planes. No pain reported. Gentle stretch provided to left pectorals. Joint compressions provided to left shoulder/elbow. Tolerated well. OT elicited muscle stimulation for bicep flexion/tricep extension. No active movement in wrist extensors yet. Note that supinators emerging. OT utilized DELL wrap to put left hand on arm bike, while right UE propelled arm bike at low resistance and speed. Provided gentle stretch and motion to left shoulder. No discomfort noted. Tolerated 10 minutes. Provided continued gentle stretch to left shoulder after activity. Pt. taken back to room. Transferred to bed with CGA. All needs met. Education OT Patient Education: Correct positioning, Exercise program, Modified ADL techniques, Progress toward Goal/Update tx plan, Purpose of tx/functional activities, Reviewed precautions, Rehab process, Transfer techniques Teaching Recipient: Patient Teaching Methods: Demonstration, Discussion Response to Teaching: Verbalize Understanding, Return Demonstration OT Short Term Goals Short Term Goals Oral hygiene: 5 Toileting hygiene: 2 Shower/bathe self: 2 Upper body dressin Lower body dressin OT Residential Goals Residential Goals Time Frame: Mar 27, 2021 Eating (QC): 6 Oral Hygiene (QC): 6 Toileting Hygiene (QC): 4 Shower/Bathe Self (QC): 4 Upper Body Dressing (QC): 6 Lower Body Dressing (QC): 4 On/Off Footwear (QC): 4 Additional Goals: 1-Demonstrate ADL Tasks, 2-Verbalize Understanding, 3- ImproveStrength/Feliberto 1=Demonstrate adherence to instructed precautions during ADL tasks. 2=Patient will verbalize/demonstrate understanding of assistive devices/modifications for ADL. 3=Patient will improve strength/tolerance for activity to enable patient to perform ADL's. OT Education/Plan Problem List/Assessment Assessment: Decreased Activ Tolerance, Decreased UE Strength, Impaired Bed Mobility, Impaired Coordination, Impaired I ADL's, Impaired Self-Care Skills, Restricted Funct UE ROM Discharge Recommendations Plan/Recommendations: Continue POC Therapy Discharge Recommendati: Scheduled Assistance, Home & Family, Post Acute OT Treatment Plan/Plan of Care Treatment,Training & Education: Yes Patient would benefit from OT for education, treatment and training to promote independence in ADL's, mobility, safety and/or upper extremity function for ADL's. Plan of Care: ADL Retraining, Caregiver Training, Cognitive Retraining, Functional Mobility, Group Exercise/Act as Ind, Orthotic Fitting/Training, UE Funct Exercise/Act, UE Neuromus Re-Ed/Coord, Visual/Perceptual Retrain, W/C Management Training Treatment Duration: Mar 27, 2021 Frequency: At least 5 of 7 days/Wk (IRF) Estimated Hrs Per Day: 1.5 hours per day Agreement: Yes Rehab Potential: Fair Time/GCodes Start Time: 08:30 Stop Time: 09:45 Total Time Billed (hr/min): 75 Billed Treatment Time 1, FA x 15minutes, Ex x 30minutes, NM x 30minutes SHEELA CLARKE OT Mar 31, 2021 10:02
--- NOTE | 2021-03-31 10:10 | Speech Therapy Daily Note ---
Speech Daily Progress Note Subjective Date Seen by Provider: Mar 31, 2021 Time Seen by Provider: 00:30 Patient is excited to be discharging to her home tomorrow. Objective Patient completed a series of recall of safety information for function at home and with oral intake at 100% without cues. Assessment Assessment Current Status: Good Progress Treatment Plan Discontinue ST, Goals Met Speech Short Term Goals Short Term Goals Short Term Goals 1) Patient will complete memory tasks related to her daily needs at 80% or greater with minimal cues. 2) Patient will complete safety awareness tasks related to her daily needs at 80% or greater with minimal cues. 3) Patient will complete problem solving tasks related to her daily needs at 80% or greater with minimal cues. Speech Long-Term Goals Parachute Panel Joiner Goals Patient will improve cognitive-communication abilities in order to require less assist with daily tasks. Speech-Plan Patient/Family Goals Patient/Family Goals: Patient is scheduled to discharge to her home where she lives with her . She will be receiving home health services with therapy to continue. Treatment Plan Speech Therapy Treatment Plan: Discontinue ST, Goals Met Treatment Duration: Apr 03, 2021 Frequency: 4 times per week Estimated Hrs Per Day: .5 hour per day Rehab Potential: Fair Barriers to Learning: Patient's CVA, recovery from COVID deficits which are resolving Pt/Family Agrees to Plan: Yes Safety Risks/Education Teaching Recipient: Patient Teaching Methods: Demonstration, Discussion Response to Teaching: Verbalize Understanding, Return Demonstration Education Topics Provided: Continued safety in the home and with oral intake Time Speech Therapy Time In: 10:00 Speech Therapy Time Out: 10:30 Total Billed Time: 30 Billed Treatment Time 1, SLTS, DYST No QUALITY CODES: EXPRESSION OF WANTS/IDEAS: 4 UNDERSTANDING VERBAL CONTENT: 4 REPETITION OF 3 WORDS: 3 BRIEF INTERVIEW MENTAL STATUS: YES TEMPORAL ORIENTATION: YEAR: CORRECT, MONTH: CORRECT, DAY: CORRECT RECALL: SOCK: YES, BLUE: YES, BED: YES MEMORY/RECALL ABILITY: SEASON, LOCATION OF ROOM, STAFF NAMES, THAT SHE IS IN THE HOSPITAL DARIENADRIANE BELLE Mar 31, 2021 10:10
[2021-03-31] MEDS: fentaNYL PATCH 25 MCG (DURAGESIC) TD SCH (10:30)
[2021-03-31] MEDS: FENTANYL PATCH REMOVAL TP SCH (10:30)
[2021-03-31] MEDS: VICTOZA SQ SCH (10:30)
[2021-03-31] MEDS: TRIAMCINOLONE 0.1% CR (KENALOG) 15 GM TUBE TP SCH ×2 (10:31→21:31)
--- NOTE | 2021-03-31 12:11 | Physical Therapy Daily Note ---
PT Daily Note-Current Subjective Pt laying Supine in bed upon arrival. Pt agrees to PT for QC scoring for upcoming d/c. Pain Location: No Pain Reported Mental Status Patient Orientation: Person, Place, Situation Attachments: Oxygen (2L) Transfers SCALE: Activities may be completed with or without assistive devices. 8-Dnoddhqfhi-tbuqgiy completes the activity by him/herself with no assistance from a helper. 5-Set-up or Clean-up Assistance-helper sets up or cleans up; patient completes activity. [place] assists only prior to or following the activity. 4-Supervision or Touching Assistance-helper provides verbal cues and/or touching/steadying and/or contact guard assistance as patient completes activity. Assistance may be provided throughout the activity or intermittently. 3-Partial/Moderate Assistance-helper does LESS THAN HALF the effort. [place] lifts, holds or supports trunk or limbs, but provides less than half the effort. 2-Substantial/Maximal Assistance-helper does MORE THAN HALF the effort. [place] lifts or holds trunk or limbs and provides more than half the effort. 6-Yaspphrpa-vlcdbk does ALL the effort. Patient does none of the effort to complete the activity. Or, the assistance of 2 or more helpers is required for the patient to complete the activity. If activity was not attempted, code reason: 7-Patient Refused. 9-Not Applicable-not attempted and the patient did not perform the activity before the current illness, exacerbation or injury. 10-Not Attempted due to Environmental Limitations-(lack of equipment, weather restraints, etc.). 88-Not Attempted due to Medical Conditions or Safety Concerns. Roll Left & Right (QC): 6 Sit to Lying (QC): 6 Lying to Sitting/Side of Bed(Q: 6 Sit to Stand (QC): 4 Chair/Uaq-tn-Kmtgi Xfer(QC): 4 Toilet Transfer (QC): 4 Car Transfer (QC): 4 Pt uses hospital bed railing for transfers but will have hospital bed at home. Weight Bearing Right Lower Extremity: Right Full Weight Bearing Left Lower Extremity: Left Full Weight Bearing Gait Training Does the Patient Walk?: Yes Distance: 175', 50' Walk 10 feet (QC): 4 Walk 50 ft with 2 Turns(QC): 4 Walk 150 ft (QC): 4 Walking 10ft/uneven surface-QC: 4 Gait Persons Needed: 1 Gait Assistive Device: Walker Abner Wheelchair Training Does the Pt Use a Wheelchair?: Yes Wheel 50 ft with 2 turns (QC): 6 Wheel 150 ft (QC): 6 Type of Wheelchair: Manual Stair Training 1 Step (curb) (QC): 7 4 Steps (QC): 7 12 Steps (QC): 7 Pt reports won't have stairs at home. Balance Picking up an Object (QC): 4 Treatments TF to EOB then SPT to BSC. After finishing toileting, pt is able to complete pericare but needs assistance donning brief and pants. Pt amb. in hallway with several RB. After amb, pt completes QC scoring items listed above. Pt rests in [facility] and propels back to room. Pt transfers back to bed to rest with all needs met, call light in hand. Assessment Current Status: Good Progress Pt continues to push self and has gained strength and mobility. Pt still fatigues and needs frequent rest breaks. PT Short Term Goals Short Term Goals Time Frame: Mar 20, 2021 Roll Left & Right: 4 Sit to lyin Lying to sitting on side of be: 4 Sit to stand: 5 Chair/dct-th-lpbcm transfer: 4 Toilet transfer: 4 Car transfer: 4 Walk 10 feet: 4 Walk 50 feet with two turns: 4 Walk 150 feet: 88 Walking 10ft on uneven surface: 88 1 step (curb): 4 4 steps: 88 12 steps: 88 Picking up objects: 88 Does pt use a wc or scooter: Yes Wheel 50ft w/2 turns: 5 Wheel 150 feet: 5 Type: Manual PT Fdc Goals Hazmat Tanker Driver Goals PT Hazmat Tanker Driver Goals Time Frame: Apr 03, 2021 Roll Left & Right (QC): 6 Sit to Lying (QC): 6 Lying-Sitting on Side/Bed(QC): 6 Sit to Stand (QC): 6 Chair/Nii-yv-Dqvgg Xfer(QC): 6 Toilet Transfer (QC): 5 Car Transfer (QC): 4 Does the Patient Walk: Yes Walk 10 feet (QC): 5 Walk 50ft with 2 Turns (QC): 5 Walk 150 ft (QC): 5 Walking 10ft on Uneven Surface: 5 1 Step (curb) (QC): 5 4 Steps (QC): 4 12 Steps (QC): 88 Picking up an Object (QC): 88 Wheel 50 feet with 2 turns (QC: 6 Type: Manual Wheel 150 feet: 6 Type: Manual PT Plan Problem List Problem List: Activity Tolerance, Balance Treatment/Plan Treatment Plan: Continue Plan of Care Treatment Plan: Bed Mobility, Concurrent Therapy, Functional Strength, Group Therapy, Gait, Safety, Therapeutic Exercise Treatment Duration: Apr 03, 2021 Frequency: 11 times per week Estimated Hrs Per Day: 1.5 hours per day Patient and/or Family Agrees t: Yes Safety Risks/Education Patient Education: Correct Positioning, Safety Issues Teaching Recipient: Patient Teaching Methods: Discussion Response to Teaching: Verbalize Understanding Time/GCodes Time In: 1045 Time Out: 1200 Total Billed Treatment Time: 75 Total Billed Treatment 1, GT x2 (30m), FA x3 (45m) MAURICE CAPUTO BATTER DEPOSITOR Mar 31, 2021 12:11
[2021-03-31] MEDS: ENOXAPARIN 40 MG/0.4 ML (LOVENOX) SYR SC SCH (18:31)
[2021-03-31 20:00] VITALS: BP 130/64
[2021-03-31] MEDS: MELATONIN 3 MG TABLET PO PRN (21:30)
[2021-03-31] MEDS: traZODone 150 MG (DESYREL) TABLET PO SCH (21:30)
[2021-03-31] MEDS: MONTELUKAST 10 MG (SINGULAIR) TAB PO SCH (21:30)
[2021-03-31] MEDS: LUMIGAN 0.01% OPTH SOLN OU SCH (21:31)
[2021-03-31] MEDS: MICONAZOLE 2% POWDER (DESENEX AF) 90 GM TOP SCH (21:56)
[2021-04-01] MEDS: HYDROcodone/APAP 5 MG/325 MG (LORTAB) TAB PO PRN (01:21)
[2021-04-01] MEDS: SUCRALFATE 1 GM (CARAFATE) TAB PO SCH (05:11)
[2021-04-01] MEDS ORDERED: FENT1PAT8 TD (06:16)
[2021-04-01] MEDS ORDERED: PROM25SU44 RC (06:16)
[2021-04-01] MEDS ORDERED: MICO90PO TOP (06:16)
[2021-04-01] MEDS ORDERED: SUCR1TAB PO (06:16)
[2021-04-01] MEDS ORDERED: ALPR.25T PO (06:16)
[2021-04-01] MEDS ORDERED: ACHD5005 PO (06:16)
--- NOTE | 2021-04-01 06:18 | D/C HH Face to Face Order ---
D/C Face to Face Orders Reconcile Patient Problems Problems Reviewed?: Yes Instructions for Patient Home Health Patient Instructions/FollowUp: PCP in 1 week Physician to follow Patient: PCP Discharge Diet for Home: ADA Diet Patient Problems: CVA Patient Data-Allergies,Ht & Wt Patient Allergies: Coded Allergies: Sulfa (Sulfonamide Antibiotics) (Unverified Allergy, HIVES, 09/18/13) codeine (Unverified Allergy, HIVES, 09/18/13) exenatide (Unverified Allergy, HIVES, 09/18/13) Uncoded Allergies: IV CONTRAST DYE (Allergy, HIVES, 09/18/13) Height (Feet): 5 Height (Inches): 3.00 Weight (Pounds): 189 Weight (Ounces): 0.0 Home Health Need/Face to Face Date of Face to Face: Apr 01, 2021 Clinical Findings: Generalized weakness and fatigue, Instability, Muscle weakness, Shortness of breath, Unsteady gait I have seen Pt [id number]: Yes Discharged To: Home Diagnosis/Conditions: CVA Patient is Homebound due to: Sarah fall risk due to instabilty, Muscle weakness, Shortness of breath/distress Homebound Status Due to the above stated illness, injury or surgical procedure (medical condition or diagnosis) and associated clinical findings, the patient is homebound because of his/her inability to leave home except with aid of a supportive device and/or person AND leaving the home requires a considerable and taxing effort or is medically contraindicated. Pt req the following assistanc: [facility] Nursing Orders Home Health Services Order: Nursing Services, Philatelic Consultant-Evaluate & Treat, Physical Therapy-Evaluate & Treat Home Health Infusion Therapy Line Start Date: Mar 13, 2021 Certify Stmt I certify that this patient is under my care and that I, a nurse practitioner or a physician; a dyer assistant working with me, had a face to face encounter that - meets the physician face to face encounter requirements with this patient as dated. NALLELY IBRAHIM DO Apr 01, 2021 06:18
--- NOTE | 2021-04-01 06:19 | Discharge Summary ---
Diagnosis/Chief Complaint Date of Admission Mar 12, 2021 at 17:48 Date of Discharge Discharge Date: Apr 01, 2021 Discharge Diagnosis Assessment: CVA with left-sided weakness severe disability COPD oxygen dependent 14/03 Cirrhosis from GROVES Paracenteses on regular basis Anemia Diabetes Hypertension Hypothyroidism Migraines Chronic back pain GERD Anemia Ascites COVID-19 + 02/04/2021 Plan: Supportive care Aggressive therapy Oxygen dependent 03/13/21: Paracentesis Monitor closely Venofer Iron level pending 03/14/2021: Iron infusions Supportive care Monitor blood sugar 03/15/2021: Supportive care Monitor sugar Bowel regimen 03/16/2021: Blood sugar management Monitor closely 03/17/2021: Supportive care Pain control Nausea treatment 03/18/2021: Supportive care Nausea treatment 03/19/2021: Covid positive at 2150 hrs. Antibiotic initiation Not hypoxic so we will monitor closely 03/20/2021: IV antibiotics Covid swab is colonization from illness on 02/05/2021 03/21/2021: IV antibiotics Monitor closely Fall risk 03/22/2021: IV antibiotics transition to p.o. Supportive care 03/23/2021: Much improved status Seems to be more motivated Lungs remain clear 03/24/2021: Paracentesis tomorrow by Dr. Hernandez Supportive care Much improved 03/25/21: Appreciate Dr. Hernandez status post paracentesis Discharge to respite care nonskilled group home 03/26/2021: Hold Vasotec Monitor blood pressure Supportive care 03/27/2021: Supportive care Fall risk Skilled care at discharge 03/28/2021: Supportive care Much improved status 03/29/2021: Fall risk Check labs in the morning Maintain oxygen 03/30/2021: DC home on Tue Patient will require a hospital bed due to GROVES with intermittent paracentesis due to continuous abdominal fluid buildup. She has COPD and is dependent on oxygen. She had a recent CVA with left-sided weakness. This combination of comorbidities affects the patient's pulmonary function as well as her ability to independently change body position in a regular bed therefore regular bed will not be adequate. 03/31/2021: Discharge tomorrow Oxygen evaluation (1) CVA (cerebral vascular accident) (2) Cirrhosis (3) GROVES (nonalcoholic steatohepatitis) (4) Status post abdominal paracentesis (5) Left-sided weakness (6) Diabetes (7) COPD (chronic obstructive pulmonary disease) (8) Dependence on supplemental oxygen (9) Anemia (10) Hypertension (11) Hyperlipidemia (12) Chronic back pain (13) GERD (gastroesophageal reflux disease) (14) Hypothyroidism Discharge Summary Discharge Physical Examination Allergies: Coded Allergies: Sulfa (Sulfonamide Antibiotics) (Unverified Allergy, HIVES, 09/18/13) codeine (Unverified Allergy, HIVES, 09/18/13) exenatide (Unverified Allergy, HIVES, 09/18/13) Uncoded Allergies: IV CONTRAST DYE (Allergy, HIVES, 09/18/13) Vitals & I&Os Vital Signs Date Time Temp Pulse Resp B/P (MAP) Pulse Ox O2 Delivery O2 Flow Rate FiO2 04/01/21 10:56 36.9 60 12 116/56 95 Nasal Cannula 1.00 General Appearance: Alert, Oriented X3, Cooperative Respiratory: Clear to Auscultation Cardiovascular: Regular Rate Psych/Mental Status: Mental Status NL Hospital Course Was the Problem List Reviewed?: Yes Hospital course: Pt had a lengthy nearly three week hospital course in inpatient rehab following Covid-19 and a stroke with left-sided weakness. She did have a paracentesis done by Dr. Hernandez while hospitalized in inpatient rehab. Labs remain stable, she did have hospital-acquired pneumonia, completed Cefepime and Vanc and did very well with transition to Omnicef. She remained on oxygen one liter continuous, two liters during exertion and she was able to be discharged home with her . Labs (last 24 hrs) Laboratory Tests 03/12/21 18:39: Glucometer 132H 03/12/21 21:14: Glucometer 168H 03/13/21 05:30: White Blood Count 6.6, Red Blood Count 3.44L, Hemoglobin 8.1L, Hematocrit 26L, Mean Corpuscular Volume 77L, Mean Corpuscular Hemoglobin 24L, Mean Corpuscular Hemoglobin Concent 31L, Red Cell Distribution Width 18.0H, Platelet Count 272, Mean Platelet Volume 9.8, Immature Granulocyte % (Auto) 1, Neutrophils (%) (Auto) 68, Lymphocytes (%) (Auto) 20, Monocytes (%) (Auto) 10, Eosinophils (%) (Auto) 0, Basophils (%) (Auto) 1, Neutrophils # (Auto) 4.5, Lymphocytes # (Auto) 1.3, Monocytes # (Auto) 0.7, Eosinophils # (Auto) 0.0, Basophils # (Auto) 0.1, Immature Granulocyte # (Auto) 0.1, Sodium Level 136, Potassium Level 3.7, Chloride Level 101, Carbon Dioxide Level 26, Anion Gap 9, Blood Urea Nitrogen 20H, Creatinine 0.83, Estimat Glomerular Filtration Rate 69, BUN/Creatinine Ratio 24, Glucose Level 123H, Calcium Level 7.4L, Corrected Calcium 8.7, Iron Level 21L, Total Bilirubin 0.8, Aspartate Amino Transf (AST/SGOT) 22, Alanine Aminotransferase (ALT/SGPT) 20, Alkaline Phosphatase 64, Total Protein 5.7L, Albumin 2.4L 03/13/21 10:48: Glucometer 185H 03/13/21 16:09: Glucometer 195H 03/13/21 20:21: Glucometer 169H 03/14/21 06:26: Glucometer 103 03/14/21 10:46: Glucometer 136H 03/14/21 15:54: Glucometer 144H 03/14/21 20:31: Glucometer 142H 03/15/21 06:07: Glucometer 101 03/15/21 12:14: Glucometer 156H 03/15/21 15:22: Glucometer 226H 03/15/21 21:03: Glucometer 169H 03/16/21 04:40: White Blood Count 6.5, Red Blood Count 3.47L, Hemoglobin 8.2L, Hematocrit 27L, Mean Corpuscular Volume 78L, Mean Corpuscular Hemoglobin 24L, Mean Corpuscular Hemoglobin Concent 31L, Red Cell Distribution Width 18.9H, Platelet Count 330, Mean Platelet Volume 10.4, Immature Granulocyte % (Auto) 1, Neutrophils (%) (Auto) 65, Lymphocytes (%) (Auto) 23, Monocytes (%) (Auto) 11, Eosinophils (%) (Auto) 0, Basophils (%) (Auto) 1, Neutrophils # (Auto) 4.3, Lymphocytes # (Auto) 1.5, Monocytes # (Auto) 0.7, Eosinophils # (Auto) 0.0, Basophils # (Auto) 0.1, Immature Granulocyte # (Auto) 0.0, Sodium Level 136, Potassium Level 4.0, Chloride Level 98, Carbon Dioxide Level 25, Anion Gap 13, Blood Urea Nitrogen 20H, Creatinine 0.90, Estimat Glomerular Filtration Rate 63, BUN/Creatinine Ratio 22, Glucose Level 111H, Calcium Level 7.7L, Corrected Calcium 9.0, Total Bilirubin 0.5, Aspartate Amino Transf (AST/SGOT) 42H, Alanine Aminotransferase (ALT/SGPT) 23, Alkaline Phosphatase 74, Total Protein 6.0L, Albumin 2.4L 03/16/21 11:30: Glucometer 138H 03/16/21 16:59: Glucometer 134H 03/16/21 21:35: Glucometer 123H 03/17/21 05:29: Glucometer 105 03/17/21 10:53: Glucometer 115H 03/17/21 16:23: Glucometer 142H 03/17/21 20:37: Glucometer 128H 03/18/21 05:35: Glucometer 104 03/18/21 10:46: Glucometer 148H 03/18/21 16:14: Glucometer 155H 03/18/21 20:17: Glucometer 125H 03/19/21 05:33: Glucometer 113H 03/19/21 11:08: Glucometer 140H 03/19/21 16:20: White Blood Count 9.9, Red Blood Count 3.37L, Hemoglobin 8.1L, Hematocrit 27L, Mean Corpuscular Volume 79L, Mean Corpuscular Hemoglobin 24L, Mean Corpuscular Hemoglobin Concent 31L, Red Cell Distribution Width 20.8H, Platelet Count 348, Mean Platelet Volume 9.9, Immature Granulocyte % (Auto) 1, Neutrophils (%) (Auto) 75, Lymphocytes (%) (Auto) 14, Monocytes (%) (Auto) 10, Eosinophils (%) (Auto) 0, Basophils (%) (Auto) 0, Neutrophils # (Auto) 7.5, Lymphocytes # (Auto) 1.4, Monocytes # (Auto) 1.0, Eosinophils # (Auto) 0.0, Basophils # (Auto) 0.0, Immature Granulocyte # (Auto) 0.1, Sodium Level 135, Potassium Level 4.0, Chloride Level 98, Carbon Dioxide Level 26, Anion Gap 11, Blood Urea Nitrogen 20H, Creatinine 1.24, Estimat Glomerular Filtration Rate 44, BUN/Creatinine Ratio 16, Glucose Level 174H, Calcium Level 7.7L, Corrected Calcium 8.9, Total Bilirubin 0.5, Aspartate Amino Transf (AST/SGOT) 24, Alanine Aminotransferase ( ALT/SGPT) 21, Alkaline Phosphatase 75, Troponin I < 0.028, Total Protein 5.7L, Albumin 2.5L, Procalcitonin 0.11H 03/19/21 19:10: Lactic Acid Level 1.54 03/19/21 20:30: SARS-CoV-2 RNA (RT-PCR) DetectedH 03/23/21 05:48: White Blood Count 6.5, Red Blood Count 3.07L, Hemoglobin 7.6L, Hematocrit 25L, Mean Corpuscular Volume 81, Mean Corpuscular Hemoglobin 25, Mean Corpuscular Hemoglobin Concent 31L, Red Cell Distribution Width 22.5H, Platelet Count 301, M ermias Platelet Volume 10.2, Immature Granulocyte % (Auto) 1, Neutrophils (%) (Auto) 69, Lymphocytes (%) (Auto) 21, Monocytes (%) (Auto) 10, Eosinophils (%) (Auto) 0, Basophils (%) (Auto) 1, Neutrophils # (Auto) 4.5, Lymphocytes # (Auto) 1.3, Monocytes # (Auto) 0.6, Eosinophils # (Auto) 0.0, Basophils # (Auto) 0.1, Immature Granulocyte # (Auto) 0.0, Sodium Level 134L, Potassium Level 4.9, Chloride Level 100, Carbon Dioxide Level 25, Anion Gap 9, Blood Urea Nitrogen 23H, Creatinine 1.24, Estimat Glomerular Filtration Rate 44, BUN/Creatinine Ratio 19, Glucose Level 99, Calcium Level 8.1L, Corrected Calcium 9.4, Total Bilirubin 0.5, Aspartate Amino Transf (AST/SGOT) 26, Alanine Aminotransferase (ALT/SGPT) 18, Alkaline Phosphatase 71, Total Protein 5.6L, Albumin 2.4L 03/30/21 06:10: White Blood Count 3.8L, Red Blood Count 2.86L, Hemoglobin 7.5L, Hematocrit 24L, Mean Corpuscular Volume 84, Mean Corpuscular Hemoglobin 26, Mean Corpuscular Hemoglobin Concent 31L, Red Cell Distribution Width 24.9H, Platelet Count 276, Mean Platelet Volume 9.7, Immature Granulocyte % (Auto) 1, Neutrophils (%) (Auto) 61, Lymphocytes (%) (Auto) 27, Monocytes (%) (Auto) 10, Eosinophils (%) (Auto) 0, Basophils (%) (Auto) 1, Neutrophils # (Auto) 2.3, Lymphocytes # (Auto) 1.0, Monocytes # (Auto) 0.4, Eosinophils # (Auto) 0.0, Basophils # (Auto) 0.0, Immature Granulocyte # (Auto) 0.0, Sodium Level 135, Potassium Level 4.3, Chloride Level 102, Carbon Dioxide Level 26, Anion Gap 7, Blood Urea Nitrogen 11, Creatinine 0.77, Estimat Glomerular Filtration Rate 75, BUN/Creatinine Ratio 14, Glucose Level 97, Calcium Level 7.8L, Corrected Calcium 9.2, Total Bilirubin 0.4, Aspartate Amino Transf (AST/SGOT) 27, Alanine Aminotransferase (ALT/SGPT) 19, Alkaline Phosphatase 76, Total Protein 5.4L, Albumin 2.3L Microbiology 03/19/21 MRSA Screen - Final, Complete MRSA not isolated 03/19/21 Blood Culture - Final, Complete No growth Pending Labs Microbiology Date/Time Source Procedure Growth Status 03/19/21 20:30 Nasal MRSA Screen - Final MRSA not isolated Complete 03/19/21 19:30 Peripheral Not Otherwise Specified Blood Culture - Final No growth Complete 03/19/21 19:10 Peripheral Lt Hand Blood Culture - Final No growth Complete Laboratory Tests 03/12/21 18:39: Glucometer 132 03/12/21 21:14: Glucometer 168 03/13/21 05:30: White Blood Count 6.6, Red Blood Count 3.44, Hemoglobin 8.1, Hematocrit 26, Mean Corpuscular Volume 77, Mean Corpuscular Hemoglobin 24, Mean Corpuscular Hemoglobin Concent 31, Red Cell Distribution Width 18.0, Platelet Count 272, Mean Platelet Volume 9.8, Immature Granulocyte % (Auto) 1, Neutrophils (%) (Auto) 68, Lymphocytes (%) (Auto) 20, Monocytes (%) (Auto) 10, Eosinophils (%) (Auto) 0, Basophils (%) (Auto) 1, Neutrophils # (Auto) 4.5, Lymphocytes # (Auto) 1.3, Monocytes # (Auto) 0.7, Eosinophils # (Auto) 0.0, Basophils # (Auto) 0.1, Immature Granulocyte # (Auto) 0.1, Sodium Level 136, Potassium Level 3.7, Chloride Level 101, Carbon Dioxide Level 26, Anion Gap 9, Blood Urea Nitrogen 20, Creatinine 0.83, Estimat Glomerular Filtration Rate 69, BUN/Creatinine Ratio 24, Glucose Level 123, Calcium Level 7.4, Corrected Calcium 8.7, Iron Level 21, Total Bilirubin 0.8, Aspartate Amino Transf (AST/SGOT) 22, Alanine Aminotransferase (ALT/SGPT) 20, Alkaline Phosphatase 64, Total Protein 5.7, Albumin 2.4 03/13/21 10:48: Glucometer 185 03/13/21 16:09: Glucometer 195 03/13/21 20:21: Glucometer 169 03/14/21 06:26: Glucometer 103 03/14/21 10:46: Glucometer 136 03/14/21 15:54: Glucometer 144 03/14/21 20:31: Glucometer 142 03/15/21 06:07: Glucometer 101 03/15/21 12:14: Glucometer 156 03/15/21 15:22: Glucometer 226 03/15/21 21:03: Glucometer 169 03/16/21 04:40: White Blood Count 6.5, Red Blood Count 3.47, Hemoglobin 8.2, Hematocrit 27, Mean Corpuscular Volume 78, Mean Corpuscular Hemoglobin 24, Mean Corpuscular Hemoglobin Concent 31, Red Cell Distribution Width 18.9, Platelet Count 330, Mean Platelet Volume 10.4, Immature Granulocyte % (Auto) 1, Neutrophils (%) (Auto) 65, Lymphocytes (%) (Auto) 23, Monocytes (%) (Auto) 11, Eosinophils (%) (Auto) 0, Basophils (%) (Auto) 1, Neutrophils # (Auto) 4.3, Lymphocytes # (Auto) 1.5, Monocytes # (Auto) 0.7, Eosinophils # (Auto) 0.0, Basophils # (Auto) 0.1, Immature Granulocyte # (Auto) 0.0, Sodium Level 136, Potassium Level 4.0, Chloride Level 98, Carbon Dioxide Level 25, Anion Gap 13, Blood Urea Nitrogen 20, Creatinine 0.90, Estimat Glomerular Filtration Rate 63, BUN/Creatinine Ratio 22, Glucose Level 111, Calcium Level 7.7, Corrected Calcium 9.0, Total Bilirubin 0.5, Aspartate Amino Transf (AST/SGOT) 42, Alanine Aminotransferase (ALT/SGPT) 23, Alkaline Phosphatase 74, Total Protein 6.0, Albumin 2.4 03/16/21 11:30: Glucometer 138 03/16/21 16:59: Glucometer 134 03/16/21 21:35: Glucometer 123 03/17/21 05:29: Glucometer 105 03/17/21 10:53: Glucometer 115 03/17/21 16:23: Glucometer 142 03/17/21 20:37: Glucometer 128 03/18/21 05:35: Glucometer 104 03/18/21 10:46: Glucometer 148 03/18/21 16:14: Glucometer 155 03/18/21 20:17: Glucometer 125 03/19/21 05:33: Glucometer 113 03/19/21 11:08: Glucometer 140 03/19/21 16:20: White Blood Count 9.9, Red Blood Count 3.37, Hemoglobin 8.1, Hematocrit 27, Mean Corpuscular Volume 79, Mean Corpuscular Hemoglobin 24, Mean Corpuscular Hemoglobin Concent 31, Red Cell Distribution Width 20.8, Platelet Count 348, Mean Platelet Volume 9.9, Immature Granulocyte % (Auto) 1, Neutrophils (%) (Auto) 75, Lymphocytes (%) (Auto) 14, Monocytes (%) (Auto) 10, Eosinophils (%) (Auto) 0, Basophils (%) (Auto) 0, Neutrophils # (Auto) 7.5, Lymphocytes # (Auto) 1.4, Monocytes # (Auto) 1.0, Eosinophils # (Auto) 0.0, Basophils # (Auto) 0.0, Immature Granulocyte # (Auto) 0.1, Sodium Level 135, Potassium Level 4.0, Chloride Level 98, Carbon Dioxide Level 26, Anion Gap 11, Blood Urea Nitrogen 20, Creatinine 1.24, Estimat Glomerular Filtration Rate 44, BUN/Creatinine Ratio 16, Glucose Level 174, Calcium Level 7.7, Corrected Calcium 8.9, Total Bilirubin 0.5, Aspartate Amino Transf (AST/SGOT) 24, Alanine Aminotransferase (ALT/SGPT) 21, Alkaline Phosphatase 75, Troponin I < 0.028, Total Protein 5.7, Albumin 2.5, Procalcitonin 0.11 03/19/21 19:10: Lactic Acid Level 1.54 03/19/21 20:30: SARS-CoV-2 RNA (RT-PCR) Detected 03/23/21 05:48: White Blood Count 6.5, Red Blood Count 3.07, Hemoglobin 7.6, Hematocrit 25, Mean Corpuscular Volume 81, Mean Corpuscular Hemoglobin 25, Mean Corpuscular Hemoglobin Concent 31, Red Cell Distribution Width 22.5, Platelet Count 301, Mean Platelet Volume 10.2, Immature Granulocyte % (Auto) 1, Neutrophils (%) (Auto) 69, Lymphocytes (%) (Auto) 21, Monocytes (%) (Auto) 10, Eosinophils (%) (Auto) 0, Basophils (%) (Auto) 1, Neutrophils # (Auto) 4.5, Lymphocytes # (Auto) 1.3, Monocytes # (Auto) 0.6, Eosinophils # (Auto) 0.0, Basophils # (Auto) 0.1, Immature Granulocyte # (Auto) 0.0, Sodium Level 134, Potassium Level 4.9, Chloride Level 100, Carbon Dioxide Level 25, Anion Gap 9, Blood Urea Nitrogen 23, Creatinine 1.24, Estimat Glomerular Filtration Rate 44, BUN/Creatinine Ratio 19, Glucose Level 99, Calcium Level 8.1, Corrected Calcium 9.4, Total Bilirubin 0.5, Aspartate Amino Transf (AST/SGOT) 26, Alanine Aminotransferase (ALT/SGPT) 18, Alkaline Phosphatase 71, Total Protein 5.6, Albumin 2.4 03/30/21 06:10: White Blood Count 3.8, Red Blood Count 2.86, Hemoglobin 7.5, Hematocrit 24, Mean Corpuscular Volume 84, Mean Corpuscular Hemoglobin 26, Mean Corpuscular Hemoglobin Concent 31, Red Cell Distribution Width 24.9, Platelet Count 276, Mean Platelet Volume 9.7, Immature Granulocyte % (Auto) 1, Neutrophils (%) (Auto) 61, Lymphocytes (%) (Auto) 27, Monocytes (%) (Auto) 10, Eosinophils (%) (Auto) 0, Basophils (%) (Auto) 1, Neutrophils # (Auto) 2.3, Lymphocytes # (Auto) 1.0, Monocytes # (Auto) 0.4, Eosinophils # (Auto) 0.0, Basophils # (Auto) 0.0, Immature Granulocyte # (Auto) 0.0, Sodium Level 135, Potassium Level 4.3, Chloride Level 102, Carbon Dioxide Level 26, Anion Gap 7, Blood Urea Nitrogen 11, Creatinine 0.77, Estimat Glomerular Filtration Rate 75, BUN/Creatinine Ratio 14, Glucose Level 97, Calcium Level 7.8, Corrected Calcium 9.2, Total Bilirubin 0.4, Aspartate Amino Transf (AST/SGOT) 27, Alanine Aminotransferase (ALT/SGPT) 1 9, Alkaline Phosphatase 76, Total Protein 5.4, Albumin 2.3 Discharge Home Medications: Active Scripts Active Lotrimin AF (Miconazole Nitrate) 90 Gm Powder 0 Gm TOP BID Sucralfate 1 Gm Tablet 1 Gm PO QIDACHS Xanax Tablet (Alprazolam) 0.25 Mg Tab 0.25 Mg PO Q8H PRN HYDROcodone/APAP 5 MG/325 MG TAB (Acetaminophen/Hydrocodone Bitart) 1 Tab Tab 1 Ea PO Q4H PRN Fentanyl Patch 25 MCG (Fentanyl) 1 Each Patch.td72 25 Mcg TD Q72H Promethazine Suppository (Promethazine HCl) 25 Mg Supp.rect 25 Mg RC Q8H PRN Reported Esomeprazole Magnesium 40 Mg Capsule.dr 40 Mg PO HS PRN Tramadol HCl 50 Mg Tablet 50 Mg PO Q6H PRN Lumigan (Bimatoprost) 2.5 Ml Drops 1 Drops OU HS Vitamin B-12 (Cyanocobalamin (Vitamin B-12)) 500 Mcg Tablet 500 Mcg PO DAILY Triamcinolone Acetonide 0.1% Cream (Triamcinolone Acet) 15 Gm Cr 1 Applic TP BID Trazodone HCl 150 Mg Tablet 150 Mg PO HS Imitrex (Sumatriptan Succinate) 100 Mg Tablet 100 Mg PO DAILY PRN Spironolactone 50 Mg Tablet 50 Mg PO DAILY Procardia Xl (Nifedipine) 30 Mg Tab.er.24 30 Mg PO DAILY Montelukast Sodium 10 Mg Tablet 10 Mg PO HS Lisinopril 2.5 Mg Tablet 2.5 Mg PO DAILY Victoza 2-Wil (Liraglutide) 0.6 Mg/0.1 Ml Pen.injctr 0.6 Mg SQ DAILY Levothyroxine Sodium 200 Mcg Tablet 200 Mcg PO DAILY Furosemide 40 Mg Tablet 40 Mg PO DAILY Folic Acid 20 Mg Capsule 20 Mg PO HS Epipen (Epinephrine) 0.3 Mg/0.3 Ml Auto.injct 0.3 Mg IJ PRN PRN Colestipol HCl 1 Gm Tablet 3 Gm PO BID TAKES 3 (1GM) TABS Refresh Plus (Carboxymethylcellulose Sodium) 1 Each Droperette 1 Drop OU PRN PRN Symbicort 160-4.5 Mcg Inhaler (Budesonide/Formoterol Fumarate) 10.2 Gm Hfa.aer.ad 2 Puff IH HS Atorvastatin Calcium 40 Mg Tablet 40 Mg PO HS Aspirin EC (Aspirin) 81 Mg Tablet.dr 81 Mg PO DAILY Albuterol Sulfate 2.5 Mg/0.5 Ml Vial.neb 2.5 Mg INH Q4H PRN Proair Hfa (Albuterol Sulfate) 1 Puff Puff 1 Puff IH EVERY 2 HOURS PRN Nexium (Esomeprazole Magnesium) 40 Mg Cap 40 Mg PO DAILY Instructions to patient/family Please see electronic discharge instructions given to patient. Diagnosis/Problems Diagnosis/Problems (1) CVA (cerebral vascular accident) (2) Cirrhosis (3) GROVES (nonalcoholic steatohepatitis) (4) Status post abdominal paracentesis (5) Left-sided weakness (6) Diabetes (7) COPD (chronic obstructive pulmonary disease) (8) Dependence on supplemental oxygen (9) Anemia (10) Hypertension (11) Hyperlipidemia (12) Chronic back pain (13) GERD (gastroesophageal reflux disease) (14) Hypothyroidism NALLELY IBRAHIM DO Apr 01, 2021 06:19
[2021-04-01] MEDS: LEVOTHYROXINE 100 MCG (LEVOTHROID) TAB PO SCH (06:34)
[2021-04-01] MEDS: CYANOCOBALAMIN 1,000 MCG (VITAMIN B-12) TABLET PO SCH (06:34)
[2021-04-01] MEDS: CATHETER FLUSH 10 ML SYR IV SCH ×2 (06:34→06:44)
[2021-04-01] MEDS: ONDANSETRON 4 MG/2 ML (SDV) Z0FRAN IVP PRN (06:44)
[2021-04-01 07:43] VITALS: BP 116/56
[2021-04-01] MEDS: RT-ALBUTEROL SULF 2.5 MG/3 ML PRE-MIX VIAL INH PRN (07:59)
[2021-04-01] MEDS: RT--FLUTICASONE/SALMETEROL 232-14 (AIRDUO RespiCLICK) IH SCH (08:00)
[2021-04-01] MEDS: FUROSEMIDE 40 MG (LASIX) TAB PO SCH (08:32)
[2021-04-01] MEDS: ASPIRIN E.C. 81 MG (ECOTRIN) TAB PO SCH (08:32)
[2021-04-01] MEDS: NIFEdipine ER 30 MG (PROCARDIA XL) TAB PO SCH (08:32)
[2021-04-01] MEDS: SPIRONOLACTONE 25 MG (ALDACTONE) TAB PO SCH (08:33)
[2021-04-01] MEDS: FOLIC ACID 400 MCG PO SCH (08:33)
[2021-04-01] MEDS: MICONAZOLE 2% POWDER (DESENEX AF) 90 GM TOP SCH (08:33)
[2021-04-01] MEDS: VICTOZA SQ SCH (08:34)
[2021-04-01] MEDS: TRIAMCINOLONE 0.1% CR (KENALOG) 15 GM TUBE TP SCH (09:00)
[2021-04-01] MEDS: COLESTIPOL 1 GM (COLESTID) TAB PO SCH (09:00)
[2021-04-01] MEDS: SENNA W/DOCUSATE (SENOKOT S) TABLET PO SCH (09:00)
[2021-04-01] MEDS: polyethylene glycoL POWDER 17 GM (MIRALAX) PACK PO SCH (09:00)
[2021-04-01] MEDS: DOCUSATE SODIUM 100 MG (COLACE) CAP PO SCH (09:00)
[2021-04-01] MEDS: PANTOPRAZOLE 40 MG (PROTONIX) TAB PO SCH (09:00)
[2021-04-01] MEDS: SIMETHICONE 80 MG (MYLICON) CHEW PO SCH (09:00)
--- NOTE | 2021-04-01 09:28 | Therapy Team Discharge Summary ---
Therapy Discharge Summary Discharge Recommendations Date of Discharge Occupational Therapy Decreased Activ Tolerance, Decreased UE Strength, Impaired Bed Mobility, Impaired Coordination, Impaired I ADL's, Impaired Self-Care Skills, Restricted Funct UE ROM Speech-Language Pathology Patient was admitted to the ARU s/p CVA while recovering from COVID. The patient has received dysphagia and speech therapy for safe oral intake, vocal quality and cognitive function. Patient has made good progress and met all ST goals. She is discharging to her home today where she lives with her . PT Fdc Goals Roll Cutting Operator Goals PT Fdc Goals Time Frame: Apr 03, 2021 Roll Left to Right (QC): 6 Sit to Lying (QC): 6 Lying-Sitting on Side/Bed(QC): 6 Sit to Stand (QC): 6 Chair/Pgb-ar-Puoha Xfer(QC): 6 Car Transfer (QC): 4 Does the Patient Walk: Yes Walk 10 feet (QC): 5 Walk 10ft-Uneven Surface(QC): 5 Walk 50ft with 2 Turns (QC): 5 Walk 150 ft (QC): 5 Wheel 50 feet with 2 turns (QC: 6 1 Step (curb) (QC): 5 4 Steps (QC): 4 12 Steps (QC): 88 Picking up an Object (QC): 88 OT Fdc Goals Fdc Goals Time Frame: Mar 27, 2021 Eating (QC): 6 Oral Hygiene (QC): 6 Shower/Bathe Self (QC): 4 Upper Body Dressing (QC): 6 Lower Body Dressing (QC): 4 On/Off Footwear (QC): 4 Toileting Hygiene (QC): 4 Toilet/Commode Transfer (QC): 5 Additional Goals: 1-Demonstrate ADL Tasks, 2-Verbalize Understanding, 3- ImproveStrength/Feliberto 1=Demonstrate adherence to instructed precautions during ADL tasks. 2=Patient will verbalize/demonstrate understanding of assistive devices/modific ations for ADL. 3=Patient will improve strength/tolerance for activity to enable patient to perform ADL's. Speech Roll Cutting Operator Goals Fdc Goals Patient will improve cognitive-communication abilities in order to require less assist with daily tasks. ADRIANE LEDEZMA Apr 01, 2021 09:28
[2021-04-01 10:56] VITALS: BP 116/56
--- NOTE | 2021-04-01 12:57 | Therapy Team Discharge Summary ---
Therapy Discharge Summary Discharge Recommendations Date of Discharge Apr 01, 2021 at 10:32 Physical Therapy Patient came to rehab following a CVA. Upon evaluation patient performed bed mobility and supine <-> sit with max assist, sit <-> stand with min/mod assist, transfers max assist, car transfer dependent, ambulated 10' in the parallel bars with min assist, and propelled a manual WC 50' with min/mod assist. Patient has been performing bed mobility and transfer training, balance and endurance training, functional strengthening, gait training, and education. Patient has made fair progress and has met all of her correction goals. Now, patient performs bed mobility and supine <-> sit with independence, sit <-> stand and transfers with CGA, car transfer CGA, ambulated 175' with a hemiwalker with CGA (including 50' with at least 2 turns of 90 degrees and 10' over an uneven surface), can machine operator hop picker an object from the floor with CGA, and can propel a manual WC 150' with independence. Patient has been discharged from this facility and will be discharged from PT at this time. Occupational Therapy Decreased Activ Tolerance, Decreased UE Strength, Impaired Bed Mobility, Impaired Coordination, Impaired I ADL's, Impaired Self-Care Skills, Restricted Funct UE ROM PT Department Sales Manager Goals Department Sales Manager Goals PT Department Sales Manager Goals Time Frame: Apr 03, 2021 Roll Left to Right (QC): 6 Sit to Lying (QC): 6 Lying-Sitting on Side/Bed(QC): 6 Sit to Stand (QC): 6 Chair/Uxv-xn-Bbgtd Xfer(QC): 6 Car Transfer (QC): 4 Does the Patient Walk: Yes Walk 10 feet (QC): 5 Walk 10ft-Uneven Surface(QC): 5 Walk 50ft with 2 Turns (QC): 5 Walk 150 ft (QC): 5 Wheel 50 feet with 2 turns (QC: 6 1 Step (curb) (QC): 5 4 Steps (QC): 4 12 Steps (QC): 88 Picking up an Object (QC): 88 OT Department Sales Manager Goals Department Sales Manager Goals Time Frame: Mar 27, 2021 Eating (QC): 6 Oral Hygiene (QC): 6 Shower/Bathe Self (QC): 4 Upper Body Dressing (QC): 6 Lower Body Dressing (QC): 4 On/Off Footwear (QC): 4 Toileting Hygiene (QC): 4 Toilet/Commode Transfer (QC): 5 Additional Goals: 1-Demonstrate ADL Tasks, 2-Verbalize Understanding, 3- ImproveStrength/Feliberto 1=Demonstrate adherence to instructed precautions during ADL tasks. 2=Patient will verbalize/demonstrate understanding of assistive devices/modifications for ADL. 3=Patient will improve strength/tolerance for activity to enable patient to perform ADL's. Speech Department Sales Manager Goals Department Sales Manager Goals Patient will improve cognitive-communication abilities in order to require less assist with daily tasks. CATHRYN KOHLER PT Apr 01, 2021 12:57
--- NOTE | 2021-04-01 13:26 | Therapy Team Discharge Summary ---
Therapy Discharge Summary Discharge Recommendations Date of Discharge Apr 01, 2021 at 10:32 Therapy D/C Recommendations: Home w/ Family Support, Occupational Therapy Home Care, Scheduled Assistance Occupational Therapy Pt has been seen by Occupational therapy to increase overall strength and ind ependence with daily skills. Pt. has made great progress in all areas, including transfers, mobility, and movement in Left UE. Pt. requires max assistance for LE dressing, bathing, and toileting, and requires encouragement at times to continue doing for self. Pt. able to flex left elbow and extend elbow, shrug shoulder at discharge. Transferred supine-sit with SBA and sit-stand with min assist. Pt. would benefit from continued treatment with OT at home/outpt. setting to work on ADL skills and left UE movement. Decreased Activ Tolerance, Decreased UE Strength, Impaired Bed Mobility, Impaired Coordination, Impaired I ADL's, Impaired Self-Care Skills, Restricted Funct UE ROM PT Mcc Goals Clerical Transcriber Goals PT Clerical Transcriber Goals Time Frame: Apr 03, 2021 Roll Left to Right (QC): 6 Sit to Lying (QC): 6 Lying-Sitting on Side/Bed(QC): 6 Sit to Stand (QC): 6 Chair/Xel-aq-Stpfs Xfer(QC): 6 Car Transfer (QC): 4 Does the Patient Walk: Yes Walk 10 feet (QC): 5 Walk 10ft-Uneven Surface(QC): 5 Walk 50ft with 2 Turns (QC): 5 Walk 150 ft (QC): 5 Wheel 50 feet with 2 turns (QC: 6 1 Step (curb) (QC): 5 4 Steps (QC): 4 12 Steps (QC): 88 Picking up an Object (QC): 88 OT Clerical Transcriber Goals Mcc Goals Time Frame: Mar 27, 2021 Eating (QC): 6 (not met) Oral Hygiene (QC): 6 (not met) Shower/Bathe Self (QC): 4 (not met) Upper Body Dressing (QC): 6 (not met) Lower Body Dressing (QC): 4 (not met) On/Off Footwear (QC): 4 (not met) Toileting Hygiene (QC): 4 (not met) Toilet/Commode Transfer (QC): 5 (not met) Additional Goals: 1-Demonstrate ADL Tasks, 2-Verbalize Understanding, 3- ImproveStrength/Feliberto 1=Demonstrate adherence to instructed precautions during ADL tasks. 2=Patient will verbalize/demonstrate understanding of assistive devices/modifications for ADL. 3=Patient will improve strength/tolerance for activity to enable patient to perform ADL's. Speech Mcc Goals Mcc Goals Patient will improve cognitive-communication abilities in order to require less assist with daily tasks. SHEELA CLARKE OT Apr 01, 2021 13:26
== END 2021-04-01 10:32 | disposition home health service (06) | DRG 56 ==
PROVIDERS: ADMIT Internal Medicine; ATTEND Internal Medicine
DX: I69.354 Hemiplegia and hemiparesis following cerebral infarction affecting left non-dominant side (principal); J18.9 Pneumonia, unspecified organism; R18.8 Other ascites; K76.6 Portal hypertension; I85.10 Secondary esophageal varices without bleeding; K75.81 Nonalcoholic steatohepatitis (NASH); K74.69 Other cirrhosis of liver; K31.89 Other diseases of stomach and duodenum; Z20.822 Contact with and (suspected) exposure to COVID-19; Z86.16 Personal history of COVID-19; E11.40 Type 2 diabetes mellitus with diabetic neuropathy, unspecified; R13.10 Dysphagia, unspecified; I10 Essential (primary) hypertension; R19.7 Diarrhea, unspecified; K31.819 Angiodysplasia of stomach and duodenum without bleeding; R32 Unspecified urinary incontinence; K57.90 Diverticulosis of intestine, part unspecified, without perforation or abscess without bleeding; K21.9 Gastro-esophageal reflux disease without esophagitis; E78.1 Pure hyperglyceridemia; J43.9 Emphysema, unspecified; E78.00 Pure hypercholesterolemia, unspecified; M19.91 Primary osteoarthritis, unspecified site; E03.9 Hypothyroidism, unspecified; F41.9 Anxiety disorder, unspecified; F32.9 Major depressive disorder, single episode, unspecified; Z99.81 Dependence on supplemental oxygen; Z87.01 Personal history of pneumonia (recurrent); Z79.82 Long term (current) use of aspirin; Z88.6 Allergy status to analgesic agent; Z88.2 Allergy status to sulfonamides; Z83.3 Family history of diabetes mellitus; Z81.8 Family history of other mental and behavioral disorders
CPT/HCPCS: 36410; 36415; 71045; 76705; 76937; 80053; 82947; 83540; 83605; 84145; 84484; 85025; 87040; 87081; 87636; 93005; 94640; 94760; 94761

== ENCOUNTER → 2021-03-24 | Outpatient (CLI) | payer MEDICARE, OTHER, MEDICAID ==
[~2021-03-24] VITALS: Ht 160 cm; Wt 78.6 kg
[~2021-03-24] MED LIST changes: +ACET325C7 PO; +ALB0.5V INH; +ASPI-1238 PO; +ATOR40TA70 PO; +BIMA2.5D4 OU; +BUDE10.2 IH; +CARB1DRO OU; +COLE1TAB PO; +CYAN500T8 PO; +DOCU100T2 PO; +EPIN0.3P2 IJ; +ESOM40CA52 PO; +FOLI20CA PO; +FURO40TA4 PO; +HYDR25TA4 PO; +LEVO200T6 PO; +LIRA0.6P SQ; +LISI2.5T PO; +MONT10TA32 PO; +NIFE30TA2 PO; +PROM25SU44 RC; +RT-ALBUINH IH; +SPIR50TA4 PO; +SUCR1TAB36 PO; +SUMA100T2 PO; +TR1C15 TP; +TRAM50TA3 PO; +TRAZ150T72 PO
[2021-03-24 15:04] LABS: AMYLASE,BODY FLUID 4 U/L; GLUCOSE,BODY FLUID 138 MG/DL; LDH,BODY FLUID 45 U/L; TOTAL PROTEIN,BODY FLUID < 0.8 G/DL
[2021-03-24 15:24] LABS: BODY FLUID APPEARENCE SLT CLDY; BODY FLUID COLOR PALE YELLOW; BODY FLUID RBC COUNT 51 /uL; BODY FLUID SOURCE PERITON; BODY FLUID WBC TOTAL COUNT 351 /uL
[2021-03-24 15:25] LABS: BF OTHER CELLS 15 %; LYMPHOCYTES,BODY FLUID 38 %
--- NOTE | 2021-03-24 21:58 | OPERATIVE REPORT ---
DATE OF SERVICE: 03/24/2021 PREOPERATIVE DIAGNOSIS: Symptomatic ascites. POSTOPERATIVE DIAGNOSIS: Symptomatic ascites. PROCEDURE: Ultrasound-guided paracentesis. SURGEON: Fortunato Hernandez DO ANESTHESIA: A 1% lidocaine 3 mL. COMPLICATIONS: None. INDICATIONS: The patient is a 65-year-old female with ascites, which causes her abdominal girth, continued to increase in size. She has had previous paracentesis at other facilities. She understands risks and benefits of procedure and wished to proceed with procedure. Consent was signed in the chart. DESCRIPTION OF PROCEDURE: The patient laid down in the supine position. Ultrasound was used to isolate the largest pocket of fluid visualized in the right lower quadrant by using ultrasound. The area was prepped and draped in sterile fashion. Timeout was performed. Local anesthetic was infiltrated. An 11 blade scalpel was used to make a small skin incision. Ofbj-A-Xgvslgls needle and catheter were advanced through the abdominal wall until straw-colored fluid was withdrawn. The catheter was then advanced and the needle was removed. A total of 2350 mL of straw-colored fluid was withdrawn. Then, the catheter was removed and sterile bandage was applied. The patient tolerated procedure well without any complications. Job ID: [id number] DocumentID: [id number] Dictated Date: 03/24/2021 14:30:32 Manager Inspection Date: 03/24/2021 21:57:36 Dictated By: FORTUNATO HERNANDEZ DO
--- NOTE | 2021-03-25 10:57 | Diagnostic Imaging Report ---
US PARACENTESIS W/GUIDE INIT INDICATION: Ascites COMPARISON: None available. FINDINGS AND IMPRESSION: 1. Limited ultrasound of all 4 quadrants was performed for purposes of marking for paracentesis. There is a moderate amount of ascites present with the largest pocket in the right lower quadrant. 2. Please see procedure report for more complete details. Dictated by: Dictated on workstation # [id number]
== END ==
LOC: RAD 12:45
PROVIDERS: ATTEND Surgery
DX: R18.8 Other ascites (principal)
CPT/HCPCS: 49083; 82150; 82570; 82945; 83615; 84157; 87070; 87075; 87205; 89051; A7048

== ENCOUNTER 2022-08-09 22:20 | Inpatient (IN) | payer MEDICARE, OTHER, MEDICAID ==
[~2022-08-09] VITALS: Ht 160 cm; Wt 66.3 kg
[~2022-08-09 22:20] MED LIST changes: +ACHD5005 PO; +ALBU8.5H6 IH; +ALPR.25T PO; +FENT1PAT8 TD; -LISI2.5T PO; +LISI2.5T13 PO; +MICO90PO TOP; +MONT-40 PO; -MONT10TA32 PO; -RT-ALBUINH IH; +SUCR1TAB PO
[2022-08-10] VITALS (7 sets, daily range): BP systolic 98–154; BP diastolic 52–64
[2022-08-10] MEDS ORDERED: ANTACID SUSP 30 ML UDC (MYLANTA) PO PRN
[2022-08-10] MEDS ORDERED: ONDANSETRON 4 MG/2 ML (SDV) Z0FRAN IV PRN
[2022-08-10] MEDS ORDERED: NS IV 500 ML 500 ML IV PRN
[2022-08-10] MEDS ORDERED: diphenhydrAMINE 50 MG/ML INJ (BENADRYL) IVP PRN
[2022-08-10] MEDS ORDERED: CALCIUM CARBONATE 500 MG (TUMS) TAB.CHEW PO PRN
[2022-08-10] MEDS ORDERED: MILK OF MAGNESIA 400 MG/5 ML 30 ML UDC PO PRN
[2022-08-10] MEDS ORDERED: BISACODYL 10 MG SUPP (DULCOLAX) PR PRN
[2022-08-10] MEDS ORDERED: ACETAMINOPHEN 325 MG TABLET PO PRN
[2022-08-10] MEDS ORDERED: polyethylene glycoL POWDER 17 GM (MIRALAX) PACK PO PRN
[2022-08-10] MEDS ORDERED: diphenhydrAMINE 25 MG TAB (BENADRYL) PO PRN
[2022-08-10] MEDS ORDERED: MELATONIN 3 MG TABLET PO PRN
[2022-08-10] MEDS ORDERED: LACTULOSE SYRUP 10GM/15ML (ENULOSE) 30ML UDC PO PRN
[2022-08-10] MEDS ORDERED: VANCOMYCIN INJECTION 0.1 MG in NS (IVPB) 250 ML IV SCH ×2
[2022-08-10] MEDS ORDERED: ONDANSETRON 4 MG (ZOFRAN) ORAL DISSOLVE TAB PO PRN
[2022-08-10] MEDS: PIPERACILLIN SODIUM/TAZOBACTAM 4.5 GM in NS (IVPB) 100 ML IV SCH ×3 (00:58→17:28)
[2022-08-10] MEDS ORDERED: RT-ALBUTEROL/IPRATROPIUM 3 ML (DUONEB) VIAL INH PRN (01:00)
[2022-08-10] MEDS: RT-ALBUTEROL/IPRATROPIUM 3 ML (DUONEB) VIAL INH SCH ×4 (03:27→19:53)
[2022-08-10 05:41] LABS: POTASSIUM 2.7 MMOL/L (3.6-5.0)
[2022-08-10 05:42] LABS: CALCIUM 7.7 MG/DL (8.5-10.1)
[2022-08-10 05:46] LABS: CREATININE SERUM 0.85 MG/DL (0.60-1.30)
[2022-08-10 05:48] LABS: MAGNESIUM 1.6 MG/DL (1.6-2.4)
[2022-08-10] MEDS ORDERED: VANCOMYCIN 750 MG/NS 250 ML IVPB IV SCH ×2 (06:00)
[2022-08-10] MEDS: KCL 20 MEQ TAB (K-DUR) PO SCH (06:02)
[2022-08-10] MEDS: POTASSIUM CL 10MEQ/50ML IVPB 50 ML IV SCH (06:02)
[2022-08-10] MEDS: MAGNESIUM 1 GM/100 ML IVPB 100 ML IV SCH ×3 (06:02→08:54)
[2022-08-10 06:23] LABS: BASOPHILS % (AUTO) 0 % (0-10); MEAN CORPUSCULAR HGB CONC 35 g/dL (32-36); NEUTROPHILS % (AUTO) 76 % (42-75)
[2022-08-10 06:25] LABS: EOSINOPHILS % (AUTO) 0 % (0-10); HEMATOCRIT 28 % (35-52); LYMPHOCYTES # (AUTO) 0.7 10^3/uL (1.0-4.0); LYMPHOCYTES % (AUTO) 13 % (12-44); MEAN CORPUSCULAR HEMOGLOBIN 27 pg (25-34); MEAN CORPUSCULAR VOLUME 78 fL (80-99); MEAN PLATELET VOLUME 11.1 fL (9.0-12.2); MONOCYTES # (AUTO) 0.6 10^3/uL (0.0-1.0); MONOCYTES % (AUTO) 10 % (0-12); NEUTROPHILS # (AUTO) 4.3 10^3/uL (1.8-7.8); WHITE BLOOD COUNT 5.7 10^3/uL (4.3-11.0)
[2022-08-10 06:44] LABS: HEMOGLOBIN 9.5 g/dL (11.5-16.0); PLATELET COUNT 107 10^3/uL (130-400)
[2022-08-10] MEDS ORDERED: KCL 20 MEQ TAB (K-DUR) PO ONE ×3 (07:00→11:00)
[2022-08-10] MEDS ORDERED: KCL 10 MEQ TAB (MICRO K) PO ONE ×3 (07:00→11:00)
[2022-08-10] MEDS: ENOXAPARIN 40 MG/0.4 ML (LOVENOX) SYR SC SCH ×2 (08:49→08:50)
[2022-08-10] MEDS: OSELTAMIVIR 30 MG (TAMIFLU) CAPSULE PO SCH ×2 (08:50→19:33)
[2022-08-10] MEDS: DOCUSATE SODIUM 100 MG (COLACE) CAP PO SCH ×2 (08:50→19:33)
[2022-08-10] MEDS: SENNOSIDES 8.6 MG (SENOKOT) TAB PO SCH ×2 (08:58→19:33)
--- NOTE | 2022-08-10 09:35 | Diagnostic Imaging Report ---
Indication: Sepsis. Pneumonia. COMPARISON: 03/23/2021 FINDINGS: Single frontal radiograph view the chest was obtained and shows normal cardiac silhouette and pulmonary vasculature. Lungs are clear. There is no focal consolidation, large effusion, nor pneumothorax. Osseous structures show no gross acute abnormalities. Right-sided benign calcified granuloma is noted. IMPRESSION: 1. No acute cardiopulmonary process. Dictated by: Dictated on workstation # [id number]
--- NOTE | 2022-08-10 09:59 | Physical Therapy Evaluation ---
PT Evaluation-General Medical Diagnosis Admission Date Aug 09, 2022 at 23:31 Medical Diagnosis: sepsis/pneumonia/Flu A Onset Date: Aug 09, 2022 Therapy Diagnosis Therapy Diagnosis: impaired mobility/weakness Height/Weight Height (Feet): 5 Height (Inches): 3.00 Weight (Pounds): 189 Weight (Ounces): 0.0 Precautions Precautions/Isolations: Droplet Isolation Referral Physician: Janine Reason for Referral: Evaluation/Treatment Medical History Pertinent Medical History: Arthritis, Back Injury, CABG, COPD, CVA, DM, GERD, HTN, Smoking Additional Medical History Covid 2020 Current History Transferred from outside ER due to Flu A Reviewed History: Yes Social History Home: Apartment Current Living Status: Spouse Prior Prior Level of Function SCALE: Activities may be completed with or without assistive devices. 6-Jfaeqagafz-amyltiw completes the activity by him/herself with no assistance from a helper. 5-Set-up or Clean-up Assistance-helper sets up or cleans up; patient completes activity. [place] assists only prior to or following the activity. 4-Supervision or Touching Assistance-helper provides verbal cues and/or touching/steadying and/or contact guard assistance as patient completes activity. Assistance may be provided throughout the activity or intermittently. 3-Partial/Moderate Assistance-helper does LESS THAN HALF the effort. Agency lifts, holds or supports trunk or limbs, but provides less than half the effort. 2-Substantial/Maximal Assistance-helper does MORE THAN HALF the effort. Agency lifts or holds trunk or limbs and provides more than half the effort. 1-Uawjpqprd-ghpwtf does ALL the effort. Patient does none of the effort to complete the activity. Or, the assistance of 2 or more helpers is required for the patient to complete the activity. If activity was not attempted, code reason: 7-Patient Refused. 9-Not Applicable-not attempted and the patient did not perform the activity before the current illness, exacerbation or injury. 10-Not Attempted due to Environmental Limitations-(lack of equipment, weather restraints, etc.). 88-Not Attempted due to Medical Conditions or Safety Concerns. Bed Mobility: 6 Transfers (B,C,W/C): 6 Gait: 6 Stairs: 6 Indoor Mobility (Ambulation): Independent Stairs: Independent Prior Devices Use: None PT Evaluation-Current Subjective Patient agrees to PT. No c/o at this time. Objective Patient Orientation: Normal For Age Attachments: Oxygen ROM/Strength ROM Lower Extremities bilateral LE WFL Strength Lower Extremities 4/5 grossly bilateral LE all planes Integumentary/Posture Bowel Incontinence: No Bladder Incontinence: No Posture WFL Neuromuscular (Tone, Coordination, Reflexes) grossly intact Sensory Vision: Wears Glasses Hearing: Functional Transfers Lying to Sitting/Side of Bed(Q: 6 Sit to Stand (QC): 6 Chair/Upk-sv-Jhtff Xfer(QC): 6 Toilet Transfer (QC): 6 Gait Mode of Locomotion: Walk Anticipated Mode of Locomotion: Walk Walk 10 feet (QC): 6 Walk 50 ft with 2 Turns(QC): 6 Walk 150 ft (QC): 6 Distance: 150' Gait Assistive Device: None Comments/Gait Description safe and functional with no deviation and negotiated O2 tubing independently Balance Sitting Static: Normal Sitting Dynamic: Normal Standing Static: Normal Standing Dynamic: Normal Picking up an Object (QC): 6 Assessment/Needs Patient is currently at independent [facility] with all gross motor skills safely and does not require skilled PT intervention. Rehab Potential: Fair PT Plan Treatment/Plan Treatment Plan: Discontinue PT, goals met Treatment Duration: Aug 10, 2022 Frequency: 1 time per week Estimated Hrs Per Day: .25 hour per day Patient and/or Family Agrees t: Yes Discharge Recommendations Therapy Discharge Recommendati: Home & Family Time Time In: 759 Time Out: 815 DATE: Aug 10, 2022 Total Billed Treatment Time: 16 Total Billed Treatment 1 visit EVMod 16 min BERTRAM MAN PT Aug 10, 2022 09:59
--- NOTE | 2022-08-10 10:48 | Occupational Therapy Eval ---
OT Evaluation-General/PLF Medical Diagnosis Admission Date Aug 09, 2022 at 23:31 Medical Diagnosis: sepsis/pneumonia/Flu A Onset Date: Aug 09, 2022 Therapy Diagnosis Therapy Diagnosis: reduced safety/adl status Height/Weight Height (Feet): 5 Height (Inches): 3.00 Weight (Pounds): 189 Weight (Ounces): 0.0 Precautions Precautions/Isolations: Droplet Isolation, Fall Prevention Referral Physician: Janine Referral Reason: Evaluation/Treatment Medical History Pertinent Medical History: Arthritis, Back Injury, CABG, COPD, CVA, DM, GERD, HTN, Smoking Current History Pt transferred from outside ER due to flu symptoms. Per patient, she lives with her spouse in a single story home. She states her spouse assists with clasping her bra, apply deoderant, supervision during bathing tasks, and assist with david care after toileting secondary to impaired LUE rom from old cva. Pt does not use any AD at baseline. Her spouse completes all iadls. Reviewed History: Yes Social History Home: Single Level Current Living Status: Spouse Entry Into Home: Stairs With Railing Steps Into Home: 4 ADL-Prior Level of Function SCALE: Activities may be completed with or without assistive devices. 2-Rlcegitkmx-djosfxl completes the activity by him/herself with no assistance from a helper. 5-Set-up or Clean-up Assistance-helper sets up or cleans up; patient completes activity. [place] assists only prior to or following the activity. 4-Supervision or Touching Assistance-helper provides verbal cues and/or touching/steadying and/or contact guard assistance as patient completes activity. Assistance may be provided throughout the activity or intermittently. 3-Partial/Moderate Assistance-helper does LESS THAN HALF the effort. [place] lifts, holds or supports trunk or limbs, but provides less than half the effort. 2-Substantial/Maximal Assistance-helper does MORE THAN HALF the effort. [place] lifts or holds trunk or limbs and provides more than half the effort. 4-Netpdxqdz-yxabsp does ALL the effort. Patient does none of the effort to co mplete the activity. Or, the assistance of 2 or more helpers is required for the patient to complete the activity. If activity was not attempted, code reason: 7-Patient Refused. 9-Not Applicable-not attempted and the patient did not perform the activity before the current illness, exacerbation or injury. 10-Not Attempted due to Environmental Limitations-(lack of equipment, weather restraints, etc.). 88-Not Attempted due to Medical Conditions or Safety Concerns. Self Care: Needed Some Help Functional Cognition: Needed Some Help DME/Equipment: Bath Chair, Tub/Shower OT Current Status Subjective Pt impulsive, requires cues for safety Appearance Pt left sitting on toilet, RN notified Mental Status/Objective Patient Orientation: Person, Place, Situation Attachments: IV, Oxygen Current Glasses/Contacts: Yes Upper Extremity ROM History of L residual weakness secondary to CVA. L shoulder ~160 degrees, reduce d external rotation. Unable to get full assessment as pt impulsively stood and rushed to toilet secondary to urgency. ADL-Treatment Pt sitting in recliner at OT arrival. During manual muscle testing, pt cries out "oh no" and immediately jumps up. She reports she needs to use toilet, unaware of oxygen tubing and IV pole being plugged into wall. Cues needed to stop in order for therapist to disconnect IV from wall and gather O2 tubing. Pt incontinent of small amount of stool and urine, also continent in toilet. SOA observed with little activity, cues for PLB. Pt reports needing extra time to finish having BM. RN notified that pt is left on toilet. Education OT Patient Education: Correct positioning, Purpose of tx/functional activities, Reviewed precautions, Safety issues Teaching Recipient: Patient Teaching Methods: Discussion Response to Teaching: Return Demonstration, Reinforcement Needed OT Retirement Goals Retirement Goals Time Frame: Aug 17, 2022 Oral Hygiene (QC): 6 Toileting Hygiene (QC): 6 Shower/Bathe Self (QC): 4 Upper Body Dressing (QC): 4 Lower Body Dressing (QC): 4 On/Off Footwear (QC): 4 Additional Goals: 1-Demonstrate ADL Tasks, 2-Verbalize Understanding, 3- ImproveStrength/Feliberto 1=Demonstrate adherence to instructed precautions during ADL tasks. 2=Patient will verbalize/demonstrate understanding of assistive d evices/modifications for ADL. 3=Patient will improve strength/tolerance for activity to enable patient to perform ADL's. OT Education/Plan Problem List/Assessment Assessment: Decreased Activ Tolerance, Decreased Safety Aware, Decreased UE Strength, Impaired Cognition, Impaired Self-Care Skills, Restricted Funct UE ROM Discharge Recommendations Plan/Recommendations: Continue POC Target Placement Home with family support Treatment Plan/Plan of Care Patient would benefit from OT for education, treatment and training to promote independence in ADL's, mobility, safety and/or upper extremity function for ADL's. Plan of Care: ADL Retraining, Functional Mobility, Group Exercise/Act as Ind, UE Funct Exercise/Act Treatment Duration: Aug 17, 2022 Frequency: 3 times per week Estimated Hrs Per Day: .25 hour per day Rehab Potential: Fair Time Start Time: 10:34 Stop Time: 10:52 DATE: Aug 10, 2022 Total Time Billed (hr/min): 18 Billed Treatment Time 1 visit Val Jamison OT Aug 10, 2022 10:48
[2022-08-10] MEDS: guaiFENesin/DM (ROBITUSSIN DM) 10 ML UDC PO PRN ×2 (15:54→23:34)
[2022-08-10] MEDS ORDERED: METO-333 PO (15:58)
[2022-08-10] MEDS ORDERED: PYRI50TA PO (15:58)
[2022-08-10] MEDS ORDERED: AMIT25TA9 PO (15:58)
[2022-08-10] MEDS ORDERED: FURO80TA3 PO (15:58)
[2022-08-10] MEDS ORDERED: FOLI1TAB33 PO (15:58)
[2022-08-10] MEDS ORDERED: LEVO200T62 PO (15:58)
[2022-08-10] MEDS ORDERED: ASCO-262 PO (15:58)
[2022-08-10] MEDS ORDERED: ISOS30TA82 PO (15:58)
[2022-08-10] MEDS ORDERED: LIRA0.6P3 SQ (15:58)
[2022-08-10] MEDS ORDERED: SPIR100T4 PO (15:58)
--- NOTE | 2022-08-10 16:03 | History & Physical-Hospitalist ---
History of Present Illness HPI/Chief Complaint Jovanna Medina is a 66 year old female with PMH GROVES cirrhosis, HTN, COPD, CVA, GERD, anemia, who presented to [facility] ER with shortness of breath. She has also had a bad cough. She has been having abdominal pain due to coughing so much. She denies nausea and vomiting. She has had fever. She was found to be influenza A positive. There was also concern for pneumonia on her chest xray. She was requiring oxygen. She was transferred to [facility] for admission. Source: patient Exam Limitations: no limitations Date Seen 08/10/22 Time Seen by a Provider: 11:35 Attending Physician Chris Nolan MD PCP Admitting Physician: Emilia Vargas MD Attending Physician: Emilia Vargas MD Referring Physician Date of Admission Aug 09, 2022 at 23:31 Home Medications & Allergies Home Medications Reviewed patient Home Medication Reconciliation performed by pharmacy medication reconciliations ultra sound technician and/or nursing. Patients Allergies have been reviewed. Allergies Allergies Coded Allergies Sulfa (Sulfonamide Antibiotics) (Unverified AllergyHIVES, 09/18/13) codeine (Unverified AllergyHIVES, 09/18/13) exenatide (Unverified AllergyHIVES, 09/18/13) Uncoded Allergies IV CONTRAST DYE ( AllergyHIVES, 09/18/13) Past Wgolbgj-Wrddax-Psfwkd Hx Patient Social History Tobacco Use?: No Tobacco type used: Cigarettes Smoking Status: Former Smoker Smokeless Tobacco Frequency: Never a User Use of E-Cig and/or Vaping dev: No Substance use?: No Alcohol Use?: No Pt feels they are or have been: No Immunizations Up To Date Date of Influenza Vaccine: May 22, 2013 Tetanus Booster (TDap): More Than 5 Years Hepatitis A: No Hepatitis B: No Date of Pneumonia Vaccine: December 20, 2009 Current Status Advance Directives: Yes Advance Directive Location: Home Communicates: Verbally Primary Language: Stateless Preferred Spoken Language: Stateless Is interpretation needed?: No Sensory deficits: Vision impairment Past Medical History Surgeries: Orthopedic Asthma, Sleep Apnea, COPD High Cholesterol, Hypertension Neuropathy, Stroke Bladder Infection Gastroesophageal Reflux, Cirrhosis Arthritis, Chronic Back Pain Hypothyroidsim Cataract, Glaucoma Anxiety, Depression Family Medical History Alcoholism 03 FATHER Cancer 03 FATHER GRANDPARENTS Cancer of colon 03 FATHER Congestive heart failure GRANDPARENTS Family history: Alzheimer's disease 03 FATHER Family history: Cardiovascular disease GRANDPARENTS Family history: Diabetes mellitus 03 FATHER 03 MOTHER GRANDPARENTS Family history: Hypertension 03 FATHER 03 MOTHER Family history: Thyroid disorder 03 MOTHER 09 SISTER Hearing loss 03 MOTHER Hereditary disease 09 SISTER History of - anemia 09 SISTER Stroke 03 MOTHER SON No Family History of: Kidney disease Myocardial infarction No Pertinent Family Hx Review of Systems Constitutional: malaise EENTM: no symptoms reported Respiratory: cough, short of breath Cardiovascular: no symptoms reported Gastrointestinal: abdominal pain Physical Exam Physical Exam Vital Signs Vital Signs - First Documented 08/10/22 00:40 FiO2 28 Capillary Refill : Less Than 3 Seconds Height, Weight, BMI Height: 5'3.00" Weight: 189lbs. 0.0oz. [id number]; 25.89 BMI Method: General Appearance: No Apparent Distress, WD/WN HEENT: PERRL/EOMI, Pharynx Normal Neck: Normal Inspection, Supple Respiratory: Lungs Clear, Normal Breath Sounds, No Respiratory Distress Cardiovascular: Regular Rate, Rhythm, No Edema, No Murmur Gastrointestinal: Normal Bowel Sounds, Soft, Tenderness (lower abdomen) Extremity: Normal Inspection, No Pedal Edema Neurologic/Psychiatric: Alert, Normal Mood/Affect Skin: Normal Color, Warm/Dry Results Results/Procedures Labs Laboratory Tests 08/10/22 05:10 Patient resulted labs reviewed. Imaging: Reviewed Imaging Report Assessment/Plan Admission Diagnosis Sepsis due to pneumonia Admission Status: Inpatient Order (span 2 midnights) Reason for Inpatient Admission: Flu A Respiratory failure Assessment and Plan Sepsis due to pneumonia Influenza A Acute respiratory failure with hypoxia IV antibiotics Further fluids deferred due to cirrhosis Tamiflu Supplemental oxygen as needed MAT protocol GROVES cirrhosis No acute management needs HTN COPD History of CVA GERD Anemia Continue home meds DVT prophylaxis: Lovenox Diagnosis/Problems Diagnosis/Problems (1) Sepsis due to pneumonia Status: Acute (2) Influenza A Status: Acute (3) Acute respiratory failure with hypoxia Status: Acute (4) GROVES (nonalcoholic steatohepatitis) Status: Chronic (5) Cirrhosis Status: Chronic Qualifiers: Hepatic cirrhosis type: unspecified hepatic cirrhosis Ascites presence: without ascites Qualified Codes: K74.60 - Unspecified cirrhosis of liver EMILIA VARGAS MD Aug 10, 2022 16:03
[2022-08-10] MEDS ORDERED: ISOSORBIDE MONONITRATE 30 MG (IMDUR) TAB PO SCH (19:00)
[2022-08-10] MEDS: meTOprolol TARTRATE 25 MG (LOPRESSOR) TABLET PO SCH (19:33)
[2022-08-10] MEDS: RT--FLUTICASONE/SALMETEROL 232-14 (AIRDUO RespiCLICK) IH SCH (19:54)
[2022-08-10] MEDS ORDERED: BIMATOPROST OU SCH (21:00)
[2022-08-10] MEDS ORDERED: AMITRIPTYLINE 25 MG (ELAVIL) TAB PO SCH (21:00)
[2022-08-10] MEDS ORDERED: traZODone 150 MG (DESYREL) TABLET PO SCH (21:00)
[2022-08-10] MEDS ORDERED: MONTELUKAST 10 MG (SINGULAIR) TAB PO SCH (21:00)
[2022-08-10] MEDS ORDERED: LATANOPROST 0.005% (XALATAN) OPHTH SOLN 2.5 ML OU SCH (21:00)
[2022-08-10] MEDS ORDERED: NON-FORMULARY MEDICATION 1 EA EA (Budesonide/Formoterol Fumarate (Symbicort 160-4.5 Mcg In IH SCH (21:00)
[2022-08-11] MEDS: PIPERACILLIN SODIUM/TAZOBACTAM 4.5 GM in NS (IVPB) 100 ML IV SCH ×2 (00:08→09:20)
[2022-08-11] MEDS: RT-ALBUTEROL/IPRATROPIUM 3 ML (DUONEB) VIAL INH SCH ×2 (02:50→09:39)
[2022-08-11 03:37] VITALS: BP 106/54
[2022-08-11 05:43] LABS: BASOPHILS % (AUTO) 1 % (0-10); EOSINOPHILS % (AUTO) 0 % (0-10); HEMATOCRIT 26 % (35-52); MEAN CORPUSCULAR VOLUME 78 fL (80-99)
[2022-08-11 05:45] LABS: HEMOGLOBIN 8.8 g/dL (11.5-16.0); LYMPHOCYTES # (AUTO) 0.8 10^3/uL (1.0-4.0); LYMPHOCYTES % (AUTO) 21 % (12-44); MEAN CORPUSCULAR HEMOGLOBIN 26 pg (25-34); MEAN CORPUSCULAR HGB CONC 34 g/dL (32-36); MEAN PLATELET VOLUME 11.2 fL (9.0-12.2); MONOCYTES # (AUTO) 0.4 10^3/uL (0.0-1.0); MONOCYTES % (AUTO) 10 % (0-12); NEUTROPHILS # (AUTO) 2.6 10^3/uL (1.8-7.8); NEUTROPHILS % (AUTO) 68 % (42-75); PLATELET COUNT 97 10^3/uL (130-400); WHITE BLOOD COUNT 3.8 10^3/uL (4.3-11.0)
[2022-08-11 06:20] LABS: CALCIUM 7.6 MG/DL (8.5-10.1); CREATININE SERUM 0.84 MG/DL (0.60-1.30); POTASSIUM 3.6 MMOL/L (3.6-5.0)
[2022-08-11] MEDS: KCL 20 MEQ TAB (K-DUR) PO SCH (06:29)
[2022-08-11] MEDS: MAGNESIUM 1 GM/100 ML IVPB 100 ML IV SCH (06:29)
[2022-08-11] MEDS: POTASSIUM CL 10MEQ/50ML IVPB 50 ML IV SCH (06:29)
[2022-08-11] MEDS ORDERED: LEVOTHYROXINE 100 MCG (LEVOTHROID) TAB PO SCH (06:30)
[2022-08-11 07:28] VITALS: BP 102/51
[2022-08-11] MEDS ORDERED: ASPIRIN E.C. 81 MG (ECOTRIN) TAB PO SCH (09:00)
[2022-08-11] MEDS ORDERED: PANTOPRAZOLE 40 MG (PROTONIX) TAB PO SCH (09:00)
[2022-08-11] MEDS ORDERED: LEVOTHYROXINE SODIUM 200 MCG PO SCH (09:00)
[2022-08-11] MEDS ORDERED: NON-FORMULARY MEDICATION 1 EA EA (Furosemide 80 MG) PO SCH (09:00)
[2022-08-11] MEDS ORDERED: SPIRONOLACTONE 100 MG (ALDACTONE) TABLET PO SCH (09:00)
[2022-08-11] MEDS ORDERED: PYRIDOXINE (VITAMIN B-6) 50 MG TABLET PO SCH (09:00)
[2022-08-11] MEDS ORDERED: NON-FORMULARY MEDICATION 1 EA EA (Esomeprazole Magnesium (Nexium) 40 MG) PO SCH (09:00)
[2022-08-11] MEDS ORDERED: FUROSEMIDE 40 MG (LASIX) TAB PO SCH (09:00)
[2022-08-11] MEDS ORDERED: KCL 20 MEQ TAB (K-DUR) PO NR (09:00)
[2022-08-11] MEDS ORDERED: FOLIC ACID 1 MG TAB PO SCH (09:00)
[2022-08-11] MEDS: OSELTAMIVIR 30 MG (TAMIFLU) CAPSULE PO SCH (09:19)
[2022-08-11] MEDS: meTOprolol TARTRATE 25 MG (LOPRESSOR) TABLET PO SCH (09:19)
[2022-08-11] MEDS: DOCUSATE SODIUM 100 MG (COLACE) CAP PO SCH (09:20)
[2022-08-11] MEDS: ENOXAPARIN 40 MG/0.4 ML (LOVENOX) SYR SC SCH (09:21)
[2022-08-11] MEDS: SENNOSIDES 8.6 MG (SENOKOT) TAB PO SCH (09:21)
[2022-08-11] MEDS ORDERED: AMOX1TAB12 PO (09:22)
[2022-08-11] MEDS ORDERED: OSEL30CA PO (09:22)
[2022-08-11] MEDS: RT--FLUTICASONE/SALMETEROL 232-14 (AIRDUO RespiCLICK) IH SCH (09:40)
--- NOTE | 2022-08-11 10:56 | Occupational Ther Daily Note ---
OT Current Status-Daily Note Subjective Pt alert, lying in bed. Visitor present in room. Per nrsg, pt to be discharge to home today. Mental Status/Objective Patient Orientation: Person, Place, Time, Situation Attachments: IV ADL-Treatment Therapy Code Descriptions/Definitions Functional [place] Measure: 0=Not Assessed/NA 4=Minimal Assistance 1=Total Assistance 5=Supervision or Setup 2=Maximal Assistance 6=Modified [place] 3=Moderate Assistance 7=Complete IndependenceSCALE: Activities may be completed with or without assistive devices. 7-Atsstnbsjw-wknwvpb completes the activity by him/herself with no assistance from a helper. 5-Set-up or Clean-up Assistance-helper sets up or cleans up; patient completes activity. [place] assists only prior to or following the activity. 4-Supervision or Touching Assistance-helper provides verbal cues and/or touching/steadying and/or contact guard assistance as patient completes activity. Assistance may be provided throughout the activity or intermittently. 3-Partial/Moderate Assistance-helper does LESS THAN HALF the effort. [place] lifts, holds or supports trunk or limbs, but provides less than half the effort. 2-Substantial/Maximal Assistance-helper does MORE THAN HALF the effort. [place] lifts or holds trunk or limbs and provides more than half the effort. 7-Fwyhrjfbm-zofbod does ALL the effort. Patient does none of the effort to complete the activity. Or, the assistance of 2 or more helpers is required for the patient to complete the activity. If activity was not attempted, code reason: 7-Patient Refused. 9-Not Applicable-not attempted and the patient did not perform the activity before the current illness, exacerbation or injury. 10-Not Attempted due to Environmental Limitations-(lack of equipment, weather restraints, etc.). 88-Not Attempted due to Medical Conditions or Safety Concerns. Other Treatment Pt wanting to take shower prior to discharge. Nrsg to complete after pt has IV removed. Pt is up and moving in room with only assist for IV pole/tubing. Bathing, oral and grooming supplies laid out for pt when nrsg is ready for shower. Pt has no questions or concerns for WINTER about home environment and IA DL/ADLs. After session, pt lying in bed with call light/phone in reach. All needs met in room. OT Janitor Helper Goals Senior Living Goals Time Frame: Aug 17, 2022 Oral Hygiene (QC): 6 Toileting Hygiene (QC): 6 Shower/Bathe Self (QC): 4 Upper Body Dressing (QC): 4 Lower Body Dressing (QC): 4 On/Off Footwear (QC): 4 Additional Goals: 1-Demonstrate ADL Tasks, 2-Verbalize Understanding, 3- ImproveStrength/Feliberto 1=Demonstrate adherence to instructed precautions during ADL tasks. 2=Patient will verbalize/demonstrate understanding of assistive devices/modifications for ADL. 3=Patient will improve strength/tolerance for activity to enable patient to perform ADL's. OT Education/Plan Problem List/Assessment Assessment: Decreased Activ Tolerance Discharge Recommendations Plan/Recommendations: Continue POC Treatment Plan/Plan of Care Patient would benefit from OT for education, treatment and training to promote independence in ADL's, mobility, safety and/or upper extremity function for ADL's. Plan of Care: ADL Retraining, Functional Mobility, Group Exercise/Act as Ind, UE Funct Exercise/Act Treatment Duration: Aug 17, 2022 Frequency: 3 times per week Estimated Hrs Per Day: .25 hour per day Rehab Potential: Fair Time Start Time: 10:45 Stop Time: 10:53 DATE: Aug 11, 2022 Total Time Billed (hr/min): 8 Billed Treatment Time 1 visit-FA 1 (8 min) REGINE RAHMAN Aug 11, 2022 10:56
[2022-08-11 11:24] VITALS: BP 110/60
[2022-08-11 13:08] VITALS: BP 110/60
--- NOTE | 2022-08-11 13:36 | Discharge Summary ---
Discharge Summary Hospital Course Problems/Dx: (1) Sepsis due to pneumonia Status: Acute (2) Influenza A Status: Acute (3) Acute respiratory failure with hypoxia Status: Acute (4) GROVES (nonalcoholic steatohepatitis) Status: Chronic (5) Cirrhosis Status: Chronic Qualifiers: Qualified Codes: K74.60 - Unspecified cirrhosis of liver Hospital Course Date of Admission: Aug 09, 2022 at 23:31 Admission Diagnosis : Sepsis due to pneumonia and influenza A Family Physician/Provider: Chris Nolan MD Date of Discharge: 08/11/22 Discharge Diagnosis: Sepsis due to pneumonia and influenza A Hospital Course: Jovanna Medina is a 66 year old female with PMH GROVES cirrhosis who was admitted with sepsis due to pneumonia and influenza A. She was treated with IV antibiotics and Tamiflu. She was initially requiring supplemental oxygen, but had no requirement at the time of discharge. She improved significantly and was discharged home in stable condition. She will complete a course of Augmentin and Tamiflu. She should follow up with her primary care physician in about a week. Labs and Pending Lab Test: Laboratory Tests 08/11/22 05:15: White Blood Count 3.8L, Red Blood Count 3.33L, Hemoglobin 8.8L, Hematocrit 26L, Mean Corpuscular Volume 78L, Mean Corpuscular Hemoglobin 26, Mean Corpuscular Hemoglobin Concent 34, Red Cell Distribution Width 17.4H, Platelet Count 97L, Mean Platelet Volume 11.2, Immature Granulocyte % (Auto) 1, Neutrophils (%) (Auto) 68, Lymphocytes (%) (Auto) 21, Monocytes (%) (Auto) 10, Eosinophils (%) (Auto) 0, Basophils (%) (Auto) 1, Neutrophils # (Auto) 2.6, Lymphocytes # (Auto) 0.8L, Monocytes # (Auto) 0.4, Eosinophils # (Auto) 0.0, Basophils # (Auto) 0.0, Immature Granulocyte # (Auto) 0.0, Percent Immature Platelet Fraction 4.6, Sodium Level 136, Potassium Level 3.6, Chloride Level 104, Carbon Dioxide Level 22, Anion Gap 10, Blood Urea Nitrogen 12, Creatinine 0.84, Estimat Glomerular Filtration Rate 77, BUN/Creatinine Ratio 14, Glucose Level 120H, Calcium Level 7.6L, Magnesium Level 2.0 Home Meds Active Amox Tr-K Clv 875-125 mg Tab (Amoxicillin/Potassium Clav) 875 Mg-125 Mg Tablet 1 Each PO BID 4 Days Tamiflu (Oseltamivir Phosphate) 30 Mg Capsule 30 Mg PO BID 4 Days Promethazine Suppository (Promethazine HCl) 25 Mg Supp.rect 25 Mg RC Q8H PRN Reported Folic Acid 1 Mg Tablet 1 Mg PO DAILY Vitamin B-6 (Pyridoxine HCl) 50 Mg Tablet 50 Mg PO DAILY Vitamin C (Ascorbate Calcium) 500 Mg Tablet 500 Mg PO DAILY Victoza 3-Wil (Liraglutide) 0.6 Mg/0.1 Ml (18 Mg/3 Ml) Pen.injctr 0.6 Ml SQ DAILY Euthyrox (Levothyroxine Sodium) 200 Mcg Tablet 200 Mcg PO DAILY Amitriptyline HCl 25 Mg Tablet 25 Mg PO HS Metoprolol Tartrate 25 Mg Tablet 25 Mg PO BID Isosorbide Mononitrate ER (Isosorbide Mononitrate) 30 Mg Tab.er.24h 30 Mg PO 1900 Furosemide 80 Mg Tablet 80 Mg PO DAILY Spironolactone 100 Mg Tablet 100 Mg PO DAILY Lumigan (Bimatoprost) 2.5 Ml Drops 1 Drops OU HS Vitamin B-12 (Cyanocobalamin (Vitamin B-12)) 500 Mcg Tablet 500 Mcg PO DAILY Trazodone HCl 150 Mg Tablet 150 Mg PO HS Imitrex (Sumatriptan Succinate) 100 Mg Tablet 100 Mg PO DAILY PRN Montelukast Sodium 10 Mg Tablet 10 Mg PO HS Symbicort 160-4.5 Mcg Inhaler (Budesonide/Formoterol Fumarate) 160 Mcg-4.5 Mcg/Actuation Hfa.aer.ad 2 Puff IH BID Atorvastatin Calcium 40 Mg Tablet 40 Mg PO HS Aspirin EC (Aspirin) 81 Mg Tablet.dr 81 Mg PO DAILY Albuterol Sulfate 2.5 Mg/0.5 Ml Vial.neb 2.5 Mg INH Q4H PRN Ventolin Hfa (Albuterol Sulfate) 90 Mcg Hfa.aer.ad 2 Puff IH Q6H PRN Nexium (Esomeprazole Magnesium) 40 Mg Cap 40 Mg PO DAILY Assessment/Pt Instructions See instructions Discharge Planning: >30 minutes discharge planning Discharge Instructions Discharge Diet: Low Sodium Diet Activity as Tolerated: Yes Discharge Physical Examination Vital Signs Vital Signs Date Time Temp Pulse Resp B/P (MAP) Pulse Ox O2 Delivery O2 Flow Rate FiO2 08/11/22 13:08 36.4 60 18 110/60 94 Room Air 08/11/22 09:39 0.00 08/10/22 00:40 28 General Appearance: No Apparent Distress, WD/WN Respiratory: Lungs Clear, No Respiratory Distress Cardiovascular: Regular Rate, Rhythm, No Murmur Gastrointestinal: Normal Bowel Sounds, Soft Extremity: Normal Inspection, No Pedal Edema Skin: Normal Color, Warm/Dry Neurologic/Psychiatric: Alert, Normal Mood/Affect Allergies: Coded Allergies: Sulfa (Sulfonamide Antibiotics) (Unverified Allergy, HIVES, 09/18/13) codeine (Unverified Allergy, HIVES, 09/18/13) exenatide (Unverified Allergy, HIVES, 09/18/13) Uncoded Allergies: IV CONTRAST DYE (Allergy, HIVES, 09/18/13) Discharge Summary Date of Admission Aug 09, 2022 at 23:31 Date of Discharge Aug 11, 2022 at 13:13 Discharge Date: Aug 11, 2022 Discharge Time: 1600 Admission Diagnosis Sepsis due to pneumonia Discharge Diagnosis Sepsis due to pneumonia Influenza A Acute respiratory failure with hypoxia GROVES cirrhosis HTN COPD History of CVA GERD Anemia (1) Sepsis due to pneumonia Status: Acute (2) Influenza A Status: Acute (3) Acute respiratory failure with hypoxia Status: Acute (4) GROVES (nonalcoholic steatohepatitis) Status: Chronic (5) Cirrhosis Status: Chronic Qualifiers: Qualified Codes: K74.60 - Unspecified cirrhosis of liver EMILIA VARGAS MD Aug 11, 2022 13:36
== END 2022-08-11 13:13 | disposition home or self-care (01) | DRG 871 ==
LOC: 4TH 23:31
PROVIDERS: ADMIT Internal Medicine; ATTEND Internal Medicine
DX: A41.89 Other specified sepsis (principal); J10.00 Influenza due to other identified influenza virus with unspecified type of pneumonia; J96.01 Acute respiratory failure with hypoxia; J44.0 Chronic obstructive pulmonary disease with (acute) lower respiratory infection; K75.81 Nonalcoholic steatohepatitis (NASH); I10 Essential (primary) hypertension; K21.9 Gastro-esophageal reflux disease without esophagitis; D64.9 Anemia, unspecified; G47.30 Sleep apnea, unspecified; M19.91 Primary osteoarthritis, unspecified site; E03.9 Hypothyroidism, unspecified; F41.9 Anxiety disorder, unspecified; F32.A Depression, unspecified; H54.7 Unspecified visual loss; Z87.891 Personal history of nicotine dependence; Z86.73 Personal history of transient ischemic attack (TIA), and cerebral infarction without residual deficits; Z82.49 Family history of ischemic heart disease and other diseases of the circulatory system; Z88.5 Allergy status to narcotic agent; Z88.2 Allergy status to sulfonamides; Z88.8 Allergy status to other drugs, medicaments and biological substances; Z91.041 Radiographic dye allergy status
CPT/HCPCS: 36415; 71045; 80048; 83735; 84145; 85025; 94640; 94664; 94760; 94761